=== PATIENT | female | born 1935 | race Caucasian/White ===

== ENCOUNTER → 2018-11-08 10:34 | Outpatient (CLI) | payer MEDICARE, OTHER, MEDICAID, SELFPAY ==
--- NOTE | 2018-11-08 | DI.RAD.S_ITS ---
PROCEDURE: XR CHEST 2V INDICATIONS: COUGH TECHNIQUE: 2 views of the chest were acquired. COMPARISON: [facility], CR, CHEST 1VW, 03/23/2014, 11:29. [facility], CR, CHEST 1 VIEW, 12/17/2011, 10:40. FINDINGS: Surgical changes and devices: Sternotomy wires and cardiac valvular prosthesis as before. Lungs and pleura: No acute consolidation. Scattered subsegmental atelectasis and/or scarring. Increased diffuse hazy groundglass and ill-defined opacities in addition to suspected Perez B-lines projecting in the right lung base, in keeping with pulmonary edema. Possible trace bilateral effusions. No pneumothorax. Mediastinum: Mediastinal contours are normal. Heart size is enlarged as before. Bones and chest wall: No suspicious bony abnormalities. Soft tissues appear unremarkable. IMPRESSION: Findings suggest pulmonary edema. Please correlate clinically. If there is persistent clinical diagnostic uncertainty, continued surveillance with short interval chest radiographs after treatment is recommended. Cardiomegaly. Possible trace bilateral pleural effusions Dictated by: Eyal Gabriel M.D. on 11/08/2018 at 12:03 Approved by: Eyal Gabriel M.D. on 11/08/2018 at 12:06
== END ==
PROVIDERS: PCP Physician Assistant; Visit Provider Student in an Organized Health Care Education/Training Program
DX: R05 Cough (principal); I51.7 Cardiomegaly
CPT/HCPCS: 71046

== ENCOUNTER 2018-12-15 21:06 | Inpatient (IN) | payer MEDICARE, OTHER, MEDICAID, SELFPAY ==
[2018-12-15] VITALS (11 sets, daily range): BP systolic 84–109; BP diastolic 47–82; PULSE 28–146; RESP 10–32; TEMP 32–36; O2SAT 93–100
--- NOTE | 2018-12-15 21:10 | DI.RAD.S_ITS ---
PROCEDURE: XR CHEST 1V INDICATIONS: shortmess of breath TECHNIQUE: One view of the chest was acquired. COMPARISON: [facility], CR, XR CHEST 2V, 11/08/2018, 10:45. FINDINGS: Surgical changes and devices: Remote valve are interstitial pulmonary edema. No focal pulmonary infiltrate. replacement Lungs and pleura: Lungs are clear. No pleural effusions or pneumothorax. Mediastinum: Cardiomegaly is stable. Bones and chest wall: No suspicious bony lesions. Overlying soft tissues appear unremarkable. IMPRESSION: Congestive heart failure. Dictated by: Scott Ruano M.D. on 12/15/2018 at 21:18 Approved by: Scott Ruano M.D. on 12/15/2018 at 21:19
[2018-12-15] MEDS: NITROGLYCERIN 0.4 MG SL TAB SL (21:18)
[2018-12-15] MEDS: FUROSEMIDE 100 MG/10 ML VIAL 60 MG IV (21:19)
--- NOTE | 2018-12-15 21:30 | ED.SOB ---
HPI - SOB/Dyspnea General Chief Complaint: Shortness of Breath/Dyspnea Stated Complaint: SOB Time Seen by Provider: 12/15/18 21:09 Source: patient and EMS Limitations: no limitations History of Present Illness Patient is an 83-year-old female with history of atrial fibrillation and congestive heart failure presenting with sudden onset shortness of breath. She said she was fine yesterday and this morning and suddenly this evening she felt like she could not breathe. She is in obvious respiratory distress she adamantly refuses intubation but is agreeable to BiPAP. She understands what that is. Denies any fever. She has no chest pains she just feels like she cannot breathe. Patient has a history of CVA with left-sided hemiparesis gets around by wheelchair MD Complaint: shortness of breath Onset (ago): hour(s) Known history of: congestive heart failure Related Data Home Medications Medication Instructions Recorded Confirmed CA PANTOTHENATE/FOLIC ACID/VIT 1 tab PO QDAY #0 12/17/11 (MULTIVITAMIN) Calcium Carbonate/Vitamin D 1 cap PO Q DAY #0 12/17/11 (#CALCIUM) Coenzyme Q10 (#COQ(10)10) 10 mg PO BID #0 12/17/11 FLAXSEED (FLAXSEED MEAL) 1 pow NA QDAY #0 12/17/11 Fish Oil (#FISH OIL) 1 iu PO BID #0 12/17/11 MAGNESIUM (#ELITE MAGNESIUM) 1 tab PO Q DAY #0 12/17/11 [DRIBOSE] 3 cap TID #0 12/17/11 amlodipine [Norvasc] 2.5 mg PO QDAY #0 12/17/11 aspirin 81 mg PO QDAY #0 12/17/11 hydrochlorothiazide 12.5 mg PO QDAY #0 12/17/11 metoprolol tartrate 100 mg PO BID #0 12/17/11 thyroid (pork) [[place] Thyroid] 30 mg PO QDAY #0 12/17/11 furosemide 20 mg PO DAILY 12/15/18 12/15/18 gabapentin 600 mg PO BEDTIME 12/15/18 12/15/18 hydralazine 25 mg PO TID 12/15/18 12/15/18 levothyroxine 100 mcg PO DAILY 12/15/18 12/15/18 losartan 100 mg PO DAILY 12/15/18 12/15/18 pravastatin 40 mg PO DAILY 12/15/18 12/15/18 tamsulosin 0.4 mg PO DAILY 12/15/18 12/15/18 Allergies Allergy/AdvReac Type Severity Reaction Status Date / Time No Known Drug Allergies Allergy Verified 12/15/18 21:31 Review of Systems Review of Systems ROS Unobtainable: All systems reviewed & are unremarkable except as noted in HPI and below Constitutional Denies frequent falls ENT Ears, Nose, Mouth, and Throat: Denies dizziness Cardiovascular Reports irregular heart rhythm and Reports dyspnea Respiratory Reports as per HPI and Reports dyspnea Gastrointestinal Gastrointestinal: Denies abdominal pain, Denies change in bowel habits, Denies diarrhea, Denies nausea and Denies vomiting Musculoskeletal Denies numbness Integumentary/Breasts Denies pruritus, Denies erythema, Denies rash and Denies wounds Neurologic Denies behavioral changes, Denies confusion, Denies dizziness, Denies frequent falls and Denies numbness Psychiatric Denies behavioral changes and Denies confusion [facility] Medical History Atrial fibrillation (Acute) CHF (congestive heart failure) (Acute) CVA (cerebral vascular accident) (Acute) Hyperlipidemia (Acute) Hypertension (Acute) Hypothyroid (Acute) Exam Initial Vital Signs Initial Vital Signs: Vital Signs Temperature 96.8 F L 12/15/18 21:11 Pulse Rate 146 H 12/15/18 21:11 Respiratory Rate 32 H 12/15/18 21:11 Gen.: Alert elderly female HEENT: Head is atraumatic, EOMI Neck: Soft full range of motion Lungs: Acute respiratory distress speaks in 1-2 word sentences audible wheezing Cardiac: Tachycardic regular no murmur Abdomen: Soft nontender, no guarding no rebound Extremities: +1 pitting edema peripheral pulses intact though difficult due to Raynaud Neurologic: Alert oriented times 3, left-sided weakness old from previous stroke Course Orders Ordered: ED Orders 12/15/18 21:10 Consult to Respiratory Therapy Evaluate & Treat XR chest 1V Stat Blood Culture Stat Lactate (Lactic Acid) Stat EKG-12 Lead Stat 12/15/18 21:15 B Type Natriuretic Peptide Stat Complete Blood Count AUTO DIFF Stat Comprehensive Metabolic Panel Stat Magnesium Stat Partial Thromboplastin Time Stat Procalcitonin Stat Prothrombin Time INR Stat Troponin & CK Cardiac Panel Stat 12/15/18 21:54 Urinalysis and Microscopic Stat 12/15/18 22:17 Arterial Blood Gas Routine 12/15/18 22:32 CT angio chest PE protocol Stat Discontinued Medications Digoxin (Lanoxin) 250 mcg IV NOW ONE Stop: 12/15/18 22:47 Last Admin: 12/15/18 23:25 Dose: 250 mcg Diltiazem HCl (Cardizem) 10 mg IV NOW ONE Stop: 12/15/18 22:44 Last Admin: 12/15/18 22:57 Dose: Not Given Furosemide (Lasix) 60 mg IV NOW ONE Stop: 12/15/18 21:11 Last Admin: 12/15/18 21:19 Dose: 60 mg Lorazepam (Ativan) 0.5 mg IV NOW ONE Stop: 12/15/18 22:32 Last Admin: 12/15/18 22:36 Dose: 0.5 mg Metoprolol Tartrate (Lopressor) 5 mg IV NOW ONE Stop: 12/15/18 21:34 Last Admin: 12/15/18 21:45 Dose: 5 mg Metoprolol Tartrate (Lopressor) 2.5 mg IV NOW ONE Stop: 12/15/18 22:28 Last Admin: 12/15/18 22:29 Dose: 2.5 mg Metoprolol Tartrate (Lopressor) 2.5 mg IV NOW ONE Stop: 12/15/18 22:32 Last Admin: 12/15/18 22:57 Dose: Not Given Nitroglycerin (Nitrostat) 0.4 mg SL NOW ONE Stop: 12/15/18 21:11 Last Admin: 12/15/18 21:18 Dose: 0.4 mg Vital Signs - 8 hr 12/15/18 21:11 12/15/18 21:59 12/15/18 22:30 Temperature 96.8 F L Pulse Rate 146 H 145 H 144 H Respiratory Rate 32 H 27 H 26 H Blood Pressure 106/75 Blood Pressure [Left Arm] 108/80 109/78 Pulse Oximetry 97 97 12/15/18 22:55 12/15/18 23:25 12/15/18 23:46 Temperature Pulse Rate 144 H 140 H 139 H Respiratory Rate 13 14 Blood Pressure 92/69 Blood Pressure [Left Arm] 90/64 102/82 Pulse Oximetry 98 93 MDM - SOB/Dyspnea Lab Data Attestation: I reviewed the patient's lab results. Result diagrams: 12/15/18 21:15 12/15/18 21:15 Lab Results 12/15/18 12/15/18 12/15/18 Range/Units 21:15 21:15 21:15 WBC 7.4 (4.5-11.0) X10^3/uL RBC 3.51 L (4.0-5.2) X10^6/uL Hgb 12.4 (12.0-16.0) g/dL Hct 38.2 (36-46) % MCV 108.9 H (80-100) fL MCH 35.2 H (26-34) PG MCHC 32.4 (30-36) % RDW 14.8 (11.6-14.8) % Plt Count 235 (150-400) X10^3/uL Neut % (Auto) 62.5 (50-75) % Lymph % (Auto) 29.0 (25-40) % [facility] % (Auto) 5.2 (3-14) % Eos % (Auto) 3.1 (2-4) % Baso % (Auto) 0.2 (0-2) % Neut # (Auto) 4700 (8527-6733) /uL Lymph # (Auto) 2200 (8854-3658) /uL [facility] # (Auto) 400 (0-900) /uL Eos # (Auto) 200 (0-450) /uL Baso # (Auto) 0 (0-100) /uL Plt Morphology Comment . RBC Morphology Normal morphology PT 11.1 (10.1-12.7) SECONDS INR 1.0 (0.9-1.3) APTT 25 L (26.4-36.2) SECONDS ABG pH (7.35-7.45) ABG pCO2 (35-45) mmHg ABG pO2 (80-100) mmHg ABG HCO3 (22-26) mmol/L ABG Total CO2 (21-31) mmol/L ABG O2 Saturation (95-100) % ABG Base Excess (-2-2) mmol/L FiO2 Sodium 139 (137-145) mmol/L Potassium 4.6 (3.4-5.1) mmol/L Chloride 101 (98-107) mmol/L Carbon Dioxide 25 (22-32) mmol/L BUN 20 H (7-17) mg/dL Creatinine 0.90 (0.52-1.04) mg/dL Estimated GFR 59.9 L (>60) mL/min BUN/Creatinine Ratio 22.2 H (6-22) Glucose 142 H (80-110) mg/dL Calcium 9.5 (8.4-10.2) mg/dL Magnesium 2.2 (1.6-2.3) mg/dL Total Bilirubin 1.6 H (0.2-1.3) mg/dL AST 40 H (14-36) IU/L ALT 30 (9-52) IU/L Alkaline Phosphatase 46 (38-126) U/L Total Creatine Kinase 49 (30-135) U/L CK-MB (CK-2) TNP CK-MB (CK-2) Rel Index TNP Troponin I < 0.012 (0.01-0.034) ng/mL B-Natriuretic Peptide 357 H (<100) Total Protein 7.6 (6.3-8.2) g/dL Albumin 4.6 (3.5-5.0) g/dL Globulin 3.0 (1.7-4.1) g/dL Albumin/Globulin Ratio 1.5 (1.0-2.8) Procalcitonin (<0.5) ng/mL Urine Color Urine Appearance Urine pH (4.5-8.0) Ur Specific [place] (1.000-1.035) Urine Protein (Negative) Urine Glucose (UA) (Negative) g/dL Urine Ketones (NEGATIVE) Urine Occult Blood (Negative) Urine Nitrate (Negative) Urine Bilirubin (NEGATIVE) Urine Urobilinogen (0.2) E.U./dL Ur Leukocyte Esterase (NEGATIVE) Urine RBC (0-5/HPF) Urine WBC (0-5/HPF) Urine Bacteria (None) Ur Culture Indicated? Micro UA Comment 12/15/18 12/15/18 12/15/18 Range/Units 21:15 21:54 22:17 WBC (4.5-11.0) X10^3/uL RBC (4.0-5.2) X10^6/uL Hgb (12.0-16.0) g/dL Hct (36-46) % MCV (80-100) fL MCH (26-34) PG MCHC (30-36) % RDW (11.6-14.8) % Plt Count (150-400) X10^3/uL Neut % (Auto) (50-75) % Lymph % (Auto) (25-40) % [facility] % (Auto) (3-14) % Eos % (Auto) (2-4) % Baso % (Auto) (0-2) % Neut # (Auto) (2861-9312) /uL Lymph # (Auto) (7113-4302) /uL [facility] # (Auto) (0-900) /uL Eos # (Auto) (0-450) /uL Baso # (Auto) (0-100) /uL Plt Morphology Comment RBC Morphology PT (10.1-12.7) SECONDS INR (0.9-1.3) APTT (26.4-36.2) SECONDS ABG pH 7.41 (7.35-7.45) ABG pCO2 36.3 (35-45) mmHg ABG pO2 135 H (80-100) mmHg ABG HCO3 23 (22-26) mmol/L ABG Total CO2 24 (21-31) mmol/L ABG O2 Saturation 99 (95-100) % ABG Base Excess -2.0 (-2-2) mmol/L FiO2 40 Sodium (137-145) mmol/L Potassium (3.4-5.1) mmol/L Chloride (98-107) mmol/L Carbon Dioxide (22-32) mmol/L BUN (7-17) mg/dL Creatinine (0.52-1.04) mg/dL Estimated GFR (>60) mL/min BUN/Creatinine Ratio (6-22) Glucose (80-110) mg/dL Calcium (8.4-10.2) mg/dL Magnesium (1.6-2.3) mg/dL Total Bilirubin (0.2-1.3) mg/dL AST (14-36) IU/L ALT (9-52) IU/L Alkaline Phosphatase (38-126) U/L Total Creatine Kinase (30-135) U/L CK-MB (CK-2) CK-MB (CK-2) Rel Index Troponin I (0.01-0.034) ng/mL B-Natriuretic Peptide (<100) Total Protein (6.3-8.2) g/dL Albumin (3.5-5.0) g/dL Globulin (1.7-4.1) g/dL Albumin/Globulin Ratio (1.0-2.8) Procalcitonin < 0.05 (<0.5) ng/mL Urine Color Yellow Urine Appearance Clear Urine pH 6.5 (4.5-8.0) Ur Specific [place] 1.010 (1.000-1.035) Urine Protein Negative (Negative) Urine Glucose (UA) Negative (Negative) g/dL Urine Ketones Negative (NEGATIVE) Urine Occult Blood Negative (Negative) Urine Nitrate Negative (Negative) Urine Bilirubin Negative (NEGATIVE) Urine Urobilinogen 0.2 (0.2) E.U./dL Ur Leukocyte Esterase Negative (NEGATIVE) Urine RBC None seen (0-5/HPF) Urine WBC None seen (0-5/HPF) Urine Bacteria None seen (None) Ur Culture Indicated? Cult not indicated Micro UA Comment Microscopic normal Imaging Data Chest x-ray: Radiologist's impression: PROCEDURE: XR CHEST 1V INDICATIONS: shortmess of breath TECHNIQUE: One view of the chest was acquired. COMPARISON: [facility], , XR CHEST 2V, 11/08/2018, 10:45. FINDINGS: Surgical changes and devices: Remote valve are interstitial pulmonary edema. No focal pulmonary infiltrate. replacement Lungs and pleura: Lungs are clear. No pleural effusions or pneumothorax. Mediastinum: Cardiomegaly is stable. Bones and chest wall: No suspicious bony lesions. Overlying soft tissues appear unremarkable. IMPRESSION: Congestive heart failure. Dictated by: Scott Ruano M.D. on 12/15/[address] scan - chest: Radiologist's impression: oreman report: No evidence for pulmonary embolus. Probable acute pulmonary edema with bilateral pleural effusions. 1.8 cm medial right middle lobe nodule question mass or pericardial node. Short-term follow-up chest CT or PET imaging may be necessary ECG Data Attestation: I personally reviewed and interpreted this ECG as follows: Prior ECG tracings: available for review Interpretation: Wide complex irregular left bundle-branch block rate 150. MDM Narrative Medical decision making narrative: The patient was immediately given sublingual nitroglycerin and 60 mg of Lasix. She was placed on BiPAP. She did not want to be intubated. She is tolerating BiPAP even talking through BiPAP to her friends and to us. Heart rate remains elevated at 150 she is on metoprolol for atrial fibrillation. Due to likely acute congestive heart failure will not give her Cardizem. Tried 5 mg of IV Lopressor. Initially brought her heart rate down to the 120s where it clearly look like atrial fibrillation, irregular. However her pressure did decrease in her heart rate quickly began rising again. She was given a 2nd dose of 2.5 mg Lopressor which did not change her heart rate much and continue to decrease her blood pressure. Patient is not a candidate for cardioversion she has already had a CVA she is not on anticoagulation. Decision to give digoxin she is given 250mcg, heart rate decreased to 139 blood pressure actually rising. She urinated 900 mL ABG actually looks okay, O2 was decreased from 40% to 35% Decision for CT to rule out PE. I have spoken to the son multiple times [id number] . At this time he states patient would like CPR but she does not want intubation. Pritesh hospitalist, accepts. patient will be going to ICU Critical Care Time Critical Care Time: Yes Total Critical Care Time: 60 Attestation: The high probability of a clinically significant, sudden or life threatening deterioration of the [cardiovascular] system(s) required my full and direct attention, intervention and personal management. The aggregate critical care time was 60 minutes. This time is in addition to time spent performing reported procedures but includes the following: [x] Data Review and interpretation [x] Patient assessment and monitoring of vital signs [x] Documentation [x] Medication orders and management
--- NOTE | 2018-12-15 21:30 | PC.NURSE ---
Pt refuses further lab draw or IV placement despite discussion, MD Ortiz notified
[2018-12-15 21:31] LABS: Basophils Absolute Auto 0 /uL (0-100); Basophils Percent Auto 0.2 % (0-2); Eosinophils Absolute Auto 200 /uL (0-450); Eosinophils Percent Auto 3.1 % (2-4); Hematocrit 38.2 % (36-46); Hemoglobin 12.4 g/dL (12.0-16.0); Lymphocytes Absolute Auto 2200 /uL (1100-4500); Mean Corpuscular HGB Conc 32.4 % (30-36); Mean Corpuscular Hemoglobin 35.2 PG (26-34); Mean Corpuscular Volume 108.9 fL (80-100); Monocytes Absolute Auto 400 /uL (0-900); Monocytes Percent Auto 5.2 % (3-14); Neutrophils Absolute Auto 4700 /uL (1500-7000); Neutrophils Percent Auto 62.5 % (50-75); Platelet Count 235 X10^3/uL (150-400); Red Blood Cell Count 3.51 X10^6/uL (4.0-5.2); Red Cell Distribution Width 14.8 % (11.6-14.8); White Blood Cell Count 7.4 X10^3/uL (4.5-11.0)
[2018-12-15 21:32] LABS: Prothrombin Time 11.1 SECONDS (10.1-12.7)
[2018-12-15 21:34] LABS: Add Manual Diff / Slide Review SLIDE REVIEW
[2018-12-15 21:35] LABS: PTT Partial Thromboplastin Tim 25 SECONDS (26.4-36.2)
[2018-12-15 21:37] LABS: Alanine Aminotransferase 30 IU/L (9-52); Albumin 4.6 g/dL (3.5-5.0); Albumin Globulin Ratio 1.5 (1.0-2.8); Alkaline Phosphatase 46 U/L (38-126); Aspartate Aminotransferase 40 IU/L (14-36); BUN Creatinine Ratio 22.2 (6-22); Bilirubin Total 1.6 mg/dL (0.2-1.3); Blood Urea Nitrogen 20 mg/dL (7-17); Calcium 9.5 mg/dL (8.4-10.2); Carbon Dioxide 25 mmol/L (22-32); Chloride 101 mmol/L (98-107); Creatine Kinase 49 U/L (30-135); Estimated Glomerular Filt Rate 59.9 mL/min (>60); Glucose 142 mg/dL (80-110); Magnesium 2.2 mg/dL (1.6-2.3); Potassium 4.6 mmol/L (3.4-5.1); Sodium 139 mmol/L (137-145); Total Protein 7.6 g/dL (6.3-8.2)
[2018-12-15 21:39] LABS: HEMOLYSIS 56 (0-50)
[2018-12-15] MEDS: METOPROLOL TARTRATE 5 MG/5 ML INJ IV (21:45)
[2018-12-15 21:49] LABS: Troponin I < 0.012 ng/mL (0.01-0.034)
[2018-12-15 21:52] LABS: Procalcitonin < 0.05 ng/mL (<0.5)
--- NOTE | 2018-12-15 21:54 | ED_ITS ---
HPI - SOB/Dyspnea General Chief Complaint: Shortness of Breath/Dyspnea Stated Complaint: SOB Time Seen by Provider: 12/15/18 21:09 Source: patient and EMS Limitations: no limitations History of Present Illness Patient is an 83-year-old female with history of atrial fibrillation and congestive heart failure presenting with sudden onset shortness of breath. She said she was fine yesterday and this morning and suddenly this evening she felt like she could not breathe. She is in obvious respiratory distress she adamantly refuses intubation but is agreeable to BiPAP. She understands what that is. Denies any fever. She has no chest pains she just feels like she cannot breathe. Patient has a history of CVA with left-sided hemiparesis gets around by jhon air KWAN Complaint: shortness of breath Onset (ago): hour(s) Known history of: congestive heart failure Related Data Home Medications Medication Instructions Recorded Confirmed CA PANTOTHENATE/FOLIC ACID/VIT 1 tab PO QDAY #0 12/17/11 (MULTIVITAMIN) Calcium Carbonate/Vitamin D 1 cap PO Q DAY #0 12/17/11 (#CALCIUM) Coenzyme Q10 (#COQ(1010) 10 mg PO BID #0 12/17/11 FLAXSEED (FLAXSEED MEAL) 1 pow NA QDAY #0 12/17/11 Fish Oil (#FISH OIL) 1 iu PO BID #0 12/17/11 MAGNESIUM (#ELITE MAGNESIUM) 1 tab PO Q DAY #0 12/17/11 [DRIBOSE] 3 cap TID #0 12/17/11 amlodipine [Norvasc] 2.5 mg PO QDAY #0 12/17/11 aspirin 81 mg PO QDAY #0 12/17/11 hydrochlorothiazide 12.5 mg PO QDAY #0 12/17/11 metoprolol tartrate 100 mg PO BID #0 12/17/11 thyroid (pork) [[place] Thyroid] 30 mg PO QDAY #0 12/17/11 furosemide 20 mg PO DAILY 12/15/18 12/15/18 gabapentin 600 mg PO BEDTIME 12/15/18 12/15/18 hydralazine 25 mg PO TID 12/15/18 12/15/18 levothyroxine 100 mcg PO DAILY 12/15/18 12/15/18 losartan 100 mg PO DAILY 12/15/18 12/15/18 pravastatin 40 mg PO DAILY 12/15/18 12/15/18 tamsulosin 0.4 mg PO DAILY 12/15/18 12/15/18 Allergies Allergy/AdvReac Type Severity Reaction Status Date / Time No Known Drug Allergies Allergy Verified 12/15/18 21:31 Review of Systems Review of Systems ROS Unobtainable: All systems reviewed & are unremarkable except as noted in HPI and below Constitutional Denies frequent falls ENT Ears, Nose, Mouth, and Throat: Denies dizziness Cardiovascular Reports irregular heart rhythm and Reports dyspnea Respiratory Reports as per HPI and Reports dyspnea Gastrointestinal Gastrointestinal: Denies abdominal pain, Denies change in bowel habits, Denies diarrhea, Denies nausea and Denies vomiting Musculoskeletal Denies numbness Integumentary/Breasts Denies pruritus, Denies erythema, Denies rash and Denies wounds Neurologic Denies behavioral changes, Denies confusion, Denies dizziness, Denies frequent falls and Denies numbness Psychiatric Denies behavioral changes and Denies confusion [facility] Medical History Atrial fibrillation (Acute) CHF (congestive heart failure) (Acute) CVA (cerebral vascular accident) (Acute) Hyperlipidemia (Acute) Hypertension (Acute) Hypothyroid (Acute) Exam Initial Vital Signs Initial Vital Signs: Vital Signs Temperature 96.8 F L 12/15/18 21:11 Pulse Rate 146 H 12/15/18 21:11 Respiratory Rate 32 H 12/15/18 21:11 Gen.: Alert elderly female HEENT: Head is atraumatic, EOMI Neck: Soft full range of motion Lungs: Acute respiratory distress speaks in 1-2 word sentences audible wheezing Cardiac: Tachycardic regular no murmur Abdomen: Soft nontender, no guarding no rebound Extremities: +1 pitting edema peripheral pulses intact though difficult due to Raynaud Neurologic: Alert oriented times 3, left-sided weakness old from previous stroke Course Orders Ordered: ED Orders 12/15/18 21:10 Consult to Respiratory Therapy Evaluate & Treat XR chest 1V Stat Blood Culture Stat Lactate (Lactic Acid) Stat EKG-12 Lead Stat 12/15/18 21:15 B Type Natriuretic Peptide Stat Complete Blood Count AUTO DIFF Stat Comprehensive Metabolic Panel Stat Magnesium Stat Partial Thromboplastin Time Stat Procalcitonin Stat Prothrombin Time INR Stat Troponin & CK Cardiac Panel Stat 12/15/18 21:54 Urinalysis and Microscopic Stat 12/15/18 22:17 Arterial Blood Gas Routine 12/15/18 22:32 CT angio chest PE protocol Stat Discontinued Medications Digoxin (Lanoxin) 250 mcg IV NOW ONE Stop: 12/15/18 22:47 Last Admin: 12/15/18 23:25 Dose: 250 mcg Diltiazem HCl (Cardizem) 10 mg IV NOW ONE Stop: 12/15/18 22:44 Last Admin: 12/15/18 22:57 Dose: Not Given Furosemide (Lasix) 60 mg IV NOW ONE Stop: 12/15/18 21:11 Last Admin: 12/15/18 21:19 Dose: 60 mg Lorazepam (Ativan) 0.5 mg IV NOW ONE Stop: 12/15/18 22:32 Last Admin: 12/15/18 22:36 Dose: 0.5 mg Metoprolol Tartrate (Lopressor) 5 mg IV NOW ONE Stop: 12/15/18 21:34 Last Admin: 12/15/18 21:45 Dose: 5 mg Metoprolol Tartrate (Lopressor) 2.5 mg IV NOW ONE Stop: 12/15/18 22:28 Last Admin: 12/15/18 22:29 Dose: 2.5 mg Metoprolol Tartrate (Lopressor) 2.5 mg IV NOW ONE Stop: 12/15/18 22:32 Last Admin: 12/15/18 22:57 Dose: Not Given Nitroglycerin (Nitrostat) 0.4 mg SL NOW ONE Stop: 12/15/18 21:11 Last Admin: 12/15/18 21:18 Dose: 0.4 mg Vital Signs - 8 hr 12/15/18 21:11 12/15/18 21:59 12/15/18 22:30 Temperature 96.8 F L Pulse Rate 146 H 145 H 144 H Respiratory Rate 32 H 27 H 26 H Blood Pressure 106/75 Blood Pressure [Left Arm] 108/80 109/78 Pulse Oximetry 97 97 12/15/18 22:55 12/15/18 23:25 12/15/18 23:46 Temperature Pulse Rate 144 H 140 H 139 H Respiratory Rate 13 14 Blood Pressure 92/69 Blood Pressure [Left Arm] 90/64 102/82 Pulse Oximetry 98 93 MDM - SOB/Dyspnea Lab Data Attestation: I reviewed the patient's lab results. Result diagrams: 12/15/18 21:15 12/15/18 21:15 Lab Results 12/15/18 12/15/18 12/15/18 Range/Units 21:15 21:15 21:15 WBC 7.4 (4.5-11.0) X10^3/uL RBC 3.51 L (4.0-5.2) X10^6/uL Hgb 12.4 (12.0-16.0) g/dL Hct 38.2 (36-46) % MCV 108.9 H (80-100) fL MCH 35.2 H (26-34) PG MCHC 32.4 (30-36) % RDW 14.8 (11.6-14.8) % Plt Count 235 (150-400) X10^3/uL Neut % (Auto) 62.5 (50-75) % Lymph % (Auto) 29.0 (25-40) % [place] % (Auto) 5.2 (3-14) % Eos % (Auto) 3.1 (2-4) % Baso % (Auto) 0.2 (0-2) % Neut # (Auto) 4700 (3799-9551) /uL Lymph # (Auto) 2200 (7431-9367) /uL [place] # (Auto) 400 (0-900) /uL Eos # (Auto) 200 (0-450) /uL Baso # (Auto) 0 (0-100) /uL Plt Morphology Comment . RBC Morphology Normal morphology PT 11.1 (10.1-12.7) SECONDS INR 1.0 (0.9-1.3) APTT 25 L (26.4-36.2) SECONDS ABG pH (7.35-7.45) ABG pCO2 (35-45) mmHg ABG pO2 (80-100) mmHg ABG HCO3 (22-26) mmol/L ABG Total CO2 (21-31) mmol/L ABG O2 Saturation (95-100) % ABG Base Excess (-2-2) mmol/L FiO2 Sodium 139 (137-145) mmol/L Potassium 4.6 (3.4-5.1) mmol/L Chloride 101 (98-107) mmol/L Carbon Dioxide 25 (22-32) mmol/L BUN 20 H (7-17) mg/dL Creatinine 0.90 (0.52-1.04) mg/dL Estimated GFR 59.9 L (>60) mL/min BUN/Creatinine Ratio 22.2 H (6-22) Glucose 142 H (80-110) mg/dL Calcium 9.5 (8.4-10.2) mg/dL Magnesium 2.2 (1.6-2.3) mg/dL Total Bilirubin 1.6 H (0.2-1.3) mg/dL AST 40 H (14-36) IU/L ALT 30 (9-52) IU/L Alkaline Phosphatase 46 (38-126) U/L Total Creatine Kinase 49 (30-135) U/L CK-MB (CK-2) TNP CK-MB (CK-2) Rel Index TNP Troponin I < 0.012 (0.01-0.034) ng/mL B-Natriuretic Peptide 357 H (<100) Total Protein 7.6 (6.3-8.2) g/dL Albumin 4.6 (3.5-5.0) g/dL Globulin 3.0 (1.7-4.1) g/dL Albumin/Globulin Ratio 1.5 (1.0-2.8) Procalcitonin (<0.5) ng/mL Urine Color Urine Appearance Urine pH (4.5-8.0) Ur Specific [place] (1.000-1.035) Urine Protein (Negative) Urine Glucose (UA) (Negative) g/dL Urine Ketones (NEGATIVE) Urine Occult Blood (Negative) Urine Nitrate (Negative) Urine Bilirubin (NEGATIVE) Urine Urobilinogen (0.2) E.U./dL Ur Leukocyte Esterase (NEGATIVE) Urine RBC (0-5/HPF) Urine WBC (0-5/HPF) Urine Bacteria (None) Ur Culture Indicated? Micro UA Comment 12/15/18 12/15/18 12/15/18 Range/Units 21:15 21:54 22:17 WBC (4.5-11.0) X10^3/uL RBC (4.0-5.2) X10^6/uL Hgb (12.0-16.0) g/dL Hct (36-46) % MCV (80-100) fL MCH (26-34) PG MCHC (30-36) % RDW (11.6-14.8) % Plt Count (150-400) X10^3/uL Neut % (Auto) (50-75) % Lymph % (Auto) (25-40) % [place] % (Auto) (3-14) % Eos % (Auto) (2-4) % Baso % (Auto) (0-2) % Neut # (Auto) (9665-4711) /uL Lymph # (Auto) (9834-5292) /uL [place] # (Auto) (0-900) /uL Eos # (Auto) (0-450) /uL Baso # (Auto) (0-100) /uL Plt Morphology Comment RBC Morphology PT (10.1-12.7) SECONDS INR (0.9-1.3) APTT (26.4-36.2) SECONDS ABG pH 7.41 (7.35-7.45) ABG pCO2 36.3 (35-45) mmHg ABG pO2 135 H (80-100) mmHg ABG HCO3 23 (22-26) mmol/L ABG Total CO2 24 (21-31) mmol/L ABG O2 Saturation 99 (95-100) % ABG Base Excess -2.0 (-2-2) mmol/L FiO2 40 Sodium (137-145) mmol/L Potassium (3.4-5.1) mmol/L Chloride (98-107) mmol/L Carbon Dioxide (22-32) mmol/L BUN (7-17) mg/dL Creatinine (0.52-1.04) mg/dL Estimated GFR (>60) mL/min BUN/Creatinine Ratio (6-22) Glucose (80-110) mg/dL Calcium (8.4-10.2) mg/dL Magnesium (1.6-2.3) mg/dL Total Bilirubin (0.2-1.3) mg/dL AST (14-36) IU/L ALT (9-52) IU/L Alkaline Phosphatase (38-126) U/L Total Creatine Kinase (30-135) U/L CK-MB (CK-2) CK-MB (CK-2) Rel Index Troponin I (0.01-0.034) ng/mL B-Natriuretic Peptide (<100) Total Protein (6.3-8.2) g/dL Albumin (3.5-5.0) g/dL Globulin (1.7-4.1) g/dL Albumin/Globulin Ratio (1.0-2.8) Procalcitonin < 0.05 (<0.5) ng/mL Urine Color Yellow Urine Appearance Clear Urine pH 6.5 (4.5-8.0) Ur Specific [place] 1.010 (1.000-1.035) Urine Protein Negative (Negative) Urine Glucose (UA) Negative (Negative) g/dL Urine Ketones Negative (NEGATIVE) Urine Occult Blood Negative (Negative) Urine Nitrate Negative (Negative) Urine Bilirubin Negative (NEGATIVE) Urine Urobilinogen 0.2 (0.2) E.U./dL Ur Leukocyte Esterase Negative (NEGATIVE) Urine RBC None seen (0-5/HPF) Urine WBC None seen (0-5/HPF) Urine Bacteria None seen (None) Ur Culture Indicated? Cult not indicated Micro UA Comment Microscopic normal Imaging Data Chest x-ray: Radiologist's impression: PROCEDURE: XR CHEST 1V INDICATIONS: shortmess of breath TECHNIQUE: One view of the chest was acquired. COMPARISON: [facility], , XR CHEST 2V, 11/08/2018, 10:45. FINDINGS: Surgical changes and devices: Remote valve are interstitial pulmonary edema. No focal pulmonary infiltrate. replacement Lungs and pleura: Lungs are clear. No pleural effusions or pneumothorax. Mediastinum: Cardiomegaly is stable. Bones and chest wall: No suspicious bony lesions. Overlying soft tissues appear unremarkable. IMPRESSION: Congestive heart failure. Dictated by: Scott Ruano M.D. on 12/15/[address] scan - chest: Radiologist's impression: information support project manager report: No evidence for pulmonary embolus. Probable acute pulmonary edema with bilateral pleural effusions. 1.8 cm medial right middle lobe nodule question mass or pericardial node. Short-term follow-up chest CT or PET imaging may be necessary ECG Data Attestation: I personally reviewed and interpreted this ECG as follows: Prior ECG tracings: available for review Interpretation: Wide complex irregular left bundle-branch block rate 150. MDM Narrative Medical decision making narrative: The patient was immediately given sublingual nitroglycerin and 60 mg of Lasix. She was placed on BiPAP. She did not want to be intubated. She is tolerating BiPAP even talking through BiPAP to her friends and to us. Heart rate remains elevated at 150 she is on metoprolol for atrial fibrillation. Due to likely acute congestive heart failure will not give her Cardizem. Tried 5 mg of IV Lopressor. Initially brought her heart rate down to the 120s where it clearly look like atrial fibrillation, irregular. However her pressure did decrease in her heart rate quickly began rising again. She was given a 2nd dose of 2.5 mg Lopressor which did not change her heart rate much and continue to decrease her blood pressure. Patient is not a candidate for cardioversion she has already had a CVA she is not on anticoagulation. Decision to give digoxin she is given 250mcg, heart rate decreased to 139 blood pressure actually rising. She urinated 900 mL ABG actually looks okay, O2 was decreased from 40% to 35% Decision for CT to rule out PE. I have spoken to the son multiple times Davon-0 . At this time he states patient would like CPR but she does not want intubation. Pritesh hospitalist, accepts. patient will be going to ICU Critical Care Time Critical Care Time: Yes Total Critical Care Time: 60 Attestation: The high probability of a clinically significant, sudden or life threatening deterioration of the [cardiovascular] system(s) required my full and direct attention, intervention and personal management. The aggregate critical care time was 60 minutes. This time is in addition to time spent performing reported procedures but includes the following: [x] Data Review and interpretation [x] Patient assessment and monitoring of vital signs [x] Documentation [x] Medication orders and management
[2018-12-15 22:01] LABS: B Type Natriuretic Peptide 357 (<100)
[2018-12-15 22:08] LABS: RBC Morphology Normal Morphology
[2018-12-15] MEDS: METOPROLOL TARTRATE 5 MG/5 ML INJ 2.5 MG IV (22:29)
[2018-12-15 22:31] LABS: Bacteria Urine None Seen; RBC Urine None Seen (0-5/HPF); WBC Urine None Seen (0-5/HPF)
[2018-12-15 22:32] LABS: Appearance Urine UA CLEAR; Bilirubin Urine UA NEGATIVE (NEGATIVE); Color Urine UA YELLOW; Glucose Urine UA NEGATIVE (Negative); Ketones Urine UA NEGATIVE (NEGATIVE); Leukocyte Esterase Urine UA NEGATIVE (NEGATIVE); Nitrite Urine UA NEGATIVE (Negative); Occult Blood Urine UA NEGATIVE (Negative); Protein Urine UA NEGATIVE (Negative); Urobilinogen Urine UA 0.2 E.U./dL (0.2); pH Urine UA 6.5 (4.5-8.0)
--- NOTE | 2018-12-15 22:32 | DI.CT.S_ITS ---
PROCEDURE: CT ANGIO CHEST PE PROTOCOL INDICATIONS: hypoxia TECHNIQUE: After the administration of intravenous contrast, 2 mm thick sections acquired from the pulmonary apices to the posterior costophrenic angles. 3-dimensional maximum intensity projection (MIP) coronal and sagittal reformats were then acquired through the thorax. For radiation dose reduction, the following was used: automated exposure control, adjustment of mA and/or kV according to patient size. COMPARISON: None. FINDINGS: Image quality: Excellent. Pulmonary arteries: Pulmonary arteries are normal in size, and demonstrate no intraluminal filling defects to suggest central pulmonary embolism. Lungs and pleura: Small bilateral pleural fluid collections noted. Patchy, diffuse, ground glass opacities with perihilar predominance noted concerning for CHF. There is a 2 cm in maximum diameter nodule in the medial and inferior aspect of the right upper lobe No pneumothorax. Central and peripheral airways are patent. Mediastinum: Heart size is enlarged without pericardial effusion. No mediastinal or hilar adenopathy. The ascending thoracic aorta measures 4.5 x 4.8 cm. Mitral annulus and aortic valvular calcifications noted. Esophagus is normal in caliber, without hiatal hernia. Bones and chest wall: No suspicious bony lesions. Ribs and thoracic spine appear intact throughout. No axillary or supraclavicular adenopathy. Abdomen: Partially visualized, 3.6 cm in diameter hypoattenuating lesion noted in the liver. Visualized upper abdominal solid organs appear normal in the early arterial phase of enhancement. IMPRESSION: 1. No pulmonary embolus. 2. Probable pulmonary edema with small bilateral pleural fluid collections possibly related to CHF. 3. Cardiomegaly. 4. Atherosclerosis including the coronary vasculature. 5. 4.5 x 4.8 cm ascending thoracic aortic aneurysm. 6. 2.0 cm right upper lobe mass concerning for neoplastic process. Recommend PET CT scan for further evaluation. Dictated by: Lexy Gonzalez MD, PhD on 12/16/2018 at 8:03 Approved by: Lexy Gonzalez MD, PhD on 12/16/2018 at 8:09
[2018-12-15 22:36] LABS: Fractionated Inspired Oxygen 40; HCO3 ABG 23 mmol/L (22-26); Oxygen Saturation ABG 99 % (95-100); PCO2 ABG 36.3 mmHg (35-45); PO2 ABG 135 mmHg (80-100); TCO2 ABG 24 mmol/L (21-31); pH ABG 7.41 (7.35-7.45)
[2018-12-15] MEDS: LORazepam 2 MG/ML SYRINGE 0.5 MG IV (22:36)
[2018-12-15 22:39] LABS: Culture Indicated Urine Cult Not Indicated; Urine Comments Microscopic Normal
[2018-12-15] MEDS: DIGOXIN 500 MCG/2 ML AMPUL 250 MCG IV (23:25)
[2018-12-16] VITALS (25 sets, daily range): BP systolic 79–144; BP diastolic 50–87; PULSE 78–148; RESP 10–20; TEMP 32–36.3; O2SAT 94–100; BMI 27.6
--- NOTE | 2018-12-16 02:22 | P.HP_ITS ---
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 The patient states that earlier today she was feeling fine with no complaints of pain or problems and was participating in an online web in our respond to questions. The patient states he developed an acute shortness of breath without chest pain or pressure, diaphoresis or nausea. She felt no palpitations and has had a history of atrial fibrillation in the past. At the time of onset the patient reports she took an extra tablet of 20 mg Lasix. She reports no recent cold or flu symptoms and has had no fevers or chills, headaches or dizziness, nasal congestion or sore throat. She reports no abdominal pain constipation or diarrhea and has no urinary symptoms. She uses a wheelchair for mobilization and is unable to walk without assistance due to her residual left hemiparesis. Upon arrival in the ER at 2110 the patient was afebrile temperature 96.8? tachycardic with heart rate of 146, blood pressure 108/80 and respiratory rate of 32 the patient was immediately placed on oxygen and given nitroglycerin and Lasix. According to the ER report the patient was initially in atrial fibrillation with left bundle branch block. The patient had diuresis of 1 L but remained tachycardic. She received Lopressor 2.5 mg x2 and 5 mg x1 with a transient decrease in heart rate to 120s but also significant decrease in her blood pressure. Her heart rate stabilized at 139 beats per minute. She then re ceived digoxin 250 mcg with no appreciable change in heart rate. Patient's CBC reveals a normal white count of 7.4 with hemoglobin of 12.4 and hematocrit 38.2 and platelets 235. She her electrolytes are within normal limits she has a BUN of 20 and creatinine 0.9 from with an EGFR of 59.9 and a blood sugar of 142. Her magnesium was 2.2 and BMP was 357 and troponin was negative at less than 0.012 as was procalcitonin at less than 0.05. Her urinalysis is unremarkable. Her ABG reveals a pH of 7.41, pCO2 of 36.3, PO2 135 and a bicarb of 23 on 40% FiO2. The patient was requesting medication to help her sleep and was given Ativan in the ER. Patient History Medical History Raynauds disease (Acute) Atrial fibrillation (Acute) CHF (congestive heart failure) (Acute) CVA (cerebral vascular accident) (Acute) Hyperlipidemia (Acute) Hypertension (Acute) Hypothyroid (Acute) Surgical History History of aortic valve replacement (Acute) Social History household members: none Smoking Status: Former smoker Family & Social History Safety & Behavioral: Feels Safe in Current Yes Environment Been Physically Hurt or No Threatened By a Person Comment: The patient lives in a single family home by herself with caregivers who comes in the mornings. Smoking: Alcohol: Substance use: Advanced directive: The patient wishes to be a LIMITED CODE with DO NOT INTUBATE. she designates her son Davon (phone number [phone]) to be her surrogate decision maker. Meds Home Medications Medication Instructions Recorded Confirmed Type CA PANTOTHENATE/FOLIC ACID/VIT 1 tab PO QDAY #0 12/17/11 History (MULTIVITAMIN) Calcium Carbonate/Vitamin D 1 cap PO Q DAY #0 12/17/11 History (#CALCIUM) Coenzyme Q10 (#COQ(10)10) 10 mg PO BID #0 12/17/11 History FLAXSEED (FLAXSEED MEAL) 1 pow NA QDAY #0 12/17/11 History Fish Oil (#FISH OIL) 1 iu PO BID #0 12/17/11 History MAGNESIUM (#ELITE MAGNESIUM) 1 tab PO Q DAY #0 12/17/11 History [DRIBOSE] 3 cap TID #0 12/17/11 History amlodipine [Norvasc] 2.5 mg PO QDAY #0 12/17/11 History aspirin 81 mg PO QDAY #0 12/17/11 History hydrochlorothiazide 12.5 mg PO QDAY #0 12/17/11 History metoprolol tartrate 100 mg PO BID #0 12/17/11 History thyroid (pork) [[place] Thyroid] 30 mg PO QDAY #0 12/17/11 History furosemide 20 mg PO DAILY 12/15/18 12/15/18 History gabapentin 600 mg PO BEDTIME 12/15/18 12/15/18 History hydralazine 25 mg PO TID 12/15/18 12/15/18 History levothyroxine 100 mcg PO DAILY 12/15/18 12/15/18 History losartan 100 mg PO DAILY 12/15/18 12/15/18 History pravastatin 40 mg PO DAILY 12/15/18 12/15/18 History tamsulosin 0.4 mg PO DAILY 12/15/18 12/15/18 History Allergies Allergy/AdvReac Type Severity Reaction Status Date / Time No Known Drug Allergies Allergy Verified 12/15/18 21:31 Review of Systems Review of Systems All systems reviewed & are unremarkable except as noted in HPI and below Exam Vital Signs (past 8 hours): - 12/15/18 21:11 12/15/18 21:59 12/15/18 22:30 Temperature 96.8 F L Pulse Rate 146 H 145 H 145 H Respiratory Rate 32 H 27 H 26 H Blood Pressure 106/75 Blood Pressure [Left Arm] 108/80 106/75 Pulse Oximetry 97 97 12/15/18 22:45 12/15/18 22:55 12/15/18 23:00 Temperature Pulse Rate 144 H 144 H 144 H Respiratory Rate 13 Blood Pressure Blood Pressure [Left Arm] 87/47 L 90/64 84/63 L Pulse Oximetry 96 98 94 12/15/18 23:15 12/15/18 23:25 12/15/18 23:45 Temperature Pulse Rate 140 H 140 H 139 H Respiratory Rate Blood Pressure 92/69 Blood Pressure [Left Arm] 91/61 Pulse Oximetry 97 98 12/15/18 23:46 12/16/18 00:04 12/16/18 00:15 Temperature Pulse Rate 139 H 139 H 139 H Respiratory Rate 14 18 Blood Pressure Blood Pressure [Left Arm] 102/82 88/63 L 115/87 Pulse Oximetry 93 100 97 12/16/18 00:17 12/16/18 00:44 12/16/18 00:46 Temperature Pulse Rate 139 H 139 H Respiratory Rate 12 Blood Pressure 88/63 L Blood Pressure [Left Arm] 96/79 79/62 L Pulse Oximetry 98 100 12/16/18 01:00 12/16/18 01:15 12/16/18 01:30 Temperature Pulse Rate 139 H 139 H 140 H Respiratory Rate Blood Pressure Blood Pressure [Left Arm] 113/85 96/79 113/86 Pulse Oximetry 97 100 99 12/16/18 01:57 Temperature 97.1 F L Pulse Rate 140 H Respiratory Rate 19 Blood Pressure 122/82 Blood Pressure [Left Arm] Pulse Oximetry 99 Fraction of Inspired Oxygen 30 Oxygen Delivery Method BiPAP Oxygen Flow Rate 2 Narrative Exam Narrative: GENERAL APPEARANCE: well developed, well nourished, drowsy with BiPAP in place HEAD: Left facial droop, no scalp lesions. EYES: pupils equal, round, reactive to light and accommodation, sclera non- icteric, extraocular movement intact without nystagmus. EARS: normal external structures, no ear pain NOSE: sinuses non tender to percussion, no rhinorrhea ORAL CAVITY: Exam limited by presence of BiPAP mask, dry and pink oral mucous membranes THROAT: Not visualized NECK/THYROID: neck supple, no jugular venous distention, no carotid bruit, no thyromegaly, trachea midline. LYMPH NODES: no cervical or supraclavicular lymphadenopathy. SKIN: warm and dry, no suspicious lesions, no rashes, good turgor. HEART: regular rate and rhythm, S1-S2 without murmur, no rubs or gallops, brisk capillary refill, no edema LUNGS: Bibasilar crackles without coarseness or wheezing CHEST: Well-healed median sternotomy surgical scar, symmetrical movement, with good tidal volume on BiPAP ABDOMEN: Soft, no distention, no epigastric or abdominal tenderness on palpation, no guarding or peritoneal signs, no organomegaly, no flank or suprapubic tenderness BACK: Normal curvature, nontender to palpation EXTREMITIES: Right arm strength is 5/5, right leg strength is 4/5, left arm and leg are immobile and somewhat stiff to range of motion NEUROLOGIC: GCS 14 responsive to verbal stimulus to AAO to person and place (sedated on lorazepam), no ptosis, EOMs intact, left facial droop, dysarthria, sensory exam intact to light touch, hearing grossly normal to speech. PSYCH: Drowsy, cognitive function intact, good eye contact, stable mood with congruent affect Objective Labs Result Diagrams: 12/15/18 21:15 12/15/18 21:15 Labs: Laboratory Results - last 24 hr 12/15/18 12/15/18 12/15/18 21:15 21:15 21:15 WBC 7.4 RBC 3.51 L Hgb 12.4 Hct 38.2 MCV 108.9 H MCH 35.2 H MCHC 32.4 RDW 14.8 Plt Count 235 Neut % (Auto) 62.5 Lymph % (Auto) 29.0 [place] % (Auto) 5.2 Eos % (Auto) 3.1 Baso % (Auto) 0.2 Neut # (Auto) 4700 Lymph # (Auto) 2200 [place] # (Auto) 400 Eos # (Auto) 200 Baso # (Auto) 0 Plt Morphology Comment . RBC Morphology Normal morphology PT 11.1 INR 1.0 APTT 25 L ABG pH ABG pCO2 ABG pO2 ABG HCO3 ABG Total CO2 ABG O2 Saturation ABG Base Excess FiO2 Sodium 139 Potassium 4.6 Chloride 101 Carbon Dioxide 25 BUN 20 H Creatinine 0.90 Estimated GFR 59.9 L BUN/Creatinine Ratio 22.2 H Glucose 142 H Calcium 9.5 Magnesium 2.2 Total Bilirubin 1.6 H AST 40 H ALT 30 Alkaline Phosphatase 46 Total Creatine Kinase 49 CK-MB (CK-2) TNP CK-MB (CK-2) Rel Index TNP Troponin I < 0.012 B-Natriuretic Peptide 357 H Total Protein 7.6 Albumin 4.6 Globulin 3.0 Albumin/Globulin Ratio 1.5 Procalcitonin Urine Color Urine Appearance Urine pH Ur Specific [place] Urine Protein Urine Glucose (UA) Urine Ketones Urine Occult Blood Urine Nitrate Urine Bilirubin Urine Urobilinogen Ur Leukocyte Esterase Urine RBC Urine WBC Urine Bacteria Ur Culture Indicated? Micro UA Comment 12/15/18 12/15/18 12/15/18 21:15 21:54 22:17 WBC RBC Hgb Hct MCV MCH MCHC RDW Plt Count Neut % (Auto) Lymph % (Auto) [place] % (Auto) Eos % (Auto) Baso % (Auto) Neut # (Auto) Lymph # (Auto) [place] # (Auto) Eos # (Auto) Baso # (Auto) Plt Morphology Comment RBC Morphology PT INR APTT ABG pH 7.41 ABG pCO2 36.3 ABG pO2 135 H ABG HCO3 23 ABG Total CO2 24 ABG O2 Saturation 99 ABG Base Excess -2.0 FiO2 40 Sodium Potassium Chloride Carbon Dioxide BUN Creatinine Estimated GFR BUN/Creatinine Ratio Glucose Calcium Magnesium Total Bilirubin AST ALT Alkaline Phosphatase Total Creatine Kinase CK-MB (CK-2) CK-MB (CK-2) Rel Index Troponin I B-Natriuretic Peptide Total Protein Albumin Globulin Albumin/Globulin Ratio Procalcitonin < 0.05 Urine Color Yellow Urine Appearance Clear Urine pH 6.5 Ur Specific [place] 1.010 Urine Protein Negative Urine Glucose (UA) Negative Urine Ketones Negative Urine Occult Blood Negative Urine Nitrate Negative Urine Bilirubin Negative Urine Urobilinogen 0.2 Ur Leukocyte Esterase Negative Urine RBC None seen Urine WBC None seen Urine Bacteria None seen Ur Culture Indicated? Cult not indicated Micro UA Comment Microscopic normal Assessment & Plan Assessment & Plan narrative: Nicole Whiting is admitted to the hospital for exacerbation of CHF and supraventricular tachycardia unresponsive to medication therapy. 1. Congestive heart failure, present on admission, acute on chronic -patient with history of congestive heart failure on Lasix 20 mg daily. Patient reports taking an extra Lasix at onset of difficulty breathing. -breath sounds with bibasilar crackles and diminished bases, no cough. -chest x-ray taken in the ER demonstrates pulmonary edema, CTA obtained with no evidence for pulmonary embolus and identifies pulmonary edema with bilateral pleural effusions. -patient received nitroglycerin and Lasix in the ER and placed on BiPAP. Pat ient diuresed well. -on evaluation in the ER BiPAP was removed and patient placed on nasal cannula 4 L minute continued to drop into the 80s and reinstituted BiPAP therapy. 2. Supraventricular tachycardia, present on admission, acute -patient states she takes Lopressor 100 mg twice daily. She has had no chest pain and denies palpitations she has had no nausea or diaphoresis. -patient presented with heart rate in the 150s noted to be a wide beat tachycardia with left bundle branch block with a marked left axis. -patient received multiple doses of Lopressor in the emergency department. Per ER physician report the heart rate did slow with emerging atrial fibrillation and stabilized at 139 beats per minute. -the patient dropped her pressure with Lopressor so received 250 mcg of digitalis in the ER with no change in heart rate. -will obtain a repeat 12 lead EKG at slow rate, patient may be having atrial flutter 2:1 conduction, will attempt Valsalva and consider adenosine, may consider esmolol. -initial troponin is negative will track troponin 3. Hypertension, chronic -patient routinely taking losartan, hydralazine and metoprolol -following Lopressor in the ER blood pressure went down to 79/62 and is now 113/85. -blood pressure has been low with antiarrhythmic therapy in the ER, will hold losartan and hydralazine. Will evaluate response inability to continue metoprolol. 4. Right middle lobe lung nodule -finding of a 1.8 cm medial right middle lobe lung lesion, described by alhaji mortoniolograine as possible mass versus pericardial node. 5. Hypothyroidism, chronic -will continue patient's levothyroxine 100 mcg daily 6. History CVA with left hemiparesis, chronic -patient with CVA in 2013 with dense residual left hemiparesis. She is nonambulatory and uses a wheelchair for mobility. -she lives at home with caregiver assistance. -will have PT and OT evaluate and treat. The patient is admitted to the intensive care unit related to severity symptoms ventilatory recent support and need for close monitoring and frequent interventions. The patient is admitted as an inpatient with expected length of stay greater than 2 midnights. Critical care time: 60 minutes for initial evaluation, follow-up re-evaluation, diagnostic and therapeutic interventions. Scores GCS Deridder coma scale eye opening: Spontaneous Caio coma scale verbal response: Orientated Caio coma scale motor response: Obey commands Caio coma scale total score: 15
[2018-12-16 02:31] LABS: Lactate (Lactic Acid) 0.9 mmol/L (0.7-2.1)
[2018-12-16 02:43] LABS: Troponin I 0.014 ng/mL (0.01-0.034)
[2018-12-16 02:53] LABS: BUN Creatinine Ratio 21.1 (6-22); Blood Urea Nitrogen 19 mg/dL (7-17); Carbon Dioxide 26 mmol/L (22-32); Chloride 101 mmol/L (98-107); Estimated Glomerular Filt Rate 59.9 mL/min (>60); Glucose 113 mg/dL (80-110); HEMOLYSIS < 15 (0-50); Sodium 137 mmol/L (137-145)
[2018-12-16 02:54] LABS: Cholesterol 113 mg/dL (140-199); HDL Cholesterol 47 mg/dL (40-60); LDL Cholesterol Calculated 57 mg/dL (<100); Triglycerides 43 mg/dL (35-150)
[2018-12-16 03:07] LABS: TSH w/ Reflex to FT4 4.26 uIU/mL (0.47-4.68)
[2018-12-16] MEDS: ENOXAPARIN 80 MG/0.8 ML SYRINGE 70 MG SUBCUT ×2 (05:18→20:15)
--- NOTE | 2018-12-16 05:46 | PC.ADMIT ---
Addendum entered by Deneen Lyon R.N. 12/16/18 05:55: After labs drawn, EKG done, and assessment complete, patient was able to got to sleep, HR decreased to 100, A-flutter, 2:1 conduction on rhythm strip. Lovenox SQ started as ordered, patient remains on 2L NC without any respiratory distressed. Original Note: [address] Admission Note: The patient,Jacquelyn Whiting,83 y/o, was given written information regarding hospital policies, unit procedures and contact persons. Patient's smoking status: Former smoker. Vital Signs - 8 hr 12/15/18 21:59 12/15/18 22:30 12/15/18 22:45 Temperature Pulse Rate 145 H 145 H 144 H Respiratory Rate 27 H 26 H Blood Pressure 106/75 Blood Pressure [Left Arm] 108/80 106/75 87/47 L Pulse Oximetry 97 97 96 12/15/18 22:55 12/15/18 23:00 12/15/18 23:15 Temperature Pulse Rate 144 H 144 H 140 H Respiratory Rate 13 Blood Pressure Blood Pressure [Left Arm] 90/64 84/63 L 91/61 Pulse Oximetry 98 94 97 12/15/18 23:25 12/15/18 23:45 12/15/18 23:46 Temperature Pulse Rate 140 H 139 H 139 H Respiratory Rate 14 Blood Pressure 92/69 Blood Pressure [Left Arm] 102/82 Pulse Oximetry 98 93 12/16/18 00:04 12/16/18 00:15 12/16/18 00:17 Temperature Pulse Rate 139 H 139 H 139 H Respiratory Rate 18 12 Blood Pressure Blood Pressure [Left Arm] 88/63 L 115/87 96/79 Pulse Oximetry 100 97 98 12/16/18 00:44 12/16/18 00:46 12/16/18 01:00 Temperature Pulse Rate 139 H 139 H Respiratory Rate Blood Pressure 88/63 L Blood Pressure [Left Arm] 79/62 L 113/85 Pulse Oximetry 100 97 12/16/18 01:15 12/16/18 01:20 12/16/18 01:30 Temperature Pulse Rate 139 H 140 H Respiratory Rate 18 Blood Pressure Blood Pressure [Left Arm] 96/79 113/86 Pulse Oximetry 100 98 99 12/16/18 01:57 12/16/18 02:49 12/16/18 03:18 Temperature 97.1 F L Pulse Rate 140 H 142 H Respiratory Rate 19 15 20 Blood Pressure 122/82 110/81 Blood Pressure [Left Arm] Pulse Oximetry 99 100 98 12/16/18 03:42 12/16/18 04:16 12/16/18 05:09 Temperature Pulse Rate 103 H 102 H 93 H Respiratory Rate 13 13 12 Blood Pressure 119/78 99/50 L 106/62 Blood Pressure [Left Arm] Pulse Oximetry Patient alert and oriented x4 when admitted to ICU, Lt side hemiparesis r/t CVA in 2012, she is able to answer questions and participate in care. HR tachy up to 140, SVT vs A-flutter RVR, will obtain another EKG per order. She denies chest pain, pressure, or palpitations. Also denies dyspnea and states her breathing is much better on 2L NC, SpO2 >94% normotensive, afebrile. Bottles of medication will be sent to pharmacy, has purse with money pouch and checkbook that will be sent to hospital lock-up.
[2018-12-16] MEDS: FUROSEMIDE 20 MG TABLET PO (08:56)
[2018-12-16] MEDS: PRAVASTATIN 20 MG TABLET 40 MG PO (08:56)
[2018-12-16] MEDS: LEVOTHYROXINE 100 MCG TABLET PO (08:56)
[2018-12-16] MEDS: SODIUM CHLORIDE 0.9% FLUSH 10 ML IV ×2 (08:57→20:17)
--- NOTE | 2018-12-16 09:05 | PC.NURSE ---
Addendum entered by Victoria Joseph R.N. 12/16/18 11:45: Murray removed as ordered. Original Note: Pt alert, oriented, denies chest pain, reports her breathing is better, but not back to baseline. LS clear but diminshed, sats on RA 98%. Pt up with physical therapy to BS, HR up to 140's with transfer. Pt had bowel movement and then assisted back to bed, HR back to 110 at rest.
--- NOTE | 2018-12-16 09:08 | CM.DANOTE ---
Addendum entered by Alexandra Lo R.N. 12/16/18 10:32: Met with patient in room, pleasant. Confirmed that she has a caregiver that comes in. She stated that she does fine when caregiver goes home. Mentioned hospital stay, and possible jail. Patient not sure that she will need this, but let her know that this rn field case manager would continue to offer her resources. Confirmed with her that her son will be here today. Original Note: DCP: Case received, EMR reviewed and met with patient. Information regarding patient obtained by [id number], [place]. DCP template completed with information currently available. Patient came to hospital via ambulance secondary to shortness of breath. Patient has history of a-fib, CHF as well. Patient also has history of CVA, with left hemiparesis. She is a full code, but does not want to be intubated. She is down in the ICU secondary to her being on BIPAP. Caregiver was in patient's room assisting with her, so was unable to meet with patient. Called son, Davon, who is patient's POA. He lives near [facility]. Was able to speak to his , [place], for her son is on his way here. Patient lives alone in [facility], and has approximately 6 hours of caregiver in the home daily. Confirmed that she does get [employer] caregiver, and her main caregiver is [place]. She is mostly in a wheel-chair bound. [id number] stated that patient can do pivot transfers to the bathroom. P: DCP to follow closely as plan unfolds. Will meet up with sonDavon, when he arrives, and discuss plan. Patient may need jail before discharge, and may also need to increase caregiving hours. Will consult with respiratory therapy as well. Alexandra Lo RN/Iv Technician
--- NOTE | 2018-12-16 11:47 | PC.NURSE ---
Addendum entered by Victoria Joseph R.N. 12/16/18 11:56: Pt up to chair with one assist and fww, HR stayed in the 90s with transfer, no c/o pain. Original Note: Echo cancelled per Dr Wilkinson, patient had one three months age, report given to Dr Wilkinson.
--- NOTE | 2018-12-16 12:00 | PT.IIE ---
Surgical History (Last Reviewed 12/16/18 @ 02:39 by RUBY Lora) History of aortic valve replacement (Acute) Medical History (Last Updated 12/16/18 @ 02:38 by RUBY Lora) Raynauds disease (Acute) Atrial fibrillation (Acute) CHF (congestive heart failure) (Acute) CVA (cerebral vascular accident) (Acute) Hyperlipidemia (Acute) Hypertension (Acute) Hypothyroid (Acute) Physical Therapy Inpatient Evaluation/Re-Eval M1 PT/OT-IP Prior Functional Status Start: 12/16/18 15:17 Freq: NEEDED Status: Active Protocol: Document 12/16/18 09:00 BS (Rec: 12/16/18 15:43 BS [email or web address]) Medical Review Prior Functional Status Medical History Reviewed Yes Communication Pt able to let all needs known via verbal communication. Mobility and Gait Mod I with use of manual w/c for mobility in the home and power w/c for comunity mobility. Pt reports that she does ambulate for exercise in her home with R SBQC, gait belt, and assistance of concrete stone finisher in the mornings. Pt reports she is independent with all transfers and w/c management. Activities of Daily Living and IADL's Independent Prior Functional Level (Other details) Pt lives at home with concrete stone finisher assistance to help with morning routine. Social History Household Members none Living Arrangements House Additional Social History Comment Lives alone with concrete stone finisher assistance. M2 PT-IP Current Condition Start: 12/16/18 15:17 Freq: NEEDED Status: Active Protocol: Document 12/16/18 09:00 BS (Rec: 12/16/18 15:43 BS [email or web address]) Physical Therapy Current Condition Current Condition Evaluation Date 12/16/18 Treatment Diagnosis Dyspnea, decreased activity tolerance Onset Date 12/15/18 Weight Bearing Status Weight Bearing Status Full Weight Bearing M3 PT-IP Subjective Start: 12/16/18 15:17 Freq: NEEDED Status: Active Protocol: Document 12/16/18 09:00 BS (Rec: 12/16/18 15:43 BS [email or web address]) Subjective Physical Therapy Visit Type Type Initial Evaluation Visit Start Time 08:25 Visit Stop Time 09:00 Total Visit Minutes 35 Number of ROLLS MILL OPERATOR Visits 0 Therapy Pain Assessment Pain When Pain Assessed During Mobility Pain Present Pain Present Denied Pain M4 PT-IP Mobility and Gait Start: 12/16/18 15:17 Freq: NEEDED Status: Active Protocol: Document 12/16/18 09:00 BS (Rec: 12/16/18 15:43 BS [email or web address]) PT-Bed Mobility Assessment Rolling Type of Rolling Roll to Left Level of Assist Contact Guard Assistance Supine to Sit Supine to Sit Contact Guard Assistance Sit to Supine Sit to Supine Contact Guard Assistance PT-Transfer Assessment Sit to and From Stand Sit to and from Stand Contact Guard Assistance Equipment Transfer Assistive Device Gait Belt Transfers Transfer Destination Bed Transfer Technique Stand Pivot Transfer Ability Level of Assist Contact Guard Assistance Minimal Assistance Comments Mobility Comments Pt performed squat pivot transfer from sitting EOB to manual w/c on right side with CGA for safety. Pt unable to use LUE to manually assist with transfer but does use it for some balance. Pt performed sit<->stand from manual w/c with Min A for steadying, she ambulated x5' to bedside commode with CGA, R SBQC, and unequal WB with most of weight on RLE due to left hemiparesis. Gait Assessment Gait Gait Assistance Required: Contact Guard Assist Distance (Feet) 5 Assistive Devices Assistive Device Small Based Quad Cane Orthotic/Prosthetic Devices or Brace: No Gait Deviations General Gait Pattern Decreased Stride Length Decreased Feet Clearance Flexed Trunk Factors Limiting Gait Function Factors Limiting Gait Function Decreased Activity Tolerance Decreased Strength Limited Range of Motion Poor Balance Comments Gait Comments Pt ambulated x5' to bedside commode with use of R SBQC, gait belt, and CGA to Min A for steadying and safety. Pt unable to weightbear equally through LEs due to L hemiparesis. L ankle DF ROM also limited compared to R ankle which may impact her gait. Pt's HR did increase to 148bpm after standing for approximately 3 minutes. No SOB or chest pain, pt educated in diaphragmatic breathing. Pt was able to ambulate x5' with HR remaining below 148bpm . PT-Balance Assessment Sitting Balance and Reactions Static Sitting Balance Ability Good Dynamic Sitting Balance Ability Good Standing Balance and Reactions Static Standing Balance Ability Good Dynamic Standing Balance Ability Fair Device Used R SBQC M5 PT-IP Objective Assessments Start: 12/16/18 15:17 Freq: NEEDED Status: Active Protocol: Document 12/16/18 09:00 BS (Rec: 12/16/18 15:43 BS [email or web address]) Orientation Orientation/Cognition Level of Alertness Alert Safety Awareness Understands Safety Issues Comments Pt verbalized safety measures and break management during transfer from sitting EOB-> manual w/c. Gross Range of Motion Upper Extremity ROM Assessment Left Impaired Impairments L hemiparesis. Minimal anti- gravity movement of LUE. Lower Extremity ROM Assessment Within Functional Limits Strength Upper Extremity Strength Assessment Left Impaired Lower Extremity Strength Assessment Left Impaired Comments Strength Comments LUE more impaired than LLE. LLE MMT for knee ext, ankle DF , hip abd/add all 4+/5. RLE MMT all 4+/5. Muscle Tone Muscle Tone WNL Yes Comments Muscle Tone Comments Mod-severe hypotonia of LUE. LLE very mild hypotonia s/p CVA in 2013. M6 PT-IP Treatment Start: 12/16/18 15:17 Freq: NEEDED Status: Active Protocol: Document 12/16/18 09:00 BS (Rec: 12/16/18 15:43 BS [email or web address]) Physical Therapy Treatment Exercises Exercises Heel Slides Education Education Provided Safety Other Treatments Other Treatment Performed Education for diaphragmatic breathing with activity to decrease HR. M7 PT-IP Assessment and Plan Start: 12/16/18 15:17 Freq: NEEDED Status: Active Protocol: Document 12/16/18 09:00 BS (Rec: 12/16/18 15:43 BS [email or web address]) PT Summary Assessment and Plan Potential Rehabilitation Potential Good Status of Condition at Evaluation Evolving Summary Impairments Strength Balance Tone Bed Mobility Transfers Gait Activity Tolerance Assessment Summary Jacquelyn is a 83 year old female who admitted to ED 12/15/18 with complaints of SOB, no complaints of chest pain. 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 Pt currently demo's decreased activity tolerance and tachycardia with OOB activity. Pt reports that she has utilized a manual w/c for home mobility and power w/c in the community. She is able to ambulate for exercise in her home with use of R quad cane and assistance of caregiver in the mornings. Pt lives at home with caregiver support. She reports she was perviously independent with all transfers and w/c mobility. Pt benefits from skilled physical therapy intervention to address decreased activity tolerance and promote return to PLOF. Goals Bed Mobility Goal Independent Transfer Goal Independent Gait Goal Contact Guard Assistance Other Goals Baseline ambulation is household ambulation with CGA and use of gait belt and R SSBQC for exercise and weightbearing only. Pt uses manual and power w/c for most mobility. Goal: Independent manual w/c mobility, propulsion with RUE and bilateral LEs. Days to Meet Goals 5 Frequency of Treatment Frequency Of Treatment Twice a Day Treatment Plan Physical Therapy Treatment Plan Bed Mobility Training Transfer Training Gait Training Therapeutic Exercise Balance Retraining Post Op Education Discharge Planning Neuromuscular Re-ed Recommendations To Nursing Amount of Assist Needed 1 Person Assist Discharge Recommendations PT Discharge Recommendations Home with Assistance Other Discharge Recommendations Discharge recommendation home with her morning concrete stone finisher assistance pending stablization of vitals with activity. If pt continues to have tachycardia, she is not safe to return home alone and a SNF should be considered.
[2018-12-16 13:40] LABS: HEMOLYSIS 34 (0-50); Potassium 4.4 mmol/L (3.4-5.1)
--- NOTE | 2018-12-16 15:09 | CM.DPC ---
DCP Cont: Was able to speak to son, Davon. He stated, she already has been in [facility] since she had the recent CVA, and I don't think that they can do anything else for her. He stated, she's maxed out on her budget, and that's why she can get [facility] caregivers to come in. He stated, she should be capable at home with the hours that she gets, Ashely has been her caregiver for a while. P: DCP to continue to follow. Will continue to offer any resources that patient may need. At this time, the plan is for her to go home when she is stable. Alexandra Lo, JAIME/Banking Analyst
--- NOTE | 2018-12-16 15:23 | DIET.PN ---
PO fair per first meal - 75% taken. 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 Dx: CHF Diet: heart healthy, 2g sodium BMI: 28 Assessment: Agree w/diet order for Na+ restriction w/CHF. Breathing easier; PO fair. Intervention: monitor PO intake; assess need for diet ed
--- NOTE | 2018-12-16 16:19 | PT.IPTN ---
Physical Therapy Treatment Note M2 PT-IP Current Condition Start: 12/16/18 15:17 Freq: NEEDED Status: Active Protocol: Document 12/16/18 09:00 BS (Rec: 12/16/18 15:43 BS [email or web address]) Physical Therapy Current Condition Current Condition Evaluation Date 12/16/18 Treatment Diagnosis Dyspnea, decreased activity tolerance Onset Date 12/15/18 Weight Bearing Status Weight Bearing Status Full Weight Bearing M3 PT-IP Subjective Start: 12/16/18 15:17 Freq: NEEDED Status: Active Protocol: Document 12/16/18 15:47 LJ (Rec: 12/16/18 16:19 LJ [id number]) Subjective Physical Therapy Visit Type Type Treatment Note Visit Start Time 15:47 Visit Stop Time 16:10 Total Visit Minutes 23 Notes Pt in bed, vitals being taken by nursing. Physical Therapy Visit Comments Patient Comments Didn't get much sleep last night and wants to wait until dinner to get up to chair. Willing to do bed exercises. M4 PT-IP Mobility and Gait Start: 12/16/18 15:17 Freq: NEEDED Status: Active Protocol: Document 12/16/18 09:00 BS (Rec: 12/16/18 15:43 BS [email or web address]) PT-Bed Mobility Assessment Rolling Type of Rolling Roll to Left Level of Assist Contact Guard Assistance Supine to Sit Supine to Sit Contact Guard Assistance Sit to Supine Sit to Supine Contact Guard Assistance PT-Transfer Assessment Sit to and From Stand Sit to and from Stand Contact Guard Assistance Equipment Transfer Assistive Device Gait Belt Transfers Transfer Destination Bed Transfer Technique Stand Pivot Transfer Ability Level of Assist Contact Guard Assistance Minimal Assistance Comments Mobility Comments Pt performed squat pivot transfer from sitting EOB to manual w/c on right side with CGA for safety. Pt unable to use LUE to manually assist with transfer but does use it for some balance. Pt performed sit<->stand from manual w/c with Min A for steadying, she ambulated x5' to bedside commode with CGA, R SBQC, and unequal WB with most of weight on RLE due to left hemiparesis. Gait Assessment Gait Gait Assistance Required: Contact Guard Assist Distance (Feet) 5 Assistive Devices Assistive Device Small Based Quad Cane Orthotic/Prosthetic Devices or Brace: No Gait Deviations General Gait Pattern Decreased Stride Length Decreased Feet Clearance Flexed Trunk Factors Limiting Gait Function Factors Limiting Gait Function Decreased Activity Tolerance Decreased Strength Limited Range of Motion Poor Balance Comments Gait Comments Pt ambulated x5' to bedside commode with use of R SBQC, gait belt, and CGA to Min A for steadying and safety. Pt unable to weightbear equally through LEs due to L hemiparesis. L ankle DF ROM also limited compared to R ankle which may impact her gait. Pt's HR did increase to 148bpm after standing for approximately 3 minutes. No SOB or chest pain, pt educated in diaphragmatic breathing. Pt was able to ambulate x5' with HR remaining below 148bpm . PT-Balance Assessment Sitting Balance and Reactions Static Sitting Balance Ability Good Dynamic Sitting Balance Ability Good Standing Balance and Reactions Static Standing Balance Ability Good Dynamic Standing Balance Ability Fair Device Used R SBQC M5 PT-IP Objective Assessments Start: 12/16/18 15:17 Freq: NEEDED Status: Active Protocol: Document 12/16/18 09:00 BS (Rec: 12/16/18 15:43 BS [email or web address]) Orientation Orientation/Cognition Level of Alertness Alert Safety Awareness Understands Safety Issues Comments Pt verbalized safety measures and break management during transfer from sitting EOB-> manual w/c. Gross Range of Motion Upper Extremity ROM Assessment Left Impaired Impairments L hemiparesis. Minimal anti- gravity movement of LUE. Lower Extremity ROM Assessment Within Functional Limits Strength Upper Extremity Strength Assessment Left Impaired Lower Extremity Strength Assessment Left Impaired Comments Strength Comments LUE more impaired than LLE. LLE MMT for knee ext, ankle DF , hip abd/add all 4+/5. RLE MMT all 4+/5. Muscle Tone Muscle Tone WNL Yes Comments Muscle Tone Comments Mod-severe hypotonia of LUE. LLE very mild hypotonia s/p CVA in 2012. M6 PT-IP Treatment Start: 12/16/18 15:17 Freq: NEEDED Status: Active Protocol: Document 12/16/18 15:47 CRISTINA (Rec: 12/16/18 16:19 LJ [id number]) Physical Therapy Treatment Exercises Exercises Ankle Pumps Gluteal Sets Quad Sets Other Treatments Other Treatment Performed Pelvic tilts, abdominal crunches and oblique crunches with head of bed raised, M7 PT-IP Assessment and Plan Start: 12/16/18 15:17 Freq: NEEDED Status: Active Protocol: Document 12/16/18 15:47 CRISTINA (Rec: 12/16/18 16:19 LJ [id number]) PT Summary Assessment and Plan Potential Rehabilitation Potential Good Status of Condition at Evaluation Evolving Summary Assessment Summary Pt willing to do bed exercises but was focused on getting her medication at dinner time. Advised that the nurse will administer her medication and PT is not involved in distributing meds. Pt demonstrates understanding of exercises and was willing to perform them however did not do many reps, rather explained to this therapist what she did at home. Pt complained of being very cold. PT provided warm blankets and notified nursing of pts concern for medication and getting up in the chair for dinner. Goals Bed Mobility Goal Independent Transfer Goal Independent Gait Goal Contact Guard Assistance Other Goals Baseline ambulation is household ambulation with CGA and use of gait belt and R SSBQC for exercise and weightbearing only. Pt uses manual and power w/c for most mobility. Goal: Independent manual w/c mobility, propulsion with RUE and bilateral LEs. Days to Meet Goals 5 Frequency of Treatment Frequency Of Treatment Twice a Day Treatment Plan Physical Therapy Treatment Plan Bed Mobility Training Transfer Training Gait Training Therapeutic Exercise Balance Retraining Post Op Education Discharge Planning Neuromuscular Re-ed Recommendations To Nursing Amount of Assist Needed Standby Assistance 1 Person Assist Discharge Recommendations PT Discharge Recommendations Home with Assistance Other Discharge Recommendations Discharge recommendation home with her morning licensed mass real estate appraiser assistance pending stablization of vitals with activity. If pt continues to have tachycardia, she is not safe to return home alone and a SNF should be considered.
[2018-12-16] MEDS: DIGOXIN 0.125 MG TABLET PO (17:11)
[2018-12-16] MEDS: GABAPENTIN 600 MG TABLET PO (20:16)
[2018-12-16] MEDS: MELATONIN 3 MG TABLET 9 MG PO (20:16)
[2018-12-16] MEDS: NYSTATIN POWDER 30 GM 1 APPLIC TOP (20:16)
[2018-12-17] VITALS (9 sets, daily range): BP systolic 125–146; BP diastolic 70–91; PULSE 65–109; RESP 12–22; TEMP 36–37.5; O2SAT 93–97
[2018-12-17] MEDS: LEVOTHYROXINE 100 MCG TABLET PO (06:57)
--- NOTE | 2018-12-17 08:53 | P.CONONC_ITS ---
History of Present Illness - Data of Consult Consult date: 12/17/18 Primary Care Provider: Fátima White PA-C - Consult Narrative Narrative: Jacquelyn Whiting is a 83 year old female whom I was asked to see because of new finding of a pulmonary nodule. The patient reports that she developed acute onset of shortness of breath and feeling of a rapid heartbeat. She was brought to the emergency room and found to have rapid AFib as well as congestive heart failure. She has been treated with diuretics. Today she feels like her heart rate has slow down and her breathing has improved. She denies any pain in the chest. She has not had much cough. She has not noted any adenopathy. She denies any new aches or pains. No fevers chills or sweats. Her appetite has been stable as has her weight. She has not noted any adenopathy. She did have a CT pulmonary angiogram done that showed a 2 cm nodule in the right lung. The report says that there was no evidence of bony metastasis. She did have a pleural effusion and cardiomegaly. Her past medical history is notable for atrial fibrillation and a prior aortic valve replacement. She has had a CVA with residual left hemiparesis. She has had type hypertension and hyperlipidemia. She has a history of hypothyroidism. She has distant history of smoking but quit more than 30 years ago. 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 Her family history is negative for malignancy. CC: RUBY Lora Home Medications and Allergies Home Medications Medication Instructions Recorded Confirmed Type furosemide 20 mg PO DAILY 12/15/18 12/15/18 History gabapentin 600 mg PO BEDTIME 12/15/18 12/15/18 History hydralazine 25 mg PO TID 12/15/18 12/15/18 History losartan 100 mg PO BID 12/15/18 12/16/18 History pravastatin 40 mg PO DAILY 12/15/18 12/15/18 History tamsulosin 0.4 mg PO DAILY 12/15/18 12/15/18 History amiodarone 100 mg PO 3XW 12/16/18 12/16/18 History aspirin 325 mg PO DAILY 12/16/18 12/16/18 History cholecalciferol (vitamin D3) 2,000 unit PO DAILY 12/16/18 12/16/18 History [Vitamin D3] denosumab [Prolia] 60 mg SUBCUT [id number] 12/16/18 12/16/18 History levothyroxine 100 mcg PO DAILY 12/16/18 12/16/18 History metoprolol tartrate 12.5 mg PO BID 12/16/18 12/16/18 History multivitamin 1 tab PO DAILY 12/16/18 12/16/18 History mupirocin 1 applic TOPICAL TID 12/16/18 12/16/18 History tizanidine 2 mg PO BEDTIME PRN 12/16/18 12/16/18 History verapamil 40 mg PO DAILY PRN 12/16/18 12/16/18 History Allergies Allergy/AdvReac Type Severity Reaction Status Date / Time No Known Drug Allergies Allergy Verified 12/15/18 21:31 Medical History - Medical, Surgical, Family History Medical History: Medical History (Updated 12/17/18 @ 08:53 by Remy Bull MD) Raynauds disease Atrial fibrillation CHF (congestive heart failure) CVA (cerebral vascular accident) Hyperlipidemia Hypertension Hypothyroid Surgical History: Surgical History (Updated 12/16/18 @ 02:35 by RUBY Lora) History of aortic valve replacement - Social History Smoking Status: Former smoker Review of Systems Constitutional: normal activity level, no weight loss Cardiovascular: palpitations, dyspnea on exertion Respiratory: no cough, no hemoptysis Gastrointestinal: no change in appetite Musculoskeletal: no pain Exam Vital signs: Vital Signs Temp Pulse Resp BP Pulse Ox 12/17/18 07:35 96 12/17/18 07:00 98 F 85 14 146/85 H 96 12/17/18 04:30 96.8 F L 102 H 19 131/91 H 94 12/17/18 03:20 84 12 93 12/17/18 00:00 99.3 F 93 H 21 125/77 97 12/16/18 23:00 97 12/16/18 20:00 97.1 F L 92 H 18 144/81 H 12/16/18 17:11 86 116/77 12/16/18 16:30 95 12/16/18 15:52 97.0 F L 79 16 116/77 12/16/18 12:00 97.4 F L 78 17 116/79 94 Intake and Output 12/16/18 12/17/18 12/17/18 23:59 07:59 15:59 Intake Total 200 / 860 160 / 160 Output Total 350 / 400 50 / 400 Balance 200 / -2065 -350 / -240 110 / -240 Intake: Oral 200 / 860 160 / 160 Output: Urine 350 / 400 50 / 400 Other: Percent Meal Consumed 100% 75% Stool Size Moderate # Unmeasured Voids 1 Weight 67.5 kg Patient Weight 12/17/18 23:59 Weight 67.5 kg - Constitutional positive no acute distress, positive average body habitus - Routine HEENT Exam Head: Present: normocephalic, atraumatic Eye: Present: EOMI, PERRL. Absent: conjunctival icterus, scleral injection ENT: Present: mucous membranes moist, oropharynx clear - Routine Neck Exam Present: supple. Absent: lymphadenopathy, thyromegaly - Routine Respiratory Exam Present: Clear to auscultation bilaterally. Absent: rales, wheezes - Routine Cardiovascular Exam Present: irregular rhythm, irregularly irregular. Absent: murmur - Routine Abdominal Exam Present: soft, normoactive bowel sounds. Absent: tenderness, organomegaly, mass - Routine Extremities Exam Present: edema. Absent: cyanosis, clubbing Comments: She had trace bilateral lower extremity edema - Routine Skin Exam Present: intact. Absent: petechiae, rash - Routine Neurological Exam Present: alert, oriented X3 - Routine Psychiatric Exam Present: normal affect, normal thought process Results - Labs Laboratory Last Values WBC 7.4 X10^3/uL (4.5-11.0) 12/15/18 21:15 RBC 3.51 X10^6/uL (4.0-5.2) L 12/15/18 21:15 Hgb 12.4 g/dL (12.0-16.0) 12/15/18 21:15 Hct 38.2 % (36-46) 12/15/18 21:15 MCV 108.9 fL (80-100) H 12/15/18 21:15 MCH 35.2 PG (26-34) H 12/15/18 21:15 MCHC 32.4 % (30-36) 12/15/18 21:15 RDW 14.8 % (11.6-14.8) 12/15/18 21:15 Plt Count 235 X10^3/uL (150-400) 12/15/18 21:15 Neut % (Auto) 62.5 % (50-75) 12/15/18 21:15 Lymph % (Auto) 29.0 % (25-40) 12/15/18 21:15 [place] % (Auto) 5.2 % (3-14) 12/15/18 21:15 Eos % (Auto) 3.1 % (2-4) 12/15/18 21:15 Baso % (Auto) 0.2 % (0-2) 12/15/18 21:15 Neut # (Auto) 4700 /uL (5976-4710) 12/15/18 21:15 Lymph # (Auto) 2200 /uL (5829-4089) 12/15/18 21:15 [place] # (Auto) 400 /uL (0-900) 12/15/18 21:15 Eos # (Auto) 200 /uL (0-450) 12/15/18 21:15 Baso # (Auto) 0 /uL (0-100) 12/15/18 21:15 Plt Morphology Comment . 12/15/18 21:15 RBC Morphology Normal morphology 12/15/18 21:15 PT 11.1 SECONDS (10.1-12.7) 12/15/18 21:15 INR 1.0 (0.9-1.3) 12/15/18 21:15 APTT 25 SECONDS (26.4-36.2) L 12/15/18 21:15 ABG pH 7.41 (7.35-7.45) 12/15/18 22:17 ABG pCO2 36.3 mmHg (35-45) 12/15/18 22:17 ABG pO2 135 mmHg (80-100) H 12/15/18 22:17 ABG HCO3 23 mmol/L (22-26) 12/15/18 22:17 ABG Total CO2 24 mmol/L (21-31) 12/15/18 22:17 ABG O2 Saturation 99 % (95-100) 12/15/18 22:17 ABG Base Excess -2.0 mmol/L (-2-2) 12/15/18 22:17 FiO2 40 12/15/18 22:17 Sodium 137 mmol/L (137-145) 12/16/18 01:57 Potassium 4.4 mmol/L (3.4-5.1) 12/16/18 13:00 Chloride 101 mmol/L (98-107) 12/16/18 01:57 Carbon Dioxide 26 mmol/L (22-32) 12/16/18 01:57 BUN 19 mg/dL (7-17) H 12/16/18 01:57 Creatinine 0.90 mg/dL (0.52-1.04) 12/16/18 01:57 Estimated GFR 59.9 mL/min (>60) L 12/16/18 01:57 BUN/Creatinine Ratio 21.1 (6-22) 12/16/18 01:57 Glucose 113 mg/dL (80-110) H 12/16/18 01:57 Lactate 0.9 mmol/L (0.7-2.1) 12/16/18 02:04 Calcium 9.0 mg/dL (8.4-10.2) 12/16/18 01:57 Magnesium 2.2 mg/dL (1.6-2.3) 12/15/18 21:15 Total Bilirubin 1.6 mg/dL (0.2-1.3) H 12/15/18 21:15 AST 40 IU/L (14-36) H 12/15/18 21:15 ALT 30 IU/L (9-52) 12/15/18 21:15 Alkaline Phosphatase 46 U/L (38-126) 12/15/18 21:15 Total Creatine Kinase 49 U/L (30-135) 12/15/18 21:15 CK-MB (CK-2) TNP 12/15/18 21:15 CK-MB (CK-2) Rel Index TNP 12/15/18 21:15 Troponin I 0.014 ng/mL (0.01-0.034) 12/16/18 01:57 B-Natriuretic Peptide 357 (<100) H 12/15/18 21:15 Total Protein 7.6 g/dL (6.3-8.2) 12/15/18 21:15 Albumin 4.6 g/dL (3.5-5.0) 12/15/18 21:15 Globulin 3.0 g/dL (1.7-4.1) 12/15/18 21:15 Albumin/Globulin Ratio 1.5 (1.0-2.8) 12/15/18 21:15 Triglycerides 43 mg/dL (35-150) 12/16/18 01:57 Cholesterol 113 mg/dL (140-199) L 12/16/18 01:57 LDL Cholesterol, Calc 57 mg/dL (<100) 12/16/18 01:57 HDL Cholesterol 47 mg/dL (40-60) 12/16/18 01:57 Procalcitonin < 0.05 ng/mL (<0.5) 12/15/18 21:15 TSH 4.26 uIU/mL (0.47-4.68) 12/16/18 01:57 Urine Color Yellow 12/15/18 21:54 Urine Appearance Clear 12/15/18 21:54 Urine pH 6.5 (4.5-8.0) 12/15/18 21:54 Ur Specific [place] 1.010 (1.000-1.035) 12/15/18 21:54 Urine Protein Negative (Negative) 12/15/18 21:54 Urine Glucose (UA) Negative g/dL (Negative) 12/15/18 21:54 Urine Ketones Negative (NEGATIVE) 12/15/18 21:54 Urine Occult Blood Negative (Negative) 12/15/18 21:54 Urine Nitrate Negative (Negative) 12/15/18 21:54 Urine Bilirubin Negative (NEGATIVE) 12/15/18 21:54 Urine Urobilinogen 0.2 E.U./dL (0.2) 12/15/18 21:54 Ur Leukocyte Esterase Negative (NEGATIVE) 12/15/18 21:54 Urine RBC None seen (0-5/HPF) 12/15/18 21:54 Urine WBC None seen (0-5/HPF) 12/15/18 21:54 Urine Bacteria None seen (None) 12/15/18 21:54 Ur Culture Indicated? Cult not indicated 12/15/18 21:54 Micro UA Comment Microscopic normal 12/15/18 21:54 Nasal Screen MRSA (PCR) Negative for mrsa (Negative) 12/16/18 01:40 - Imaging CT scan - chest: image reviewed Assessment and Plan (1) Lung nodule Current visit: Yes Status: Acute A 83-year-old woman with atrial fibrillation, CHF and a history of a CVA. She has a new finding of a right-sided lung nodule. I did discuss this with Radiology. It is not an area that can be easily biopsied. Instead, we will plan on a PET-CT for further evaluation as an outpatient. If the lesion is metabolically active and there is no evidence of distant spread, a biopsy may need to be reconsidered. If the uptake is low, it could probably be followed expectantly. She should have a PET-CT as an outpatient after hospital discharge and then a follow-up with me to arrange for further steps if needed.
[2018-12-17] MEDS: AMIODARONE 200 MG TABLET PO (09:03)
[2018-12-17] MEDS: METOPROLOL ER 25 MG TABLET 12.5 MG PO (09:03)
[2018-12-17] MEDS: ENOXAPARIN 80 MG/0.8 ML SYRINGE 70 MG SUBCUT (09:04)
[2018-12-17] MEDS: PRAVASTATIN 20 MG TABLET 40 MG PO (09:04)
[2018-12-17] MEDS: SODIUM CHLORIDE 0.9% FLUSH 10 ML IV ×2 (09:04→19:56)
[2018-12-17] MEDS: FUROSEMIDE 40 MG/4 ML VIAL IV (09:06)
--- NOTE | 2018-12-17 10:16 | PC.NURSE ---
Pt alert, oriented, denies pain is short of breath with exertion. LS cta sats on RA96%. HR irregular and up in 120's with transfers. Dr Wilkinson aware, new orders received.
--- NOTE | 2018-12-17 11:05 | PT.IPTN ---
Current Diagnoses Hyperlipidemia, unspecified (12/16/18) Essential (primary) hypertension (12/16/18) Unspecified atrial fibrillation (12/16/18) Acute systolic (congestive) heart failure (12/16/18) Heart failure, unspecified (12/16/18) Acute respiratory failure with hypoxia (12/16/18) Solitary pulmonary nodule (12/16/18) Physical Therapy Treatment Note M2 PT-IP Current Condition Start: 12/16/18 15:17 Freq: NEEDED Status: Active Protocol: Document 12/16/18 09:00 BS (Rec: 12/16/18 15:43 BS [email or web address]) Physical Therapy Current Condition Current Condition Evaluation Date 12/16/18 Treatment Diagnosis Dyspnea, decreased activity tolerance Onset Date 12/15/18 Weight Bearing Status Weight Bearing Status Full Weight Bearing M3 PT-IP Subjective Start: 12/16/18 15:17 Freq: NEEDED Status: Active Protocol: Document 12/17/18 11:05 GGD (Rec: 12/17/18 12:28 GGD [id number]) Subjective Physical Therapy Visit Type Type Treatment Note Visit Start Time 10:50 Visit Stop Time 11:05 Total Visit Minutes 15 Physical Therapy Visit Comments Patient Comments Pt willing to work with therapy. M4 PT-IP Mobility and Gait Start: 12/16/18 15:17 Freq: NEEDED Status: Active Protocol: Document 12/17/18 11:05 GGD (Rec: 12/17/18 12:28 GGD [id number]) PT-Bed Mobility Assessment Sit to Supine Sit to Supine Contact Guard Assistance PT-Transfer Assessment Sit to and From Stand Sit to and from Stand Contact Guard Assistance Equipment Transfer Assistive Device Gait Belt Small Based Quad Cane Transfers Transfer Destination Bed Chair Transfer Technique Stand Pivot Transfer Ability Level of Assist Contact Guard Assistance Minimal Assistance Gait Assessment Gait Gait Assistance Required: Contact Guard Assist Distance (Feet) 30 Able to Maintain Weight Bearing Status Yes During Gait Assistive Devices Assistive Device Small Based Quad Cane Orthotic/Prosthetic Devices or Brace: No Gait Deviations General Gait Pattern Decreased Stride Length Decreased Feet Clearance Flexed Trunk Factors Limiting Gait Function Factors Limiting Gait Function Decreased Activity Tolerance Decreased Strength Limited Range of Motion Poor Balance Comments Gait Comments Pt ambulated 15 x 2 with seated rest break. HR 120-133 with activity. M5 PT-IP Objective Assessments Start: 12/16/18 15:17 Freq: NEEDED Status: Active Protocol: Document 12/16/18 09:00 BS (Rec: 12/16/18 15:43 BS [email or web address]) Orientation Orientation/Cognition Level of Alertness Alert Safety Awareness Understands Safety Issues Comments Pt verbalized safety measures and break management during transfer from sitting EOB-> manual w/c. Gross Range of Motion Upper Extremity ROM Assessment Left Impaired Impairments L hemiparesis. Minimal anti- gravity movement of LUE. Lower Extremity ROM Assessment Within Functional Limits Strength Upper Extremity Strength Assessment Left Impaired Lower Extremity Strength Assessment Left Impaired Comments Strength Comments LUE more impaired than LLE. LLE MMT for knee ext, ankle DF , hip abd/add all 4+/5. RLE MMT all 4+/5. Muscle Tone Muscle Tone WNL Yes Comments Muscle Tone Comments Mod-severe hypotonia of LUE. LLE very mild hypotonia s/p CVA in 2012. M6 PT-IP Treatment Start: 12/16/18 15:17 Freq: NEEDED Status: Active Protocol: Document 12/16/18 15:47 LJ (Rec: 12/16/18 16:19 LJ [id number]) Physical Therapy Treatment Exercises Exercises Ankle Pumps Gluteal Sets Quad Sets Other Treatments Other Treatment Performed Pelvic tilts, abdominal crunches and oblique crunches with head of bed raised, M7 PT-IP Assessment and Plan Start: 12/16/18 15:17 Freq: NEEDED Status: Active Protocol: Document 12/17/18 11:05 GGD (Rec: 12/17/18 12:28 GGD [id number]) PT Summary Assessment and Plan Summary Assessment Summary Pt improving with mobility. She had mild unsteadiness with gait and needed cues for keeping cane close. Frequency of Treatment Frequency Of Treatment Twice a Day Treatment Plan Physical Therapy Treatment Plan Bed Mobility Training Transfer Training Gait Training Therapeutic Exercise Balance Retraining Post Op Education Discharge Planning Neuromuscular Re-ed Other Recommendations and Next Treatment gait with chair follow behind Focus and shoes. Recommendations To Nursing Amount of Assist Needed Standby Assistance 1 Person Assist Discharge Recommendations PT Discharge Recommendations Home with Assistance
--- NOTE | 2018-12-17 11:44 | P.PN_ITS ---
Subjective Date Patient Seen: 12/17/18 Interval history: Patient is an 83-year-old female who was admitted to the [facility] yesterday for abrupt onset shortness of breath, rapid atrial fibrillation. She required respiratory support with BiPAP she was off the BiPAP by the time I saw her. Her O2 sats were very low 80% and was placed back on BiPAP. The patient has known congestive heart failure. A review from her echocardiogram done in August at [facility] indicates her LV systolic function is normal. She has no focal wall motion abnormalities. Her ejection fraction is estimated to be 60-65%. She has moderate concentric left ventricular hypertrophy. This there has been no change. Right ventricle is normal in size and function left atrium is severely dilated right atrium moderately dilated there is mild mitral regurgitation mild to moderate tricuspid regurgitation there is a bioprosthetic aortic valve with a probable normal prosthetic aortic valve function the ascending aorta is moderately enlarged. At that time she was in sinus bradycardia at 50-60 beats per minute. Patient also was discovered to have a pulmonary nodule and will have an outpatient evaluation with a PET scan. She was seen by Dr. Netta gregory who concurs with the plan. Exam Vital Signs (past 8 hours): - 12/17/18 04:30 12/17/18 07:00 12/17/18 07:35 Temperature 96.8 F L 98 F Pulse Rate 102 H 85 Respiratory Rate 19 14 Blood Pressure 131/91 H 146/85 H Pulse Oximetry 94 96 96 Fraction of Inspired Oxygen 30 Oxygen Delivery Method Room Air Oxygen Flow Rate 0 Narrative Exam Narrative: Elderly female short of breath and tachycardic at rest Lungs: Decreased breath sounds with occasional scattered crackles Cardiac exam: Tachycardic regular rate rhythm normal S1-S2 with a 2/6 systolic ejection murmur Abdomen: Soft nontender nondistended Extremities: No edema Objective Labs Result Diagrams: 12/15/18 21:15 12/16/18 13:00 Labs: Laboratory Results - last 24 hr 12/16/18 13:00 Potassium 4.4 Assessment & Plan (1) Congestive heart failure: Problem details: Patient presents with acute congestive heart failure with preserved ejection fraction. She has responded nicely to IV Lasix. Will continue her usual home dosing. This was present on admission. Qualifiers: Heart failure chronicity: acute Heart failure type: systolic Qualified Code(s): I50.21 - Acute systolic (congestive) heart failure Current visit: Yes Status: Acute (2) Respiratory failure: Problem details: The patient presented with acute respiratory failure, present on admission. Patient required BiPAP. After diuresis she was able to be weaned quite nicely. She is no longer requiring oxygen. Qualifiers: Chronicity: acute Respiratory failure complication: hypoxia Qualified Code(s): J96.01 - Acute respiratory failure with hypoxia Current visit: Yes Status: Acute (3) Atrial fibrillation with RVR: Problem details: Patient has atrial fibrillation with a rapid ventricular response rate, present on admission, she continues to have a rapid rate. Her medications are somewhat unclear. It appears that she has been on metoprolol but is not on amiodarone or there is some confusion regarding that. Will call the PCP office to determine what actual meds she is on. For now will continue her on the metoprolol and consider resuming amiodarone if in fact that is a true medication. Current visit: Yes Status: Acute (4) Lung nodule: Problem details: Lung nodule, present on admission, outpatient PET scan to be arranged Dr. wagner consulted Current visit: Yes Status: Acute (5) Hypertension: Problem details: Hypertension currently well controlled. Will continue her usual outpatient medication Current visit: Yes Status: Acute (6) Hyperlipidemia: Problem details: Hyperlipidemia, chronic will continue her statin Current visit: Yes Status: Acute Quality VTE Deep Vein Thrombosis/Pulmonary Embolism Present on Admission: No
[2018-12-17 12:00] LABS: BUN Creatinine Ratio 21.3 (6-22); Blood Urea Nitrogen 17 mg/dL (7-17); Calcium 9.6 mg/dL (8.4-10.2); Carbon Dioxide 29 mmol/L (22-32); Chloride 100 mmol/L (98-107); Estimated Glomerular Filt Rate > 60.0 mL/min (>60); Glucose 77 mg/dL (80-110); HEMOLYSIS 35 (0-50); Potassium 3.9 mmol/L (3.4-5.1); Sodium 139 mmol/L (137-145)
[2018-12-17 12:05] LABS: B Type Natriuretic Peptide 300 (<100)
--- NOTE | 2018-12-17 14:18 | PT.IPTN ---
Current Diagnoses Hyperlipidemia, unspecified (12/16/18) Essential (primary) hypertension (12/16/18) Unspecified atrial fibrillation (12/16/18) Acute systolic (congestive) heart failure (12/16/18) Heart failure, unspecified (12/16/18) Acute respiratory failure with hypoxia (12/16/18) Solitary pulmonary nodule (12/16/18) Physical Therapy Treatment Note M2 PT-IP Current Condition Start: 12/16/18 15:17 Freq: NEEDED Status: Active Protocol: Document 12/16/18 09:00 BS (Rec: 12/16/18 15:43 BS [email or web address]) Physical Therapy Current Condition Current Condition Evaluation Date 12/16/18 Treatment Diagnosis Dyspnea, decreased activity tolerance Onset Date 12/15/18 Weight Bearing Status Weight Bearing Status Full Weight Bearing M3 PT-IP Subjective Start: 12/16/18 15:17 Freq: NEEDED Status: Active Protocol: Document 12/17/18 14:10 SA (Rec: 12/17/18 14:18 SA [email or web address]) Subjective Physical Therapy Visit Type Type Treatment Note Visit Start Time 13:48 Visit Stop Time 14:08 Total Visit Minutes 20 Notes Pt in bed but agreeable to get OOB. Physical Therapy Visit Comments Patient Comments HR 90 BPM 02 Sats 95% Therapy Pain Assessment Pain When Pain Assessed During Mobility Pain Present Pain Present Denied Pain M4 PT-IP Mobility and Gait Start: 12/16/18 15:17 Freq: NEEDED Status: Active Protocol: Document 12/17/18 14:10 SA (Rec: 12/17/18 14:18 SA [email or web address]) PT-Bed Mobility Assessment Rolling Type of Rolling Roll to Right Level of Assist Standby Assistance Supine to Sit Supine to Sit Contact Guard Assistance Sit to Supine Sit to Supine Contact Guard Assistance Scooting Scooting to Edge of Bed Contact Guard Assistance Scooting Up and Down in Bed Moderate Assistance PT-Transfer Assessment Sit to and From Stand Sit to and from Stand Contact Guard Assistance Equipment Transfer Assistive Device Gait Belt Small Based Quad Cane Orthotic/Prosthetic Devices or Brace: No Transfers Transfer Destination Bed Transfer Technique Stand Pivot Transfer Ability Level of Assist Contact Guard Assistance Minimal Assistance Comments Mobility Comments Pt able to clear LEs over EOB with SUP<>SIT and CGA but needs helf scooting up in bed. CGA with stand pivot txs. Cues for LLE focus. Gait Assessment Gait Gait Assistance Required: Contact Guard Assist Distance (Feet) 35 Able to Maintain Weight Bearing Status Yes During Gait Assistive Devices Assistive Device Small Based Quad Cane Orthotic/Prosthetic Devices or Brace: No Gait Deviations General Gait Pattern Decreased Stride Length Decreased Feet Clearance Flexed Trunk Factors Limiting Gait Function Factors Limiting Gait Function Decreased Activity Tolerance Decreased Strength Limited Range of Motion Poor Balance Comments Gait Comments Max A to don supportive shoes, Gait training with CGA and SBQC to nurses counter and back, cues for increasing step length and safe use of quad cane. PT-Balance Assessment Standing Balance and Reactions Device Used R SBQC M5 PT-IP Objective Assessments Start: 12/16/18 15:17 Freq: NEEDED Status: Active Protocol: Document 12/16/18 09:00 BS (Rec: 12/16/18 15:43 BS [email or web address]) Orientation Orientation/Cognition Level of Alertness Alert Safety Awareness Understands Safety Issues Comments Pt verbalized safety measures and break management during transfer from sitting EOB-> manual w/c. Gross Range of Motion Upper Extremity ROM Assessment Left Impaired Impairments L hemiparesis. Minimal anti- gravity movement of LUE. Lower Extremity ROM Assessment Within Functional Limits Strength Upper Extremity Strength Assessment Left Impaired Lower Extremity Strength Assessment Left Impaired Comments Strength Comments LUE more impaired than LLE. LLE MMT for knee ext, ankle DF , hip abd/add all 4+/5. RLE MMT all 4+/5. Muscle Tone Muscle Tone WNL Yes Comments Muscle Tone Comments Mod-severe hypotonia of LUE. LLE very mild hypotonia s/p CVA in 2013. M6 PT-IP Treatment Start: 12/16/18 15:17 Freq: NEEDED Status: Active Protocol: Document 12/17/18 14:10 SA (Rec: 12/17/18 14:18 SA [email or web address]) Physical Therapy Treatment Exercises Exercises Ankle Pumps Gluteal Sets Quad Sets Education Education Provided Safety M7 PT-IP Assessment and Plan Start: 12/16/18 15:17 Freq: NEEDED Status: Active Protocol: Document 12/17/18 14:10 SA (Rec: 12/17/18 14:18 SA [email or web address]) PT Summary Assessment and Plan Potential Rehabilitation Potential Good Status of Condition at Evaluation Evolving Summary Assessment Summary Pt fatigued rapidly with gait, Vitals WNLs and cues for safe mobility. Frequency of Treatment Frequency Of Treatment Twice a Day Treatment Plan Physical Therapy Treatment Plan Bed Mobility Training Transfer Training Gait Training Therapeutic Exercise Balance Retraining Post Op Education Discharge Planning Neuromuscular Re-ed Other Recommendations and Next Treatment gait with chair follow behind Focus and shoes. Recommendations To Nursing Amount of Assist Needed 1 Person Assist Discharge Recommendations PT Discharge Recommendations Home with Assistance
[2018-12-17] MEDS: METOPROLOL IR 25 MG TABLET PO (17:37)
[2018-12-17] MEDS: NYSTATIN POWDER 30 GM 1 APPLIC TOP (19:53)
[2018-12-17] MEDS: MELATONIN 3 MG TABLET 9 MG PO (19:54)
[2018-12-17] MEDS: GABAPENTIN 600 MG TABLET PO (19:54)
[2018-12-17] MEDS: METOPROLOL ER 25 MG TABLET PO (19:55)
[2018-12-17] MEDS: APIXABAN 5 MG TABLET PO (19:55)
[2018-12-18] VITALS: BP 136/88; PULSE 77; RESP 24; TEMP 36.3; O2SAT 96; O2SAT 97
[2018-12-18] MEDS: ACETAMINOPHEN 325 MG TABLET 650 MG PO (05:01)
[2018-12-18] MEDS: LEVOTHYROXINE 100 MCG TABLET PO (05:02)
[2018-12-18 05:05] VITALS: BP 133/77; PULSE 79; RESP 16; TEMP 36; O2SAT 96
[2018-12-18] MEDS: SODIUM CHLORIDE 0.9% FLUSH 10 ML IV ×2 (05:08→08:42)
[2018-12-18 05:31] LABS: BUN Creatinine Ratio 26.3 (6-22); Blood Urea Nitrogen 21 mg/dL (7-17); Calcium 9.7 mg/dL (8.4-10.2); Carbon Dioxide 29 mmol/L (22-32); Chloride 102 mmol/L (98-107); Estimated Glomerular Filt Rate > 60.0 mL/min (>60); Glucose 83 mg/dL (80-110); HEMOLYSIS < 15 (0-50); Potassium 3.9 mmol/L (3.4-5.1); Sodium 139 mmol/L (137-145)
[2018-12-18 05:40] LABS: Basophils Absolute Auto 100 /uL (0-100); Basophils Percent Auto 2.9 % (0-2); Eosinophils Absolute Auto 200 /uL (0-450); Eosinophils Percent Auto 3.9 % (2-4); Hematocrit 32.5 % (36-46); Hemoglobin 10.9 g/dL (12.0-16.0); Lymphocytes Absolute Auto 1300 /uL (1100-4500); Lymphocytes Percent Auto 32.3 % (25-40); Mean Corpuscular HGB Conc 33.5 % (30-36); Mean Corpuscular Volume 107.6 fL (80-100); Monocytes Absolute Auto 400 /uL (0-900); Monocytes Percent Auto 11.1 % (3-14); Neutrophils Absolute Auto 1900 /uL (1500-7000); Neutrophils Percent Auto 49.8 % (50-75); Platelet Count 150 X10^3/uL (150-400); Red Blood Cell Count 3.02 X10^6/uL (4.0-5.2); Red Cell Distribution Width 14.6 % (11.6-14.8); White Blood Cell Count 3.9 X10^3/uL (4.5-11.0)
[2018-12-18 05:42] LABS: Add Manual Diff / Slide Review SLIDE REVIEW
[2018-12-18 05:55] LABS: Anisocytosis 1+
[2018-12-18 08:22] VITALS: BP 135/79; PULSE 78; RESP 17; TEMP 36.6; O2SAT 96
[2018-12-18] MEDS: APIXABAN 5 MG TABLET PO (08:32)
[2018-12-18 08:33] VITALS: BP 135/79; PULSE 83
[2018-12-18] MEDS: METOPROLOL ER 25 MG TABLET PO (08:33)
[2018-12-18] MEDS: FUROSEMIDE 40 MG/4 ML VIAL IV (08:42)
[2018-12-18 09:12] VITALS: O2SAT 97
--- NOTE | 2018-12-18 10:16 | P.DS_ITS ---
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 The patient states that earlier today she was feeling fine with no complaints of pain or problems and was participating in an online web in our respond to questions. The patient states he developed an acute shortness of breath without chest pain or pressure, diaphoresis or nausea. She felt no palpitations and has had a history of atrial fibrillation in the past. At the time of onset the patient reports she took an extra tablet of 20 mg Lasix. She reports no recent cold or flu symptoms and has had no fevers or chills, headaches or dizziness, nasal congestion or sore throat. She reports no abdominal pain constipation or diarrhea and has no uri nary symptoms. She uses a wheelchair for mobilization and is unable to walk without assistance due to her residual left hemiparesis. Upon arrival in the ER at 2110 the patient was afebrile temperature 96.8? tachycardic with heart rate of 146, blood pressure 108/80 and respiratory rate of 32 the patient was immediately placed on oxygen and given nitroglycerin and Lasix. According to the ER report the patient was initially in atrial fibrillation with left bundle branch block. The patient had diuresis of 1 L but remained tachycardic. She received Lopressor 2.5 mg x2 and 5 mg x1 with a transient decrease in heart rate to 120s but also significant decrease in her blood pressure. Her heart rate stabilized at 139 beats per minute. She then received digoxin 250 mcg with no appreciable change in heart rate. Patient's CBC reveals a normal white count of 7.4 with hemoglobin of 12.4 and hematocrit 38.2 and platelets 235. She her electrolytes are within normal limits she has a BUN of 20 and creatinine 0.9 from with an EGFR of 59.9 and a blood sugar of 142. Her magnesium was 2.2 and BMP was 357 and troponin was negative at less than 0.012 as was procalcitonin at less than 0.05. Her urinalysis is unremarkable. Her ABG reveals a pH of 7.41, pCO2 of 36.3, PO2 135 and a bicarb of 23 on 40% FiO2. The patient was requesting medication to help her sleep and was given Ativan in the ER. Discharge Providers Date of admission: 12/16/18 00:50 Discharge Date: 12/18/18 Primary care physician: Fátima White PA-C Consults: 12/15/18 21:10 Consult to Respiratory Therapy Evaluate & Treat Comment: Physician Instructions: Evaluate and treat 12/16/18 01:43 Consult to Dietitian, Adult Routine Comment: Reason For Exam: CHF exacerbation Consult to Discharge Planning Routine Comment: 12/16/18 01:44 Consult to Physical Therapy Evaluate & Treat Comment: S/P CVA with dense left michelle Physician Instructions: Evaluate and Treat Discharge provider: Noelle Wilkinson MD Summary Discharge Diagnosis: 1. Atrial fibrillation/atrial flutter with a rapid ventricular response rate, present on admission, improved 2. Acute hypoxic respiratory failure, present on admission 3. Acute decompensated congestive heart failure, with preserved systolic functi on present on admission , improved 4. Hypertension 5. Hyperlipidemia 6. Hypothyroid Hospital Course: Patient was admitted to the hospital for acute shortness of breath. She was found to have acute congestive heart failure with preserved ejection fraction. She received IV Lasix with excellent response. The patient developed AFib a flutter. Her rate was difficult to control. She was ultimately placed on metoprolol 25 b.i.d. with improved heart rate. She had an echocardiogram which revealed a preserved systolic function. The patient was pl aced on Xarelto for stroke prophylaxis. She is transitioning from Dr. be ayala to another PCP. She will be seeing from Cardiology as an outpatient as well. Patient has made significant improvement and feels comfortable and ready for discharge home. Status at Discharge Cognitive/behavioral status at discharge: oriented Functional status at discharge: independent ambulation Overall status at discharge: patient is back to baseline Time Spent with Patient Less than 30 minutes Exam Vital Signs (past 8 hours): - 12/18/18 05:05 12/18/18 08:22 12/18/18 08:33 Temperature 96.8 F L 98 F Pulse Rate 79 78 83 Respiratory Rate 16 17 Blood Pressure 133/77 135/79 135/79 Pulse Oximetry 96 96 12/18/18 09:12 Temperature Pulse Rate Respiratory Rate Blood Pressure Pulse Oximetry 97 Fraction of Inspired Oxygen 30 Oxygen Delivery Method Room Air Oxygen Flow Rate 0 Narrative Exam Narrative: Pleasant female in no obvious distress Lungs: Clear to auscultation Cardiac exam: Irregularly irregular normal S1-S2 with a 3/6 systolic ejection Abdomen: Soft nontender nondistended Extremities: No edema Objective Labs Result Diagrams: 12/18/18 04:47 12/18/18 04:47 Labs: Laboratory Results - last 24 hr 12/17/18 12/17/18 12/18/18 11:25 11:25 04:47 WBC RBC Hgb Hct MCV MCH MCHC RDW Plt Count Neut % (Auto) Lymph % (Auto) [place] % (Auto) Eos % (Auto) Baso % (Auto) Neut # (Auto) Lymph # (Auto) [place] # (Auto) Eos # (Auto) Baso # (Auto) Plt Morphology Comment RBC Morphology Anisocytosis Sodium 139 139 Potassium 3.9 3.9 Chloride 100 102 Carbon Dioxide 29 29 BUN 17 21 H Creatinine 0.80 0.80 Estimated GFR > 60.0 > 60.0 BUN/Creatinine Ratio 21.3 26.3 H Glucose 77 L 83 Calcium 9.6 9.7 B-Natriuretic Peptide 300 H 12/18/18 04:47 WBC 3.9 L RBC 3.02 L Hgb 10.9 L Hct 32.5 L MCV 107.6 H MCH 36.0 H MCHC 33.5 RDW 14.6 Plt Count 150 Neut % (Auto) 49.8 L Lymph % (Auto) 32.3 [place] % (Auto) 11.1 Eos % (Auto) 3.9 Baso % (Auto) 2.9 H Neut # (Auto) 1900 Lymph # (Auto) 1300 [place] # (Auto) 400 Eos # (Auto) 200 Baso # (Auto) 100 Plt Morphology Comment . RBC Morphology See below Anisocytosis 1+ H Sodium Potassium Chloride Carbon Dioxide BUN Creatinine Estimated GFR BUN/Creatinine Ratio Glucose Calcium B-Natriuretic Peptide Discharge Plan Discharge Plan Patient Disposition: Home Discharge comment: F/u with Dr. Mooney in one week Discharge Med Rec/Prescriptions Prescriptions: New nystatin [Nystop] 100,000 unit/gram Powder 1 applic topical BID PRN (Reason: Rash) 10 Days RF: 0 apixaban [Eliquis] 5 mg Tablet 5 mg PO BID 30 Days Qty: 60 RF: 0 metoprolol succinate 25 mg Tablet Extended Release 24 Hr 25 mg PO BID 30 Days Qty: 60 RF: 0 Continued pravastatin 40 mg Tablet 40 mg PO DAILY RF: 0 tamsulosin 0.4 mg Capsule 0.4 mg PO DAILY RF: 0 gabapentin 300 mg Capsule 600 mg PO BEDTIME RF: 0 furosemide 20 mg Tablet 20 mg PO DAILY RF: 0 losartan 100 mg Tablet 100 mg PO BID RF: 0 levothyroxine 100 mcg Tablet 100 mcg PO DAILY RF: 0 multivitamin Tablet 1 tab PO DAILY RF: 0 tizanidine 2 mg Tablet 2 mg PO BEDTIME PRN (Reason: Muscle Spasm) RF: 0 mupirocin 2 % Ointment 1 applic TOPICAL TID RF: 0 Prolia 60 mg/mL Syringe 60 mg subcut [id number] RF: 0 cholecalciferol (vitamin D3) [Vitamin D3] 2,000 unit Tablet 2,000 unit PO DAILY RF: 0 Discontinued hydralazine 25 mg Tablet 25 mg PO TID RF: 0 verapamil 40 mg Tablet 40 mg PO DAILY PRN (Reason: spike in blood pressure) RF: 0 aspirin 325 mg Tablet 325 mg PO DAILY RF: 0 metoprolol tartrate 25 mg Tablet 12.5 mg PO BID RF: 0 Follow up/Referrals: Fátima White PA-C [Primary Care Provider] - Provider Discharge Instructions Diet: Low-sodium and Low-cholesterol Activity: as tolerated Oxygen: Not indicated Discharge Data Primary Care Provider: Fátima White Attending Provider: Teddy Miles Admit Date/Time: 12/16/18 00:50 Quality VTE Deep Vein Thrombosis/Pulmonary Embolism Present on Admission: No
[2018-12-18] MEDS: PRAVASTATIN 20 MG TABLET 40 MG PO (10:20)
[2018-12-18 10:46] VITALS: BP 132/86; PULSE 67
--- NOTE | 2018-12-18 11:28 | PT.IPTN ---
Current Diagnoses Hyperlipidemia, unspecified (12/16/18) Essential (primary) hypertension (12/16/18) Unspecified atrial fibrillation (12/16/18) Acute systolic (congestive) heart failure (12/16/18) Heart failure, unspecified (12/16/18) Acute respiratory failure with hypoxia (12/16/18) Solitary pulmonary nodule (12/16/18) Physical Therapy Treatment Note M2 PT-IP Current Condition Start: 12/16/18 15:17 Freq: NEEDED Status: Active Protocol: Document 12/16/18 09:00 BS (Rec: 12/16/18 15:43 BS [id number]) Physical Therapy Current Condition Current Condition Evaluation Date 12/16/18 Treatment Diagnosis Dyspnea, decreased activity tolerance Onset Date 12/15/18 Weight Bearing Status Weight Bearing Status Full Weight Bearing M3 PT-IP Subjective Start: 12/16/18 15:17 Freq: NEEDED Status: Active Protocol: Document 12/18/18 11:23 SA (Rec: 12/18/18 11:28 SA [id number]) Subjective Physical Therapy Visit Type Type Treatment Note Visit Start Time 09:24 Visit Stop Time 09:44 Total Visit Minutes 20 Notes Pt up in chair, agreeable to PT. Physical Therapy Visit Comments Patient Comments Vitals WNLs Therapy Pain Assessment Pain When Pain Assessed During Mobility Pain Present Pain Present Denied Pain M4 PT-IP Mobility and Gait Start: 12/16/18 15:17 Freq: NEEDED Status: Active Protocol: Document 12/18/18 11:23 SA (Rec: 12/18/18 11:28 SA [id number]) PT-Transfer Assessment Sit to and From Stand Sit to and from Stand Contact Guard Assistance Equipment Transfer Assistive Device Gait Belt Small Based Quad Cane Orthotic/Prosthetic Devices or Brace: No Transfers Transfer Destination Chair Bedside Commode Transfer Technique Stand Pivot Transfer Ability Level of Assist Contact Guard Assistance Comments Mobility Comments CGA with txs to/from multiple surfaces with min cues. Pt uses quad cane correctly. Gait Assessment Gait Gait Assistance Required: Contact Guard Assist Distance (Feet) 45 Assistive Devices Assistive Device Gait Belt Small Based Quad Cane Orthotic/Prosthetic Devices or Brace: No Gait Deviations General Gait Pattern Decreased Stride Length Decreased Feet Clearance Flexed Trunk Factors Limiting Gait Function Factors Limiting Gait Function Decreased Activity Tolerance Decreased Strength Limited Range of Motion Poor Balance Comments Gait Comments WC follow with gait to shower room but pt did not need, CGA and cues for upright posture and pacing. No LOB noted. Stair Climbing Assessment Comments Stair Climbing Comments No stairs at home PT-Balance Assessment Standing Balance and Reactions Device Used R SBQC M5 PT-IP Objective Assessments Start: 12/16/18 15:17 Freq: NEEDED Status: Active Protocol: Document 12/16/18 09:00 BS (Rec: 12/16/18 15:43 BS [id number]) Orientation Orientation/Cognition Level of Alertness Alert Safety Awareness Understands Safety Issues Comments Pt verbalized safety measures and break management during transfer from sitting EOB-> manual w/c. Gross Range of Motion Upper Extremity ROM Assessment Left Impaired Impairments L hemiparesis. Minimal anti- gravity movement of LUE. Lower Extremity ROM Assessment Within Functional Limits Strength Upper Extremity Strength Assessment Left Impaired Lower Extremity Strength Assessment Left Impaired Comments Strength Comments LUE more impaired than LLE. LLE MMT for knee ext, ankle DF , hip abd/add all 4+/5. RLE MMT all 4+/5. Muscle Tone Muscle Tone WNL Yes Comments Muscle Tone Comments Mod-severe hypotonia of LUE. LLE very mild hypotonia s/p CVA in 2013. M6 PT-IP Treatment Start: 12/16/18 15:17 Freq: NEEDED Status: Active Protocol: Document 12/18/18 11:23 (Rec: 12/18/18 11:28 [id number]) Physical Therapy Treatment Exercises Exercises Ankle Pumps Gluteal Sets Quad Sets Education Education Provided Safety M7 PT-IP Assessment and Plan Start: 12/16/18 15:17 Freq: NEEDED Status: Active Protocol: Document 12/18/18 11:23 (Rec: 12/18/18 11:28 [id number]) PT Summary Assessment and Plan Potential Rehabilitation Potential Good Status of Condition at Evaluation Evolving Summary Assessment Summary Pt approaching baseline with mobility tasks, walked a distance today that is equal to her previous ambulation in home with caregiver. Frequency of Treatment Frequency Of Treatment Twice a Day Treatment Plan Physical Therapy Treatment Plan Bed Mobility Training Transfer Training Gait Training Therapeutic Exercise Balance Retraining Post Op Education Discharge Planning Neuromuscular Re-ed Recommendations To Nursing Amount of Assist Needed 1 Person Assist Discharge Recommendations PT Discharge Recommendations Home with Assistance
== END 2018-12-18 11:41 | disposition home or self-care (01) | DRG 291 ==
LOC: ED 12-16 00:15 → ICU 12-16 00:51
PROVIDERS: Internal Medicine; Admitting Provider Nurse Practitioner Adult Health; Emergency Provider Emergency Medicine; PCP Physician Assistant; Visit Provider Nurse Practitioner Adult Health
DX: I11.0 Hypertensive heart disease with heart failure (principal); J96.01 Acute respiratory failure with hypoxia; I69.354 Hemiplegia and hemiparesis following cerebral infarction affecting left non-dominant side; I47.1 Supraventricular tachycardia; I50.33 Acute on chronic diastolic (congestive) heart failure; I48.91 Unspecified atrial fibrillation; I44.7 Left bundle-branch block, unspecified; E03.9 Hypothyroidism, unspecified; E78.5 Hyperlipidemia, unspecified; R91.1 Solitary pulmonary nodule
CPT/HCPCS: 36415; 36591; 36600; 51701; 71045; 71275; 80048; 80053; 80061; 81001; 82550; 82805; 83605; 83735; 83880; 84132; 84145; 84443; 84484; 85025; 85610; 85730; 87040; 87797; 93005; 94660; 94760; 96374; 96375; 96376; 97110; 97116; 97530; 99203; 99213; 99232; 99285; J1160; J1650; J1940; J2060; Q9967

== ENCOUNTER → 2019-01-15 10:53 | Oncology outpatient (ONC) | payer MEDICARE, OTHER, MEDICAID, SELFPAY ==
[2018-12-16 00:46] VITALS: PULSE 139; RESP 13; O2SAT 100
[2018-12-16 02:21] VITALS: BMI 27.6
[2018-12-16 12:07] VITALS: PULSE 92
[2019-01-15 11:32] VITALS: BP 138/83; PULSE 89; RESP 18; TEMP 36.8; O2SAT 97
--- NOTE | 2019-01-15 11:51 | ONC.PN ---
PN -Subjective Interval history: Diagnosis: Pulmonary nodule Interval history: The patient is an 83-year-old woman who I saw initially in the hospital. She had presented with an episode of rapid AFib and heart failure. As part of her evaluation, she had a CT scan of the chest done. It showed a nodule in the medial right lung next to the heart that measured 2 cm in size and was suspicious for malignancy. Because of its location, it was not possible to obtain a biopsy and a PET-CT was recommended. Since the patient's hospital discharge, she has been feeling generally well. She still has some episodes of palpitations and shortness of breath but overall has been fairly stable. She does have an appointment pending with the traffic routing engineer and anticipates that she is going to need some monitoring. Her weight has been stable. She has not noticed any increasing edema. Appetite has been fair. She is not having any pain in the chest. She does have occasional cough has been nonproductive. She denies any other changes in her health. - Patient Self-Reported Symptoms SR respiratory issues: Shortness of breath, Difficulty breathing, Mucous SR Genitourinary issues: Frequent urination Home Medications and Allergies Home Medications Medication Instructions Recorded Confirmed Type furosemide 20 mg PO DAILY 12/15/18 01/15/19 History gabapentin 600 mg PO BEDTIME 12/15/18 01/15/19 History losartan 100 mg PO BID 12/15/18 01/15/19 History pravastatin 40 mg PO DAILY 12/15/18 01/15/19 History tamsulosin 0.4 mg PO DAILY 12/15/18 01/15/19 History Prolia 60 mg SUBCUT [id number] 12/16/18 01/15/19 History cholecalciferol (vitamin D3) 2,000 unit PO DAILY 12/16/18 01/15/19 History [Vitamin D3] levothyroxine 100 mcg PO DAILY 12/16/18 01/15/19 History multivitamin 1 tab PO DAILY 12/16/18 01/15/19 History mupirocin 1 applic TOPICAL TID 12/16/18 01/15/19 History tizanidine 2 mg PO BEDTIME PRN 12/16/18 01/15/19 History apixaban [Eliquis] 5 mg PO BID 30 Days #60 tab 12/18/18 Rx metoprolol succinate 37.5 mg PO DAILY 01/15/19 01/15/19 History Allergies Allergy/AdvReac Type Severity Reaction Status Date / Time No Known Drug Allergies Allergy Verified 12/15/18 21:31 Exam Vital signs: Vital Signs Temp Pulse Resp BP Pulse Ox 01/15/19 11:32 98.3 F 89 18 138/83 97 - Constitutional positive no acute distress, positive average body habitus Comments: She is in a wheelchair. - Routine HEENT Exam Head: Present: normocephalic, atraumatic Eye: Present: EOMI, PERRL. Absent: conjunctival icterus, scleral injection ENT: Present: mucous membranes moist, oropharynx clear - Routine Neck Exam Present: supple. Absent: lymphadenopathy, thyromegaly - Routine Respiratory Exam Present: Clear to auscultation bilaterally. Absent: rales, wheezes - Routine Cardiovascular Exam Present: RRR, S1, S2. Absent: murmur - Routine Abdominal Exam Present: soft, normoactive bowel sounds. Absent: tenderness, organomegaly, mass - Routine Extremities Exam Comments: She has 1+ lower extremity edema on the left. - Routine Skin Exam Present: intact. Absent: petechiae, rash - Routine Neurological Exam Present: alert, oriented X3 - Routine Psychiatric Exam Present: normal affect, normal thought process Results - Imaging Additional studies: Procedures Her PET-CT images reviewed. They showed a 2 cm nodule adjacent to the heart in the right lower lobe. There was no increase in metabolic activity. There is no evidence of other hypermetabolic lesions. Assessment and Plan (1) Lung nodule Problem details: Lung nodule, present on admission, outpatient PET scan to be arranged Dr. wagner consulted Current visit: No Status: Acute 83-year-old woman with a history of atrial fibrillation and heart failure as well as a prior CVA. She has a 2 cm nodule that is not PET avid and I think most likely benign. She will be due for a follow-up CT scan in about 3 months. She will return to clinic here at that time.
== END ==
LOC: ONC 10:57
DX: R91.1 Solitary pulmonary nodule (principal); I48.91 Unspecified atrial fibrillation; I50.9 Heart failure, unspecified; Z86.73 Personal history of transient ischemic attack (TIA), and cerebral infarction without residual deficits
CPT/HCPCS: 99214

== ENCOUNTER 2019-02-23 21:09 | Emergency (ER) | payer MEDICARE, OTHER, MEDICAID, SELFPAY ==
[2018-12-16 00:46] VITALS: PULSE 139; RESP 13; O2SAT 100
[2018-12-16 02:21] VITALS: BMI 27.6
[2018-12-16 12:07] VITALS: PULSE 92
--- NOTE | 2019-02-23 21:12 | DI.RAD.S_ITS ---
PROCEDURE: XR CHEST 1V INDICATIONS: SOB TECHNIQUE: One view of the chest was acquired. COMPARISON: [facility], CR, XR CHEST 1V, 12/15/2018, 21:05. [facility], CR, XR CHEST 2V, 11/08/2018, 10:45. [facility], CR, CHEST 1 VIEW, 12/17/2011, 10:40. FINDINGS: Surgical changes and devices: Midline sternotomy wires and external monitoring leads noted. There is a prosthetic cardiac valve. Lungs and pleura: There is prominence of the pulmonary vasculature. No pleural effusions or pneumothoraces identified. There are diffuse bilateral reticular pulmonary opacities. There are hazy opacities at the left lung base. Mediastinum: Mediastinal contours appear normal. There is unchanged enlargement of the cardiac silhouette compatible with cardiomegaly versus a pericardial effusion. Bones and chest wall: No suspicious bony lesions. Overlying soft tissues appear unremarkable. IMPRESSION: Findings suggestive of minimal pulmonary edema with left basilar atelectasis. Dictated by: Darren Ayala M.D. on 02/23/2019 at 22:28 Approved by: Darren Ayala M.D. on 02/23/2019 at 22:32
[2019-02-23 21:34] VITALS: BP 121/80; PULSE 99; RESP 18; TEMP 37.1; O2SAT 95; BMI 26.5
--- NOTE | 2019-02-23 21:53 | ED_ITS ---
HPI - General Adult General Chief complaint: Shortness of Breath/Dyspnea Stated complaint: SOB X2 Nights Time Seen by Provider: 02/23/19 21:11 Source: patient Mode of arrival: EMS Limitations: no limitations History of Present Illness HPI narrative: Patient is an 83-year-old female with a history of congestive heart failure and paroxysmal atrial fibrillation. She is currently on anticoagulation. She is brought in by EMS for initial concerns shortness of breath for the past several days. On further questioning the patient she stated that she is actually here in the emergency department because she has had pr oblems sleeping for the past 3 nights because she wakes up and has short of breath. She also states she feels like her heart has been beating fast. Initially she stated that she was only here to get some sleeping medication. She states that her shortness of breath does not seem to be getting worse it is just keeping her up at night. She denies any chest pain. Related Data Home Medications Medication Instructions Recorded Confirmed furosemide 20 mg PO DAILY 12/15/18 02/23/19 gabapentin 600 mg PO BEDTIME 12/15/18 01/15/19 losartan 100 mg PO BID 12/15/18 01/15/19 pravastatin 40 mg PO DAILY 12/15/18 01/15/19 tamsulosin 0.4 mg PO DAILY 12/15/18 01/15/19 Prolia 60 mg SUBCUT [id number] 12/16/18 01/15/19 cholecalciferol (vitamin D3) 2,000 unit PO DAILY 12/16/18 01/15/19 [Vitamin D3] levothyroxine 100 mcg PO DAILY 12/16/18 01/15/19 multivitamin 1 tab PO DAILY 12/16/18 01/15/19 mupirocin 1 applic TOPICAL TID 12/16/18 01/15/19 tizanidine 2 mg PO BEDTIME PRN 12/16/18 01/15/19 metoprolol succinate 25 mg PO DAILY 01/15/19 01/15/19 apixaban [Eliquis] 5 mg PO BID 02/23/19 02/23/19 aspirin PO DAILY 02/23/19 Previous Rx's Medication Instructions Recorded melatonin 1 mg PO BEDTIME PRN #14 tab 02/23/19 Allergies Allergy/AdvReac Type Severity Reaction Status Date / Time No Known Drug Allergies Allergy Verified 12/15/18 21:31 Review of Systems Constitutional Denies fever(s) and Denies headache(s) ENT Ears, Nose, Mouth, and Throat: Denies headache(s) Cardiovascular Denies chest pain, Reports rapid heart rate, Reports palpitations and Reports dyspnea Respiratory Denies cough and Reports dyspnea Gastrointestinal Gastrointestinal: Denies abdominal pain, Denies nausea and Denies vomiting Genitourinary Denies dysuria Integumentary/Breasts Denies rash Neurologic Denies behavioral changes and Denies headache(s) Psychiatric Denies behavioral changes Endocrine Reports palpitations Hematologic/Lymphatic Comments: On anticoagulation [facility] Medical History Atrial fibrillation (Acute) CHF (congestive heart failure) (Acute) CVA (cerebral vascular accident) (Acute) Hyperlipidemia (Acute) Hypertension (Acute) Hypothyroid (Acute) Raynauds disease (Acute) Surgical History History of aortic valve replacement (Acute) Social History household members: none Smoking Status: Former smoker Social History household members: none Smoking Status: Former smoker Exam Initial Vital Signs Initial Vital Signs: Vital Signs Temperature 98.8 F 02/23/19 21:34 Pulse Rate 99 H 02/23/19 21:34 Respiratory Rate 18 02/23/19 21:34 Blood Pressure 121/80 02/23/19 21:34 Pulse Oximetry 95 02/23/19 21:34 Const General: cooperative, well developed, well groomed and No acute distress Orientation: alert, awake and oriented x3 HENMT Head: normal to inspection and normocephalic Resp Effort & Inspection: normal respiratory effort, no cough and not labored Auscultation: clear to auscultation bilaterally Cardio Rate: regular rate Rhythm: abnormal rhythm irregularly irregular Pulses: radial pulses present GI Inspection: non-distended Palpation: soft Skin Lesions: no lesions Rashes: no rashes Neuro General: alert, awake and oriented x3 Extrem General: edema (2+ pitting edema bilateral lower extremity) Psych Appearance: grossly normal and well kempt Course Orders Ordered: ED Orders 02/23/19 21:12 XR chest 1V Stat 02/23/19 21:13 EKG-12 Lead Stat 02/23/19 22:13 B Type Natriuretic Peptide Stat Complete Blood Count AUTO DIFF Stat Comprehensive Metabolic Panel Stat Lipase Stat Partial Thromboplastin Time Stat Prothrombin Time INR Stat Troponin I Stat Vital Signs - 8 hr 02/23/19 21:34 02/23/19 22:30 02/23/19 22:59 Temperature 98.8 F 98.6 F Pulse Rate 99 H 97 H 111 H Respiratory Rate 18 16 20 Blood Pressure 121/80 Blood Pressure [Right Arm] 130/95 H 130/95 H Pulse Oximetry 95 98 96 02/23/19 23:40 Temperature Pulse Rate 101 H Respiratory Rate 20 Blood Pressure Blood Pressure [Right Arm] 140/96 H Pulse Oximetry 97 Medical Decision Making Lab Data Lab results reviewed: Yes I reviewed the patient's lab results. Result diagrams: 02/23/19 22:13 02/23/19 22:13 Lab Results 02/23/19 02/23/19 02/23/19 Range/Units 22:13 22:13 22:13 WBC 4.8 (4.5-11.0) X10^3/uL RBC 3.29 L (4.0-5.2) X10^6/uL Hgb 11.7 L (12.0-16.0) g/dL Hct 35.6 L (36-46) % MCV 108.2 H (80-100) fL MCH 35.7 H (26-34) PG MCHC 33.0 (30-36) % RDW 16.2 H (11.6-14.8) % Plt Count 132 L (150-400) X10^3/uL Neut % (Auto) 67.5 (50-75) % Lymph % (Auto) 22.4 L (25-40) % [place] % (Auto) 6.3 (3-14) % Eos % (Auto) 3.3 (2-4) % Baso % (Auto) 0.5 (0-2) % Neut # (Auto) 3200 (3187-5188) /uL Lymph # (Auto) 1100 (6000-7532) /uL [place] # (Auto) 300 (0-900) /uL Eos # (Auto) 200 (0-450) /uL Baso # (Auto) 0 (0-100) /uL Plt Morphology Comment . RBC Morphology See below Anisocytosis 1+ H PT 18.7 H (10.1-12.7) SECONDS INR 1.6 H (0.9-1.3) APTT 36 D (26.4-36.2) SECONDS Sodium 142 (137-145) mmol/L Potassium 4.0 (3.4-5.1) mmol/L Chloride 107 (98-107) mmol/L Carbon Dioxide 26 (22-32) mmol/L BUN 30 H (7-17) mg/dL Creatinine 1.00 (0.52-1.04) mg/dL Estimated GFR 53.1 L (>60) mL/min BUN/Creatinine Ratio 30.0 H (6-22) Glucose 101 (80-110) mg/dL Calcium 9.6 (8.4-10.2) mg/dL Total Bilirubin 2.0 H (0.2-1.3) mg/dL AST 31 (14-36) IU/L ALT 29 (9-52) IU/L Alkaline Phosphatase 52 (38-126) U/L Troponin I < 0.012 (0.01-0.034) ng/mL B-Natriuretic Peptide 789 H (<100) Total Protein 6.7 (6.3-8.2) g/dL Albumin 3.9 (3.5-5.0) g/dL Globulin 2.8 (1.7-4.1) g/dL Albumin/Globulin Ratio 1.4 (1.0-2.8) Lipase 71 (23-300) U/L Imaging Data Chest x-ray: Radiologist's impression: [address] [address] XRay Report Signed Patient: Jacquelyn Whiting BMR#: [id number] : 6Acct:[id number] Age/Sex: 83 / FDate of Service: 02/23/19 Loc: ED Accession Number: [id number] Procedure: XR chest 1V Ordering Provider: Emmanuel Chen D.O. PROCEDURE: XR CHEST 1V INDICATIONS: SOB TECHNIQUE: One view of the chest was acquired. COMPARISON: [facility], CR, XR CHEST 1V, 12/15/2018, 21:05. [facility], CR, XR CHEST 2V, 11/08/2018, 10:45. [facility], CR, CHEST 1 VIEW, 12/17/2011, 10:40. FINDINGS: Surgical changes and devices: Midline sternotomy wires and external monitoring leads noted. There is a prosthetic cardiac valve. Lungs and pleura: There is prominence of the pulmonary vasculature. No pleural effusions or pneumothoraces identified. There are diffuse bilateral reticular pulmonary opacities. There are hazy opacities at the left lung base. Mediastinum: Mediastinal contours appear normal. There is unchanged enlargement of the cardiac silhouette compatible with cardiomegaly versus a pericardial effusion. Bones and chest wall: No suspicious bony lesions. Overlying soft tissues appear unremarkable. IMPRESSION: Findings suggestive of minimal pulmonary edema with left basilar atelectasis. Dictated by: Darren Ayala M.D. on 02/23/2019 at 22:28 Approved by: Darren Ayala M.D. on 02/23/2019 at 22:32 ECG Data Attestation: I personally reviewed and interpreted this ECG as follows: Prior ECG tracings: not available for review Interpretation: Atrial fibrillation Ventricular rate of 95 Left axis deviation Left bundle-branch block MDM Narrative Medical decision making narrative: Patient is not hypoxic, not tachypneic. She is wheelchair bound given her history of CVA in her left-sided weakness. Chest x-ray does not show any effusion. Patient has been in and out of atrial fibrillation with the heart rates in the 90s however has increased into the 120s. She denies any chest pain. Her BNP is slightly more elevated this evening. Had a long discussion with the patient regarding her symptoms. Informed her that her sleeping issues are most likely because her heart failure is causing her to have problems laying flat. We did discuss options to include being admitted to the hospital for IV diuresis. She does have lower extremity swelling and her BNP is elevated. Patient stated that she did not want to be admitted to the hospital. She is currently taking 20 mg of Lasix every other day. This was just started last Sunday by her primary provider will have her increase her Lasix to daily. She denied an offer for IV Lasix this evening because she stated that she did not want to get up over night to go to the bathroom. We did discuss her sleeping. Will send her home with a prescription for melatonin. She states she received melatonin when she was last admitted to the hospital here and that seemed to work for her very well. She understands th at she will have to pick this medication up tomorrow and would not help her sleep this evening. Informed her that she needed contact her primary doctor tomorrow to discuss her change in medication. She is given return precautions. She expressed understanding and agreement with plan. Discharge Plan Departure Patient Disposition: Home Clinical Impression: CHF (congestive heart failure) Qualifiers: Heart failure type: unspecified Heart failure chronicity: unspecified Qualified Code(s): I50.9 - Heart failure, unspecified Atrial fibrillation Qualifiers: Atrial fibrillation type: unspecified Qualified Code(s): I48.91 - Unspecified atrial fibrillation Activity Restrictions/Additional Instructions: Starting tomorrow morning start taking your Lasix/furosemide 1 tablet every day. Your currently prescribed this medication 1 tablet every other day. Use the melatonin as needed for sleep. Remember this medication can make you drowsy. Tomorrow you need to contact your primary provider to discuss the changes that we made in your medications. Return to the emergency department for any new or worsening symptoms Prescriptions: New melatonin 1 mg tablet 1 mg PO BEDTIME PRN (Reason: sleep) Qty: 14 RF: 0 No Action pravastatin 40 mg Tablet 40 mg PO DAILY RF: 0 tamsulosin 0.4 mg Capsule 0.4 mg PO DAILY RF: 0 gabapentin 300 mg Capsule 600 mg PO BEDTIME RF: 0 furosemide 20 mg Tablet 20 mg PO DAILY RF: 0 losartan 100 mg Tablet 100 mg PO BID RF: 0 levothyroxine 100 mcg Tablet 100 mcg PO DAILY RF: 0 multivitamin Tablet 1 tab PO DAILY RF: 0 tizanidine 2 mg Tablet 2 mg PO BEDTIME PRN (Reason: Muscle Spasm) RF: 0 mupirocin 2 % Ointment 1 applic TOPICAL TID RF: 0 Prolia 60 mg/mL Syringe 60 mg subcut [id number] RF: 0 cholecalciferol (vitamin D3) [Vitamin D3] 2,000 unit Tablet 2,000 unit PO DAILY RF: 0 metoprolol succinate 25 mg tablet extended release 24 hr 25 mg PO DAILY RF: 0 aspirin 325 mg Tablet PO DAILY RF: 0 Eliquis 5 mg Tablet 5 mg PO BID RF: 0 Referrals: Remy Bull MD [Primary Care Provider] -
--- NOTE | 2019-02-23 22:16 | PC.NURSE ---
Buffered lidocaine used for IV start
[2019-02-23 22:24] LABS: Basophils Absolute Auto 0 /uL (0-100); Basophils Percent Auto 0.5 % (0-2); Eosinophils Absolute Auto 200 /uL (0-450); Eosinophils Percent Auto 3.3 % (2-4); Hematocrit 35.6 % (36-46); Hemoglobin 11.7 g/dL (12.0-16.0); Lymphocytes Absolute Auto 1100 /uL (1100-4500); Lymphocytes Percent Auto 22.4 % (25-40); Mean Corpuscular Hemoglobin 35.7 PG (26-34); Mean Corpuscular Volume 108.2 fL (80-100); Monocytes Absolute Auto 300 /uL (0-900); Monocytes Percent Auto 6.3 % (3-14); Neutrophils Absolute Auto 3200 /uL (1500-7000); Neutrophils Percent Auto 67.5 % (50-75); Platelet Count 132 X10^3/uL (150-400); Red Blood Cell Count 3.29 X10^6/uL (4.0-5.2); Red Cell Distribution Width 16.2 % (11.6-14.8); White Blood Cell Count 4.8 X10^3/uL (4.5-11.0)
[2019-02-23 22:26] LABS: Add Manual Diff / Slide Review SLIDE REVIEW; INR 1.6 (0.9-1.3); Prothrombin Time 18.7 SECONDS (10.1-12.7)
[2019-02-23 22:29] LABS: PTT Partial Thromboplastin Tim 36 SECONDS (26.4-36.2)
[2019-02-23 22:30] VITALS: BP 130/95; PULSE 97; RESP 16; O2SAT 98
[2019-02-23 22:30] LABS: Alanine Aminotransferase 29 IU/L (9-52); Albumin 3.9 g/dL (3.5-5.0); Albumin Globulin Ratio 1.4 (1.0-2.8); Alkaline Phosphatase 52 U/L (38-126); Aspartate Aminotransferase 31 IU/L (14-36); Blood Urea Nitrogen 30 mg/dL (7-17); Calcium 9.6 mg/dL (8.4-10.2); Carbon Dioxide 26 mmol/L (22-32); Chloride 107 mmol/L (98-107); Estimated Glomerular Filt Rate 53.1 mL/min (>60); Globulin 2.8 g/dL (1.7-4.1); Glucose 101 mg/dL (80-110); HEMOLYSIS < 15 (0-50); Lipase 71 U/L (23-300); Sodium 142 mmol/L (137-145); Total Protein 6.7 g/dL (6.3-8.2)
[2019-02-23 22:42] LABS: B Type Natriuretic Peptide 789 (<100); Troponin I < 0.012 ng/mL (0.01-0.034)
[2019-02-23 22:55] LABS: Anisocytosis 1+
[2019-02-23 22:59] VITALS: BP 130/95; PULSE 111; RESP 20; TEMP 37; O2SAT 96
--- NOTE | 2019-02-23 23:23 | PC.NURSE ---
report to JAIME Parker
[2019-02-23 23:40] VITALS: BP 140/96; PULSE 101; RESP 20; O2SAT 97
== END 2019-02-24 00:41 | disposition home or self-care (01) ==
PROVIDERS: Emergency Provider Emergency Medicine
DX: I50.9 Heart failure, unspecified (principal); I48.91 Unspecified atrial fibrillation; Z79.01 Long term (current) use of anticoagulants
CPT/HCPCS: 36591; 71045; 80053; 83690; 83880; 84484; 85025; 85610; 85730; 93005; 93041; 99283; 99285

== ENCOUNTER 2019-03-08 21:23 | Emergency (ER) | payer MEDICARE, OTHER, MEDICAID, SELFPAY ==
[2018-12-16 00:46] VITALS: PULSE 139; RESP 13; O2SAT 100
[2018-12-16 02:21] VITALS: BMI 27.6
[2018-12-16 12:07] VITALS: PULSE 92
[2019-03-08 21:25] VITALS: BP 121/82; PULSE 123; RESP 19; TEMP 36.6; O2SAT 100; BMI 26.5
--- NOTE | 2019-03-08 21:36 | ED.WEAKNESS ---
HPI - Weakness General Chief complaint: Weakness Stated complaint: Can't sleep for 3 days Time Seen by Provider: 03/08/19 21:36 Source: patient and EMS Limitations: no limitations History of Present Illness HPI Narrative: PATIENT IS 83-YEAR-OLD FEMALE WHO PRESENTS WITH history of atrial fibrillation and congestive heart failure presenting today with INSOMNIA. SHE SAYS SHE CAN'T SLEEP SHE HAS NOT BEEN ABLE TO SLEEP for last 3 nights she says that she takes about 30 minutes naps. She denies any orthopnea she can tell that she is in atrial fibrillation she actually has a zero patch on now. She says she has been taking melatonin to help her sleep she simply cannot sleep. She has no complaints otherwise. She denies any chest pain no shortness of breath no fevers no abdominal pain. She does have some edema in her legs but she says that that has been they are always and unchanged. Related Data Home Medications Medication Instructions Recorded Confirmed furosemide 20 mg PO DAILY 12/15/18 02/23/19 gabapentin 600 mg PO BEDTIME 12/15/18 01/15/19 losartan 100 mg PO BID 12/15/18 01/15/19 pravastatin 40 mg PO DAILY 12/15/18 01/15/19 tamsulosin 0.4 mg PO DAILY 12/15/18 01/15/19 Prolia 60 mg SUBCUT [id number] 12/16/18 01/15/19 cholecalciferol (vitamin D3) 2,000 unit PO DAILY 12/16/18 01/15/19 [Vitamin D3] levothyroxine 100 mcg PO DAILY 12/16/18 01/15/19 multivitamin 1 tab PO DAILY 12/16/18 01/15/19 mupirocin 1 applic TOPICAL TID 12/16/18 01/15/19 tizanidine 2 mg PO BEDTIME PRN 12/16/18 01/15/19 metoprolol succinate 25 mg PO DAILY 01/15/19 01/15/19 apixaban [Eliquis] 5 mg PO BID 02/23/19 02/23/19 aspirin PO DAILY 02/23/19 Previous Rx's Medication Instructions Recorded melatonin 1 mg PO BEDTIME PRN #14 tab 02/23/19 Allergies Allergy/AdvReac Type Severity Reaction Status Date / Time No Known Drug Allergies Allergy Verified 12/15/18 21:31 Review of Systems Review of Systems ROS Unobtainable: All systems reviewed & are unremarkable except as noted in HPI and below Constitutional Denies chills, Reports daytime sleepiness, Reports difficulty sleeping, Denies fever(s), Denies lethargy and Denies weakness Eyes Denies change in vision, Denies eye discharge, Denies irritation and Denies loss of vision ENT Ears, Nose, Mouth, and Throat: Denies change in voice, Denies neck pain and Denies sore throat Cardiovascular Denies chest pain, Denies irregular heart rhythm, Denies lightheadedness, Denies palpitations, Denies dyspnea, Denies dyspnea on exertion and Denies orthopnea Respiratory Denies cough, Denies dyspnea, Denies dyspnea on exertion and Denies wheezing Gastrointestinal Gastrointestinal: Denies abdominal pain, Denies change in bowel habits, Denies diarrhea, Denies nausea and Denies vomiting Musculoskeletal Denies neck pain Integumentary/Breasts Denies pruritus, Denies erythema, Denies rash and Denies wounds Neurologic Denies loss of vision and Denies weakness Endocrine Denies palpitations Allergic/Immunologic Denies wheezing [facility] Medical History Atrial fibrillation (Acute) CHF (congestive heart failure) (Acute) CVA (cerebral vascular accident) (Acute) Hyperlipidemia (Acute) Hypertension (Acute) Hypothyroid (Acute) Raynauds disease (Acute) Surgical History History of aortic valve replacement (Acute) Social History household members: none Smoking Status: Former smoker Social History household members: none Smoking Status: Former smoker Exam Initial Vital Signs Initial Vital Signs: Vital Signs Temperature 97.8 F 03/08/19 21:25 Pulse Rate 123 H 03/08/19 21:25 Respiratory Rate 03/08/19 21:25 Blood Pressure 121/82 03/08/19 21:25 Pulse Oximetry 100 03/08/19 21:25 GENERAL: Alert well-appearing elderly female no acute distress HEENT: Head atraumatic,EOMI, pupils reactive, face symmetric CARDIOVASCULAR: Irregularly irregular no murmur zero patch noted RESPIRATORY: Breath sounds equal bilaterally, no wheezes rales or rhonchi. ABDOMEN: Soft, nontender. Normoactive bowel sounds all 4 quadrants. No guarding or rebound. EXTREMITIES: Normal range of motion, no clubbing or edema. Neurovascularly intact NEUROLOGICAL: Alert and oriented x4.Normal gait and speech. Cranial nerves II through XII grossly intact. SKIN: Warm, dry, no laceration, no petechiae, no rashes or lesions. Course Orders Ordered: ED Orders 03/08/19 21:52 B Type Natriuretic Peptide Stat Complete Blood Count AUTO DIFF Stat Comprehensive Metabolic Panel Stat Magnesium Stat Partial Thromboplastin Time Stat Procalcitonin Stat Prothrombin Time INR Stat Troponin & CK Cardiac Panel Stat 03/08/19 22:28 XR chest 1V Stat Discontinued Medications Diphenhydramine HCl (Benadryl) 25 mg PO NOW ONE Stop: 03/08/19 23:35 Last Admin: 03/08/19 23:43 Dose: 25 mg Vital Signs - 8 hr 03/08/19 21:25 03/08/19 22:00 03/09/19 01:10 Temperature 97.8 F Pulse Rate 123 H 122 H 115 H Respiratory Rate 19 Blood Pressure 121/82 111/80 Blood Pressure [Right Arm] 117/97 H Pulse Oximetry 100 100 MDM - Weakness Lab Data Attestation: I reviewed the patient's lab results. Result diagrams: 03/08/19 21:52 03/08/19 21:52 Lab Results 03/08/19 03/08/19 03/08/19 Range/Units 21:52 21:52 21:52 WBC 4.8 (4.5-11.0) X10^3/uL RBC 3.34 L (4.0-5.2) X10^6/uL Hgb 11.8 L (12.0-16.0) g/dL Hct 36.4 (36-46) % MCV 108.8 H (80-100) fL MCH 35.3 H (26-34) PG MCHC 32.5 (30-36) % RDW 15.8 H (11.6-14.8) % Plt Count 160 (150-400) X10^3/uL Neut % (Auto) 63.8 (50-75) % Lymph % (Auto) 22.0 L (25-40) % [place] % (Auto) 6.9 (3-14) % Eos % (Auto) 3.6 (2-4) % Baso % (Auto) 3.7 H (0-2) % Neut # (Auto) 3100 (3988-0310) /uL Lymph # (Auto) 1100 (1288-4654) /uL [place] # (Auto) 300 (0-900) /uL Eos # (Auto) 200 (0-450) /uL Baso # (Auto) 200 H (0-100) /uL Plt Morphology Comment . RBC Morphology See below Anisocytosis 1+ H PT 16.8 H (10.1-12.7) SECONDS INR 1.5 H (0.9-1.3) APTT 36 (26.4-36.2) SECONDS Sodium 139 (137-145) mmol/L Potassium 4.6 (3.4-5.1) mmol/L Chloride 102 (98-107) mmol/L Carbon Dioxide 31 (22-32) mmol/L BUN 23 H (7-17) mg/dL Creatinine 1.00 (0.52-1.04) mg/dL Estimated GFR 53.1 L (>60) mL/min BUN/Creatinine Ratio 23.0 H (6-22) Glucose 108 (80-110) mg/dL Calcium 9.3 (8.4-10.2) mg/dL Magnesium 2.1 (1.6-2.3) mg/dL Total Bilirubin 1.6 H (0.2-1.3) mg/dL AST 29 (14-36) IU/L ALT 27 (9-52) IU/L Alkaline Phosphatase 54 (38-126) U/L Total Creatine Kinase 54 (30-135) U/L CK-MB (CK-2) TNP CK-MB (CK-2) Rel Index TNP Troponin I < 0.012 (0.01-0.034) ng/mL B-Natriuretic Peptide 673 H (<100) Total Protein 6.4 (6.3-8.2) g/dL Albumin 3.7 (3.5-5.0) g/dL Globulin 2.7 (1.7-4.1) g/dL Albumin/Globulin Ratio 1.4 (1.0-2.8) Procalcitonin (<0.5) ng/mL 03/08/19 Range/Units 21:52 WBC (4.5-11.0) X10^3/uL RBC (4.0-5.2) X10^6/uL Hgb (12.0-16.0) g/dL Hct (36-46) % MCV (80-100) fL MCH (26-34) PG MCHC (30-36) % RDW (11.6-14.8) % Plt Count (150-400) X10^3/uL Neut % (Auto) (50-75) % Lymph % (Auto) (25-40) % [place] % (Auto) (3-14) % Eos % (Auto) (2-4) % Baso % (Auto) (0-2) % Neut # (Auto) (2431-7471) /uL Lymph # (Auto) (2488-7014) /uL [place] # (Auto) (0-900) /uL Eos # (Auto) (0-450) /uL Baso # (Auto) (0-100) /uL Plt Morphology Comment RBC Morphology Anisocytosis PT (10.1-12.7) SECONDS INR (0.9-1.3) APTT (26.4-36.2) SECONDS Sodium (137-145) mmol/L Potassium (3.4-5.1) mmol/L Chloride (98-107) mmol/L Carbon Dioxide (22-32) mmol/L BUN (7-17) mg/dL Creatinine (0.52-1.04) mg/dL Estimated GFR (>60) mL/min BUN/Creatinine Ratio (6-22) Glucose (80-110) mg/dL Calcium (8.4-10.2) mg/dL Magnesium (1.6-2.3) mg/dL Total Bilirubin (0.2-1.3) mg/dL AST (14-36) IU/L ALT (9-52) IU/L Alkaline Phosphatase (38-126) U/L Total Creatine Kinase (30-135) U/L CK-MB (CK-2) CK-MB (CK-2) Rel Index Troponin I (0.01-0.034) ng/mL B-Natriuretic Peptide (<100) Total Protein (6.3-8.2) g/dL Albumin (3.5-5.0) g/dL Globulin (1.7-4.1) g/dL Albumin/Globulin Ratio (1.0-2.8) Procalcitonin 0.05 (<0.5) ng/mL Imaging Data Chest x-ray: Attestation: I personally reviewed and interpreted this imaging study as follows: My impression: No acute cardiopulmonary process stable from previous exam postsurgical changes noted ECG Data Attestation: I personally reviewed and interpreted this ECG as follows: Prior ECG tracings: available for review Interpretation: Fibrillation left bundle branch block noted similar to previous EKGs no ST changes MDM Narrative Medical decision making narrative: Patient really has no complaints except that she cannot sleep. He is given a dose of Benadryl here to help her sleep. [employer] today is slightly lower than it was previously she is not complaining of shortness of breath lungs sound clear no sign of acute CHF. His she is chronically in atrial fibrillation blood work is reassuring. At this time no other reason why she cannot sleep. She is apparently wheelchair bound after a stroke. Her wheelchair was left at her home. There is no on else to come and pick her up. She cannot go by cab because she does not have her wheelchair. She will need to go back by BLS. Discharge Plan Departure Patient Disposition: Home Clinical Impression: Acute insomnia Discharge Date/Time: 03/09/19 01:11 Interventions: ED Discharge Assessment Last Done: 03/09/19 01:10 Instructions: DI for Insomnia Activity Restrictions/Additional Instructions: *You have been diagnosed with insomnia *What to do: The need to talk with her PCP about her difficulty sleeping. At this time her blood work and x-ray look good. *Continue to take medications as directed Benadryl 25-50 mg at night to help with sleep OR Melatonin 5-10 mg at night to help with sleep *Follow up with your primary care provider in 2-3 days *Return to ER if you should have any new, worsening or concerning symptoms Prescriptions: No Action pravastatin 40 mg Tablet 40 mg PO DAILY RF: 0 tamsulosin 0.4 mg Capsule 0.4 mg PO DAILY RF: 0 gabapentin 300 mg Capsule 600 mg PO BEDTIME RF: 0 furosemide 20 mg Tablet 20 mg PO DAILY RF: 0 losartan 100 mg Tablet 100 mg PO BID RF: 0 levothyroxine 100 mcg Tablet 100 mcg PO DAILY RF: 0 multivitamin Tablet 1 tab PO DAILY RF: 0 tizanidine 2 mg Tablet 2 mg PO BEDTIME PRN (Reason: Muscle Spasm) RF: 0 mupirocin 2 % Ointment 1 applic TOPICAL TID RF: 0 Prolia 60 mg/mL Syringe 60 mg subcut [id number] RF: 0 cholecalciferol (vitamin D3) [Vitamin D3] 2,000 unit Tablet 2,000 unit PO DAILY RF: 0 metoprolol succinate 25 mg tablet extended release 24 hr 25 mg PO DAILY RF: 0 aspirin 325 mg Tablet PO DAILY RF: 0 Eliquis 5 mg Tablet 5 mg PO BID RF: 0 melatonin 1 mg tablet 1 mg PO BEDTIME PRN (Reason: sleep) Qty: 14 RF: 0 Referrals: Remy Bull MD [Primary Care Provider] -
--- NOTE | 2019-03-08 21:50 | ED_ITS ---
HPI - Weakness General Chief complaint: Weakness Stated complaint: Can't sleep for 3 days Time Seen by Provider: 03/08/19 21:36 Source: patient and EMS Limitations: no limitations History of Present Illness HPI Narrative: PATIENT IS 83-YEAR-OLD FEMALE WHO PRESENTS WITH history of atrial fibrillation and congestive heart failure presenting today with INSOMNIA. SHE SAYS SHE CAN'T SLEEP SHE HAS NOT BEEN ABLE TO SLEEP for last 3 nights she says that she takes about 30 minutes naps. She denies any orthopnea she can tell that she is in atrial fibrillation she actually has a zero patch on now. She says she has been taking melatonin to help her sleep she simply cannot sleep. She has no complaints otherwise. She denies any chest pain no shortness of breath no fevers no abdominal pain. She does have some edema in her legs but she says that that has been they are always and unchanged. Related Data Home Medications Medication Instructions Recorded Confirmed furosemide 20 mg PO DAILY 12/15/18 02/23/19 gabapentin 600 mg PO BEDTIME 12/15/18 01/15/19 losartan 100 mg PO BID 12/15/18 01/15/19 pravastatin 40 mg PO DAILY 12/15/18 01/15/19 tamsulosin 0.4 mg PO DAILY 12/15/18 01/15/19 Prolia 60 mg SUBCUT [id number] 12/16/18 01/15/19 cholecalciferol (vitamin D3) 2,000 unit PO DAILY 12/16/18 01/15/19 [Vitamin D3] levothyroxine 100 mcg PO DAILY 12/16/18 01/15/19 multivitamin 1 tab PO DAILY 12/16/18 01/15/19 mupirocin 1 applic TOPICAL TID 12/16/18 01/15/19 tizanidine 2 mg PO BEDTIME PRN 12/16/18 01/15/19 metoprolol succinate 25 mg PO DAILY 01/15/19 01/15/19 apixaban [Eliquis] 5 mg PO BID 02/23/19 02/23/19 aspirin PO DAILY 02/23/19 Previous Rx's Medication Instructions Recorded melatonin 1 mg PO BEDTIME PRN #14 tab 02/23/19 Allergies Allergy/AdvReac Type Severity Reaction Status Date / Time No Known Drug Allergies Allergy Verified 12/15/18 21:31 Review of Systems Review of Systems ROS Unobtainable: All systems reviewed & are unremarkable except as noted in HPI and below Constitutional Denies chills, Reports daytime sleepiness, Reports difficulty sleeping, Denies fever(s), Denies lethargy and Denies weakness Eyes Denies change in vision, Denies eye discharge, Denies irritation and Denies loss of vision ENT Ears, Nose, Mouth, and Throat: Denies change in voice, Denies neck pain and Denies sore throat Cardiovascular Denies chest pain, Denies irregular heart rhythm, Denies lightheadedness, Denies palpitations, Denies dyspnea, Denies dyspnea on exertion and Denies orthopnea Respiratory Denies cough, Denies dyspnea, Denies dyspnea on exertion and Denies wheezing Gastrointestinal Gastrointestinal: Denies abdominal pain, Denies change in bowel habits, Denies diarrhea, Denies nausea and Denies vomiting Musculoskeletal Denies neck pain Integumentary/Breasts Denies pruritus, Denies erythema, Denies rash and Denies wounds Neurologic Denies loss of vision and Denies weakness Endocrine Denies palpitations Allergic/Immunologic Denies wheezing [facility] Medical History Atrial fibrillation (Acute) CHF (congestive heart failure) (Acute) CVA (cerebral vascular accident) (Acute) Hyperlipidemia (Acute) Hypertension (Acute) Hypothyroid (Acute) Raynauds disease (Acute) Surgical History History of aortic valve replacement (Acute) Social History household members: none Smoking Status: Former smoker Social History household members: none Smoking Status: Former smoker Exam Initial Vital Signs Initial Vital Signs: Vital Signs Temperature 97.8 F 03/08/19 21:25 Pulse Rate 123 H 03/08/19 21:25 Respiratory Rate 03/08/19 21:25 Blood Pressure 121/82 03/08/19 21:25 Pulse Oximetry 100 03/08/19 21:25 GENERAL: Alert well-appearing elderly female no acute distress HEENT: Head atraumatic,EOMI, pupils reactive, face symmetric CARDIOVASCULAR: Irregularly irregular no murmur zero patch noted RESPIRATORY: Breath sounds equal bilaterally, no wheezes rales or rhonchi. ABDOMEN: Soft, nontender. Normoactive bowel sounds all 4 quadrants. No guarding or rebound. EXTREMITIES: Normal range of motion, no clubbing or edema. Neurovascularly intact NEUROLOGICAL: Alert and oriented x4.Normal gait and speech. Cranial nerves II through XII grossly intact. SKIN: Warm, dry, no laceration, no petechiae, no rashes or lesions. Course Orders Ordered: ED Orders 03/08/19 21:52 B Type Natriuretic Peptide Stat Complete Blood Count AUTO DIFF Stat Comprehensive Metabolic Panel Stat Magnesium Stat Partial Thromboplastin Time Stat Procalcitonin Stat Prothrombin Time INR Stat Troponin & CK Cardiac Panel Stat 03/08/19 22:28 XR chest 1V Stat Discontinued Medications Diphenhydramine HCl (Benadryl) 25 mg PO NOW ONE Stop: 03/08/19 23:35 Last Admin: 03/08/19 23:43 Dose: 25 mg Vital Signs - 8 hr 03/08/19 21:25 03/08/19 22:00 03/09/19 01:10 Temperature 97.8 F Pulse Rate 123 H 122 H 115 H Respiratory Rate 19 Blood Pressure 121/82 111/80 Blood Pressure [Right Arm] 117/97 H Pulse Oximetry 100 100 MDM - Weakness Lab Data Attestation: I reviewed the patient's lab results. Result diagrams: 03/08/19 21:52 03/08/19 21:52 Lab Results 03/08/19 03/08/19 03/08/19 Range/Units 21:52 21:52 21:52 WBC 4.8 (4.5-11.0) X10^3/uL RBC 3.34 L (4.0-5.2) X10^6/uL Hgb 11.8 L (12.0-16.0) g/dL Hct 36.4 (36-46) % MCV 108.8 H (80-100) fL MCH 35.3 H (26-34) PG MCHC 32.5 (30-36) % RDW 15.8 H (11.6-14.8) % Plt Count 160 (150-400) X10^3/uL Neut % (Auto) 63.8 (50-75) % Lymph % (Auto) 22.0 L (25-40) % [place] % (Auto) 6.9 (3-14) % Eos % (Auto) 3.6 (2-4) % Baso % (Auto) 3.7 H (0-2) % Neut # (Auto) 3100 (7845-5208) /uL Lymph # (Auto) 1100 (9505-0074) /uL [place] # (Auto) 300 (0-900) /uL Eos # (Auto) 200 (0-450) /uL Baso # (Auto) 200 H (0-100) /uL Plt Morphology Comment . RBC Morphology See below Anisocytosis 1+ H PT 16.8 H (10.1-12.7) SECONDS INR 1.5 H (0.9-1.3) APTT 36 (26.4-36.2) SECONDS Sodium 139 (137-145) mmol/L Potassium 4.6 (3.4-5.1) mmol/L Chloride 102 (98-107) mmol/L Carbon Dioxide 31 (22-32) mmol/L BUN 23 H (7-17) mg/dL Creatinine 1.00 (0.52-1.04) mg/dL Estimated GFR 53.1 L (>60) mL/min BUN/Creatinine Ratio 23.0 H (6-22) Glucose 108 (80-110) mg/dL Calcium 9.3 (8.4-10.2) mg/dL Magnesium 2.1 (1.6-2.3) mg/dL Total Bilirubin 1.6 H (0.2-1.3) mg/dL AST 29 (14-36) IU/L ALT 27 (9-52) IU/L Alkaline Phosphatase 54 (38-126) U/L Total Creatine Kinase 54 (30-135) U/L CK-MB (CK-2) TNP CK-MB (CK-2) Rel Index TNP Troponin I < 0.012 (0.01-0.034) ng/mL B-Natriuretic Peptide 673 H (<100) Total Protein 6.4 (6.3-8.2) g/dL Albumin 3.7 (3.5-5.0) g/dL Globulin 2.7 (1.7-4.1) g/dL Albumin/Globulin Ratio 1.4 (1.0-2.8) Procalcitonin (<0.5) ng/mL 03/08/19 Range/Units 21:52 WBC (4.5-11.0) X10^3/uL RBC (4.0-5.2) X10^6/uL Hgb (12.0-16.0) g/dL Hct (36-46) % MCV (80-100) fL MCH (26-34) PG MCHC (30-36) % RDW (11.6-14.8) % Plt Count (150-400) X10^3/uL Neut % (Auto) (50-75) % Lymph % (Auto) (25-40) % [place] % (Auto) (3-14) % Eos % (Auto) (2-4) % Baso % (Auto) (0-2) % Neut # (Auto) (6428-5041) /uL Lymph # (Auto) (4356-7361) /uL [place] # (Auto) (0-900) /uL Eos # (Auto) (0-450) /uL Baso # (Auto) (0-100) /uL Plt Morphology Comment RBC Morphology Anisocytosis PT (10.1-12.7) SECONDS INR (0.9-1.3) APTT (26.4-36.2) SECONDS Sodium (137-145) mmol/L Potassium (3.4-5.1) mmol/L Chloride (98-107) mmol/L Carbon Dioxide (22-32) mmol/L BUN (7-17) mg/dL Creatinine (0.52-1.04) mg/dL Estimated GFR (>60) mL/min BUN/Creatinine Ratio (6-22) Glucose (80-110) mg/dL Calcium (8.4-10.2) mg/dL Magnesium (1.6-2.3) mg/dL Total Bilirubin (0.2-1.3) mg/dL AST (14-36) IU/L ALT (9-52) IU/L Alkaline Phosphatase (38-126) U/L Total Creatine Kinase (30-135) U/L CK-MB (CK-2) CK-MB (CK-2) Rel Index Troponin I (0.01-0.034) ng/mL B-Natriuretic Peptide (<100) Total Protein (6.3-8.2) g/dL Albumin (3.5-5.0) g/dL Globulin (1.7-4.1) g/dL Albumin/Globulin Ratio (1.0-2.8) Procalcitonin 0.05 (<0.5) ng/mL Imaging Data Chest x-ray: Attestation: I personally reviewed and interpreted this imaging study as follows: My impression: No acute cardiopulmonary process stable from previous exam postsurgical changes noted ECG Data Attestation: I personally reviewed and interpreted this ECG as follows: Prior ECG tracings: available for review Interpretation: Fibrillation left bundle branch block noted similar to previous EKGs no ST changes MDM Narrative Medical decision making narrative: Patient really has no complaints except that she cannot sleep. He is given a dose of Benadryl here to help her sleep. Be [employer] today is slightly lower than it was previously she is not complaining of shortness of breath lungs sound clear no sign of acute CHF. His she is chronically in atrial fibrillation blood work is reassuring. At this time no other reason why she cannot sleep. She is apparently wheelchair bound after a stroke. Her wheelchair was left at her home. There is no on else to come and pick her up. She cannot go by cab because she does not have her wheelchair. She will need to go back by BLS. Discharge Plan Departure Patient Disposition: Home Clinical Impression: Acute insomnia Discharge Date/Time: 03/09/19 01:11 Interventions: ED Discharge Assessment Last Done: 03/09/19 01:10 Instructions: DI for Insomnia Activity Restrictions/Additional Instructions: *You have been diagnosed with insomnia *What to do: The need to talk with her PCP about her difficulty sleeping. At this time her blood work and x-ray look good. *Continue to take medications as directed Benadryl 25-50 mg at night to help with sleep OR Melatonin 5-10 mg at night to help with sleep *Follow up with your primary care provider in 2-3 days *Return to ER if you should have any new, worsening or concerning symptoms Prescriptions: No Action pravastatin 40 mg Tablet 40 mg PO DAILY RF: 0 tamsulosin 0.4 mg Capsule 0.4 mg PO DAILY RF: 0 gabapentin 300 mg Capsule 600 mg PO BEDTIME RF: 0 furosemide 20 mg Tablet 20 mg PO DAILY RF: 0 losartan 100 mg Tablet 100 mg PO BID RF: 0 levothyroxine 100 mcg Tablet 100 mcg PO DAILY RF: 0 multivitamin Tablet 1 tab PO DAILY RF: 0 tizanidine 2 mg Tablet 2 mg PO BEDTIME PRN (Reason: Muscle Spasm) RF: 0 mupirocin 2 % Ointment 1 applic TOPICAL TID RF: 0 Prolia 60 mg/mL Syringe 60 mg subcut [id number] RF: 0 cholecalciferol (vitamin D3) [Vitamin D3] 2,000 unit Tablet 2,000 unit PO DAILY RF: 0 metoprolol succinate 25 mg tablet extended release 24 hr 25 mg PO DAILY RF: 0 aspirin 325 mg Tablet PO DAILY RF: 0 Eliquis 5 mg Tablet 5 mg PO BID RF: 0 melatonin 1 mg tablet 1 mg PO BEDTIME PRN (Reason: sleep) Qty: 14 RF: 0 Referrals: Remy Bull MD [Primary Care Provider] -
[2019-03-08 22:00] VITALS: BP 117/97; PULSE 122; O2SAT 100
[2019-03-08 22:09] LABS: Basophils Absolute Auto 200 /uL (0-100); Basophils Percent Auto 3.7 % (0-2); Eosinophils Absolute Auto 200 /uL (0-450); Eosinophils Percent Auto 3.6 % (2-4); Hematocrit 36.4 % (36-46); Hemoglobin 11.8 g/dL (12.0-16.0); Lymphocytes Absolute Auto 1100 /uL (1100-4500); Mean Corpuscular HGB Conc 32.5 % (30-36); Mean Corpuscular Hemoglobin 35.3 PG (26-34); Mean Corpuscular Volume 108.8 fL (80-100); Monocytes Absolute Auto 300 /uL (0-900); Monocytes Percent Auto 6.9 % (3-14); Neutrophils Absolute Auto 3100 /uL (1500-7000); Neutrophils Percent Auto 63.8 % (50-75); Platelet Count 160 X10^3/uL (150-400); Red Blood Cell Count 3.34 X10^6/uL (4.0-5.2); Red Cell Distribution Width 15.8 % (11.6-14.8); White Blood Cell Count 4.8 X10^3/uL (4.5-11.0)
[2019-03-08 22:11] LABS: INR 1.5 (0.9-1.3); Prothrombin Time 16.8 SECONDS (10.1-12.7)
[2019-03-08 22:12] LABS: Add Manual Diff / Slide Review SLIDE REVIEW
[2019-03-08 22:14] LABS: PTT Partial Thromboplastin Tim 36 SECONDS (26.4-36.2)
[2019-03-08 22:15] LABS: Alanine Aminotransferase 27 IU/L (9-52); Albumin 3.7 g/dL (3.5-5.0); Albumin Globulin Ratio 1.4 (1.0-2.8); Alkaline Phosphatase 54 U/L (38-126); Aspartate Aminotransferase 29 IU/L (14-36); Bilirubin Total 1.6 mg/dL (0.2-1.3); Blood Urea Nitrogen 23 mg/dL (7-17); Calcium 9.3 mg/dL (8.4-10.2); Carbon Dioxide 31 mmol/L (22-32); Chloride 102 mmol/L (98-107); Creatine Kinase 54 U/L (30-135); Estimated Glomerular Filt Rate 53.1 mL/min (>60); Globulin 2.7 g/dL (1.7-4.1); Glucose 108 mg/dL (80-110); HEMOLYSIS < 15 (0-50); Magnesium 2.1 mg/dL (1.6-2.3); Potassium 4.6 mmol/L (3.4-5.1); Sodium 139 mmol/L (137-145); Total Protein 6.4 g/dL (6.3-8.2)
[2019-03-08 22:23] LABS: Anisocytosis 1+
[2019-03-08 22:26] LABS: B Type Natriuretic Peptide 673 (<100)
[2019-03-08 22:27] LABS: Troponin I < 0.012 ng/mL (0.01-0.034)
--- NOTE | 2019-03-08 22:28 | DI.RAD.S_ITS ---
PROCEDURE: XR CHEST 1V INDICATIONS: short of breath TECHNIQUE: One view of the chest was acquired. COMPARISON: [facility], CR, XR CHEST 1V, 12/15/2018, 21:05. [facility], CR, XR CHEST 2V, 11/08/2018, 10:45. [facility], CT, CT ANGIO CHEST PE PROTOCOL, 12/15/2018, 22:52. [facility], CR, XR CHEST 1V, 02/23/2019, 21:46. FINDINGS: Surgical changes and devices: Sternotomy wires and a valve replacement can be seen. Lungs and pleura: Lungs are clear. No pleural effusions or pneumothorax. Mediastinum: The cardiac contours are within normal limits. The aorta demonstrates calcification and tortuosity. Bones and chest wall: No suspicious bony lesions. Age-appropriate bony degenerative changes are seen. Overlying soft tissues appear unremarkable. IMPRESSION: No acute abnormality is seen. Postoperative and degenerative changes are seen. Note: No significant discrepancy from the preliminary report. Dictated by: Bentley Gamboa M.D. on 03/09/2019 at 7:47 Approved by: Bentley Gamboa M.D. on 03/09/2019 at 7:49
[2019-03-08 22:30] LABS: Procalcitonin 0.05 ng/mL (<0.5)
[2019-03-08] MEDS: diphenhydrAMINE 25 MG TABLET PO (23:43)
[2019-03-09 01:10] VITALS: BP 111/80; PULSE 115
== END 2019-03-09 01:11 | disposition home or self-care (01) ==
PROVIDERS: Emergency Provider Emergency Medicine
DX: G47.00 Insomnia, unspecified (principal); I48.91 Unspecified atrial fibrillation; I50.9 Heart failure, unspecified
CPT/HCPCS: 36415; 71045; 80053; 82550; 83735; 83880; 84145; 84484; 85025; 85610; 85730; 93005; 99282; 99285

== ENCOUNTER 2019-03-15 13:19 | Inpatient (IN) | payer MEDICARE, OTHER, MEDICAID, SELFPAY ==
[2018-12-16 00:46] VITALS: PULSE 139; RESP 13; O2SAT 100
[2018-12-16 02:21] VITALS: BMI 27.6
[2018-12-16 12:07] VITALS: PULSE 92
[2019-03-15] VITALS (12 sets, daily range): BP systolic 110–135; BP diastolic 61–87; PULSE 62–123; RESP 12–28; TEMP 36.2–36.6; O2SAT 91–98
--- NOTE | 2019-03-15 13:26 | DI.RAD.S_ITS ---
PROCEDURE: XR CHEST 1V INDICATIONS: shortness of breath h/o chf. TECHNIQUE: One view of the chest was acquired. COMPARISON: [facility], CR, XR CHEST 1V, 03/08/2019, 22:33. FINDINGS: Patient is somewhat rotated. Surgical changes and devices: Patient is status post median sternotomy. Lungs and pleura: Lungs are clear. No pleural effusions or pneumothorax. Mediastinum: Mediastinal contours appear normal. Heart size is normal. Bones and chest wall: No suspicious bony lesions. Overlying soft tissues appear unremarkable. IMPRESSION: No acute cardiopulmonary findings. Dictated by: Hanna Zaragoza M.D. on 03/15/2019 at 13:33 Approved by: Hanna Zaragoza M.D. on 03/15/2019 at 13:34
[2019-03-15] MEDS: ALBUTEROL 2.5 MG/3 ML NEB (ADULT) INH (13:28)
--- NOTE | 2019-03-15 13:28 | ED.SOB ---
HPI - SOB/Dyspnea General Chief Complaint: Shortness of Breath/Dyspnea Stated Complaint: SOB Time Seen by Provider: 03/15/19 13:23 Source: patient and EMS Mode of arrival: EMS Limitations: no limitations History of Present Illness This is a 83-year-old female comes to the emergency department with complaint of shortness of breath. Patient states that she has been having trouble sleeping. She states she can't sleep because she can't breathe. She states she has felt that hurts been in AFib. She states she is in AFib frequently. She states she has had increasing shortness of breath, increasing orthopnea, and worse with exertion. She does not typically walk but when she does exert herself she notes that she has a more difficult time breathing. She is denying any chest pain or pressure. She states her lower extremities are significantly more swollen. 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 She is not sure if it is her aortic valve. She does take Eliquis daily and states she has been taking it. She states they recently increased her metoprolol. She also takes Lasix, losartan, levothyroxine and pravastatin. Patient denies any other surgeries. Denies any allergies to medications. No tobacco, alcohol or illicit. Related Data Home Medications Medication Instructions Recorded Confirmed furosemide 40 mg PO DAILY 12/15/18 03/15/19 gabapentin 600 mg PO BEDTIME 12/15/18 03/15/19 losartan 100 mg PO BID 12/15/18 03/15/19 pravastatin 40 mg PO DAILY 12/15/18 03/15/19 tamsulosin 0.4 mg PO DAILY 12/15/18 03/15/19 Prolia 60 mg SUBCUT [id number] 12/16/18 03/15/19 levothyroxine 100 mcg PO DAILY 12/16/18 03/15/19 multivitamin 1 tab PO DAILY 12/16/18 03/15/19 tizanidine 2 mg PO BEDTIME PRN 12/16/18 03/15/19 metoprolol succinate 50 mg PO DAILY 01/15/19 03/15/19 apixaban [Eliquis] 5 mg PO BID 02/23/19 03/15/19 Allergies Allergy/AdvReac Type Severity Reaction Status Date / Time No Known Drug Allergies Allergy Verified 03/15/19 13:25 Review of Systems Review of Systems ROS Unobtainable: All systems reviewed & are unremarkable except as noted in HPI and below Constitutional Denies chills, Denies fever(s), Denies lethargy and Denies weakness Cardiovascular Denies chest pain, Denies diaphoresis, Denies syncope, Reports irregular heart rhythm, Reports leg edema (bilateral lower extremities.), Denies lightheadedness, Denies radiating jaw, neck or arm pain, Denies palpitations, Reports dyspnea, Reports dyspnea on exertion and Reports orthopnea Respiratory Denies change in phlegm color, Denies chest congestion, Denies cough, Reports dyspnea, Reports dyspnea on exertion and Reports wheezing Gastrointestinal Gastrointestinal: Denies abdominal pain, Denies change in bowel habits, Denies diarrhea, Denies nausea and Denies vomiting Integumentary/Breasts Denies erythema and Denies rash Neurologic Denies syncope and Denies weakness Endocrine Denies palpitations Allergic/Immunologic Reports wheezing [facility] Medical History (Updated 03/15/19 @ 18:53 by Geovanna Vegas DO) Cardiomyopathy (Acute) Hemiparesis 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 Social History (Updated 03/15/19 @ 13:46 by Ida Lambert DO) household members: none Smoking Status: Former smoker alcohol intake: never substance use type: does not use Social History (Updated 03/15/19 @ 13:46 by Ida Lambert DO) household members: none Smoking Status: Former smoker alcohol intake: never substance use type: does not use Exam Narrative Exam Narrative: GEN: well nourished, well appearing elderly female, alert and oriented x 3, patient appears to be in mild distress. HEENT: Atraumatic, pupils are equal round reactive to light, extraocular movements are intact, nares are clear. Throat is clear without any exudates, erythema, tonsillar enlargement or uvular deviation HEART: Regular rate and rhythm without murmur, clicks, rubs. LUNGS:Lungs clear to auscultation, no wheezes, rales, crackles, chest moves symmetrically ABD:bowel sounds normal, soft, non-tender, no guarding, rebound, rigidity, no masses noted, no hepatosplenomegaly :No CVA tenderness. MSCL: Non-tender, no muscle atrophy, muscles strength 5/5 upper and lower extremities, full range of motion, normal gait NEURO:CN 2-12 intact, sensation normal. Initial Vital Signs Initial Vital Signs: Vital Signs Temperature 97.2 F L 03/15/19 13:19 Pulse Rate 119 H 03/15/19 13:19 Respiratory Rate 28 H 03/15/19 13:19 Blood Pressure 117/75 03/15/19 13:19 Pulse Oximetry 91 03/15/19 13:19 Course Orders Ordered: ED Orders 03/15/19 13:26 XR chest 1V Stat EKG-12 Lead Stat RT Consult Eval and Treat Now 03/15/19 14:02 B Type Natriuretic Peptide Stat Complete Blood Count AUTO DIFF Stat Comprehensive Metabolic Panel Stat Lactate (Lactic Acid) Stat Magnesium Stat Prothrombin Time INR Stat Thyroid Stimulating Hormone Stat Troponin & CK Cardiac Panel Stat 03/15/19 16:11 Consult to Occupational Therapy Evaluate & Treat Consult to Physical Therapy Evaluate & Treat Consult to Molded [employer] Spot Picker Routine 03/15/19 18:13 EC echo limited Urgent 03/15/19 18:17 Consult to Respiratory Therapy Evaluate & Treat Acetaminophen (Tylenol) 650 mg PO Q6HR PRN PRN Reason: As Needed for Fever/Mild Pain Al Hydrox/Mg Hydrox/Simethicone (Maalox Plus) 30 ml PO Q6HR PRN PRN Reason: Dyspepsia Apixaban (Eliquis) 5 mg PO BID PRISCILA Bisacodyl (Dulcolax) 10 mg SD DAILY PRN PRN Reason: Constipation Calcium Carbonate (Tums) 1,000 mg PO Q4HR PRN PRN Reason: Dyspepsia Diphenhydramine HCl (Benadryl) 12.5 mg PO BEDTIME PRN PRN Reason: Insomnia Furosemide (Lasix) 40 mg IV DAILY PRISCILA Gabapentin (Neurontin) 600 mg PO BEDTIME PRISCILA Levothyroxine Sodium (Synthroid) 100 mcg PO QACBREAK PRISCILA Losartan Potassium (Cozaar) 100 mg PO BID [facility] Magnesium Hydroxide (Milk Of Magnesia) 30 ml PO DAILY PRN PRN Reason: Constipation Metoprolol Succinate (Toprol Xl) 50 mg PO DAILY [facility] Metoprolol Tartrate (Lopressor) 5 mg IV Q6H PRN PRN Reason: SEE INSTRUCTIONS Ondansetron HCl (Zofran) 4 mg IV Q8HR PRN PRN Reason: Nausea And Vomiting Pravastatin Sodium (Pravachol) 40 mg PO DAILY [facility] Sennosides (Senna) 17.2 mg PO BEDTIME PRN PRN Reason: Constipation Tamsulosin HCl (Flomax) 0.4 mg PO DAILY [facility] Tizanidine HCl (Zanaflex) 2 mg PO BEDTIME PRN PRN Reason: Muscle Spasm Discontinued Medications Albuterol (Ventolin) 2.5 mg INH NOW ONE Stop: 03/15/19 13:27 Last Admin: 03/15/19 13:28 Dose: 2.5 mg Diltiazem HCl (Cardizem) 10 mg IV NOW ONE Stop: 03/15/19 14:32 Last Admin: 03/15/19 14:38 Dose: 10 mg Furosemide (Lasix) 60 mg IV NOW ONE Stop: 03/15/19 14:32 Last Admin: 03/15/19 14:42 Dose: 60 mg Metoprolol Succinate (Toprol Xl) 50 mg PO NOW ONE Stop: 03/15/19 15:38 Last Admin: 03/15/19 16:18 Dose: 50 mg Vital Signs - 8 hr 03/15/19 13:19 03/15/19 13:41 03/15/19 14:12 Temperature 97.2 F L Pulse Rate 119 H 111 H 121 H Respiratory Rate 28 H 22 Blood Pressure 117/75 Blood Pressure [Left Arm] 110/74 Pulse Oximetry 91 98 03/15/19 14:38 03/15/19 15:00 03/15/19 15:44 Temperature Pulse Rate 111 H 84 92 H Respiratory Rate 18 12 Blood Pressure 127/84 Blood Pressure [Left Arm] 112/74 Pulse Oximetry 98 03/15/19 16:00 03/15/19 16:18 03/15/19 16:53 Temperature Pulse Rate 92 H 96 H 110 H Respiratory Rate 18 Blood Pressure 131/83 134/87 Blood Pressure [Left Arm] 117/82 Pulse Oximetry 03/15/19 17:05 Temperature 97.9 F Pulse Rate 123 H Respiratory Rate 16 Blood Pressure 135/84 Blood Pressure [Left Arm] Pulse Oximetry MDM - SOB/Dyspnea Lab Data Attestation: I reviewed the patient's lab results. Result diagrams: 03/15/19 14:02 03/15/19 14:02 Lab Results 03/15/19 03/15/19 03/15/19 Range/Units 14:02 14:02 14:02 WBC 5.5 (4.5-11.0) X10^3/uL RBC 3.26 L (4.0-5.2) X10^6/uL Hgb 11.7 L (12.0-16.0) g/dL Hct 35.9 L (36-46) % MCV 110.1 H (80-100) fL MCH 36.0 H (26-34) PG MCHC 32.6 (30-36) % RDW 16.5 H (11.6-14.8) % Plt Count 160 (150-400) X10^3/uL Neut % (Auto) 69.3 (50-75) % Lymph % (Auto) 18.3 L (25-40) % [place] % (Auto) 7.9 (3-14) % Eos % (Auto) 3.4 (2-4) % Baso % (Auto) 1.1 (0-2) % Neut # (Auto) 6900 (0278-1894) /uL Lymph # (Auto) 1800 (3179-9991) /uL [place] # (Auto) 790 (0-900) /uL Eos # (Auto) 340 (0-450) /uL Baso # (Auto) 110 H (0-100) /uL RBC Morphology Not Reportable Poikilocytosis 1+ H Anisocytosis 1+ H Macrocytosis 2+ H PT 19.9 H (10.1-12.7) SECONDS INR 1.7 H (0.9-1.3) Sodium 136 L (137-145) mmol/L Potassium 4.3 (3.4-5.1) mmol/L Chloride 102 (98-107) mmol/L Carbon Dioxide 25 (22-32) mmol/L BUN 22 H (7-17) mg/dL Creatinine 0.90 (0.52-1.04) mg/dL Estimated GFR 59.9 L (>60) mL/min BUN/Creatinine Ratio 24.4 H (6-22) Glucose 84 (80-110) mg/dL Lactate (0.7-2.1) mmol/L Calcium 9.2 (8.4-10.2) mg/dL Magnesium (1.6-2.3) mg/dL Total Bilirubin 2.4 H (0.2-1.3) mg/dL AST 36 (14-36) IU/L ALT 27 (9-52) IU/L Alkaline Phosphatase 53 (38-126) U/L Total Creatine Kinase 71 (30-135) U/L CK-MB (CK-2) TNP CK-MB (CK-2) Rel Index TNP Troponin I < 0.012 (0.01-0.034) ng/mL B-Natriuretic Peptide 532 H (<100) Total Protein 6.3 (6.3-8.2) g/dL Albumin 3.7 (3.5-5.0) g/dL Globulin 2.6 (1.7-4.1) g/dL Albumin/Globulin Ratio 1.4 (1.0-2.8) TSH (0.47-4.68) uIU/mL 03/15/19 03/15/19 03/15/19 Range/Units 14:02 14:02 14:02 WBC (4.5-11.0) X10^3/uL RBC (4.0-5.2) X10^6/uL Hgb (12.0-16.0) g/dL Hct (36-46) % MCV (80-100) fL MCH (26-34) PG MCHC (30-36) % RDW (11.6-14.8) % Plt Count (150-400) X10^3/uL Neut % (Auto) (50-75) % Lymph % (Auto) (25-40) % Highland % (Auto) (3-14) % Eos % (Auto) (2-4) % Baso % (Auto) (0-2) % Neut # (Auto) (4724-4904) /uL Lymph # (Auto) (5370-2302) /uL [place]land # (Auto) (0-900) /uL Eos # (Auto) (0-450) /uL Baso # (Auto) (0-100) /uL RBC Morphology Poikilocytosis Anisocytosis Macrocytosis PT (10.1-12.7) SECONDS INR (0.9-1.3) Sodium (137-145) mmol/L Potassium (3.4-5.1) mmol/L Chloride (98-107) mmol/L Carbon Dioxide (22-32) mmol/L BUN (7-17) mg/dL Creatinine (0.52-1.04) mg/dL Estimated GFR (>60) mL/min BUN/Creatinine Ratio (6-22) Glucose (80-110) mg/dL Lactate 1.5 (0.7-2.1) mmol/L Calcium (8.4-10.2) mg/dL Magnesium 2.2 (1.6-2.3) mg/dL Total Bilirubin (0.2-1.3) mg/dL AST (14-36) IU/L ALT (9-52) IU/L Alkaline Phosphatase (38-126) U/L Total Creatine Kinase (30-135) U/L CK-MB (CK-2) CK-MB (CK-2) Rel Index Troponin I (0.01-0.034) ng/mL B-Natriuretic Peptide (<100) Total Protein (6.3-8.2) g/dL Albumin (3.5-5.0) g/dL Globulin (1.7-4.1) g/dL Albumin/Globulin Ratio (1.0-2.8) TSH 12.00 H (0.47-4.68) uIU/mL Imaging Data Chest x-ray: Radiologist's impression: [address] [address] XRay Report Signed Patient: Jacquelyn Whiting BMR#: [id number] : 6Acct:[id number] Age/Sex: 83 / FDate of Service: 03/15/19 Loc: ED Accession Number: [id number] Procedure: XR chest 1V Ordering Provider: Ida Lambert D.O. PROCEDURE: XR CHEST 1V INDICATIONS: shortness of breath h/o chf. TECHNIQUE: One view of the chest was acquired. [facility] 22[facility]. FINDINGS: Patient is somewhat rotated. Surgical changes and devices: Patient is status post median sternotomy. Lungs and pleura: Lungs are clear. No pleural effusions or pneumothorax. Mediastinum: Mediastinal contours appear normal. Heart size is normal. Bones and chest wall: No suspicious bony lesions. Overlying soft tissues appear unremarkable. IMPRESSION: No acute cardiopulmonary findings. Dictated by: Hanna Zaragoza M.D. on 03/15/2019 at 13:33 Approved by: Hanna Zaragoza M.D. on 03/15/2019 at 13:34 ECG Data Attestation: I personally reviewed and interpreted this ECG as follows: Interpretation: AFib with rapid ventricular response, rate of 110 QRS 146 QTC 443. Patient has left bundle branch block. Patient has prior EKG from 03/09/2019 which appears similar except for 5 6 which appears a little depressed when I look at prior EKGs from this ST segments appear similar to the ones. MDM Narrative Medical decision making narrative: Patient comes in with AFib with RVR. Her heart rate improved into the 90s 80 range with tendon Cardizem and she was given her regular metoprolol dose early. The patient's troponin is negative, BNP is elevated, she is quite swollen in her lower extremities. She is nonambulatory but can treat self transfer. Was given some Lasix to help diurese but I feel she would benefit from the hospital. I spoke with Dr. Vegas who accepts. Discharge Plan Departure Patient Disposition: Admitted as Observation Clinical Impression: Atrial fibrillation with RVR, Congestive heart failure (CHF) Discharge Date/Time: 03/15/19 17:08 Interventions: ED Discharge Assessment Last Done: 03/15/19 16:46 Admit Date/Time: 03/15/19 16:18 Admit Provider: Geovanna Vegas
[2019-03-15 14:20] LABS: INR 1.7 (0.9-1.3); Prothrombin Time 19.9 SECONDS (10.1-12.7)
[2019-03-15 14:23] LABS: Lactate (Lactic Acid) 1.5 mmol/L (0.7-2.1)
[2019-03-15 14:24] LABS: Alanine Aminotransferase 27 IU/L (9-52); Albumin 3.7 g/dL (3.5-5.0); Albumin Globulin Ratio 1.4 (1.0-2.8); Alkaline Phosphatase 53 U/L (38-126); Aspartate Aminotransferase 36 IU/L (14-36); BUN Creatinine Ratio 24.4 (6-22); Bilirubin Total 2.4 mg/dL (0.2-1.3); Blood Urea Nitrogen 22 mg/dL (7-17); Calcium 9.2 mg/dL (8.4-10.2); Carbon Dioxide 25 mmol/L (22-32); Chloride 102 mmol/L (98-107); Creatine Kinase 71 U/L (30-135); Estimated Glomerular Filt Rate 59.9 mL/min (>60); Globulin 2.6 g/dL (1.7-4.1); Glucose 84 mg/dL (80-110); HEMOLYSIS 41 (0-50); Potassium 4.3 mmol/L (3.4-5.1); Sodium 136 mmol/L (137-145); Total Protein 6.3 g/dL (6.3-8.2)
[2019-03-15 14:26] LABS: Hematocrit 35.9 % (36-46); Hemoglobin 11.7 g/dL (12.0-16.0); Mean Corpuscular Volume 110.1 fL (80-100); Red Blood Cell Count 3.26 X10^6/uL (4.0-5.2); White Blood Cell Count 5.5 X10^3/uL (4.5-11.0)
[2019-03-15 14:27] LABS: Add Manual Diff / Slide Review NO; Basophils Percent Auto 1.1 % (0-2); Eosinophils Percent Auto 3.4 % (2-4); Lymphocytes Percent Auto 18.3 % (25-40); Mean Corpuscular HGB Conc 32.6 % (30-36); Monocytes Percent Auto 7.9 % (3-14); Neutrophils Percent Auto 69.3 % (50-75); Platelet Count 160 X10^3/uL (150-400); Red Cell Distribution Width 16.5 % (11.6-14.8)
[2019-03-15 14:32] LABS: Basophils Absolute Auto 110 /uL (0-100); Eosinophils Absolute Auto 340 /uL (0-450); Lymphocytes Absolute Auto 1800 /uL (1100-4500); Monocytes Absolute Auto 790 /uL (0-900); Neutrophils Absolute Auto 6900 /uL (1500-7000)
[2019-03-15 14:35] LABS: Troponin I < 0.012 ng/mL (0.01-0.034)
[2019-03-15] MEDS: dilTIAZem 5 MG/ML SDV 10 MG IV (14:38)
[2019-03-15 14:40] LABS: B Type Natriuretic Peptide 532 (<100)
[2019-03-15] MEDS: FUROSEMIDE 100 MG/10 ML VIAL 60 MG IV (14:42)
[2019-03-15 15:17] LABS: Poikilocytosis 1+
[2019-03-15 15:18] LABS: Anisocytosis 1+; Macrocytosis 2+
[2019-03-15] MEDS: METOPROLOL ER 50 MG TABLET PO (16:18)
[2019-03-15 16:39] LABS: Magnesium 2.2 mg/dL (1.6-2.3)
--- NOTE | 2019-03-15 18:13 | DI.ECHO.S_ITS ---
[facility]---------+ [facility] +---------+ : : [address] [place] : : : : [id number] : : : : Phone: [phone]+ Echocardiogram Report + + :Name: СВЕТЛАНА ELENA Study Date: 03/16/2019 Height: 62 in : :[facility] Weight: 164 lb : : Gender: Female BSA: 1.8 m2 : :: 1935 Age: 83 yrs BP: 125/81 mmHg: :Reason For Study: SOB : :Ordering Physician: Brenton : :Hospitalist Performed By: Ave Godinez : :Referring: UDAY VALENCIA : + + Interpretation Summary A two-dimensional transthoracic echocardiogram with color flow and Doppler was performed in limited views only. The patient was in atrial fibrillation with rapid ventricular response during the exam with a heart rate exceeding 100 bpm. The patient had a bundle branch block rhythm during the exam. The left ventricle is normal in size. The ejection fraction is estimated to be 20-25%. Left ventricular function has significantly worsened compared to the previous exam. Except basal posterolateral and the basal anterolateral segments, rest of the LV segments are severely hypokinetic to akinetic. Wall motions abonormalities are new. There is septal wall dyskinesis. Right ventricular systolic function is mild to moderately reduced. Right ventricular systolic function has decreased since previous exam. There is a bioprosthetic aortic valve. The prosthetic aortic valve is not well visualized. There is moderate mitral regurgitation. Compared to the prior echo study, there has been an increase in the severity of mitral regurgitation. There is moderate to severe tricuspid regurgitation. Compared to the prior echo exam, there has been an increase in TR severity. The right ventricular systolic pressure is estimated to be at least 46 mmHg based on an estimated right atrial pressure of 15 mm Hg. Compared to the prior echo exam, there has been an increase in the severity of pulmonary hypertension. Procedure: A two-dimensional transthoracic echocardiogram with color flow and Doppler was performed in limited views only. The study quality was technically adequate. Comparison is made with the echocardiogram of 09/06/18. The patient was in atrial fibrillation with rapid ventricular response during the exam with a heart rate exceeding 100 bpm. The patient had a bundle branch block rhythm during the exam. Left Ventricle: The left ventricle is normal in size. There is normal left ventricular wall thickness. The ejection fraction is estimated to be 20-25%. Left ventricular function has significantly worsened compared to the previous exam. Except basal posterolateral and the basal anterolateral segments, rest of the LV segments are severely hypokinetic to akinetic. Wall motions abonormalities are new. There is septal wall dyskinesis. Cannot assess diastolic function in a fib patient. Right Ventricle: The right ventricle is grossly normal size. Right ventricular systolic function is mild to moderately reduced. Right ventricular systolic function has decreased since previous exam. Atria: The left atrium is severely dilated. The left atrium has remained unchanged in size since the prior echo exam. The right atrium is severely dilated. Mitral Valve: The mitral valve leaflets appear mildly thickened, but open well. There is moderate mitral annular calcification. There is moderate mitral regurgitation. Compared to the prior echo study, there has been an increase in the severity of mitral regurgitation. Aortic Valve: There is a bioprosthetic aortic valve. The prosthetic aortic valve is not well visualized. Tricuspid Valve: The tricuspid valve is normal. There is moderate to severe tricuspid regurgitation. The right ventricular systolic pressure is estimated to be at least 46 mmHg based on an estimated right atrial pressure of 15 mm Hg. Compared to the prior echo exam, there has been an increase in TR severity. Compared to the prior echo exam, there has been an increase in the severity of pulmonary hypertension. Great Vessels: The IVC is dilated (diameter is greater than 2.1 cm) and it collapses less than 50% with a sniff. This suggests a high right atrial pressure of 15 mm Hg. Pericardium/ Pleura There is no pericardial effusion. There is no pleural effusion. MMode/2D Measurements & Calculations LVIDd: 4.7 cm IVC diam: 2.6 cm LVIDs: 3.7 cm FS: 21.2 % IVSd: 1.1 cm LVPWd: 0.99 cm LV morris. diameter/BSA (cm/m^2): 2.7 LV sys. diameter/BSA (cm/m^2): 2.1 Doppler Measurements & Calculations TR max anurag: 279.9 cm/sec TR max P.3 mmHg Reading Physician:KIAN
--- NOTE | 2019-03-15 18:19 | P.HP_ITS ---
History of Present Illness Date Patient Seen: 03/15/19 Chief complaint: SOB Narrative: Jacquelyn Whiting is an 83-year-old female with a past medical history significant for cardiomyopathy, diastolic congestive heart failure stage II, hypertension, hyperlipidemia, aortic valve replacement, previous CVA with left upper extremity hemiparesis and left lower extremity weakness who presented to the ED due to progressive worsening shortness of breath. The patient reports she has not been able to sleep due to inability to breath. She does not have orthopnea usually at her baseline. She also reports paroxysmal nocturnal dyspnea and increased lower extremity swelling. She reports her legs are ?tree trunks? and per the ED provider who knows the patient well reports her legs are not usually this edematous. She has conversational dyspnea present on exam. She also endorses weakness and was unable to do perform her exercise regimen i.e. walking with her affiliate manager. She typically wears bilateral compression stockings but has been unable to get them on for a couple days. Per historical weights, she has gained approximately 13 kg but this is based on bed weight scale and likely very inaccurate. She does not weigh herself daily. She is at home and predominantly bed-bound in hospital bed due to previous CVA with left upper extremity hemiparesis and left lower extremity weakness. She has an at home caregiver that comes into her home in the morning for several hours. She reports she does not need more help and she is able to transfer herself, perform her normal ADLs, and feed her cat. She also notes loose stool for the last 1 week. She has no other complaints and denies headache, vision changes, lightheadedness or dizziness, sore throat, cough, chest pain, abdominal pain, nausea, vomiting, fever, chills, dysuria, or constipation. She was admitted for further management of diastolic CHF with IV diuresis. PCP is Dr. Matilde Lin and her occupational therapy professor is Dr. Pastor Neil. Patient History Medical History Cardiomyopathy (Acute) Hemiparesis 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 Social History (Updated 03/15/19 @ 13:46 by Ida Lambert DO) household members: none Smoking Status: Former smoker alcohol intake: never substance use type: does not use Family & Social History Family History (Updated 03/15/19 @ 22:18 by Geovanna Vegas DO) Father Heart attack Skin cancer Cardiovascular disease Mother Congestive heart failure Cardiovascular disease Brother No problems noted. Brother No problems noted. Social History: household members none Safety & Behavioral: Feels Safe in Current Yes Environment Been Physically Hurt or No Threatened By a Person Suicidal Ideation Description None Suicide Plan Description No Plan Tobacco & Substance use: Tobacco type cigarettes Smoking Status Former smoker, 1.5 PPD x 15 years alcohol intake never alcohol intake frequency a few times a month Substance Use Type does not use The patient is x2. She lives at home alone with caregivers who come into the home for several hours in the morning. She is able to perform transfers independently and perform ADLs at baseline. 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 She has 2 sons and 1 daughter who are all healthy. Meds Home Medications Medication Instructions Recorded Confirmed Type furosemide 40 mg PO DAILY 12/15/18 03/15/19 History gabapentin 600 mg PO BEDTIME 12/15/18 03/15/19 History losartan 100 mg PO BID 12/15/18 03/15/19 History pravastatin 40 mg PO DAILY 12/15/18 03/15/19 History tamsulosin 0.4 mg PO DAILY 12/15/18 03/15/19 History Prolia 60 mg SUBCUT O2ORRMES 12/16/18 03/15/19 History levothyroxine 100 mcg PO DAILY 12/16/18 03/15/19 History multivitamin 1 tab PO DAILY 12/16/18 03/15/19 History tizanidine 2 mg PO BEDTIME PRN 12/16/18 03/15/19 History metoprolol succinate 50 mg PO DAILY 01/15/19 03/15/19 History apixaban [Eliquis] 5 mg PO BID 06/30/19 07/20/19 History Allergies Allergy/AdvReac Type Severity Reaction Status Date / Time No Known Drug Allergies Allergy Verified 03/15/19 13:25 Review of Systems Review of Systems A 10 system comprehensive review of systems was conducted with the patient and found to be negative except as above in the History of Present Illness. Exam Vital Signs (past 8 hours): - 03/15/19 13:19 03/15/19 13:41 03/15/19 14:12 Temperature 97.2 F L Pulse Rate 119 H 111 H 121 H Respiratory Rate 28 H 22 Blood Pressure 117/75 Blood Pressure [Left Arm] 110/74 Pulse Oximetry 91 98 03/15/19 14:38 03/15/19 15:00 03/15/19 15:44 Temperature Pulse Rate 111 H 84 92 H Respiratory Rate 18 12 Blood Pressure 127/84 Blood Pressure [Left Arm] 112/74 Pulse Oximetry 98 03/15/19 16:00 03/15/19 16:18 03/15/19 16:53 Temperature Pulse Rate 92 H 96 H 110 H Respiratory Rate 18 Blood Pressure 131/83 134/87 Blood Pressure [Left Arm] 117/82 Pulse Oximetry 03/15/19 17:05 Temperature 97.9 F Pulse Rate 123 H Respiratory Rate 16 Blood Pressure 135/84 Blood Pressure [Left Arm] Pulse Oximetry Oxygen Delivery Method Room Air Narrative Exam Narrative: General: Elderly female lying in bed and in no acute distress, well-developed, well-nourished, appropriately interactive HEENT: Normocephalic, atraumatic. External ears without defect. Pupils equal, round, and reactive to light and accommodation. Anicteric sclerae, moist conjunctivae, and no lid lag. Oropharynx free of erythema and cobble stoning with moist mucosa. Neck: Supple with full range of motion. Mild jugular venous distension. No lymphadenopathy or thyromegaly. Cardiovascular: Irregularly irregular without murmurs, rubs, or gallops appreciated. Pulmonary: Diminished throughout but clear to auscultation bilaterally with scattered bibasilar crackles. No wheezes, or rhonchi. Mild use of accessory muscles with conversational dyspnea present. Abdomen: Soft, bowel sounds present, nontender, nondistended. No hepatosplenomegaly or masses appreciated. Extremities: No clubbing or cyanosis. Moderate bilateral lower extremity pitting edema with dependent edema to hips bilaterally. Skin: Normal temperature, turgor, and texture; no rash, ulcers, or subcutaneous nodules appreciated. Neurological: Cranial nerves grossly intact. Left-sided hemiparesis with contracture of left upper extremity. Mild subtle left sided slurred speech and facial droop. Psychiatric: Normal mood and affect. Alert and oriented to person, place, and time. Mild cognitive impairment with short-term memory recall deficit. Objective Labs Result Diagrams: 03/15/19 14:02 03/16/19 05:09 Labs: Laboratory Results - last 24 hr 03/15/19 03/15/19 03/15/19 14:02 14:02 14:02 WBC 5.5 RBC 3.26 L Hgb 11.7 L Hct 35.9 L MCV 110.1 H MCH 36.0 H MCHC 32.6 RDW 16.5 H Plt Count 160 Neut % (Auto) 69.3 Lymph % (Auto) 18.3 L [place] % (Auto) 7.9 Eos % (Auto) 3.4 Baso % (Auto) 1.1 Neut # (Auto) 6900 Lymph # (Auto) 1800 [place] # (Auto) 790 Eos # (Auto) 340 Baso # (Auto) 110 H RBC Morphology Not Reportable Poikilocytosis 1+ H Anisocytosis 1+ H Macrocytosis 2+ H PT 19.9 H INR 1.7 H Sodium 136 L Potassium 4.3 Chloride 102 Carbon Dioxide 25 BUN 22 H Creatinine 0.90 Estimated GFR 59.9 L BUN/Creatinine Ratio 24.4 H Glucose 84 Lactate Calcium 9.2 Magnesium Total Bilirubin 2.4 H AST 36 ALT 27 Alkaline Phosphatase 53 Total Creatine Kinase 71 CK-MB (CK-2) TNP CK-MB (CK-2) Rel Index TNP Troponin I < 0.012 B-Natriuretic Peptide 532 H Total Protein 6.3 Albumin 3.7 Globulin 2.6 Albumin/Globulin Ratio 1.4 TSH 03/15/19 03/15/19 03/15/19 14:02 14:02 14:02 WBC RBC Hgb Hct MCV MCH MCHC RDW Plt Count Neut % (Auto) Lymph % (Auto) [place] % (Auto) Eos % (Auto) Baso % (Auto) Neut # (Auto) Lymph # (Auto) [place] # (Auto) Eos # (Auto) Baso # (Auto) RBC Morphology Poikilocytosis Anisocytosis Macrocytosis PT INR Sodium Potassium Chloride Carbon Dioxide BUN Creatinine Estimated GFR BUN/Creatinine Ratio Glucose Lactate 1.5 Calcium Magnesium 2.2 Total Bilirubin AST ALT Alkaline Phosphatase Total Creatine Kinase CK-MB (CK-2) CK-MB (CK-2) Rel Index Troponin I B-Natriuretic Peptide Total Protein Albumin Globulin Albumin/Globulin Ratio TSH 12.00 H Assessment & Plan Assessment & Plan narrative: Jacquelyn Whiting is an 83-year-old female with a past medical history significant for cardiomyopathy, diastolic congestive heart failure stage II, hypertension, hyperlipidemia, aortic valve replacement, previous CVA with left upper extremity hemiparesis and left lower extremity weakness who presented to the ED due to progressive worsening shortness of breath, orthopnea, PND, weakness and lower extremity edema. 1. Acute diastolic CHF exacerbation, present on admission. Active. -Patient presented with progressive worsening shortness of breath, orthopnea, PND, weakness and lower extremity edema (to knees bilaterally and dependent edema to hips bilatrally). -Chest x-ray did not demonstrate any acute cardiopulmonary process. -Ordered limited echocardiogram, pending. Previous echocardiogram demonstrated preserved ejection fraction 60-65% with stage II diastolic CHF. -BNP 537. -Continue to monitor daily weights and strict I&O. Did not place Murray catheter as do not want to limit patient's mobility as this is already restricted zurita bstantially. -Received furosemide 60 mg IV Lasix in ED. Continue furosemide 40 mg IV daily and will titrate up as needed. Replete electrolytes as needed. 2. Atrial fibrillation with mild RVR, present on admission. Active. -Patient presented in atrial fibrillation with mild RVR and HR 110-120's. -Received Diltiazem 10 mg IV x 1 and home dose of metoprolol succinate 50 mg in ED with control of rate. Ordered metoprolol 5 mg IV every 6 hours as needed for heart rate > 120 sustained for 15 minutes and SBP>100. -Continue Eliquis 5 twice daily. -Replete electrolytes as needed. Goal K+ > 4.0 and Mg+ > 2.0. 3. History of CVA with left-sided hemiparesis and generalized weakness due to deconditioning, chronic, present on admission. Active. -Ordered PT and OT evaluation and treatment, pending. 4. Hyperbilirubinemia and elevated INR, unclear acuity, present on admission. Active. -Patient presented with isolated elevated bilirubin without LFT elevation and elevated INR with unclear etiology. Bilirubin may possibly represent [place] disease vs. biliary stasis of acute illness vs. liver disease. INR elevation possibly due to mild vitamin K deficiency vs. liver disease. -No signs or symptoms of infection. No overt signs of bleeding. -Total bilirubin 2.4. INR 1.7. Continue to monitor bilirubin and INR closely. 5. Macroctic anemia, likely of chronic disease and possibly B12 deficiency, present on admission. -Initial hemoglobin 11.7 with MCV 110. Patient has been anemic since at least 12/13. -Ordered B12 and folate level, pending. 6. 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 Stable. -Do not believe RUL mass is related to shortness of breath. -Recent CTA chest 12/15/18 demonstrated 2.0 cm right upper lobe mass concerning for neoplastic process. -PET scan on 01/08/19 demonstrated borderline uptake within the right middle lobe nodule. Recommended serial follow-up chest CT examinations are recommended to exclude indolent malignancy, beginning in 3 months. -Patient is followed by Dr. Del Angel of pulmonology and Dr. Bull of oncology at [facility]. 7. Hypertension, chronic, present on admission. Stable. -Continue losartan 100 mg twice daily and metoprolol succinate 50 mg daily. Continue diuresis as above. 8. Hyperlipidemia, chronic, present on admission. Stable. -Continue pravastatin 40 mg daily. 9. COPD without acute exacerbation, chronic, present on admission. Stable. -Patient reports she recently saw a medical accounts receivable specialist at [facility], Dr. Del Angel, who placed her on Advair and other inhalers that are unknown. Requested updated medication list. -Consulted RT for evaluation and treatment for nebs. May use supplemental oxygen as needed to keep oxygen saturation at 88-92%. 10. History of aortic valve replacement, present on admission. Stable. -Continue Eliquis 5 mg twice daily. Code status: Limited code- NO CPR OR INTUBATION DVT prophylaxis: Zahraquis Patient is admitted under inpatient status with expected length of stay greater than 2 midnights due to severity of presenting symptoms, risk of adverse event, and complexity of treatment plan. Quality VTE Deep Vein Thrombosis/Pulmonary Embolism Present on Admission: No
[2019-03-15] MEDS: APIXABAN 5 MG TABLET PO (21:06)
[2019-03-15] MEDS: LOSARTAN 50 MG TABLET 100 MG PO (21:07)
[2019-03-15] MEDS: GABAPENTIN 300 MG CAPSULE 600 MG PO (21:07)
[2019-03-15] MEDS: BACLOFEN 10 MG TABLET PO (23:21)
[2019-03-15] MEDS: LORazepam 0.5 MG TABLET PO (23:24)
[2019-03-15] MEDS: ACETAMINOPHEN 325 MG TABLET 650 MG PO (23:26)
[2019-03-16] VITALS (14 sets, daily range): BP systolic 120–140; BP diastolic 77–93; PULSE 94–134; RESP 18–118; TEMP 35.7–36.8; O2SAT 95–100
[2019-03-16 05:47] LABS: Alanine Aminotransferase 27 IU/L (9-52); Albumin 3.4 g/dL (3.5-5.0); Albumin Globulin Ratio 1.3 (1.0-2.8); Alkaline Phosphatase 59 U/L (38-126); Aspartate Aminotransferase 41 IU/L (14-36); BUN Creatinine Ratio 20.9 (6-22); Bilirubin Total 2.1 mg/dL (0.2-1.3); Blood Urea Nitrogen 23 mg/dL (7-17); Calcium 9.1 mg/dL (8.4-10.2); Carbon Dioxide 28 mmol/L (22-32); Chloride 102 mmol/L (98-107); Estimated Glomerular Filt Rate 47.6 mL/min (>60); Globulin 2.7 g/dL (1.7-4.1); Glucose 85 mg/dL (80-110); HEMOLYSIS 19 (0-50); Potassium 3.8 mmol/L (3.4-5.1); Sodium 138 mmol/L (137-145); Total Protein 6.1 g/dL (6.3-8.2)
[2019-03-16 05:56] LABS: Free T4, Direct Thyroxine 0.96 ng/dL (0.78-2.19)
[2019-03-16 07:12] LABS: Folate > 20.0 ng/mL (2.76-20.0); Vitamin B12 697 pg/mL (239-931)
[2019-03-16 07:45] LABS: Basophils Absolute Auto 0 /uL (0-100); Basophils Percent Auto 0.4 % (0-2); Eosinophils Absolute Auto 300 /uL (0-450); Eosinophils Percent Auto 5.7 % (2-4); Hematocrit 36.1 % (36-46); Hemoglobin 11.7 g/dL (12.0-16.0); Lymphocytes Absolute Auto 1000 /uL (1100-4500); Lymphocytes Percent Auto 21.2 % (25-40); Mean Corpuscular HGB Conc 32.5 % (30-36); Mean Corpuscular Hemoglobin 35.7 PG (26-34); Mean Corpuscular Volume 109.7 fL (80-100); Monocytes Absolute Auto 500 /uL (0-900); Monocytes Percent Auto 9.3 % (3-14); Neutrophils Absolute Auto 3100 /uL (1500-7000); Neutrophils Percent Auto 63.4 % (50-75); Platelet Count 135 X10^3/uL (150-400); Red Blood Cell Count 3.29 X10^6/uL (4.0-5.2); Red Cell Distribution Width 16.3 % (11.6-14.8); White Blood Cell Count 4.9 X10^3/uL (4.5-11.0)
[2019-03-16 08:20] LABS: Add Manual Diff / Slide Review SLIDE REVIEW
[2019-03-16 08:21] LABS: Anisocytosis 1+; Macrocytosis 2+
[2019-03-16 08:22] LABS: Ovalocytes 1+
[2019-03-16] MEDS: FLUTICASONE/SALMETEROL 100/50 60 PUFF DISKUS INH ×2 (08:54→21:06)
--- NOTE | 2019-03-16 08:56 | CM.DANOTE ---
Addendum entered by Alexandra Lo R.N. 03/16/19 09:56: Discussed patient during team rounds, Dr. Mcginnis involved. Concerns about patient's care at home, and how she cares for herself after her caregiver leaves. Patient is reluctant to go home. Have not had any hygiene issues reported at this time. This case management assistant attempted to call [facility], but not opened today. Was going to attempt to find out who patient's ALEX case management assistant is. Attempted to reach son, Davon. Left a message on his cell phone to call this case management assistant back. Did not leave detailed message. At this time, had Dr. Vegas sign a face to face. Will include HELP DESK REP in home as well. Will consult with social work here in hospital if needed. Addendum entered by Alexandra Lo R.N. 03/16/19 09:06: Patient does have P.T and O.T. orders, will consult with team on their assessment. Original Note: DCP: Case received, EMR reviewed and met with patient. Introduced self and role. Was able to meet with patient in her room to obtain baseline health information and living situation. DCP assessment was completed with information currently available. Patient is an 83 year old female who admitted yesterday afternoon to the care of the hospitalist team. PCP: Dr. Matilde Lin, at [facility]. Payer: Medicare/[facility]. Patient came to the hospital via ambulance secondary to shortness of breath and fluid retention. Patient holds diagnosis of CHF. She has history of cardiomyopathy, as well as a CVA which caused left sided hemiparesis.She also wears compression stockings for her lower extremity edema. Met with patient in her room. She was sitting up in her chair, alert and oriented. Stated, when can I go home, when is the doctor coming in. Let her know that the doctor would be seeing her today, unsure of time. Confirmed with patient that she does live alone. She has a caregiver named Ashely, who comes in from about 8:00 in the morning to noon, on a daily basis. Patient stated that caregiver shops for her, helps with her showers and meals, and takes her to [employer], for she does not drive. Asked patient how she gets around at home, since she does have left sided weakness, and stated that she mostly uses chairs, other than her walker. Confirmed that she does have a son named Davon, who resides in [facility], and she mentioned that he is her POA. Confirmed with patient that she also has a primary MD, Dr. Lin out of [facility]. P: DCP to continue to follow closely. Will be available for any resources that patient may need. Will discuss at team rounds, and note if P.T. may also need to be involved as well. Alexandra Lo RN/Turn Down Worker
[2019-03-16] MEDS: PRAVASTATIN 20 MG TABLET 40 MG PO (09:18)
[2019-03-16] MEDS: APIXABAN 5 MG TABLET PO ×2 (09:18→20:57)
[2019-03-16] MEDS: LOSARTAN 50 MG TABLET 100 MG PO ×2 (09:18→20:58)
[2019-03-16] MEDS: LEVOTHYROXINE 100 MCG TABLET PO (09:18)
[2019-03-16] MEDS: SODIUM CHLORIDE 0.9% FLUSH 10 ML IV ×2 (09:19→20:59)
[2019-03-16] MEDS: METOPROLOL ER 25 MG TABLET 50 MG PO (09:19)
[2019-03-16] MEDS: FUROSEMIDE 40 MG/4 ML VIAL IV (09:20)
--- NOTE | 2019-03-16 10:11 | CM.DPC ---
Addendum entered by Alexandra Lo R.N. 03/16/19 14:30: Spoke to Dr. Vegas, hospitalist, who confirmed that patient is not going home today. At this point, patient is a two person assist between nursing and caregivers assisting to rest room. Is unclear how she has been able to help herself when caregiver is not available. Discussed skilled option with hospitalist as well, but unsure if patient would consent to go. This case coordinator left another message with son, Davon. Will have care management attempt to reach ALEX case coordinator tomorrow, Catalina Whiting, at [facility]. Will need to continue to reach out to son. penitentiary may be an option if she would consent to go, if she is here for three midnights. [facility] has referral as well. Dr. Vegas is also concerned about her compliance with her medications, since her INR was over 2, and she is on Eliquis. Addendum entered by Alexandra Lo R.N. 03/16/19 13:10: Dr. Vegas unsure if patient will be discharged today. Went ahead and called Barbie at [facility], and gave information to her that patient could potentially be discharged today. Do not yet have discharge summary yet for this reason, but let her know that this case coordinator would fax over history and physical, ER notes, latest DCP note, orders, and face to face. Barbie stated, would be about 48 hours. Faxed all information over to [facility], pending DC summary. Original Note: DCP Cont: Spoke to nurse, Catarina. Stated that she had spoken to her caregiver, Ashely. Ashely has given her phone number which is: [phone]. This case coordinator went ahead and called her. She stated that she comes in the morning about 8:00am. She fixes her breakfast and lunch, and preps her dinner to enable patient to heat in microwave. She stated that patient has a wheel chair which she uses, and propels herself into the bathroom. Stated that she has bars in the bathroom, and is able to toilet herself and do her own hygiene. Ashely had no concerns about her being alone for the rest of the day, and denied that she has not had any falls. She was inquiring if patient would be going home today, and let her know it was uncertain at this time. Found out from Ashely that patient's ALEX case coordinator is Catalina Whiting. P: DCP to continue to follow closely, and utilize home health as an option. Alexandra Lo RN/Switch Coupler
--- NOTE | 2019-03-16 10:48 | PT.IPTN ---
Current Diagnoses Acute on chronic diastolic (congestive) heart failure (03/15/19) Physical Therapy Treatment Note M3 PT-IP Subjective Start: 03/16/19 10:47 Freq: NEEDED Status: Active Protocol: Document 03/16/19 10:47 IJS (Rec: 03/16/19 10:48 IJS [id number]) Subjective Physical Therapy Visit Type Notes Patient declined to get up with therapy, had been up with nursing already today. Patient requesting to go home today. Will check in a.m. if still here.
--- NOTE | 2019-03-16 14:26 | PM.PN.1 ---
Subjective Date Patient Seen: 03/16/19 Interval history: Jacquelyn Whiting is an 83-year-old female with a past medical history significant for cardiomyopathy, diastolic congestive heart failure stage II, hypertension, hyperlipidemia, aortic valve replacement, previous CVA with left upper extremity hemiparesis and left lower extremity weakness who presented to the ED due to progressive worsening shortness of breath, orthopnea, PND, weakness and lower extremity edema. The patient is resting in bed comfortably. She reports she has been urinating excessively. Nursing reports difficulty with several transfers requiring 2 person assist back and forth to bedside commode. She continues to be short of breath but reports this has improved mildly. She denies headache, chest pain, abdominal pain, nausea, vomiting, fever, chills, dysuria, diarrhea or constipation. She also endorses rectal pain and has not had a bowel movement since admission. She is voiding without difficulty. She is up with 2 person assistance for transfers. Exam Vital Signs (past 8 hours): - 03/16/19 07:00 03/16/19 08:54 03/16/19 09:46 Temperature 96.3 F L Pulse Rate 131 H 131 H Respiratory Rate 118 H 18 Blood Pressure 138/88 Pulse Oximetry 100 03/16/19 11:00 Temperature 96.5 F L Pulse Rate 133 H Respiratory Rate 18 Blood Pressure 125/81 Pulse Oximetry 100 Oxygen Delivery Method Room Air Oxygen Flow Rate 0 Narrative Exam Narrative: General: Elderly female lying in bed and in no acute distress, well-developed, well-nourished, appropriately interactive HEENT: Normocephalic, atraumatic. External ears without defect. Pupils equal, round, and reactive to light and accommodation. Anicteric sclerae, moist conjunctivae, and no lid lag. Oropharynx free of erythema and cobble stoning with moist mucosa. Neck: Supple with full range of motion. Mild jugular venous distension. No lymphadenopathy or thyromegaly. Cardiovascular: Irregularly irregular without murmurs, rubs, or gallops appreciated. Pulmonary: Diminished throughout but clear to auscultation bilaterally with scattered bibasilar crackles. No wheezes, or rhonchi. Mild use of accessory muscles with conversational dyspnea present. Abdomen: Soft, bowel sounds present, nontender, nondistended. No hepatosplenomegaly or masses appreciated. Extremities: No clubbing or cyanosis. Moderate bilateral lower extremity pitting edema with dependent edema to hips bilaterally. Skin: Normal temperature, turgor, and texture; no rash, ulcers, or subcutaneous nodules appreciated. Neurological: Cranial nerves grossly intact. Left-sided hemiparesis with contracture of left upper extremity. Mild subtle left sided slurred speech and facial droop. Psychiatric: Normal mood and affect. Alert and oriented to person, place, and time. Mild cognitive impairment with short-term memory recall deficit. Objective Labs Result Diagrams: 03/16/19 07:25 03/16/19 18:59 Labs: Laboratory Results - last 24 hr 03/15/19 03/15/19 03/15/19 14:02 14:02 14:02 WBC 5.5 RBC 3.26 L Hgb 11.7 L Hct 35.9 L MCV 110.1 H MCH 36.0 H MCHC 32.6 RDW 16.5 H Plt Count 160 Neut % (Auto) 69.3 Lymph % (Auto) 18.3 L Jerome % (Auto) 7.9 Eos % (Auto) 3.4 Baso % (Auto) 1.1 Neut # (Auto) 6900 Lymph # (Auto) 1800 Jerome # (Auto) 790 Eos # (Auto) 340 Baso # (Auto) 110 H Plt Morphology Comment RBC Morphology Not Reportable Poikilocytosis 1+ H Anisocytosis 1+ H Macrocytosis 2+ H Ovalocytes Sodium 136 L Potassium 4.3 Chloride 102 Carbon Dioxide 25 BUN 22 H Creatinine 0.90 Estimated GFR 59.9 L BUN/Creatinine Ratio 24.4 H Glucose 84 Lactate 1.5 Calcium 9.2 Magnesium Total Bilirubin 2.4 H AST 36 ALT 27 Alkaline Phosphatase 53 Total Creatine Kinase 71 CK-MB (CK-2) TNP CK-MB (CK-2) Rel Index TNP Troponin I < 0.012 B-Natriuretic Peptide 532 H Total Protein 6.3 Albumin 3.7 Globulin 2.6 Albumin/Globulin Ratio 1.4 Vitamin B12 Folate TSH Free T4 03/15/19 03/15/19 03/16/19 14:02 14:02 05:09 WBC RBC Hgb Hct MCV MCH MCHC RDW Plt Count Neut % (Auto) Lymph % (Auto) Jerome % (Auto) Eos % (Auto) Baso % (Auto) Neut # (Auto) Lymph # (Auto) Jerome # (Auto) Eos # (Auto) Baso # (Auto) Plt Morphology Comment RBC Morphology Poikilocytosis Anisocytosis Macrocytosis Ovalocytes Sodium 138 Potassium 3.8 Chloride 102 Carbon Dioxide 28 BUN 23 H Creatinine 1.10 H Estimated GFR 47.6 L BUN/Creatinine Ratio 20.9 Glucose 85 Lactate Calcium 9.1 Magnesium 2.2 2.0 Total Bilirubin 2.1 H AST 41 H ALT 27 Alkaline Phosphatase 59 Total Creatine Kinase CK-MB (CK-2) CK-MB (CK-2) Rel Index Troponin I B-Natriuretic Peptide Total Protein 6.1 L Albumin 3.4 L Globulin 2.7 Albumin/Globulin Ratio 1.3 Vitamin B12 Folate TSH 12.00 H Free T4 03/16/19 03/16/19 03/16/19 05:09 05:09 07:25 WBC 4.9 RBC 3.29 L Hgb 11.7 L Hct 36.1 MCV 109.7 H MCH 35.7 H MCHC 32.5 RDW 16.3 H Plt Count 135 L Neut % (Auto) 63.4 Lymph % (Auto) 21.2 L Jerome % (Auto) 9.3 Eos % (Auto) 5.7 H Baso % (Auto) 0.4 Neut # (Auto) 3100 Lymph # (Auto) 1000 L Jerome # (Auto) 500 Eos # (Auto) 300 Baso # (Auto) 0 Plt Morphology Comment RBC Morphology See below Poikilocytosis Anisocytosis 1+ H Macrocytosis 2+ H Ovalocytes 1+ H Sodium Potassium Chloride Carbon Dioxide BUN Creatinine Estimated GFR BUN/Creatinine Ratio Glucose Lactate Calcium Magnesium Total Bilirubin AST ALT Alkaline Phosphatase Total Creatine Kinase CK-MB (CK-2) CK-MB (CK-2) Rel Index Troponin I B-Natriuretic Peptide Total Protein Albumin Globulin Albumin/Globulin Ratio Vitamin B12 697 Folate > 20.0 H TSH Free T4 0.96 Assessment & Plan Assessment & Plan narrative: Jacquelyn Whiting is an 83-year-old female with a past medical history significant for cardiomyopathy, diastolic congestive heart failure stage II, hypertension, hyperlipidemia, aortic valve replacement, previous CVA with left upper extremity hemiparesis and left lower extremity weakness who presented to the ED due to progressive worsening shortness of breath, orthopnea, PND, weakness and lower extremity edema. 1. Acute combined systolic and diastolic CHF exacerbation, newly diagnosed and likely tachyarrhythmia induced, present on admission. Active. -Patient presented with progressive worsening shortness of breath, orthopnea, PND, weakness and lower extremity edema (to knees bilaterally and dependent edema to hips bilatrally). -Patient has long-standing history of atrial fibrillation and likely poorly controlled rate as her rhythm is very irregular and labile. -BNP 537. -Chest x-ray did not demonstrate any acute cardiopulmonary process. -Previous echocardiogram demonstrated preserved ejection fraction 60-65% with stage II diastolic CHF. -Ordered limited echocardiogram which demonstrated The left ventricle is normal in size. The ejection fraction is estimated to be 20-25%. Left ventricular function has significantly worsened compared to the previous exam. Except basal posterolateral and the basal anterolateral segments, rest of the LV segments are severely hypokinetic to akinetic. Wall motions abonormalities are new. There is septal wall dyskinesis. Right ventricular systolic function is mild to moderately reduced. Right ventricular systolic function has decreased since previous exam. There is a bioprosthetic aortic valve. The prosthetic aortic valve is not well visualized. There is moderate mitral regurgitation. Compared to the prior echo study, there has been an increase in the severity of mitral regurgitation. There is moderate to severe tricuspid regurgitation. Compared to the prior echo exam, there has been an increase in TR severity. The right ventricular systolic pressure is estimated to be at least 46 mmHg based on an estimated right atrial pressure of 15 mm Hg. Compared to the prior echo exam, there has been an increase in the severity of pulmonary hypertension. -Continue to monitor daily weights and strict I&O. Placed on 1.5 L fluid restriction. Did not place Murray catheter as do not want to limit patient's mobility as this is already restricted substantially. -Received furosemide 60 mg IV Lasix in ED. Continue furosemide 40 mg IV daily and titrate as needed. Patient with significant UOP -2600 cc (previously -850 cc prior to second lasix dose). Continue to monitor kidney function closely and replete electrolytes as needed. 2. Atrial fibrillation with mild RVR, present on admission. Active. -Patient presented in atrial fibrillation with mild RVR and HR 110-120's. -Received Diltiazem 10 mg IV x 1 and home dose of metoprolol succinate 50 mg in ED with control of rate. -Discussed case with on-call automation manager Dr. Meléndez, who recommended digoxin loading with 250 mcg IV every 6 hours x4 doses. Then start maintenance dose of digoxin 125 mcg PO thereafter and check a digoxin level in 5 days. Also recommend increase metoprolol succinate from 50 mg daily to 75 mg twice daily. Ordered metoprolol 5 mg IV every 6 hours as needed for heart rate > 110 sustained for 10 minutes and SBP>100. If beta-leona has been maxed out or blood pressure cannot tolerate higher doses consider starting amiodarone gtt monitoring closely for digoxin toxicity. -Continue Eliquis 5 twice daily. -Patient has evidence of subclinical hypothyroidism increased levothyroxine dose as below. -Replete electrolytes as needed. Goal K+ > 4.0 and Mg+ > 2.0. 3. History of CVA with left-sided hemiparesis and generalized weakness due to deconditioning, chronic, present on admission. Active. -Continue PT and OT evaluation and treatment. 4. Hyperbilirubinemia and elevated INR, unclear acuity, present on admission. Active. -Patient presented with isolated elevated bilirubin without LFT elevation and elevated INR with unclear etiology. Bilirubin may possibly represent Galena disease vs. biliary stasis of acute illness vs. liver disease. INR elevation possibly due to mild vitamin K deficiency vs. liver disease. -No signs or symptoms of infection. No overt signs of bleeding. -Total bilirubin 2.4. INR 1.7. Bilirubin trending down. Continue to monitor bilirubin and INR closely. -If bilirubin continues to remain elevated will consider fractionated bilirubin with indirect and direct total. 5. Macroctic anemia, likely of chronic disease and possibly B12 deficiency, present on admission. -Initial hemoglobin 11.7 with MCV 110. Patient has been anemic since at least 12/13. -Ordered B12 normal at 697 and folate level elevated at >20.0. 6. Right upper lobe lung nodule, possibly field service representative of indolent carcinoma, present on admission. Stable. -Do not believe RUL mass is related to shortness of breath. -Recent CTA chest 12/15/18 demonstrated 2.0 cm right upper lobe mass concerning for neoplastic process. -PET scan on 01/08/19 demonstrated borderline uptake within the right middle lobe nodule. Recommended serial follow-up chest CT examinations are recommended to exclude indolent malignancy, beginning in 3 months. -Patient is followed by Dr. Del Angel of pulmonology and Dr. Bull of oncology at [facility]. 7. Hypothyroidism, chronic, present on admission. Active. -TSH high at 12.00 and free T4 borderline low normal at 0.96 (normal 0.78-2.19) indicative of subclinical hypothyroidsim and will treat due to atrial fibrillation with RVR as above. -Continue levothyroxine increased from 100 mcg to 112 mcg daily. 8. Hypertension, chronic, present on admission. Stable. -Continue losartan 100 mg twice daily and metoprolol succinate 50 mg daily. Continue diuresis as above. 9. Hyperlipidemia, chronic, present on admission. Stable. -Continue pravastatin 40 mg daily. 10. COPD without acute exacerbation, chronic, present on admission. Stable. -Patient reports she recently saw a nutritionalist at [facility], Dr. Del Angel, who placed her on Advair and other inhalers that are unknown. Requested updated medication list. -Consulted RT for evaluation and treatment for nebs. May use supplemental oxygen as needed to keep oxygen saturation at 88-92%. 11. History of aortic valve replacement, present on admission. Stable. -Continue Eliquis 5 mg twice daily. Disposition: Patient likely to discharge home with caregivers months she has been adequately diuresed. Quality VTE Deep Vein Thrombosis/Pulmonary Embolism Present on Admission: No
[2019-03-16] MEDS: METOPROLOL ER 50 MG TABLET PO (15:34)
[2019-03-16] MEDS: BISACODYL 10 MG SUPP PR (16:14)
[2019-03-16] MEDS: DIGOXIN 500 MCG/2 ML AMPUL 250 MCG IV (19:14)
[2019-03-16 19:24] LABS: Blood Urea Nitrogen 26 mg/dL (7-17); Calcium 9.5 mg/dL (8.4-10.2); Carbon Dioxide 28 mmol/L (22-32); Chloride 102 mmol/L (98-107); Estimated Glomerular Filt Rate 53.1 mL/min (>60); Glucose 110 mg/dL (80-110); HEMOLYSIS < 15 (0-50); Magnesium 1.9 mg/dL (1.6-2.3); Potassium 3.9 mmol/L (3.4-5.1); Sodium 139 mmol/L (137-145)
[2019-03-16] MEDS: METOPROLOL ER 25 MG TABLET 75 MG PO (20:58)
[2019-03-16] MEDS: GABAPENTIN 300 MG CAPSULE 600 MG PO (20:58)
[2019-03-16] MEDS: LORazepam 0.5 MG TABLET PO (21:05)
[2019-03-17] VITALS (16 sets, daily range): BP systolic 124–149; BP diastolic 72–100; PULSE 61–108; RESP 16–20; TEMP 36.5–36.7; O2SAT 94–99
[2019-03-17] MEDS: SODIUM CHLORIDE 0.9% FLUSH 10 ML IV ×4 (00:36→20:26)
[2019-03-17] MEDS: DIGOXIN 500 MCG/2 ML AMPUL 250 MCG IV ×3 (00:38→12:29)
--- NOTE | 2019-03-17 01:02 | PC.NURSE ---
Addendum entered by Isabela Benites R.N. 03/17/19 06:39: Voiding 50-100cc each time gotten up for total of 325cc UOP. 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 Last telemetry reading was afib CVR w/BBB and rate of 90. Current HR in 80's. RUBY Miles, updated on patient condition. Original Note: Patient is alert and oriented. Breath sounds CTA but has audible intermittent expiratory wheeze. Does get SOB with exertion but denies SOB at rest; RA sat is 94%. HR irregular and tachy in low 100's; 0000 telemetry reading was SR w/BBB; being Dig loaded for rate control. Denies nausea. BT present but reports she had suppository yesterday with only jodee returned. Denies dysuria, urgency or incontinence but has been voiding frequently. Requires assist of 2 to transfer to BSC. Patient seems very anxious and questions everything staff do and likes to have things done in specific way. Left UE has no movement related to hx CVA and has hand/wrist contracture. Does have movement in left LE but states she is weak in that leg. Is able to turn self to left side and back onto back. Denies pain. Declines use of SCD's despite information on DVT prevention so reminded to ankle wave when awake. 3+ edema bilateral LE to mid thigh. Left anterior LE is lightly erythemic but denies pain, itching or burning. Fall risk score is high and bed alarm is activated. Is currently on fluid restriction (bishnu has the noc shift 100cc + 600cc from evening shift).
[2019-03-17 05:55] LABS: INR 1.5 (0.9-1.3); Prothrombin Time 16.9 SECONDS (10.1-12.7)
[2019-03-17 05:59] LABS: Add Manual Diff / Slide Review SLIDE REVIEW; Basophils Absolute Auto 100 /uL (0-100); Basophils Percent Auto 1.9 % (0-2); Eosinophils Absolute Auto 300 /uL (0-450); Eosinophils Percent Auto 5.4 % (2-4); Hematocrit 33.5 % (36-46); Hemoglobin 11.2 g/dL (12.0-16.0); Lymphocytes Absolute Auto 1200 /uL (1100-4500); Lymphocytes Percent Auto 22.3 % (25-40); Mean Corpuscular HGB Conc 33.3 % (30-36); Mean Corpuscular Hemoglobin 35.9 PG (26-34); Mean Corpuscular Volume 107.9 fL (80-100); Monocytes Absolute Auto 500 /uL (0-900); Monocytes Percent Auto 10.6 % (3-14); Neutrophils Absolute Auto 3100 /uL (1500-7000); Neutrophils Percent Auto 59.8 % (50-75); Platelet Count 144 X10^3/uL (150-400); Red Blood Cell Count 3.11 X10^6/uL (4.0-5.2); Red Cell Distribution Width 15.8 % (11.6-14.8); White Blood Cell Count 5.2 X10^3/uL (4.5-11.0)
[2019-03-17 06:00] LABS: Alanine Aminotransferase 26 IU/L (9-52); Albumin 3.1 g/dL (3.5-5.0); Albumin Globulin Ratio 1.3 (1.0-2.8); Alkaline Phosphatase 55 U/L (38-126); Aspartate Aminotransferase 27 IU/L (14-36); Bilirubin Total 1.8 mg/dL (0.2-1.3); Blood Urea Nitrogen 24 mg/dL (7-17); Calcium 9.1 mg/dL (8.4-10.2); Carbon Dioxide 27 mmol/L (22-32); Chloride 103 mmol/L (98-107); Estimated Glomerular Filt Rate 53.1 mL/min (>60); Globulin 2.4 g/dL (1.7-4.1); Glucose 88 mg/dL (80-110); HEMOLYSIS < 15 (0-50); Magnesium 1.8 mg/dL (1.6-2.3); Potassium 3.7 mmol/L (3.4-5.1); Sodium 137 mmol/L (137-145); Total Protein 5.5 g/dL (6.3-8.2)
[2019-03-17 07:38] LABS: Anisocytosis 1+; Macrocytosis 2+
[2019-03-17] MEDS: LOSARTAN 50 MG TABLET 100 MG PO ×2 (08:18→20:24)
[2019-03-17] MEDS: APIXABAN 5 MG TABLET PO ×2 (08:18→20:24)
[2019-03-17] MEDS: METOPROLOL ER 25 MG TABLET 75 MG PO ×2 (08:18→20:26)
[2019-03-17] MEDS: PRAVASTATIN 20 MG TABLET 40 MG PO (08:19)
[2019-03-17] MEDS: LEVOTHYROXINE 112 MCG TABLET PO (08:22)
[2019-03-17] MEDS: FLUTICASONE/SALMETEROL 100/50 60 PUFF DISKUS INH ×2 (08:33→20:05)
--- NOTE | 2019-03-17 09:05 | PT.IIE ---
Current Diagnoses Acute on chronic diastolic (congestive) heart failure (03/15/19) Surgical History (Last Reviewed 03/15/19 @ 22:17 by Geovanna Vegas DO) History of aortic valve replacement (Acute) Medical History (Last Reviewed 03/15/19 @ 22:17 by Geovanna Vegas DO) Cardiomyopathy (Acute) Hemiparesis affecting left side as late effect of stroke (Acute) Atrial fibrillation (Acute) CHF (congestive heart failure) (Acute) CVA (cerebral vascular accident) (Acute) Hyperlipidemia (Acute) Hypertension (Acute) Hypothyroid (Acute) Raynauds disease (Acute) Physical Therapy Inpatient Evaluation/Re-Eval M1 PT/OT-IP Prior Functional Status Start: 03/16/19 10:47 Freq: NEEDED Status: Active Protocol: Document 03/17/19 09:05 RS (Rec: 03/17/19 10:11 RS [id number]) Medical Review Prior Functional Status Medical History Reviewed No Diet/Fluid Consistency Regular Communication no known deficits Mobility and Gait mod ind bed<>wc<>BSC transfers , has CGA for transfers to shower, self-propels in MWC inside home and PWC outside home Activities of Daily Living and IADL's has caregiver for ~4 hrs daily to help with cooking, meal prep, complicated dressing, occasional transportation, cleaning and litterbox Prior Functional Level (Other details) doesn't drive, also takes the bus in PWC Social History Household Members none Living Arrangements House Number of Floors (Floors) Two Floors Number of Stairs To Enter/Railing? level entry, pt stays on main floor Home Environment Walk in Shower Home Equipment Manual Wheelchair Power Wheelchair/Scooter Bedside Commode Shower Seat with Backrest Hand Held Shower Hospital Bed Grab Bars Near Toilet Grab Bars In Shower Employment Status Retired M2 PT-IP Current Condition Start: 03/16/19 10:47 Freq: NEEDED Status: Active Protocol: Document 03/17/19 09:05 RS (Rec: 03/17/19 10:11 RS [id number]) Physical Therapy Current Condition Current Condition Evaluation Date 03/17/19 Treatment Diagnosis deconditioning, hx of CVA w/ L hemiplegia Onset Date 03/15/19 M3 PT-IP Subjective Start: 03/16/19 10:47 Freq: NEEDED Status: Active Protocol: Document 03/17/19 09:05 RS (Rec: 03/17/19 10:11 RS [id number]) Subjective Physical Therapy Visit Type Type Initial Evaluation Visit Start Time 08:30 Visit Stop Time 09:05 Total Visit Minutes 35 Physical Therapy Visit Comments Patient Comments Pt feels like she's slightly weaker than normal but almost back to normal Patient Goals really wants to go home Therapy Pain Assessment Pain When Pain Assessed At Rest Pain Present Pain Present Denied Pain M4 PT-IP Mobility and Gait Start: 03/16/19 10:47 Freq: NEEDED Status: Active Protocol: Document 03/17/19 09:05 RS (Rec: 03/17/19 10:11 RS [id number]) PT-Bed Mobility Assessment Supine to Sit Supine to Sit Independent Head of Bed Elevated Bedrails Sit to Supine Sit to Supine Independent Head of Bed Elevated Bedrails Scooting Scooting to Edge of Bed Independent PT-Transfer Assessment Sit to and From Stand Sit to and from Stand Independent Transfers Transfer Destination Bed Chair Wheelchair Transfer Technique Stand Step Pivot Transfer Ability Level of Assist Independent Comments Mobility Comments Pt able to transfer without physical assist to the R, uses armrest of chair/wc to stand up and then as RUE support during the step pivot transfer . When getting back to bed pt just braces RUE on the bed mattress. No LOB, seems like a very practiced maneuver. Gait Assessment Comments Gait Comments pt is non-ambulatory Stair Climbing Assessment Comments Stair Climbing Comments not necessary to assess PT-Balance Assessment Sitting Balance and Reactions Static Sitting Balance Ability Normal Dynamic Sitting Balance Ability Good Standing Balance and Reactions Static Standing Balance Ability Fair Dynamic Standing Balance Ability Fair Device Used armrest M5 PT-IP Objective Assessments Start: 03/16/19 10:47 Freq: NEEDED Status: Active Protocol: Document 03/17/19 09:05 RS (Rec: 03/17/19 10:11 RS [id number]) Orientation Orientation/Cognition Level of Alertness Alert Orientation Name Age Birthday Month Date Year Day of Week Place Situation Language Function Ability No Deficits Noted Safety Awareness Understands Safety Issues Memory Description No Deficits Noted Gross Range of Motion Lower Extremity ROM Assessment Within Functional Limits Strength Comments Strength Comments LLE impaired d/t previous stroke but near baseline BLE M6 PT-IP Treatment Start: 03/16/19 10:47 Freq: NEEDED Status: Active Protocol: Document 03/17/19 09:05 RS (Rec: 03/17/19 10:11 RS [id number]) Physical Therapy Treatment Exercises Exercises Ankle Pumps Education Education Provided Safety M7 PT-IP Assessment and Plan Start: 03/16/19 10:47 Freq: NEEDED Status: Active Protocol: Document 03/17/19 09:05 RS (Rec: 03/17/19 10:11 RS [id number]) PT Summary Assessment and Plan Potential Rehabilitation Potential Good Status of Condition at Evaluation Evolving Summary Impairments Strength Progress Towards Goals Safe For Discharge Assessment Summary Pt presents with chronic L hemiplegia from previous stroke and signs of gross deconditioning that is exacerbated by increase in BLE swelling. However, pt is still able to perform transfers at a mod ind level ( bed<>BSC<>MWC). Pt has slightly less activity tolerance than at baseline but is safe to return home and continue with previous level of caregiver assist once medically ready. Original recommendation had been for patient to participate in HHPT /OT, however, due to new news of significant decline in cardiac function, pt has now elected to participate in home hospice. Pt has no other acute PT goals/needs, therefore, acute PT will sign off. Frequency of Treatment Frequency Of Treatment Discharge Recommendations To Nursing Amount of Assist Needed Standby Assistance Discharge Recommendations PT Discharge Recommendations Home with Assistance
--- NOTE | 2019-03-17 09:09 | CM.DPC ---
Addendum entered by Coby Dodge LPN 03/18/19 10:18: [facility] Vera did arrive yesterday as planned and went over info visit information with pt and Ashely. She then updated Dr. Vegas on pt's decision not to sign consents as she was not yet ready to commit to the full program. She wished to receive therapy at home and also to come to hospital if her symtoms warranted this. Addendum entered by Coby Dodge LPN 03/17/19 11:12: Pt is updated re time of visit. She says her caregiver Ashely is coming about 1200 to see her and wants Dr. Vegas to update Ashely/RN Susan is update and agrees to follow up with Dr. Vegas re this. PT/OT have now signed off this case as the only caregiving training needed was the compression socks and this not considered as needed at this time. OT Soledad says that in all other ways the pt is doing fine for the home setting with care as already in place. Addendum entered by Coby Dodge LPN 03/17/19 10:38: Met with pt in followup to Dr. Vegas's request. Pt is very agreeable to the hospice consideration. She does want her son involved and also has a daughter and another son, all of whom are supportive she says. She wishes her caregiver Ashely to also be updated. She also wants her PCP: Dr. Matilde Lin/[facility] [place] involved in all of this. Checked in with Dr. Vegas now and updated her re above. She wishes the Hospice visit to be [facility] regardless of who can be here. She has not yet had a chance to call the son.. Am waiting for [facility] to call back with info visit time. Layne/LUANW did review the referral and is checking with PM re her schedule. [facility] info visit is now set up for 1330 today with Елена. Have left a message for Davon/JERE son on [phone]. Will let pt know now. Addendum entered by Coby Dodge LPN 03/17/19 10:07: Case discussed in Rounds with Dr. Vegas. She stated that she had talked with pt this morning and told her she had severe CHF with recommendation of palliative management. Dr. Vegas stated the pt agreed that a hospice referral is indicated and she wishes that to be done immediately. She says she is going to call POA son to update him. Initial referral info is now faxed by [facility] to [facility] and will call now to follow up on this referral. At this point, after discussion, Dr. Vegas seems to agree that pt will still go home with [facility] as per initial plan if [facility] cannot be put in place immediately. Will need to discuss this further with pt and her son as seems likely son will need to be a part of the [facility] info visit as all of this is obviously rather sudden. Addendum entered by Coby Dodge LPN 03/17/19 10:05: Received a call from [facility] office: a progress note from Dr. Vegas for 03/16 is needed to coincide with the F/F signed by Dr. Vegas on 03/16. Requested this be faxed to office: [phone]/done. Original Note: DCP: continued: case received, EMR reviewed (including pt's prior stay here in November 2018). Spoke with PT and OT, both of whom worked with pt this morning and then went to room to see pt. Pt was in conversation with Dr. Vegas. Plan to check in again with pt after Team Rounds. OT and PT report that pt did well in her sessions today. They are recommending home setting with [facility]. See that Senait Morris did initial referral yesterday to [facility] and orders and Face/Face were completed. PT would like to do some caregiver training with [facility] prior to the d/c. Is unclear if this is set up yet. P: will be following. Will fax clinical to [facility] as appropriate.
--- NOTE | 2019-03-17 10:42 | OT.IP.EVAL ---
Current Diagnoses Acute on chronic diastolic (congestive) heart failure (03/15/19) Past Medical History (Last Reviewed 03/15/19 @ 22:17 by Geovanna Vegas DO) Cardiomyopathy (Acute) Hemiparesis affecting left side as late effect of stroke (Acute) Atrial fibrillation (Acute) CHF (congestive heart failure) (Acute) CVA (cerebral vascular accident) (Acute) Hyperlipidemia (Acute) Hypertension (Acute) Hypothyroid (Acute) Raynauds disease (Acute) Surgical History (Last Reviewed 03/15/19 @ 22:17 by Geovanna Vegas DO) History of aortic valve replacement (Acute) Occupational Therapy Inpatient Evaluation/Re-Eval M1 PT/OT-IP Prior Functional Status Start: 03/17/19 10:20 Freq: NEEDED Status: Active Protocol: Document 03/17/19 08:30 [facility] (Rec: 03/17/19 10:42 [facility] [id number]) Medical Review Prior Functional Status Medical History Reviewed No Diet/Fluid Consistency Regular Communication no known deficits Mobility and Gait mod ind bed<>wc<>BSC transfers , has CGA for transfers to shower, self-propels in MWC inside home and PWC outside home Activities of Daily Living and IADL's has caregiver for ~4 hrs daily to help with cooking, meal prep, complicated dressing, occasional transportation, cleaning and litterbox Prior Functional Level (Other details) doesn't drive, also takes the bus in [place] Social History Household Members none Living Arrangements House Number of Floors (Floors) Two Floors Number of Stairs To Enter/Railing? level entry, pt stays on main floor Home Environment Walk in Shower Home Equipment Manual Wheelchair Power Wheelchair/Scooter Bedside Commode Shower Seat with Backrest Hand Held Shower Hospital Bed Grab Bars Near Toilet Grab Bars In Shower Employment Status Retired M2 OT-IP Current Condition Start: 03/17/19 10:20 Freq: Status: Active Protocol: Document 03/17/19 08:30 [facility] (Rec: 03/17/19 10:42 [facility] [id number]) Occupational Therapy Current Condition Current Condition Evaluation Date 03/17/19 Treatment Diagnosis Severe CHF Diagnosis Onset Date 03/14/19 Weight Bearing Status Weight Bearing Status Weight Bear as Tolerated M3 OT- IP Subjective and Pain Start: 03/17/19 10:20 Freq: Status: Active Protocol: Document 03/17/19 08:30 [facility] (Rec: 03/17/19 10:42 [facility] [id number]) OT- Subjective Occupational Therapy Visit Type Type Initial Evaluation Visit Start Time 08:30 Visit Stop Time 09:00 Occupational Therapy Visit Comments Patient Comments Pt agreeable to get up for OT/ PT for eval. OT Pain Assessment Pain When Pain Assessed At Rest Pain Present Pain Present Denied Pain M4 OT- IP ADL's Start: 03/17/19 10:20 Freq: Status: Active Protocol: Document 03/17/19 08:30 [facility] (Rec: 03/17/19 10:42 [facility] [id number]) OT ADL-Dressing General Eval Lower Body Dressing Ability Maximum Assistance Comments OT Dressing Comments Pt not able to get shoes on as hospital bed too high and not able to reach the floor, per pt able to reach the floor at home and has vecro slip on shoes. OT ADL-Toileting Comments OT Toileting Comments Pt uses BSC at home. OT ADL-Bathing Comments OT Bathing Comments Pt has assist from caregiver to shower and use of shower chair with back for walk in shower. M5 OT- IP IADL's Start: 03/17/19 10:20 Freq: Status: Active Protocol: Document 03/17/19 08:30 [facility] (Rec: 03/17/19 10:42 [facility] [id number]) OT-Instrumental Activities of Daily Living Home Safety Awareness Awareness of Need for Assistance at Home Good Awareness Home Safety Comments Caregiver assist with bills, shopping, cooking, and showers and at times completeness for dressing. M6 OT- IP Functional Cognition Start: 03/17/19 10:20 Freq: Status: Active Protocol: Document 03/17/19 08:30 [facility] (Rec: 03/17/19 10:42 [facility] [id number]) Cognitive Factors Limiting Selfcare Function Cognitive Ability Level of Alertness Alert Patient Orientation Name Age Birthday Month Date Year Day of Week Place Situation Attention Span Ability Capable of Focused Attention Capable of Sustained Attention Memory Description Short Term Impaired Problem Solving Ability Needs Assist to Identify Solutions Cognitive Comments Cognitive Assessment Comments Pt needing increased time to recall set-up of wc, BSC, and how she transfer at home. Pt able to follow one step commands. OT- Vision and Hearing OT- Hearing Assessment OT- Hearing Assessment WFL OT- Vision Assessment Visual Acuity Glasses All The Time M7 OT- IP Mobility and Balance Start: 03/17/19 10:20 Freq: Status: Active Protocol: Document 03/17/19 08:30 [facility] (Rec: 03/17/19 10:42 [facility] [id number]) OT- Bed Mobility Assessment Rolling Level of Assistance Standby Assistance Supine to Sit Supine to Sit Assist Standby Assistance Sit to Supine Sit to Supine Assist Standby Assistance OT-Transfer Assessment Sit to and From Stand Sit to and from Stand Standby Assistance 1 Person Assistance Transfers Transfer Ability Standby Assistance 1 Person Assistance Technique Transfer Destination Chair Transfer Technique Stand Step Pivot Devices Transfer Assistive Devices Gait Belt Comments Mobility Comments Pt states just transfers only at this time at home to either BSC, manual WC or electric wc . OT- Balance Assessment Sitting Balance and Reactions Static Sitting Balance Ability Normal Dynamic Sitting Balance Ability Fair Standing Balance and Reactions Static Standing Balance Ability Fair M8 OT- IP Objective Assessments Start: 03/17/19 10:20 Freq: Status: Active Protocol: Document 03/17/19 08:30 [facility] (Rec: 03/17/19 10:42 [facility] [id number]) OT Gross Range of Motion Upper Extremity Range of Motion Assessment Left Impaired OT Strength Upper Extremity Strength Assessment Left Impaired OT-Muscle Tone Assessment Muscle Tone WNL Yes Comments Muscle Tone Comments Increased tone in LUE due to history of CVA and contractures, pt tends to be internally rotated with wrist and fingers flexed. Pt has decreased awareness for LUE placement as well. M9 OT- IP Assessment and Plan Start: 03/17/19 10:20 Freq: Status: Active Protocol: Document 03/17/19 08:30 [facility] (Rec: 03/17/19 10:42 [facility] [id number]) OT Summary Assessment and Plan Potential Rehabilitation Potential Fair Analytic Complexity at Evaluation Low Summary OT Impairments Strength Balance Tone Functional Cognition Functional Mobility Dressing Toileting Bathing Toilet Transfers Shower Transfers Progress Towards Goals Slow Progress due to Medical Issues Assessment Summary Pt low complexity and main barrier is decreased activity tolerance and may need more assist for completeness with ADL's. Pt per physician has severe CHF with recommendations of palliative management. Therefore discharge pt for OT services and recommended home health. Treatment Plan OT Treatment Plan Discharge Planning Discharge Recommendations OT Discharge Recommendations Home Health
--- NOTE | 2019-03-17 10:46 | PC.NURSE ---
Day shift: Pt up OOB to BSC with this typewriter ribbon winder and MONITORING ENGINEER. Pt does move well (pivot and some steps) with 2 ppl assist and gait belt despite the LLE deficit. Pt voided approx 75ML of concentrated urine. Pt back in bed at this time. Call light in reach. Bed alarm is on.
--- NOTE | 2019-03-17 11:30 | PM.PN.1 ---
Subjective Date Patient Seen: 03/17/19 Interval history: Jacquelyn Whiting is an 83-year-old female with a past medical history significant for cardiomyopathy, diastolic congestive heart failure stage II, hypertension, hyperlipidemia, aortic valve replacement, previous CVA with left upper extremity hemiparesis and left lower extremity weakness who presented to the ED due to progressive worsening shortness of breath, orthopnea, PND, weakness and lower extremity edema. Interval history: Overnight telemetry demonstrated atrial fibrillation with HR average 80-90's with runs up to 140's and went in and out of sinus rhythm. The patient is resting in bedside chair comfortably. The patient telemetry demonstrates atrial fibrillation with heart rate average in the 60's today. She is doing better today in regard to her mobility and is able to transfer on her own with standby assist. PT/OT has recommended home health. She continues to be short of breath especially with activity but it is improving with diuresis. Her lower extremity edema has also improved. She is net -2.2 L. She denies headache, chest pain, abdominal pain, nausea, vomiting, fever, chills, dysuria, diarrhea or constipation. She is voiding and eliminating without difficulty. She is up with stand by assistance for transfers. Continue PT/OT. Discuss echocardiogram findings with her hoist worker Dr. Neil who agrees with digoxin loading then maintenance dose and increase of metoprolol succinate from 100 mg daily to 75 mg twice daily. He also recommends a palliative care/hospice consultation. Discussed the patient's echocardiogram findings in detail and her hoist worker's recommendation for hospice. A hospice informational visit has been arranged and the patient reports she is open to and would like to be on hospice for symptom management and improvement in quality of life as she has used this service for her late and was pleased with the outcome. Exam Vital Signs (past 8 hours): - 03/17/19 05:16 03/17/19 07:30 03/17/19 08:02 Temperature 97.7 F 97.7 F Pulse Rate 88 61 Respiratory Rate 19 16 Blood Pressure 149/87 H 147/79 H Pulse Oximetry 98 95 95 03/17/19 08:36 03/17/19 09:57 Temperature Pulse Rate 71 89 Respiratory Rate Blood Pressure 142/92 H Pulse Oximetry 97 Oxygen Delivery Method Room Air Oxygen Flow Rate 0 Narrative Exam Narrative: General: Elderly female lying in bed and in no acute distress, well-developed, well-nourished, appropriately interactive. HEENT: Normocephalic, atraumatic. External ears without defect. Pupils equal, round, and reactive to light and accommodation. Anicteric sclerae, moist conjunctivae, and no lid lag. Neck: Supple with full range of motion. Jugular venous distension resolved. No lymphadenopathy or thyromegaly. Cardiovascular: Irregularly irregular normal rate without murmurs, rubs, or gallops appreciated. Pulmonary: Diminished throughout but clear to auscultation bilaterally with scattered bibasilar crackles. No wheezes, or rhonchi. Very little use of accessory muscles and conversational dyspnea present. Abdomen: Soft, bowel sounds present, nontender, nondistended. No hepatosplenomegaly or masses appreciated. Extremities: No clubbing or cyanosis. Mild to moderate bilateral lower extremity pitting edema with dependent edema to mid thighs bilaterally and overall improving. Skin: Normal temperature, turgor, and texture; no rash, ulcers, or subcutaneous nodules appreciated. Neurological: Cranial nerves grossly intact. Left-sided hemiparesis with contracture of left upper extremity. Mild subtle left sided slurred speech and facial droop. Psychiatric: Normal mood and affect. Alert and oriented to person, place, and time. Mild cognitive impairment with short-term memory recall deficit. Objective Labs Result Diagrams: 03/17/19 05:35 03/17/19 05:35 Labs: Laboratory Results - last 24 hr 03/16/19 03/17/19 03/17/19 18:59 05:35 05:35 WBC 5.2 RBC 3.11 L Hgb 11.2 L Hct 33.5 L MCV 107.9 H MCH 35.9 H MCHC 33.3 RDW 15.8 H Plt Count 144 L Neut % (Auto) 59.8 Lymph % (Auto) 22.3 L [place] % (Auto) 10.6 Eos % (Auto) 5.4 H Baso % (Auto) 1.9 Neut # (Auto) 3100 Lymph # (Auto) 1200 [place] # (Auto) 500 Eos # (Auto) 300 Baso # (Auto) 100 Plt Morphology Comment RBC Morphology See below Anisocytosis 1+ H Macrocytosis 2+ H PT 16.9 H INR 1.5 H Sodium 139 Potassium 3.9 Chloride 102 Carbon Dioxide 28 BUN 26 H Creatinine 1.00 Estimated GFR 53.1 L BUN/Creatinine Ratio 26.0 H Glucose 110 Calcium 9.5 Magnesium 1.9 Total Bilirubin AST ALT Alkaline Phosphatase Total Protein Albumin Globulin Albumin/Globulin Ratio 03/17/19 05:35 WBC RBC Hgb Hct MCV MCH MCHC RDW Plt Count Neut % (Auto) Lymph % (Auto) [place] % (Auto) Eos % (Auto) Baso % (Auto) Neut # (Auto) Lymph # (Auto) [place] # (Auto) Eos # (Auto) Baso # (Auto) Plt Morphology Comment RBC Morphology Anisocytosis Macrocytosis PT INR Sodium 137 Potassium 3.7 Chloride 103 Carbon Dioxide 27 BUN 24 H Creatinine 1.00 Estimated GFR 53.1 L BUN/Creatinine Ratio 24.0 H Glucose 88 Calcium 9.1 Magnesium 1.8 Total Bilirubin 1.8 H AST 27 ALT 26 Alkaline Phosphatase 55 Total Protein 5.5 L Albumin 3.1 L Globulin 2.4 Albumin/Globulin Ratio 1.3 Assessment & Plan Assessment & Plan narrative: Jacquelyn Whiting is an 83-year-old female with a past medical history significant for cardiomyopathy, diastolic congestive heart failure stage II, hypertension, hyperlipidemia, aortic valve replacement, previous CVA with left upper extremity hemiparesis and left lower extremity weakness who presented to the ED due to progressive worsening shortness of breath, orthopnea, PND, weakness and lower extremity edema. 1. Acute combined systolic and diastolic CHF exacerbation, newly diagnosed and likely tachyarrhythmia induced, present on admission. Active. -Patient presented with progressive worsening shortness of breath, orthopnea, PND, weakness and lower extremity edema (to knees bilaterally and dependent edema to hips bilatrally). -Patient has long-standing history of atrial fibrillation and likely poorly controlled rate as her rhythm is very irregular and labile. -BNP 537. -Chest x-ray did not demonstrate any acute cardiopulmonary process. -Previous echocardiogram demonstrated preserved ejection fraction 60-65% with stage II diastolic CHF. -Ordered limited echocardiogram which demonstrated The left ventricle is normal in size. The ejection fraction is estimated to be 20-25%. Left ventricular function has significantly worsened compared to the previous exam. Except basal posterolateral and the basal anterolateral segments, rest of the LV segments are severely hypokinetic to akinetic. Wall motions abonormalities are new. There is septal wall dyskinesis. Right ventricular systolic function is mild to moderately reduced. Right ventricular systolic function has decreased since previous exam. There is a bioprosthetic aortic valve. The prosthetic aortic valve is not well visualized. There is moderate mitral regurgitation. Compared to the prior echo study, there has been an increase in the severity of mitral regurgitation. There is moderate to severe tricuspid regurgitation. Compared to the prior echo exam, there has been an increase in TR severity. The right ventricular systolic pressure is estimated to be at least 46 mmHg based on an estimated right atrial pressure of 15 mm Hg. Compared to the prior echo exam, there has been an increase in the severity of pulmonary hypertension. -Continue to monitor daily weights and strict I&O. Placed on 1.5 L fluid restriction. Did not place Murray catheter as do not want to limit patient's mobility as this is already restricted substantially. -Received furosemide 60 mg IV Lasix in ED. Continue furosemide 40 mg IV daily and switched to oral furosemide 60 mg today and will titrate accordingly. Patient net -2.2L. Continue to monitor kidney function closely and replete electrolytes as needed. 2. Atrial fibrillation with mild RVR, present on admission. Active. -Patient presented in atrial fibrillation with mild RVR and HR 110-120's. -Received Diltiazem 10 mg IV x 1 and home dose of metoprolol succinate 50 mg in ED with control of rate. -Discussed case with on-call hoist worker Dr. Meléndez, who recommended digoxin loading with 250 mcg IV every 6 hours x4 doses. Then start maintenance dose of digoxin 125 mcg PO thereafter and check a digoxin level in 5 days. Also recommend increase metoprolol succinate from 50 mg daily to 75 mg twice daily. Ordered metoprolol 5 mg IV every 6 hours as needed for heart rate > 110 sustained for 10 minutes and SBP>100. If beta-leona has been maxed out or blood pressure cannot tolerate higher doses consider starting amiodarone gtt monitoring closely for digoxin toxicity. -Continue Eliquis 5 twice daily. If INR continues to be significantly elevated due to congestive hepatopathy and despite diuresis may consider stopping Eliquis as patient is high risk of bleeding. -Patient has evidence of subclinical hypothyroidism increased levothyroxine dose as below. -Replete electrolytes as needed. Goal K+ > 4.0 and Mg+ > 2.0. 3. History of CVA with left-sided hemiparesis and generalized weakness due to deconditioning, chronic, present on admission. Active. -Continue PT and OT evaluation and treatment. 4. Hyperbilirubinemia and elevated INR likely customer account representative of congestive hepatopathy, present on admission. Improving. -Patient presented with isolated elevated bilirubin without LFT elevation and elevated INR. Likely customer account representative of congestive hepatopathy with now new profound reduction in systolic function. -No signs or symptoms of infection. No overt signs of bleeding. -Total bilirubin 2.4. INR 1.7. Bilirubin and INR trending down likely due to diuresis. Continue to monitor bilirubin and INR closely. -If INR continues to be significantly elevated despite diuresis may consider stopping Eliquis as patient is high risk of bleeding. 5. Macroctic anemia, likely of chronic disease, present on admission. Stable -Initial hemoglobin 11.7 with MCV 110. Patient has been anemic since at least 12/13. -Ordered B12 normal at 697 and folate level elevated at >20.0. -Hemoglobin hematocrit stable. No overt signs of bleeding. Continue to monitor CBC periodically 6. 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 Stable. -Do not believe RUL mass is related to shortness of breath. -Recent CTA chest 12/15/18 demonstrated 2.0 cm right upper lobe mass concerning for neoplastic process. -PET scan on 01/08/19 demonstrated borderline uptake within the right middle lobe nodule. Recommended serial follow-up chest CT examinations are recommended to exclude indolent malignancy, beginning in 3 months. -Patient is followed by Dr. Del Angel of pulmonology and Dr. Bull of oncology at [facility]. -Contacted her oncologist, Dr. Bull, and informed him of her significant reduction and systolic function. He is happy to continue to follow and monitor her right upper lobe mass unless or until she goes onto hospice. 7. Hypothyroidism, chronic, present on admission. Active. -TSH high at 12.00 and free T4 borderline low normal at 0.96 (normal 0.78-2.19) indicative of subclinical hypothyroidsim and will treat due to atrial fibrillation with RVR as above. -Continue levothyroxine increased from 100 mcg to 112 mcg daily. 8. Hypertension, chronic, present on admission. Stable. -Continue losartan 100 mg twice daily and increased metoprolol succinate 75 mg twice daily. Continue diuresis as above. 9. Hyperlipidemia, chronic, present on admission. Stable. -Continue pravastatin 40 mg daily. 10. COPD without acute exacerbation, chronic, present on admission. Stable. -Patient reports she recently saw a steel die press set up operator at [facility], Dr. Del Angel, who placed her on Advair and other inhalers that are unknown. Requested updated medication list. -Consulted RT for evaluation and treatment for nebs. May use supplemental oxygen as needed to keep oxygen saturation at 88-92%. 11. History of aortic valve replacement, present on admission. Stable. -Continue Eliquis 5 mg twice daily. -If INR continues to be significantly elevated due to congestive hepatopathy and despite diuresis may consider stopping Eliquis as patient is high risk of bleeding. Disposition: Patient likely to discharge home with caregivers possibly tomorrow if she is adequately diuresed and heart rate well controlled. Quality VTE Deep Vein Thrombosis/Pulmonary Embolism Present on Admission: No
--- NOTE | 2019-03-17 11:34 | P.PN_ITS ---
Subjective Date Patient Seen: 03/17/19 Interval history: Jacquelyn Whiting is an 83-year-old female with a past medical history significant for cardiomyopathy, diastolic congestive heart failure stage II, hypertension, hyperlipidemia, aortic valve replacement, previous CVA with left upper extremity hemiparesis and left lower extremity weakness who presented to the ED due to progressive worsening shortness of breath, orthopnea, PND, weakness and lower extremity edema. Interval history: Overnight telemetry demonstrated atrial fibrillation with HR average 80-90's with runs up to 140's and went in and out of sinus rhythm. The patient is resting in bedside chair comfortably. The patient telemetry demonstrates atrial fibrillation with heart rate average in the 60's today. She is doing better today in regard to her mobility and is able to transfer on her own with standby assist. PT/OT has recommended home health. She continues to be short of breath especially with activity but it is improving with diuresis. Her lower extremity edema has also improved. She is net -2.2 L. She denies headache, chest pain, abdominal pain, nausea, vomiting, fever, chills, dysuria, diarrhea or constipation. She is voiding and eliminating without difficulty. She is up with stand by assistance for transfers. Continue PT/OT. Discuss echocardiogram findings with her push connector assembler Dr. Neil who agrees with digoxin loading then maintenance dose and increase of metoprolol succinate from 100 mg daily to 75 mg twice daily. He also recommends a palliative care/hospice consultation. Discussed the patient's echocardiogram findings in detail and her push connector assembler's recommendation for hospice. A hospice informational visit has been arranged and the patient reports she is open to and would like to be on hospice for symptom management and improvement in quality of life as she has used this service for her late and was pleased with the outcome. Exam Vital Signs (past 8 hours): - 03/17/19 05:16 03/17/19 07:30 03/17/19 08:02 Temperature 97.7 F 97.7 F Pulse Rate 88 61 Respiratory Rate 19 16 Blood Pressure 149/87 H 147/79 H Pulse Oximetry 98 95 95 03/17/19 08:36 03/17/19 09:57 Temperature Pulse Rate 71 89 Respiratory Rate Blood Pressure 142/92 H Pulse Oximetry 97 Oxygen Delivery Method Room Air Oxygen Flow Rate 0 Narrative Exam Narrative: General: Elderly female lying in bed and in no acute distress, well-developed, well-nourished, appropriately interactive. HEENT: Normocephalic, atraumatic. External ears without defect. Pupils equal, round, and reactive to light and accommodation. Anicteric sclerae, moist conjunctivae, and no lid lag. Neck: Supple with full range of motion. Jugular venous distension resolved. No lymphadenopathy or thyromegaly. Cardiovascular: Irregularly irregular normal rate without murmurs, rubs, or gallops appreciated. Pulmonary: Diminished throughout but clear to auscultation bilaterally with scattered bibasilar crackles. No wheezes, or rhonchi. Very little use of accessory muscles and conversational dyspnea present. Abdomen: Soft, bowel sounds present, nontender, nondistended. No hepatosplenomegaly or masses appreciated. Extremities: No clubbing or cyanosis. Mild to moderate bilateral lower extremity pitting edema with dependent edema to mid thighs bilaterally and overall improving. Skin: Normal temperature, turgor, and texture; no rash, ulcers, or subcutaneous nodules appreciated. Neurological: Cranial nerves grossly intact. Left-sided hemiparesis with contracture of left upper extremity. Mild subtle left sided slurred speech and facial droop. Psychiatric: Normal mood and affect. Alert and oriented to person, place, and time. Mild cognitive impairment with short-term memory recall deficit. Objective Labs Result Diagrams: 03/17/19 05:35 03/17/19 05:35 Labs: Laboratory Results - last 24 hr 03/16/19 03/17/19 03/17/19 18:59 05:35 05:35 WBC 5.2 RBC 3.11 L Hgb 11.2 L Hct 33.5 L MCV 107.9 H MCH 35.9 H MCHC 33.3 RDW 15.8 H Plt Count 144 L Neut % (Auto) 59.8 Lymph % (Auto) 22.3 L [place] % (Auto) 10.6 Eos % (Auto) 5.4 H Baso % (Auto) 1.9 Neut # (Auto) 3100 Lymph # (Auto) 1200 [place] # (Auto) 500 Eos # (Auto) 300 Baso # (Auto) 100 Plt Morphology Comment RBC Morphology See below Anisocytosis 1+ H Macrocytosis 2+ H PT 16.9 H INR 1.5 H Sodium 139 Potassium 3.9 Chloride 102 Carbon Dioxide 28 BUN 26 H Creatinine 1.00 Estimated GFR 53.1 L BUN/Creatinine Ratio 26.0 H Glucose 110 Calcium 9.5 Magnesium 1.9 Total Bilirubin AST ALT Alkaline Phosphatase Total Protein Albumin Globulin Albumin/Globulin Ratio 03/17/19 05:35 WBC RBC Hgb Hct MCV MCH MCHC RDW Plt Count Neut % (Auto) Lymph % (Auto) [place] % (Auto) Eos % (Auto) Baso % (Auto) Neut # (Auto) Lymph # (Auto) [place] # (Auto) Eos # (Auto) Baso # (Auto) Plt Morphology Comment RBC Morphology Anisocytosis Macrocytosis PT INR Sodium 137 Potassium 3.7 Chloride 103 Carbon Dioxide 27 BUN 24 H Creatinine 1.00 Estimated GFR 53.1 L BUN/Creatinine Ratio 24.0 H Glucose 88 Calcium 9.1 Magnesium 1.8 Total Bilirubin 1.8 H AST 27 ALT 26 Alkaline Phosphatase 55 Total Protein 5.5 L Albumin 3.1 L Globulin 2.4 Albumin/Globulin Ratio 1.3 Assessment & Plan Assessment & Plan narrative: Jacquelyn Whiting is an 83-year-old female with a past medical history significant for cardiomyopathy, diastolic congestive heart failure stage II, hypertension, hyperlipidemia, aortic valve replacement, previous CVA with left upper extremity hemiparesis and left lower extremity weakness who presented to the ED due to progressive worsening shortness of breath, orthopnea, PND, weakness and lower extremity edema. 1. Acute combined systolic and diastolic CHF exacerbation, newly diagnosed and likely tachyarrhythmia induced, present on admission. Active. -Patient presented with progressive worsening shortness of breath, orthopnea, PND, weakness and lower extremity edema (to knees bilaterally and dependent edema to hips bilatrally). -Patient has long-standing history of atrial fibrillation and likely poorly controlled rate as her rhythm is very irregular and labile. -BNP 537. -Chest x-ray did not demonstrate any acute cardiopulmonary process. -Previous echocardiogram demonstrated preserved ejection fraction 60-65% with stage II diastolic CHF. -Ordered limited echocardiogram which demonstrated The left ventricle is normal in size. The ejection fraction is estimated to be 20-25%. Left ventricular function has significantly worsened compared to the previous exam. Except basal posterolateral and the basal anterolateral segments, rest of the LV segments are severely hypokinetic to akinetic. Wall motions abonormalities are new. There is septal wall dyskinesis. Right ventricular systolic function is mild to moderately reduced. Right ventricular systolic function has decreased since previous exam. There is a bioprosthetic aortic valve. The prosthetic aortic valve is not well visualized. There is moderate mitral regurgitation. Compared to the prior echo study, there has been an increase in the severity of mitral regurgitation. There is moderate to severe tricuspid regurgitation. Compared to the prior echo exam, there has been an increase in TR severity. The right ventricular systolic pressure is estimated to be at least 46 mmHg based on an estimated right atrial pressure of 15 mm Hg. Compared to the prior echo exam, there has been an increase in the severity of pulmonary hypertension. -Continue to monitor daily weights and strict I&O. Placed on 1.5 L fluid restriction. Did not place Murray catheter as do not want to limit patient's mobility as this is already restricted substantially. -Received furosemide 60 mg IV Lasix in ED. Continue furosemide 40 mg IV daily and switched to oral furosemide 60 mg today and will titrate accordingly. Patient net -2.2L. Continue to monitor kidney function closely and replete electrolytes as needed. 2. Atrial fibrillation with mild RVR, present on admission. Active. -Patient presented in atrial fibrillation with mild RVR and HR 110-120's. -Received Diltiazem 10 mg IV x 1 and home dose of metoprolol succinate 50 mg in ED with control of rate. -Discussed case with on-call push connector assembler Dr. Meléndez, who recommended digoxin loading with 250 mcg IV every 6 hours x4 doses. Then start maintenance dose of digoxin 125 mcg PO thereafter and check a digoxin level in 5 days. Also recommend increase metoprolol succinate from 50 mg daily to 75 mg twice daily. Ordered metoprolol 5 mg IV every 6 hours as needed for heart rate > 110 sustained for 10 minutes and SBP>100. If beta-leona has been maxed out or blood pressure cannot tolerate higher doses consider starting amiodarone gtt monitoring closely for digoxin toxicity. -Continue Eliquis 5 twice daily. If INR continues to be significantly elevated due to congestive hepatopathy and despite diuresis may consider stopping Eliquis as patient is high risk of bleeding. -Patient has evidence of subclinical hypothyroidism increased levothyroxine dose as below. -Replete electrolytes as needed. Goal K+ > 4.0 and Mg+ > 2.0. 3. History of CVA with left-sided hemiparesis and generalized weakness due to deconditioning, chronic, present on admission. Active. -Continue PT and OT evaluation and treatment. 4. Hyperbilirubinemia and elevated INR likely personal financial representative of congestive hepatopathy, present on admission. Improving. -Patient presented with isolated elevated bilirubin without LFT elevation and elevated INR. Likely personal financial representative of congestive hepatopathy with now new profound reduction in systolic function. -No signs or symptoms of infection. No overt signs of bleeding. -Total bilirubin 2.4. INR 1.7. Bilirubin and INR trending down likely due to diuresis. Continue to monitor bilirubin and INR closely. -If INR continues to be significantly elevated despite diuresis may consider stopping Eliquis as patient is high risk of bleeding. 5. Macroctic anemia, likely of chronic disease, present on admission. Stable -Initial hemoglobin 11.7 with MCV 110. Patient has been anemic since at least 12/13. -Ordered B12 normal at 697 and folate level elevated at >20.0. -Hemoglobin hematocrit stable. No overt signs of bleeding. Continue to monitor CBC periodically 6. 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 Stable. -Do not believe RUL mass is related to shortness of breath. -Recent CTA chest 12/15/18 demonstrated 2.0 cm right upper lobe mass concerning for neoplastic process. -PET scan on 01/08/19 demonstrated borderline uptake within the right middle lobe nodule. Recommended serial follow-up chest CT examinations are recommended to exclude indolent malignancy, beginning in 3 months. -Patient is followed by Dr. Del Angel of pulmonology and Dr. Bull of oncology at [facility]. -Contacted her oncologist, Dr. Bull, and informed him of her significant reduction and systolic function. He is happy to continue to follow and monitor her right upper lobe mass unless or until she goes onto hospice. 7. Hypothyroidism, chronic, present on admission. Active. -TSH high at 12.00 and free T4 borderline low normal at 0.96 (normal 0.78-2.19) indicative of subclinical hypothyroidsim and will treat due to atrial fibrill ation with RVR as above. -Continue levothyroxine increased from 100 mcg to 112 mcg daily. 8. Hypertension, chronic, present on admission. Stable. -Continue losartan 100 mg twice daily and increased metoprolol succinate 75 mg twice daily. Continue diuresis as above. 9. Hyperlipidemia, chronic, present on admission. Stable. -Continue pravastatin 40 mg daily. 10. COPD without acute exacerbation, chronic, present on admission. Stable. -Patient reports she recently saw a chemistry specialist at [facility], Dr. Del Angel, who placed her on Advair and other inhalers that are unknown. Requested updated medi cation list. -Consulted RT for evaluation and treatment for nebs. May use supplemental oxygen as needed to keep oxygen saturation at 88-92%. 11. History of aortic valve replacement, present on admission. Stable. -Continue Eliquis 5 mg twice daily. -If INR continues to be significantly elevated due to congestive hepatopathy and despite diuresis may consider stopping Eliquis as patient is high risk of bleeding. Disposition: Patient likely to discharge home with caregivers possibly tomorrow if she is adequately diuresed and heart rate well controlled. Quality VTE Deep Vein Thrombosis/Pulmonary Embolism Present on Admission: No
[2019-03-17] MEDS: DOCUSATE 100 MG CAPSULE PO (12:26)
[2019-03-17] MEDS: FUROSEMIDE 20 MG TABLET 60 MG PO (12:38)
--- NOTE | 2019-03-17 12:56 | PC.NURSE ---
Day shift: Gave Pt oral Colace per OCT. Pt refused Milk Of Mag and SUP per rectum at this time.
[2019-03-17] MEDS: DIGOXIN 0.125 MG TABLET PO (16:31)
[2019-03-17] MEDS: NYSTATIN POWDER 15GM 1 APPLIC TOP (17:19)
[2019-03-17] MEDS: LORazepam 0.5 MG TABLET PO (20:23)
[2019-03-17] MEDS: GABAPENTIN 600 MG TABLET PO (20:24)
[2019-03-17] MEDS: POTASSIUM CHLORIDE 40 MEQ in SODIUM CHLORIDE 0.9% 500 ML 130 ML IV (21:00)
[2019-03-17] MEDS: POTASSIUM CHLORIDE 20 MEQ/15 ML UDC 40 MEQ PO (22:12)
--- NOTE | 2019-03-17 22:15 | PC.NURSE ---
Pt had greater difficulty to stand and pivot to BSC on evening shift. This may be due to tiredness as from 1600 to 2200 pt was toileted or changed 16 times. She was incontinent, with urgency, possibly due to the diuretic given on day shift. She was a 2 man hands on with gait belt, LLE not useful. Had K+ rider in 520 mL NS changed to po due to toileting issue and fluid restriction. Both of patient's IVs infiltrated this shift. She is A and O x 4, but forgetful. Slightly hypertensive, afebrile. Expiratory wheezing LLL. SR with BBB on telemetry and irregular - irregular.
[2019-03-18] MEDS: MAGNESIUM OXIDE 400 MG TABLET PO (00:16)
--- NOTE | 2019-03-18 00:26 | PC.NURSE ---
Shift note: Received pt from evening shift. Evening shift had attempted to regain IV access with 4 attempts between 2 nurses. This RN attempted an IV start but was unsuccessful and pt refused any further attempts. RUBY Miles notified that pt will not have IV access and he changed IV Magnesium to PO. Pt requires 2 person assist to stand and pivot to bedside commode, left leg cannot bear much weight and left arm is unusable. Pt experiences shortness of breath on exertion and expiratory wheezing after transfers from bed to commode and back. Pt is a high fall risk, bed alarm is active with call light in reach.
[2019-03-18 01:22] VITALS: O2SAT 98
[2019-03-18 03:44] VITALS: BP 139/72; PULSE 51; RESP 18; TEMP 37.2; O2SAT 98
[2019-03-18 05:53] LABS: INR 1.4 (0.9-1.3); Prothrombin Time 16.4 SECONDS (10.1-12.7)
[2019-03-18 05:56] LABS: Alanine Aminotransferase 27 IU/L (9-52); Albumin 3.1 g/dL (3.5-5.0); Albumin Globulin Ratio 1.2 (1.0-2.8); Alkaline Phosphatase 52 U/L (38-126); Aspartate Aminotransferase 26 IU/L (14-36); Bilirubin Total 2.3 mg/dL (0.2-1.3); Blood Urea Nitrogen 20 mg/dL (7-17); Calcium 8.9 mg/dL (8.4-10.2); Carbon Dioxide 30 mmol/L (22-32); Chloride 101 mmol/L (98-107); Estimated Glomerular Filt Rate > 60.0 mL/min (>60); Globulin 2.6 g/dL (1.7-4.1); Glucose 90 mg/dL (80-110); HEMOLYSIS < 15 (0-50); Potassium 3.8 mmol/L (3.4-5.1); Sodium 137 mmol/L (137-145); Total Protein 5.7 g/dL (6.3-8.2)
[2019-03-18 06:05] LABS: Magnesium 1.8 mg/dL (1.6-2.3)
[2019-03-18 06:38] LABS: Basophils Absolute Auto 100 /uL (0-100); Basophils Percent Auto 2.5 % (0-2); Eosinophils Absolute Auto 300 /uL (0-450); Eosinophils Percent Auto 6.1 % (2-4); Hematocrit 34.6 % (36-46); Hemoglobin 11.3 g/dL (12.0-16.0); Lymphocytes Absolute Auto 900 /uL (1100-4500); Lymphocytes Percent Auto 18.4 % (25-40); Mean Corpuscular HGB Conc 32.6 % (30-36); Mean Corpuscular Hemoglobin 34.9 PG (26-34); Mean Corpuscular Volume 107.1 fL (80-100); Monocytes Absolute Auto 500 /uL (0-900); Monocytes Percent Auto 9.8 % (3-14); Neutrophils Absolute Auto 3300 /uL (1500-7000); Neutrophils Percent Auto 63.2 % (50-75); Platelet Count 139 X10^3/uL (150-400); Red Blood Cell Count 3.23 X10^6/uL (4.0-5.2); Red Cell Distribution Width 15.4 % (11.6-14.8); White Blood Cell Count 5.2 X10^3/uL (4.5-11.0)
[2019-03-18 06:44] LABS: Add Manual Diff / Slide Review SLIDE REVIEW
[2019-03-18 07:13] LABS: Macrocytosis 2+
[2019-03-18 07:40] VITALS: BP 141/81; PULSE 64; RESP 12; TEMP 36.3; O2SAT 98
--- NOTE | 2019-03-18 08:07 | P.DS_ITS ---
History of Present Illness Chief complaint: SOB Narrative: Written by myself Dr. Vegas: Jacquelyn Whiting is an 83-year-old female with a past medical history significant for cardiomyopathy, diastolic congestive heart failure stage II, hypertension, hyperlipidemia, aortic valve replacement, previous CVA with left upper extremity hemiparesis and left lower extremity weakness who presented to the ED due to progressive worsening shortness of breath. The patient reports she has not been able to sleep due to inability to breath. She does not have orthopnea usually at her baseline. She also reports paroxysmal nocturnal dyspnea and increased lower extremity swelling. She reports her legs are ?tree trunks? and per the ED provider who knows the patient well reports her legs are not usually this edematous. She has conversational dyspnea present on exam. She also endorses weakness and was unable to do perform her exercise regimen i.e. 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 She typically wears bilateral compression stockings but has been unable to get them on for a couple days. Per historical weights, she has gained approximately 13 kg but this is based on bed weight scale and likely very inaccurate. She does not weigh herself daily. She is at home and predominantly bed-bound in hospital bed due to previous CVA with left upper extremity hemiparesis and left lower extremity weakness. She has an at home caregiver that comes into her home in the morning for several hours. She reports she does not need more help and she is able to transfer herself, perform her normal ADLs, and feed her cat. She also notes loose stool for the last 1 week. She has no other complaints and denies headache, vision changes, lightheadedness or dizziness, sore throat, cough, chest pain, abdominal pain, nausea, vomiting, fever, chills, dysuria, or constipation. She was admitted for further management of diastolic CHF with IV diuresis. PCP is Dr. Matilde Lin and her floor tiling professional is Dr. Pastor Pacheco. Discharge Providers Date of admission: 03/15/19 16:18 Discharge Date: 03/18/19 Primary care physician: Remy Bull MD Consults: 03/15/19 16:11 Consult to Occupational Therapy Evaluate & Treat Comment: Physician Instructions: Evaluate and treat Consult to Physical Therapy Evaluate & Treat Comment: Physician Instructions: Evaluate and Treat Consult to Photoengraving Apprentice Routine Comment: Patient lives at home and needs more assitance 07/20/19 18:17 Consult to Respiratory Therapy Evaluate & Treat Comment: greg correia Physician Instructions: Evaluate and treat 03/16/19 12:58 Consult to Home Health Routine Comment: Reason For Exam: Nursing, P.T, O.T, 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 Acute exacerbation resolved. 2. Atrial fibrillation with mild RVR, present on admission. Mild RVR resolved. 3. History of CVA with left-sided hemiparesis and generalized weakness due to deconditioning, chronic, present on admission. Stable. 4. Hyperbilirubinemia and elevated INR, likely due to congestive hepatopathy, present on admission. Improved slightly and stable. 5. Macrocytic anemia, likely of chronic disease, present on admission. Stable. 6. 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 Stable. 7. Hypothyroidism, chronic, present on admission. Stable. 8. Hypertension, chronic, present on admission. Stable. 9. Hyperlipidemia, chronic, present on admission. Stable. 10. COPD without acute exacerbation, chronic, present on admission. Stable. 11. History of aortic valve replacement, present on admission. Stable. Hospital Course: Jacquelyn Whiting is an 83-year-old female with a past medical history significant for cardiomyopathy, diastolic congestive heart failure stage II, hypertension, hyperlipidemia, aortic valve replacement, previous CVA with left upper extremity hemiparesis and left lower extremity weakness who presented to the ED due to progressive worsening shortness of breath, orthopnea, PND, weakness and lower extremity edema. 1. 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 Acute exacerbation resolved. -Patient presented with progressive worsening shortness of breath, orthopnea, PND, weakness and lower extremity edema (to knees bilaterally and dependent edema to hips bilatrally). -Patient has long-standing history of atrial fibrillation and likely poorly controlled rate as her rhythm is very irregular and labile. -BNP 537. -Chest x-ray did not demonstrate any acute cardiopulmonary process. -Previous echocardiogram demonstrated preserved ejection fraction 60-65% with stage II diastolic CHF. -Ordered limited echocardiogram which demonstrated The left ventricle is normal in size. The ejection fraction is estimated to be 20-25%. Left ventricular function has significantly worsened compared to the previous exam. Except basal posterolateral and the basal anterolateral segments, rest of the LV segments are severely hypokinetic to akinetic. Wall motions abonormalities are new. There is septal wall dyskinesis. Right ventricular systolic function is mild to moderately reduced. Right ventricular systolic function has decreased since previous exam. There is a bioprosthetic aortic valve. The prosthetic aortic valve is not well visualized. There is moderate mitral regurgitation. Compared to the prior echo study, there has been an increase in the severity of mitral regurgitation. There is moderate to severe tricuspid regurgitation. Compared to the prior echo exam, there has been an increase in TR severity. The right ventricular systolic pressure is estimated to be at least 46 mmHg based on an estimated right atrial pressure of 15 mm Hg. Compared to the prior echo exam, there has been an increase in the severity of pulmonary hypertension. -Continued to monitor kidney function closely and replete electrolytes as needed. -Continue to monitor daily weights and strict I&O. Applied compression stockings as tolerated. Placed on 1.5 L fluid restriction. Did not place Murray catheter as do not want to limit patient's mobility as this is already restricted substantially. -Received furosemide 60 mg IV Lasix in ED. Continued to diurese with furosemide initially 40 mg IV x1 then furosemide 60 mg PO x1 which patient was very responsive too. Net -5-6L. Discharged on furosemide 20 mg every other day as very responsive and frequent urination hinders quality of life to some extent. -Discussed significant decline in overall cardiac function with her floor tiling professional Dr. Pacheco who agreed with current management including diuresis, rate control with increased dose of metoprolol succinate 75 mg twice daily, and digoxin loading with maintenance dose and check digoxin level in several days. He recommended patient should strongly consider hospice. 2. Atrial fibrillation with mild RVR, present on admission. Mild RVR resolved. -Patient presented in atrial fibrillation with mild RVR and HR 110-120's. -Received Diltiazem 10 mg IV x 1 and home dose of metoprolol succinate 50 mg in ED with control of rate. -Discussed case with on-call floor tiling professional, Dr. Meléndez, who recommended digoxin loading with 250 mcg IV every 6 hours x4 doses which was performed. Then started maintenance dose of digoxin 125 mcg PO, thereafter, and check a digoxin level in 5 days from loading dose. Also recommend increase metoprolol succinate from 50 mg daily to 75 mg twice daily. Ordered metoprolol 5 mg IV every 6 hours as needed for heart rate > 110 sustained for 10 minutes and SBP>100. -Continued Eliquis 5 twice daily. INR elevated likely due to congestive hepatopathy. Recommended discussion with PCP regarding continuing Eliquis as patient is high risk of bleeding but also high risk of stroke. -Patient has evidence of subclinical hypothyroidism increased levothyroxine dose as below. -Repleted electrolytes as needed. Goal K+ > 4.0 and Mg+ > 2.0. Discharged on low-dose potassium chloride 10 mEq daily and magnesium chloride 71.5 mg daily. Ordered BMP and magnesium level in 2 days with digoxin level for PCP to follow. -Recommended repeat echocardiogram in 1 month now that rate has been controlled substantially better. If at that time systolic function is stable continue outpatient management and if systolic function declining highly recommended hospice. 3. History of CVA with left-sided hemiparesis and generalized weakness due to deconditioning, chronic, present on admission. Stable. -Continued PT and OT evaluation and treatment. Discharged with home health PT/OT/nursing/TEXTILE SCIENCE TECHNICIAN. 4. Hyperbilirubinemia and elevated INR, likely due to congestive hepatopathy, present on admission. Improved slightly and stable. -Patient presented with isolated elevated bilirubin without LFT elevation and elevated INR. Likely major account representative of congestive hepatopathy with now new profound reduction in systolic function versus underlying liver disease. -No signs or symptoms of infection. No overt signs of bleeding. -Total bilirubin 2.4. INR 1.7. Bilirubin and INR trending down likely due to diuresis. Continued to monitor bilirubin and INR closely. -If INR continues to be significantly elevated despite diuresis may consider stopping Eliquis as patient is high risk of bleeding. 5. Macrocytic anemia, likely of chronic disease, present on admission. Stable. -Initial hemoglobin 11.7 with MCV 110. Patient has been anemic since at least 12/13. -Ordered B12 normal at 697 and folate level elevated at >20.0. -Hemoglobin hematocrit stable. No overt signs of bleeding. Continue to monitor CBC periodically 6. 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 Stable. -Do not believe RUL mass is related to acute shortness of breath but likely some related chronic dyspnea. -Recent CTA chest 12/15/18 demonstrated 2.0 cm right upper lobe mass concerning for neoplastic process. -PET scan on 01/08/19 demonstrated borderline uptake within the right middle lobe nodule. Recommended serial follow-up chest CT examinations are recommended to exclude indolent malignancy, beginning in 3 months. -Patient is followed by Dr. Del Angel of pulmonology and Dr. Bull of oncology at [facility]. -Contacted her oncologist, Dr. Bull, and informed him of her significant reduction in cardiac systolic function. He is happy to continue to follow and monitor her right upper lobe mass unless or until she goes onto hospice. 7. Hypothyroidism, chronic, present on admission. Stable. -TSH high at 12.00 and free T4 borderline low normal at 0.96 (normal 0.78-2.19) indicative of subclinical hypothyroidsim and will treat due to atrial fibrillation with RVR as above. -Continued levothyroxine increased from 100 mcg to 112 mcg daily. 8. Hypertension, chronic, present on admission. Stable. -Continued losartan 100 mg twice daily and increased metoprolol succinate 75 mg twice daily. Continued to diuresis as above. 9. Hyperlipidemia, chronic, present on admission. Stable. -Continued pravastatin 40 mg daily. 10. COPD without acute exacerbation, chronic, present on admission. Stable. -Patient reports she recently saw a automobile carpets molder at [facility], Dr. Del Angel, who placed her on Advair and other inhalers that are unknown. Requested updated medication list. -Consulted RT for evaluation and treatment with nebs. Ordered supplemental oxygen as needed to keep oxygen saturation at 88-92% but not required. 11. History of aortic valve replacement, present on admission. Stable. -Continued Eliquis 5 mg twice daily. -If INR continues to be significantly elevated due to congestive hepatopathy and despite diuresis may consider stopping Eliquis as patient is high risk of bleedi ng. Status at Discharge Functional status at discharge: bed bound Overall status at discharge: patient is back to baseline Exam Vital Signs (past 8 hours): - 03/18/19 01:22 03/18/19 03:44 03/18/19 07:40 Temperature 98.9 F 97.4 F L Pulse Rate 51 L 64 Respiratory Rate 18 12 Blood Pressure 139/72 141/81 H Pulse Oximetry 98 98 98 Oxygen Delivery Method Room Air Oxygen Flow Rate 0 Narrative Exam Narrative: General: Elderly female lying in bed and in no acute distress, well-developed, well-nourished, appropriately interactive. HEENT: Normocephalic, atraumatic. External ears without defect. Pupils equal, round, and reactive to light. Anicteric sclerae, moist conjunctivae, and no lid lag. Neck: Supple with full range of motion.No jugular venous distension. No lymphadenopathy or thyromegaly. Cardiovascular: Irregularly irregular normal rate without murmurs, rubs, or gallops appreciated. Pulmonary: Diminished throughout but clear to auscultation bilaterally and occasional bibasilar fine crackle. No wheezes or rhonchi. Mild use of accessory muscles with conversational dyspnea present. Abdomen: Soft, bowel sounds present, nontender, nondistended. No hepatosplenomegaly or masses appreciated. Extremities: No clubbing or cyanosis. Mild to moderate bilateral lower extremity pitting edema to pretibial area markedly improved with dependent edema to knees bilaterally (previously to hips). Skin: Normal temperature, turgor, and texture; no rash, ulcers, or subcutaneous nodules appreciated. Neurological: Cranial nerves grossly intact. Left-sided hemiparesis with contracture of left upper extremity. Mild subtle left sided slurred speech and facial droop. Psychiatric: Normal mood and affect. Alert and oriented to person, place, and time. Mild cognitive impairment with short-term memory recall deficit. Objective Labs Result Diagrams: 03/18/19 05:25 03/18/19 05:25 Labs: Laboratory Results - last 24 hr 03/17/19 03/17/19 03/18/19 05:35 05:37 05:25 WBC 5.2 RBC 3.23 L Hgb 11.3 L Hct 34.6 L MCV 107.1 H MCH 34.9 H MCHC 32.6 RDW 15.4 H Plt Count 139 L Neut % (Auto) 63.2 Lymph % (Auto) 18.4 L [place] % (Auto) 9.8 Eos % (Auto) 6.1 H Baso % (Auto) 2.5 H Neut # (Auto) 3300 Lymph # (Auto) 900 L [place] # (Auto) 500 Eos # (Auto) 300 Baso # (Auto) 100 Plt Morphology Comment RBC Morphology See below Macrocytosis 2+ H PT INR Sodium Potassium Chloride Carbon Dioxide BUN Creatinine Estimated GFR BUN/Creatinine Ratio Glucose Calcium Magnesium Total Bilirubin Conjugated Bilirubin 0.0 AST ALT Alkaline Phosphatase Total Protein Albumin Globulin Albumin/Globulin Ratio Total Bile Acids Cancelled 03/18/19 03/18/19 03/18/19 05:25 05:25 05:25 WBC RBC Hgb Hct MCV MCH MCHC RDW Plt Count Neut % (Auto) Lymph % (Auto) [place] % (Auto) Eos % (Auto) Baso % (Auto) Neut # (Auto) Lymph # (Auto) [place] # (Auto) Eos # (Auto) Baso # (Auto) Plt Morphology Comment RBC Morphology Macrocytosis PT 16.4 H INR 1.4 H Sodium 137 Potassium 3.8 Chloride 101 Carbon Dioxide 30 BUN 20 H Creatinine 0.80 Estimated GFR > 60.0 BUN/Creatinine Ratio 25.0 H Glucose 90 Calcium 8.9 Magnesium 1.8 Total Bilirubin 2.3 H Conjugated Bilirubin AST 26 ALT 27 Alkaline Phosphatase 52 Total Protein 5.7 L Albumin 3.1 L Globulin 2.6 Albumin/Globulin Ratio 1.2 Total Bile Acids Discharge Plan Discharge Plan Patient Disposition: Home Health Service Transfer to: [facility] Discharge comment: You are being discharged home with [facility] for PT/OT/Nursing/TEXTILE SCIENCE 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 Please have your caregiver or nursing with [facility] weigh you daily and if your weight increases 2-3 lbs call your PCP or cardiologists office for further guidance with Lasix adjustment. Please follow-up with your [facility] physician, Dr. Lin, at your scheduled appointment on 03/20 at 10:40 a.m. regarding your hospitalization, blood work, electrolytes and diuretic management. Please have your blood work performed at the lab prior to your appointment. Please follow-up with your floor tiling professional Dr. Pacheco or his PA as soon as available. Discharge Med Rec/Prescriptions Prescriptions: New bisacodyl 10 mg Suppository 10 mg MA DAILY PRN (Reason: Constipation) Qty: 10 RF: 0 digoxin 125 mcg Tablet 0.125 mg PO DAILY@1700 Qty: 30 RF: 0 polyethylene glycol 3350 17 gram Powder In Packet 17 gm PO DAILY Qty: 1 RF: 0 sennosides [senna] 8.6 mg Tablet 17.2 mg PO BEDTIME PRN (Reason: Constipation) Qty: 30 RF: 0 Slow-Mag 71.5 mg tablet,delayed release (DR/EC) 71.5 mg PO DAILY Qty: 30 RF: 0 potassium chloride 10 mEq capsule, extended release 10 meq PO DAILY Qty: 30 RF: 0 docusate sodium [DOK] 100 mg Capsule 100 mg PO DAILY Qty: 30 RF: 0 Continued pravastatin 40 mg Tablet 40 mg PO DAILY RF: 0 tamsulosin 0.4 mg Capsule 0.4 mg PO DAILY RF: 0 gabapentin 300 mg Capsule 600 mg PO BEDTIME RF: 0 losartan 100 mg Tablet 100 mg PO BID RF: 0 levothyroxine 100 mcg Tablet 100 mcg PO DAILY RF: 0 multivitamin Tablet 1 tab PO DAILY RF: 0 tizanidine 2 mg Tablet 2 mg PO BEDTIME PRN (Reason: Muscle Spasm) RF: 0 Prolia 60 mg/mL Syringe 60 mg subcut [id number] RF: 0 Eliquis 5 mg Tablet 5 mg PO BID RF: 0 Changed furosemide 20 mg Tablet 20 mg PO Q OTHER DAY Qty: 30 RF: 0 metoprolol succinate 25 mg tablet extended release 24 hr 75 mg PO BID Qty: 180 RF: 0 Other Ambulatory Orders: Basic Metabolic Panel (Routine) Timeframe: 3 Days Location: Laboratory Ordered By: Geovanna Vegas Digoxin (Routine) Timeframe: 3 Days Location: Laboratory Ordered By: Geovanna Vegas Magnesium (Routine) Timeframe: 3 Days Location: Laboratory Ordered By: Geovanna Vegas Follow up/Referrals: Jaida Pacheco MD [Physician] - 04/04/19 12:45 pm (appt:04/04 @ 12:45 check in for appointment with dr pacheco [phone] @ [facility]) Matilde Lin MD [Non-Staff] - 03/20/19 10:40 am (appt:03/20 you will need to check at 10:40 for 11:[address] bucio at [facility]) Provider Discharge Instructions Diet: Low-fat, Low-sodium and Low-cholesterol Diet comment: Low sodium up to 2 g a day and fluid restriction 1500 mL or 1.5 L Activity: Activity as tolerated with caregiver and PT/OT. Visit Report/Discharge Packet Instructions: DI for Heart Failure, DI for Atrial Fibrillation, Fluid Restricted Diet, Low-Sodium Diet, Digoxin, Advanced Heart Failure Discharge Data Primary Care Provider: Remy Bull Attending Provider: Geovanna Vegas Admit Date/Time: 03/15/19 16:18 Discharges patient from system. Discharge Date/Time: 03/18/19 14:42 Quality VTE Deep Vein Thrombosis/Pulmonary Embolism Present on Admission: No
[2019-03-18 08:20] VITALS: O2SAT 98
[2019-03-18 08:27] VITALS: PULSE 66
[2019-03-18] MEDS: METOPROLOL ER 25 MG TABLET 75 MG PO (08:29)
[2019-03-18] MEDS: LOSARTAN 50 MG TABLET 100 MG PO (08:29)
[2019-03-18] MEDS: POLYETHYLENE GLYCOL 3350 17 GM POWD.PACK PO (08:30)
[2019-03-18] MEDS: PRAVASTATIN 20 MG TABLET 40 MG PO (08:30)
[2019-03-18] MEDS: FLUTICASONE/SALMETEROL 100/50 60 PUFF DISKUS INH (08:40)
[2019-03-18 08:45] VITALS: PULSE 70; RESP 20; O2SAT 99
--- NOTE | 2019-03-18 09:40 | PC.NURSE ---
Addendum entered by Catarina Canales R.N. 03/18/19 14:42: (Late entry) Informed patient that Imelda ARGUELLES should be establishing with her tomorrow. Addendum entered by Catarina Canales R.N. 03/18/19 14:35: Discharge: Reviewed d/c instructions and med list thoroughly with patient and caregiver. Spent time going over the color-coded guidelines for CHF and emphasized the importance of weighing herself every day to monitor for weight gain. She said that weighing herself is difficult because she is basically wheelchair-bound. This customs entry writer suggested that perhaps home health has a solution, or can help her get a scale that would work for her. Reviewed follow up appts (PCP and Cardiology). Given lab draw orders and confirmed with [facility] that they can draw the labs at her 03/20 f/u appt. Provided and reviewed education info on CHF, A-fib, Digoxin, low fat/low sodium diet. Encouraged patient and caregiver to read over everything again once at home since there is so much information to digest. They verbalized understanding and stated no further questions. All personal belongings sent with patient at d/c (purse and contents, cellphone, insulation cupola charger, clothing, etc.). Wheeled out to private vehicle by this customs entry writer. Addendum entered by Catarina Canales R.N. 03/18/19 12:30: Plan is to d/c home today and her ride should be here approx 1330. Patient prefers to wait and go over instructions when caregiver is here. HELIOTHERAPIST assisting to get dressed at this time. Original Note: Shift summary: Awake and alert, oriented X3. Up to chair for breakfast per patient request. 2-person assist stand-pivot. Denies shortness of breath, and did not seem to get wheezy with exertion like she did when this customs entry writer was her nurse the day before yesterday. Lungs CTA, dim bases. HR irregular, tele monitoring ongoing with HR noted in the 60's. Has 2+ pitting edema to BLE's, but reports her legs are looking so much better. Held PO dose of Lasix this morning per discussion with Dr Vegas. Patient able to make needs known and calls appropriately. Light in reach, chair alarm on.
--- NOTE | 2019-03-18 13:27 | CM.DANOTE ---
Addendum entered by Coby Dodge LPN 03/21/19 15:18: Received a vm from Davon today stating that he and his had never heard from Dr. Vegas and wondered about getting an update from her. Called back and spoke with his Lacey as he was out. Did go over Dr. Vegas's d/c summary and recommended that Davon speak with [facility] so as to obtain the information form his mother's admission. Contact number provided. Lacey said they were confused on the reasons for Hospice recommendation and that the [place] system was different and they hoped to understand the process in [facility]. Gave her [facility] contact info and encouraged them to call. Pt also was to have had her PCP appt yesterday and recommended that they also follow up with pt's PCP. They have been in touch with Imelda ARGUELLES. Lacey notes that pt remains quite opposed to idea of hospice care at this time. Original Note: DCP: have continued to work on safe and appropriate d/c plan today with pt and Dr. Vegas. Received a call this morning about 0830 from pt's POA son Davon Thompson. He clarifies that the number listed on the face sheet as his cell is actually the home phone. Went over the d/c plan which at this point is now confirmed by Dr. Vegas as home with [facility] and further consideration of Hospice when pt has a change to discuss same with her family. Met also with pt who confirms above and requests a be placed to Ashely to let her know when d/c time expected. His cell: [phone] and his 's Lacey's phone: [phone]. Dr. Vegas stated she would call the son today to go over pt's medical status and plans. Spoke also with [facility] Dina/gave updated info re the d/c plan for today and provided her with the updated contact numbers for family. Imelda ARGUELLES was notified of the d/c today, Sherice confirms they will see pt tomorrow in her home. She also is given the updated family numbers and the HH team will coordinate any needed transition to [facility] care if/when pt and her family are ready to make that transition. Needed clinical updates and orders were faxed. Dr. Vegas has set up an appt for pt with her PCP in a couple of days. Caregiver Ashely was notified of time of d/c. She will be here to take pt home as well as listening to the d/c instructions that JAIME Elmore will go over with pt. Approx 2 hours spend throughout day in assisting with an appropriate d/c plan.
== END 2019-03-18 14:42 | disposition home health service (06) | DRG 308 ==
LOC: ED 16:04 → AC 03-16 08:23
PROVIDERS: Admitting Provider Internal Medicine; Emergency Provider Emergency Medicine; Visit Provider Internal Medicine
DX: I48.91 Unspecified atrial fibrillation (principal); I50.43 Acute on chronic combined systolic (congestive) and diastolic (congestive) heart failure; I69.354 Hemiplegia and hemiparesis following cerebral infarction affecting left non-dominant side; J44.9 Chronic obstructive pulmonary disease, unspecified; I11.0 Hypertensive heart disease with heart failure; E80.6 Other disorders of bilirubin metabolism; E78.5 Hyperlipidemia, unspecified; E03.9 Hypothyroidism, unspecified; Z87.891 Personal history of nicotine dependence; Z95.2 Presence of prosthetic heart valve; Z79.01 Long term (current) use of anticoagulants
CPT/HCPCS: 36415; 36591; 71045; 80048; 80053; 82248; 82550; 82607; 82746; 83605; 83735; 83880; 84439; 84443; 84484; 85025; 85610; 93005; 93307; 94640; 94760; 96374; 96375; 97162; 97165; 97530; 99285; J1160; J1940; J3480; J7613

== ENCOUNTER 2019-03-30 21:27 | Emergency (ER) | payer MEDICARE, OTHER, MEDICAID, SELFPAY ==
[2018-12-16 00:46] VITALS: PULSE 139; RESP 13; O2SAT 100
[2018-12-16 12:07] VITALS: PULSE 92
--- NOTE | 2019-03-30 21:30 | DI.RAD.S_ITS ---
PROCEDURE: XR CHEST 1V INDICATIONS: SOB, hx CHF TECHNIQUE: One view of the chest was acquired. COMPARISON: [facility], CR, XR CHEST 1V, 03/15/2019, 14:08. [facility], CR, XR CHEST 1V, 03/08/2019, 22:33. FINDINGS: Surgical changes and devices: Sternotomy wires, presumed to prior CABG. Lungs and pleura: Lungs are mildly abnormal with a mild chronic interstitial prominence but no definite acute CHF. No pleural effusions or pneumothorax. Mediastinum: Mediastinal contours appear normal. Heart size is mildly enlarged, just above the upper limits of normal as has been previously the case. Bones and chest wall: No suspicious bony lesions. Overlying soft tissues appear unremarkable. IMPRESSION: Mild chronic CHF pattern, with chronic interstitial prominence and chronic cardiomegaly but without definite acute CHF exacerbation superimposed. Sternotomy wires, presumed prior CABG. No pleural effusions found. No pneumonia seen. Dictated by: Jd Tipton M.D. on 03/30/2019 at 22:31 Approved by: Jd Tipton M.D. on 03/30/2019 at 22:32
[2019-03-30 21:33] VITALS: BP 139/71; PULSE 70; RESP 24; TEMP 37.1; O2SAT 96; BMI 27.1
[2019-03-30 21:37] LABS: Add Manual Diff / Slide Review NO; Basophils Absolute Auto 100 /uL (0-100); Basophils Percent Auto 1.8 % (0-2); Eosinophils Absolute Auto 200 /uL (0-450); Eosinophils Percent Auto 4.6 % (2-4); Hematocrit 36.1 % (36-46); Hemoglobin 11.9 g/dL (12.0-16.0); Lymphocytes Absolute Auto 1100 /uL (1100-4500); Lymphocytes Percent Auto 22.4 % (25-40); Mean Corpuscular Hemoglobin 35.7 PG (26-34); Mean Corpuscular Volume 108.1 fL (80-100); Monocytes Absolute Auto 400 /uL (0-900); Monocytes Percent Auto 8.3 % (3-14); Neutrophils Absolute Auto 3200 /uL (1500-7000); Neutrophils Percent Auto 62.9 % (50-75); Platelet Count 140 X10^3/uL (150-400); Red Blood Cell Count 3.34 X10^6/uL (4.0-5.2); Red Cell Distribution Width 16.3 % (11.6-14.8); White Blood Cell Count 5.1 X10^3/uL (4.5-11.0)
[2019-03-30 21:46] LABS: BUN Creatinine Ratio 27.1 (6-22); Blood Urea Nitrogen 19 mg/dL (7-17); Calcium 9.6 mg/dL (8.4-10.2); Carbon Dioxide 28 mmol/L (22-32); Chloride 101 mmol/L (98-107); Creatine Kinase 42 U/L (30-135); Estimated Glomerular Filt Rate > 60.0 mL/min (>60); Glucose 99 mg/dL (80-110); HEMOLYSIS 23 (0-50); Magnesium 1.8 mg/dL (1.6-2.3); Sodium 138 mmol/L (137-145)
[2019-03-30 21:50] LABS: B Type Natriuretic Peptide 1210 (<100)
[2019-03-30 21:58] LABS: Troponin I < 0.012 ng/mL (0.01-0.034)
[2019-03-30 22:00] VITALS: BP 147/73; PULSE 59; RESP 17; O2SAT 95
[2019-03-30 22:02] LABS: Procalcitonin < 0.05 ng/mL (<0.5)
[2019-03-30 22:15] LABS: Lactate (Lactic Acid) 0.7 mmol/L (0.7-2.1)
[2019-03-30 22:30] VITALS: BP 129/78; PULSE 63; RESP 17; O2SAT 96
--- NOTE | 2019-03-30 22:35 | ED.SOB ---
HPI - SOB/Dyspnea General Chief Complaint: Shortness of Breath/Dyspnea Stated Complaint: Shortness of Breath Time Seen by Provider: 03/30/19 21:27 Source: patient and EMS Mode of arrival: EMS History of Present Illness 83-year-old female nonsmoker with history of CHF and prior stroke presents by EMS with a chief complaint of gradual increase in shortness of breath over the course of the past day or 2. Any exertion makes her more short of breath and she finds herself more short of breath lying flat. She has got swelling in both legs with states that is pretty much stable. She takes Lasix daily and states that she has missed no doses. She denies any change in her diet. She has had no chest pain nor fever or chills. She has had no cough. She denies any significant weight gain. MD Complaint: shortness of breath Onset (ago): hour(s) Severity: mild Consistency/Duration: constant Relieving factors: rest and upright position Exacerbating factors: lying flat and exertion Known history of: congestive heart failure Associated symptoms: denies other symptoms Treatment prior to arrival: oxygen Related Data Home Medications Medication Instructions Recorded Confirmed gabapentin 600 mg PO BEDTIME 12/15/18 03/15/19 losartan 100 mg PO BID 12/15/18 03/15/19 pravastatin 40 mg PO DAILY 12/15/18 03/15/19 tamsulosin 0.4 mg PO DAILY 12/15/18 03/15/19 Prolia 60 mg SUBCUT [id number] 12/16/18 03/15/19 multivitamin 1 tab PO DAILY 12/16/18 03/15/19 tizanidine 2 mg PO BEDTIME PRN 12/16/18 03/15/19 Eliquis 5 mg PO BID 02/23/19 03/15/19 Previous Rx's Medication Instructions Recorded bisacodyl 10 mg AR DAILY PRN #10 ea 03/18/19 digoxin 0.125 mg PO DAILY@1700 #30 tab 03/18/19 docusate sodium [DOK] 100 mg PO DAILY #30 cap 03/18/19 furosemide 20 mg PO Q OTHER DAY #30 tab 03/18/19 magnesium chloride [Slow-Mag] 71.5 mg PO DAILY #30 tab 03/18/19 metoprolol succinate 75 mg PO BID #180 tab 03/18/19 polyethylene glycol 3350 17 gm PO DAILY #1 pkg 03/18/19 potassium chloride 10 meq PO DAILY #30 cap 03/18/19 sennosides [senna] 17.2 mg PO BEDTIME PRN #30 tab 03/18/19 levothyroxine 112 mcg PO DAILY #30 tab 03/20/19 Allergies Allergy/AdvReac Type Severity Reaction Status Date / Time No Known Drug Allergies Allergy Verified 03/30/19 21:33 Review of Systems Constitutional Denies chills, Denies fever(s), Denies lethargy and Denies weakness Eyes Denies change in vision, Denies eye discharge, Denies irritation and Denies loss of vision ENT Ears, Nose, Mouth, and Throat: Denies change in voice, Denies neck pain and Denies sore throat Cardiovascular Denies chest pain, Denies irregular heart rhythm, Denies lightheadedness, Denies palpitations, Reports dyspnea, Reports dyspnea on exertion and Denies orthopnea Respiratory Denies cough, Reports dyspnea, Reports dyspnea on exertion and Denies wheezing Gastrointestinal Gastrointestinal: Denies abdominal pain, Denies change in bowel habits, Denies diarrhea, Denies nausea and Denies vomiting Genitourinary Denies hematuria, Denies flank pain, Denies urinary incontinence and Denies urinary urgency Musculoskeletal Denies neck pain Integumentary/Breasts Denies pruritus, Denies erythema, Denies rash and Denies wounds Neurologic Denies confusion, Denies loss of vision and Denies weakness Psychiatric Denies anxiety, Denies confusion, Denies depression, Denies homicidal ideation and Denies suicidal ideation Endocrine Denies palpitations Hematologic/Lymphatic Denies easy bruising Allergic/Immunologic Denies wheezing [facility] Medical History Atrial fibrillation (Acute) CHF (congestive heart failure) (Acute) CVA (cerebral vascular accident) (Acute) Cardiomyopathy (Acute) Hemiparesis affecting left side as late effect of stroke (Acute) Hyperlipidemia (Acute) Hypertension (Acute) Hypothyroid (Acute) Raynauds disease (Acute) Surgical History History of aortic valve replacement (Acute) Family History (Updated 03/15/19 @ 22:18 by Geovanna Vegas DO) Father Heart attack Skin cancer Cardiovascular disease Mother Congestive heart failure Cardiovascular disease Brother No problems noted. Brother No problems noted. Social History (Updated 03/15/19 @ 13:46 by Ida Lambert DO) household members: none Smoking Status: Former smoker alcohol intake: never substance use type: does not use Family History Father Heart attack Skin cancer Cardiovascular disease Mother Congestive heart failure Cardiovascular disease Brother No problems noted. Brother No problems noted. Social History household members: none Smoking Status: Former smoker alcohol intake: never substance use type: does not use Exam Narrative Exam Narrative: GENERAL: 83-year-old female appears stated age, in no obvious or significant distress HEAD: Atraumatic. Normocephalic. No temporal or scalp tenderness. EYES: Pupils equal round and reactive. Extraocular motions intact. No scleral icterus. No injection or drainage. ENT: Nose without bleeding, purulent drainage or septal hematoma. Throat without erythema, tonsillar hypertrophy or exudate. Uvula midline. Airway patent. NECK: Trachea midline. No JVD or lymphadenopathy. Supple, nontender, no meningeal signs. CARDIOVASCULAR: Regular rate and rhythm without murmurs, gallops, or rubs. RESPIRATORY: Faint crackles in bilateral bases, no wheezes or rhonchi GASTROINTESTINAL: Abdomen soft, non-tender, nondistended. No hepato-splenomegaly, or palpable masses. No guarding. EXTREMITIES: Poor muscle tone left side extremities from prior stroke. 2+ pitting edema in bilateral lower extremities. BACK: Nontender without deformity or crepitance. No flank tenderness. NEURO: AOx3. SKIN: No rash or erythema. Initial Vital Signs Initial Vital Signs: Vital Signs Temperature 98.7 F 03/30/19 21:33 Pulse Rate 70 03/30/19 21:33 Respiratory Rate 24 03/30/19 21:33 Blood Pressure 139/71 03/30/19 21:33 Pulse Oximetry 96 03/30/19 21:33 Course Orders Ordered: ED Orders 03/30/19 21:12 B Type Natriuretic Peptide Stat Basic Metabolic Panel Stat Complete Blood Count AUTO DIFF Stat Magnesium Stat Procalcitonin Stat Troponin & CK Cardiac Panel Stat 03/30/19 21:29 Consult to Respiratory Therapy Evaluate & Treat EKG-12 Lead Stat 03/30/19 21:30 XR chest 1V Stat 03/30/19 21:50 Lactate (Lactic Acid) Stat 03/30/19 22:00 Blood Culture Stat Discontinued Medications Furosemide (Lasix) 20 mg IV NOW ONE Stop: 03/30/19 22:48 Last Admin: 03/30/19 23:02 Dose: Not Given Reevaluation(s) Reevaluation #1: Lasix 20 mg IV ordered but patient very strongly refuses. She states that she understands she is in a mild exacerbation of heart failure but refuses to take the Lasix as that will make her urinate even more than normal and drastically affects her life. She states that her difficulty with breathing is not significant enough to be worth the extra hassle of Lasix. She understands the risks and benefits of making this decision Vital Signs - 8 hr 03/30/19 21:33 03/30/19 22:00 03/30/19 22:30 Temperature 98.7 F Pulse Rate 70 59 L 63 Respiratory Rate 24 17 17 Blood Pressure 139/71 Blood Pressure [Right Arm] 147/73 H 129/78 Pulse Oximetry 96 95 96 03/30/19 23:00 Temperature Pulse Rate 56 L Respiratory Rate 17 Blood Pressure Blood Pressure [Right Arm] 151/69 H Pulse Oximetry 96 MDM - SOB/Dyspnea Lab Data Result diagrams: 03/30/19 21:12 03/30/19 21:12 Lab Results 03/30/19 03/30/19 03/30/19 Range/Units 21:12 21:12 21:12 WBC 5.1 (4.5-11.0) X10^3/uL RBC 3.34 L (4.0-5.2) X10^6/uL Hgb 11.9 L (12.0-16.0) g/dL Hct 36.1 (36-46) % MCV 108.1 H (80-100) fL MCH 35.7 H (26-34) PG MCHC 33.0 (30-36) % RDW 16.3 H (11.6-14.8) % Plt Count 140 L (150-400) X10^3/uL Neut % (Auto) 62.9 (50-75) % Lymph % (Auto) 22.4 L (25-40) % [place] % (Auto) 8.3 (3-14) % Eos % (Auto) 4.6 H (2-4) % Baso % (Auto) 1.8 (0-2) % Neut # (Auto) 3200 (0747-3705) /uL Lymph # (Auto) 1100 (4741-9102) /uL [place] # (Auto) 400 (0-900) /uL Eos # (Auto) 200 (0-450) /uL Baso # (Auto) 100 (0-100) /uL Sodium 138 (137-145) mmol/L Potassium 4.0 (3.4-5.1) mmol/L Chloride 101 (98-107) mmol/L Carbon Dioxide 28 (22-32) mmol/L BUN 19 H (7-17) mg/dL Creatinine 0.70 (0.52-1.04) mg/dL Estimated GFR > 60.0 (>60) mL/min BUN/Creatinine Ratio 27.1 H (6-22) Glucose 99 (80-110) mg/dL Lactate (0.7-2.1) mmol/L Calcium 9.6 (8.4-10.2) mg/dL Magnesium 1.8 (1.6-2.3) mg/dL Total Creatine Kinase 42 (30-135) U/L CK-MB (CK-2) TNP CK-MB (CK-2) Rel Index TNP Troponin I < 0.012 (0.01-0.034) ng/mL B-Natriuretic Peptide 1210 H (<100) Procalcitonin < 0.05 (<0.5) ng/mL 03/30/19 Range/Units 21:50 WBC (4.5-11.0) X10^3/uL RBC (4.0-5.2) X10^6/uL Hgb (12.0-16.0) g/dL Hct (36-46) % MCV (80-100) fL MCH (26-34) PG MCHC (30-36) % RDW (11.6-14.8) % Plt Count (150-400) X10^3/uL Neut % (Auto) (50-75) % Lymph % (Auto) (25-40) % [place] % (Auto) (3-14) % Eos % (Auto) (2-4) % Baso % (Auto) (0-2) % Neut # (Auto) (7882-1557) /uL Lymph # (Auto) (4698-3291) /uL [place] # (Auto) (0-900) /uL Eos # (Auto) (0-450) /uL Baso # (Auto) (0-100) /uL Sodium (137-145) mmol/L Potassium (3.4-5.1) mmol/L Chloride (98-107) mmol/L Carbon Dioxide (22-32) mmol/L BUN (7-17) mg/dL Creatinine (0.52-1.04) mg/dL Estimated GFR (>60) mL/min BUN/Creatinine Ratio (6-22) Glucose (80-110) mg/dL Lactate 0.7 (0.7-2.1) mmol/L Calcium (8.4-10.2) mg/dL Magnesium (1.6-2.3) mg/dL Total Creatine Kinase (30-135) U/L CK-MB (CK-2) CK-MB (CK-2) Rel Index Troponin I (0.01-0.034) ng/mL B-Natriuretic Peptide (<100) Procalcitonin (<0.5) ng/mL Discharge Plan Departure Patient Disposition: Home Clinical Impression: CHF (congestive heart failure) Qualifiers: Heart failure type: unspecified Heart failure chronicity: unspecified Qualified Code(s): I50.9 - Heart failure, unspecified Discharge Date/Time: 03/31/19 00:06 Interventions: ED Discharge Assessment Last Done: 03/30/19 23:40 Instructions: DI for Heart Failure Activity Restrictions/Additional Instructions: *You have been diagnosed with [mild acute congestive heart failure] *What to do: *Take medications as directed: As we discussed in the emergency department my recommendation would be to receive a small dose of Lasix through the IV and increase your dose at home for the next few days. I understand that he would prefer not to do this until speaking with your doctor tomorrow. *Follow up with your primary care provider tomorrow as planned *Return to ER if you should have any new, worsening or concerning symptoms, such as [worsening shortness of breath, fatigue, chest pain, dizziness, weakness, lightheadedness or other bothersome symptoms] Prescriptions: No Action pravastatin 40 mg Tablet 40 mg PO DAILY RF: 0 tamsulosin 0.4 mg Capsule 0.4 mg PO DAILY RF: 0 gabapentin 300 mg Capsule 600 mg PO BEDTIME RF: 0 losartan 100 mg Tablet 100 mg PO BID RF: 0 multivitamin Tablet 1 tab PO DAILY RF: 0 tizanidine 2 mg Tablet 2 mg PO BEDTIME PRN (Reason: Muscle Spasm) RF: 0 Prolia 60 mg/mL Syringe 60 mg subcut [id number] RF: 0 Eliquis 5 mg Tablet 5 mg PO BID RF: 0 bisacodyl 10 mg Suppository 10 mg AR DAILY PRN (Reason: Constipation) Qty: 10 RF: 0 digoxin 125 mcg Tablet 0.125 mg PO DAILY@1700 Qty: 30 RF: 0 polyethylene glycol 3350 17 gram Powder In Packet 17 gm PO DAILY Qty: 1 RF: 0 sennosides [senna] 8.6 mg Tablet 17.2 mg PO BEDTIME PRN (Reason: Constipation) Qty: 30 RF: 0 Slow-Mag 71.5 mg tablet,delayed release (DR/EC) 71.5 mg PO DAILY Qty: 30 RF: 0 potassium chloride 10 mEq capsule, extended release 10 meq PO DAILY Qty: 30 RF: 0 docusate sodium [DOK] 100 mg Capsule 100 mg PO DAILY Qty: 30 RF: 0 furosemide 20 mg Tablet 20 mg PO Q OTHER DAY Qty: 30 RF: 0 metoprolol succinate 25 mg tablet extended release 24 hr 75 mg PO BID Qty: 180 RF: 0 levothyroxine 100 mcg Tablet 112 mcg PO DAILY Qty: 30 RF: 0 Referrals: Matilde Lin MD [Primary Care Provider] -
[2019-03-30 23:00] VITALS: BP 151/69; PULSE 56; RESP 17; O2SAT 96
--- NOTE | 2019-03-30 23:39 | ED_ITS ---
HPI - SOB/Dyspnea General Chief Complaint: Shortness of Breath/Dyspnea Stated Complaint: Shortness of Breath Time Seen by Provider: 03/30/19 21:27 Source: patient and EMS Mode of arrival: EMS History of Present Illness 83-year-old female nonsmoker with history of CHF and prior stroke presents by EMS with a chief complaint of gradual increase in shortness of breath over the course of the past day or 2. Any exertion makes her more short of breath and she finds herself more short of breath lying flat. She has got swelling in both legs with states that is pretty much stable. She takes Lasix daily and states that she has missed no doses. She denies any change in her diet. She has had no chest pain nor fever or chills. She has had no cough. She denies any significant weight gain. MD Complaint: shortness of breath Onset (ago): hour(s) Severity: mild Consistency/Duration: constant Relieving factors: rest and upright position Exacerbating factors: lying flat and exertion Known history of: congestive heart failure Associated symptoms: denies other symptoms Treatment prior to arrival: oxygen Related Data Home Medications Medication Instructions Recorded Confirmed gabapentin 600 mg PO BEDTIME 12/15/18 03/15/19 losartan 100 mg PO BID 12/15/18 03/15/19 pravastatin 40 mg PO DAILY 12/15/18 03/15/19 tamsulosin 0.4 mg PO DAILY 12/15/18 03/15/19 Prolia 60 mg SUBCUT [id number] 12/16/18 03/15/19 multivitamin 1 tab PO DAILY 12/16/18 03/15/19 tizanidine 2 mg PO BEDTIME PRN 12/16/18 03/15/19 Eliquis 5 mg PO BID 02/23/19 03/15/19 Previous Rx's Medication Instructions Recorded bisacodyl 10 mg MS DAILY PRN #10 ea 03/18/19 digoxin 0.125 mg PO DAILY@1700 #30 tab 03/18/19 docusate sodium [DOK] 100 mg PO DAILY #30 cap 03/18/19 furosemide 20 mg PO Q OTHER DAY #30 tab 03/18/19 magnesium chloride [Slow-Mag] 71.5 mg PO DAILY #30 tab 03/18/19 metoprolol succinate 75 mg PO BID #180 tab 03/18/19 polyethylene glycol 3350 17 gm PO DAILY #1 pkg 03/18/19 potassium chloride 10 meq PO DAILY #30 cap 03/18/19 sennosides [senna] 17.2 mg PO BEDTIME PRN #30 tab 03/18/19 levothyroxine 112 mcg PO DAILY #30 tab 03/20/19 Allergies Allergy/AdvReac Type Severity Reaction Status Date / Time No Known Drug Allergies Allergy Verified 03/30/19 21:33 Review of Systems Constitutional Denies chills, Denies fever(s), Denies lethargy and Denies weakness Eyes Denies change in vision, Denies eye discharge, Denies irritation and Denies loss of vision ENT Ears, Nose, Mouth, and Throat: Denies change in voice, Denies neck pain and Denies sore throat Cardiovascular Denies chest pain, Denies irregular heart rhythm, Denies lightheadedness, Denies palpitations, Reports dyspnea, Reports dyspnea on exertion and Denies orthopnea Respiratory Denies cough, Reports dyspnea, Reports dyspnea on exertion and Denies wheezing Gastrointestinal Gastrointestinal: Denies abdominal pain, Denies change in bowel habits, Denies diarrhea, Denies nausea and Denies vomiting Genitourinary Denies hematuria, Denies flank pain, Denies urinary incontinence and Denies urinary urgency Musculoskeletal Denies neck pain Integumentary/Breasts Denies pruritus, Denies erythema, Denies rash and Denies wounds Neurologic Denies confusion, Denies loss of vision and Denies weakness Psychiatric Denies anxiety, Denies confusion, Denies depression, Denies homicidal ideation and Denies suicidal ideation Endocrine Denies palpitations Hematologic/Lymphatic Denies easy bruising Allergic/Immunologic Denies wheezing PENDING SALE TO [facility] Medical History Atrial fibrillation (Acute) CHF (congestive heart failure) (Acute) CVA (cerebral vascular accident) (Acute) Cardiomyopathy (Acute) Hemiparesis affecting left side as late effect of stroke (Acute) Hyperlipidemia (Acute) Hypertension (Acute) Hypothyroid (Acute) Raynauds disease (Acute) Surgical History History of aortic valve replacement (Acute) Family History (Updated 03/15/19 @ 22:18 by Geovanna Vegas DO) Father Heart attack Skin cancer Cardiovascular disease Mother Congestive heart failure Cardiovascular disease Brother No problems noted. Brother No problems noted. Social History (Updated 03/15/19 @ 13:46 by Ida Lambert DO) household members: none Smoking Status: Former smoker alcohol intake: never substance use type: does not use Family History Father Heart attack Skin cancer Cardiovascular disease Mother Congestive heart failure Cardiovascular disease Brother No problems noted. Brother No problems noted. Social History household members: none Smoking Status: Former smoker alcohol intake: never substance use type: does not use Exam Narrative Exam Narrative: GENERAL: 83-year-old female appears stated age, in no obvious or significant distress HEAD: Atraumatic. Normocephalic. No temporal or scalp tenderness. EYES: Pupils equal round and reactive. Extraocular motions intact. No scleral icterus. No injection or drainage. ENT: Nose without bleeding, purulent drainage or septal hematoma. Throat without erythema, tonsillar hypertrophy or exudate. Uvula midline. Airway patent. NECK: Trachea midline. No JVD or lymphadenopathy. Supple, nontender, no meningeal signs. CARDIOVASCULAR: Regular rate and rhythm without murmurs, gallops, or rubs. RESPIRATORY: Faint crackles in bilateral bases, no wheezes or rhonchi GASTROINTESTINAL: Abdomen soft, non-tender, nondistended. No hepato- splenomegaly, or palpable masses. No guarding. EXTREMITIES: Poor muscle tone left side extremities from prior stroke. 2+ pitting edema in bilateral lower extremities. BACK: Nontender without deformity or crepitance. No flank tenderness. NEURO: AOx3. SKIN: No rash or erythema. Initial Vital Signs Initial Vital Signs: Vital Signs Temperature 98.7 F 03/30/19 21:33 Pulse Rate 70 03/30/19 21:33 Respiratory Rate 24 03/30/19 21:33 Blood Pressure 139/71 03/30/19 21:33 Pulse Oximetry 96 03/30/19 21:33 Course Orders Ordered: ED Orders 03/30/19 21:12 B Type Natriuretic Peptide Stat Basic Metabolic Panel Stat Complete Blood Count AUTO DIFF Stat Magnesium Stat Procalcitonin Stat Troponin & CK Cardiac Panel Stat 03/30/19 21:29 Consult to Respiratory Therapy Evaluate & Treat EKG-12 Lead Stat 03/30/19 21:30 XR chest 1V Stat 03/30/19 21:50 Lactate (Lactic Acid) Stat 03/30/19 22:00 Blood Culture Stat Discontinued Medications Furosemide (Lasix) 20 mg IV NOW ONE Stop: 03/30/19 22:48 Last Admin: 03/30/19 23:02 Dose: Not Given Reevaluation(s) Reevaluation #1: Lasix 20 mg IV ordered but patient very strongly refuses. She states that she understands she is in a mild exacerbation of heart failure but refuses to take the Lasix as that will make her urinate even more than normal and drastically affects her life. She states that her difficulty with breathing is not significant enough to be worth the extra hassle of Lasix. She understands the risks and benefits of making this decision Vital Signs - 8 hr 03/30/19 21:33 03/30/19 22:00 03/30/19 22:30 Temperature 98.7 F Pulse Rate 70 59 L 63 Respiratory Rate 24 17 17 Blood Pressure 139/71 Blood Pressure [Right Arm] 147/73 H 129/78 Pulse Oximetry 96 95 96 03/30/19 23:00 Temperature Pulse Rate 56 L Respiratory Rate 17 Blood Pressure Blood Pressure [Right Arm] 151/69 H Pulse Oximetry 96 MDM - SOB/Dyspnea Lab Data Result diagrams: 03/30/19 21:12 03/30/19 21:12 Lab Results 03/30/19 03/30/19 03/30/19 Range/Units 21:12 21:12 21:12 WBC 5.1 (4.5-11.0) X10^3/uL RBC 3.34 L (4.0-5.2) X10^6/uL Hgb 11.9 L (12.0-16.0) g/dL Hct 36.1 (36-46) % MCV 108.1 H (80-100) fL MCH 35.7 H (26-34) PG MCHC 33.0 (30-36) % RDW 16.3 H (11.6-14.8) % Plt Count 140 L (150-400) X10^3/uL Neut % (Auto) 62.9 (50-75) % Lymph % (Auto) 22.4 L (25-40) % [place] % (Auto) 8.3 (3-14) % Eos % (Auto) 4.6 H (2-4) % Baso % (Auto) 1.8 (0-2) % Neut # (Auto) 3200 (4042-2695) /uL Lymph # (Auto) 1100 (1394-7961) /uL [place] # (Auto) 400 (0-900) /uL Eos # (Auto) 200 (0-450) /uL Baso # (Auto) 100 (0-100) /uL Sodium 138 (137-145) mmol/L Potassium 4.0 (3.4-5.1) mmol/L Chloride 101 (98-107) mmol/L Carbon Dioxide 28 (22-32) mmol/L BUN 19 H (7-17) mg/dL Creatinine 0.70 (0.52-1.04) mg/dL Estimated GFR > 60.0 (>60) mL/min BUN/Creatinine Ratio 27.1 H (6-22) Glucose 99 (80-110) mg/dL Lactate (0.7-2.1) mmol/L Calcium 9.6 (8.4-10.2) mg/dL Magnesium 1.8 (1.6-2.3) mg/dL Total Creatine Kinase 42 (30-135) U/L CK-MB (CK-2) TNP CK-MB (CK-2) Rel Index TNP Troponin I < 0.012 (0.01-0.034) ng/mL B-Natriuretic Peptide 1210 H (<100) Procalcitonin < 0.05 (<0.5) ng/mL 03/30/19 Range/Units 21:50 WBC (4.5-11.0) X10^3/uL RBC (4.0-5.2) X10^6/uL Hgb (12.0-16.0) g/dL Hct (36-46) % MCV (80-100) fL MCH (26-34) PG MCHC (30-36) % RDW (11.6-14.8) % Plt Count (150-400) X10^3/uL Neut % (Auto) (50-75) % Lymph % (Auto) (25-40) % [place] % (Auto) (3-14) % Eos % (Auto) (2-4) % Baso % (Auto) (0-2) % Neut # (Auto) (1811-2698) /uL Lymph # (Auto) (4242-1954) /uL [place] # (Auto) (0-900) /uL Eos # (Auto) (0-450) /uL Baso # (Auto) (0-100) /uL Sodium (137-145) mmol/L Potassium (3.4-5.1) mmol/L Chloride (98-107) mmol/L Carbon Dioxide (22-32) mmol/L BUN (7-17) mg/dL Creatinine (0.52-1.04) mg/dL Estimated GFR (>60) mL/min BUN/Creatinine Ratio (6-22) Glucose (80-110) mg/dL Lactate 0.7 (0.7-2.1) mmol/L Calcium (8.4-10.2) mg/dL Magnesium (1.6-2.3) mg/dL Total Creatine Kinase (30-135) U/L CK-MB (CK-2) CK-MB (CK-2) Rel Index Troponin I (0.01-0.034) ng/mL B-Natriuretic Peptide (<100) Procalcitonin (<0.5) ng/mL Discharge Plan Departure Patient Disposition: Home Clinical Impression: CHF (congestive heart failure) Qualifiers: Heart failure type: unspecified Heart failure chronicity: unspecified Qualified Code(s): I50.9 - Heart failure, unspecified Discharge Date/Time: 03/31/19 00:06 Interventions: ED Discharge Assessment Last Done: 03/30/19 23:40 Instructions: DI for Heart Failure Activity Restrictions/Additional Instructions: *You have been diagnosed with [mild acute congestive heart failure] *What to do: *Take medications as directed: As we discussed in the emergency department my recommendation would be to receive a small dose of Lasix through the IV and increase your dose at home for the next few days. I understand that he would prefer not to do this until speaking with your doctor tomorrow. *Follow up with your primary care provider tomorrow as planned *Return to ER if you should have any new, worsening or concerning symptoms, such as [worsening shortness of breath, fatigue, chest pain, dizziness, weakness, lightheadedness or other bothersome symptoms] Prescriptions: No Action pravastatin 40 mg Tablet 40 mg PO DAILY RF: 0 tamsulosin 0.4 mg Capsule 0.4 mg PO DAILY RF: 0 gabapentin 300 mg Capsule 600 mg PO BEDTIME RF: 0 losartan 100 mg Tablet 100 mg PO BID RF: 0 multivitamin Tablet 1 tab PO DAILY RF: 0 tizanidine 2 mg Tablet 2 mg PO BEDTIME PRN (Reason: Muscle Spasm) RF: 0 Prolia 60 mg/mL Syringe 60 mg subcut [id number] RF: 0 Eliquis 5 mg Tablet 5 mg PO BID RF: 0 bisacodyl 10 mg Suppository 10 mg MS DAILY PRN (Reason: Constipation) Qty: 10 RF: 0 digoxin 125 mcg Tablet 0.125 mg PO DAILY@1700 Qty: 30 RF: 0 polyethylene glycol 3350 17 gram Powder In Packet 17 gm PO DAILY Qty: 1 RF: 0 sennosides [senna] 8.6 mg Tablet 17.2 mg PO BEDTIME PRN (Reason: Constipation) Qty: 30 RF: 0 Slow-Mag 71.5 mg tablet,delayed release (DR/EC) 71.5 mg PO DAILY Qty: 30 RF: 0 potassium chloride 10 mEq capsule, extended release 10 meq PO DAILY Qty: 30 RF: 0 docusate sodium [DOK] 100 mg Capsule 100 mg PO DAILY Qty: 30 RF: 0 furosemide 20 mg Tablet 20 mg PO Q OTHER DAY Qty: 30 RF: 0 metoprolol succinate 25 mg tablet extended release 24 hr 75 mg PO BID Qty: 180 RF: 0 levothyroxine 100 mcg Tablet 112 mcg PO DAILY Qty: 30 RF: 0 Referrals: Matilde Lin MD [Primary Care Provider] -
--- NOTE | 2019-03-30 23:49 | PC.NURSE ---
Pt was a 2 person assist to commode.
== END 2019-03-31 00:06 | disposition home or self-care (01) ==
PROVIDERS: Emergency Provider Emergency Medicine; PCP Internal Medicine
DX: I50.9 Heart failure, unspecified (principal)
CPT/HCPCS: 36415; 36591; 71045; 80048; 82550; 83605; 83735; 83880; 84145; 84484; 85025; 87040; 93005; 93010; 99283; 99285; J1940

== ENCOUNTER → 2019-04-05 09:56 | Outpatient (CLI) | payer MEDICARE, OTHER, MEDICAID, SELFPAY ==
[2018-12-16 00:46] VITALS: PULSE 139; RESP 13; O2SAT 100
[2018-12-16 12:07] VITALS: PULSE 92
[2019-04-05 11:54] LABS: BUN Creatinine Ratio 26.3 (6-22); Blood Urea Nitrogen 21 mg/dL (7-17); Calcium 10.1 mg/dL (8.4-10.2); Carbon Dioxide 31 mmol/L (22-32); Chloride 98 mmol/L (98-107); Digoxin 0.8 ng/mL (0.8-2.0); Estimated Glomerular Filt Rate > 60.0 mL/min (>60); Glucose 90 mg/dL (80-110); HEMOLYSIS < 15 (0-50); Magnesium 2.2 mg/dL (1.6-2.3); Potassium 3.9 mmol/L (3.4-5.1); Sodium 136 mmol/L (137-145)
[2019-04-05 11:57] LABS: Add Manual Diff / Slide Review NO; Basophils Absolute Auto 200 /uL (0-100); Basophils Percent Auto 3.1 % (0-2); Eosinophils Absolute Auto 300 /uL (0-450); Eosinophils Percent Auto 6.3 % (2-4); Hematocrit 39.3 % (36-46); Hemoglobin 13.1 g/dL (12.0-16.0); Lymphocytes Absolute Auto 1100 /uL (1100-4500); Lymphocytes Percent Auto 21.5 % (25-40); Mean Corpuscular HGB Conc 33.4 % (30-36); Mean Corpuscular Hemoglobin 35.7 PG (26-34); Mean Corpuscular Volume 106.9 fL (80-100); Monocytes Absolute Auto 500 /uL (0-900); Monocytes Percent Auto 9.8 % (3-14); Neutrophils Absolute Auto 3000 /uL (1500-7000); Neutrophils Percent Auto 59.3 % (50-75); Platelet Count 210 X10^3/uL (150-400); Red Blood Cell Count 3.67 X10^6/uL (4.0-5.2); Red Cell Distribution Width 16.9 % (11.6-14.8)
== END ==
PROVIDERS: Internal Medicine; Family Provider Internal Medicine Cardiovascular Disease; PCP Internal Medicine; Visit Provider Internal Medicine
DX: E03.9 Hypothyroidism, unspecified (principal); I48.1 Persistent atrial fibrillation; I50.22 Chronic systolic (congestive) heart failure; R35.8 Other polyuria; I50.9 Heart failure, unspecified; Z51.81 Encounter for therapeutic drug level monitoring
CPT/HCPCS: 36415; 80048; 80162; 83735; 84443; 85025

== ENCOUNTER 2020-03-12 15:39 | Emergency (ER) | payer OTHER, MEDICAID, SELFPAY ==
[2018-12-16 00:46] VITALS: PULSE 139; RESP 13; O2SAT 100
[2018-12-16 12:07] VITALS: PULSE 92
[2020-03-12] VITALS (10 sets, daily range): BP systolic 111–125; BP diastolic 82–90; PULSE 82–119; RESP 18–32; TEMP 37.2; O2SAT 82–98; BMI 27.4
--- NOTE | 2020-03-12 16:06 | DI.RAD.S_ITS ---
PROCEDURE: XR CHEST 1V INDICATIONS: shortness of breath TECHNIQUE: One view of the chest was acquired. COMPARISON: [facility], CR, XR CHEST 1V, 03/30/2019, 22:04. FINDINGS: Surgical changes and devices: Median sternotomy wires and aortic valve prosthesis are stable. Lungs and pleura: Cephalization of the pulmonary vasculature and interstitial prominence paddle CHF. Increased opacification noted in the medial aspect of the right lung base which could represent atelectasis or pneumonia. Trace right-sided pleural fluid collection. No pneumothorax. Mediastinum: Mediastinal contours appear normal. Heart is enlarged Bones and chest wall: No suspicious bony lesions. Overlying soft tissues appear unremarkable. IMPRESSION: 1. Cardiomegaly with cephalization of pulmonary vasculature and interstitial prominence concerning for CHF. 2. Focal opacity in the right lung base compatible with atelectasis versus pneumonia. 3. Trace right-sided pleural fluid collection. Dictated by: Lexy Gonzalez MD, PhD on 03/12/2020 at 16:36 Approved by: Lexy Gonzalez MD, PhD on 03/12/2020 at 16:38
--- NOTE | 2020-03-12 16:16 | ED.SOB ---
HPI - SOB/Dyspnea General Chief Complaint: Shortness of Breath/Dyspnea Stated Complaint: Acute on chronic SOB Time Seen by Provider: 03/12/20 15:50 Source: EMS Mode of arrival: EMS Limitations: no limitations History of Present Illness HPI Narrative: Patient is a 84-year-old female with history of COPD and CHF presenting with increasing shortness of breath. She has noticed ongoing for the last 1 month especially when she gets up to the commode however it is worse today. She seems to be speaking without any difficulty at this time. She was previously taking Lasix although she states she is no longer on it due to blood pressure reasons, previous notes indicate that she did not like Lasix because the decreased quality of life. She denies any chest pain although she does have a history of atrial fibrillation. She denies any fever or cough. MD Complaint: shortness of breath Related Data Home Medications Medication Instructions Recorded Confirmed gabapentin 600 mg PO BEDTIME 12/15/18 03/15/19 losartan 100 mg PO BID 12/15/18 03/15/19 pravastatin 40 mg PO DAILY 12/15/18 03/15/19 tamsulosin 0.4 mg PO DAILY 12/15/18 03/15/19 Prolia 60 mg SUBCUT [id number] 12/16/18 03/15/19 multivitamin 1 tab PO DAILY 12/16/18 03/15/19 tizanidine 2 mg PO BEDTIME PRN 12/16/18 03/15/19 Eliquis 5 mg PO BID 02/23/19 03/15/19 Previous Rx's Medication Instructions Recorded bisacodyl 10 mg OR DAILY PRN #10 ea 03/18/19 digoxin 0.125 mg PO DAILY@1700 #30 tab 03/18/19 docusate sodium [DOK] 100 mg PO DAILY #30 cap 03/18/19 furosemide 20 mg PO Q OTHER DAY #30 tab 03/18/19 magnesium chloride [Slow-Mag] 71.5 mg PO DAILY #30 tab 03/18/19 metoprolol succinate 75 mg PO BID #180 tab 03/18/19 polyethylene glycol 3350 17 gm PO DAILY #1 pkg 03/18/19 potassium chloride 10 meq PO DAILY #30 cap 03/18/19 sennosides [senna] 17.2 mg PO BEDTIME PRN #30 tab 07/23/19 levothyroxine 112 mcg PO DAILY #30 tab 03/20/19 furosemide [Lasix] 20 mg PO QAM #3 tab 03/12/20 Allergies Allergy/AdvReac Type Severity Reaction Status Date / Time No Known Drug Allergies Allergy Verified 03/30/19 21:33 Review of Systems Review of Systems ROS Unobtainable: All systems reviewed & are unremarkable except as noted in HPI and below ENT Ears, Nose, Mouth, and Throat: Denies vertigo and Denies dizziness Cardiovascular Cardiovascular: Denies chest pain and Denies lightheadedness Respiratory Respiratory: Reports as per HPI Gastrointestinal Gastrointestinal: Denies abdominal pain, Denies change in bowel habits, Denies diarrhea, Denies nausea and Denies vomiting Musculoskeletal Musculoskeletal: Denies back pain and Denies joint swelling Integumentary/Breasts Skin/Breast: Denies pruritus, Denies erythema, Denies rash and Denies wounds Neurologic Neurologic: Denies confusion, Denies vertigo and Denies dizziness Psychiatric Psychiatric: Denies confusion Patient History Medical History Atrial fibrillation (Acute) Cardiomyopathy (Acute) CHF (congestive heart failure) (Acute) CVA (cerebral vascular accident) (Acute) Hemiparesis affecting left side as late effect of stroke (Acute) Hyperlipidemia (Acute) Hypertension (Acute) Hypothyroid (Acute) Raynauds disease (Acute) Surgical History History of aortic valve replacement (Acute) Family History Father Heart attack Skin cancer Cardiovascular disease Mother Congestive heart failure Cardiovascular disease Brother No problems noted. Brother No problems noted. Social History household members: none Smoking Status: Former smoker alcohol intake: never substance use type: does not use Smoking Status: Former smoker alcohol intake frequency: a few times a month Substance Use Type: does not use Exam Initial Vital Signs Initial Vital Signs: Vital Signs Temperature 98.9 F 03/12/20 15:43 Pulse Rate 82 03/12/20 15:43 Respiratory Rate 18 03/12/20 15:43 Blood Pressure 125/87 03/12/20 15:43 Pulse Oximetry 94 03/12/20 15:43 GENERAL: Alert well-appearing female and in no acute distress. HEENT: Head atraumatic,EOMI, pupils reactive, face symmetric, moist mucous membranes CARDIOVASCULAR: Regular rate and rhythm without murmurs, rubs or gallops. RESPIRATORY: Breath sounds equal bilaterally, no wheezes rales or rhonchi. Speaks in full sentences with minimal conversational dyspnea ABDOMEN: Soft, nontender. Normoactive bowel sounds all 4 quadrants. No guarding or rebound. EXTREMITIES: Normal range of motion, no clubbing. Left leg lower extremity edema she says is always swollen due to her stroke. Neurovascularly intact NEUROLOGICAL: Alert and oriented x4.Normal gait and speech. SKIN: Warm, dry, no laceration, no petechiae, no rashes or lesions. Course Orders Ordered: Discontinued Medications Furosemide (Lasix) 40 mg IV NOW ONE Stop: 03/12/20 17:26 Last Admin: 03/12/20 17:55 Dose: Not Given Documented by: MISAEL Furosemide (Lasix) 20 mg IV NOW ONE Stop: 03/12/20 17:38 Last Admin: 03/12/20 17:55 Dose: 20 mg Documented by: MISAEL Metoprolol Tartrate (Lopressor) 2.5 mg IV NOW ONE Stop: 03/12/20 17:38 Last Admin: 03/12/20 17:54 Dose: 2.5 mg Documented by: MISAEL Vital Signs Vital signs: Vital Signs - 8 hr 03/12/20 15:43 03/12/20 17:19 Temperature 98.9 F Pulse Rate 82 117 H Respiratory Rate 18 22 Blood Pressure 125/87 111/82 Pulse Oximetry 94 96 MDM - SOB/Dyspnea Lab Data Attestation: I reviewed the patient's lab results. Result diagrams: 03/12/20 16:39 03/12/20 16:39 Labs: Lab Results 03/12/20 03/12/20 03/12/20 Range/Units 16:39 16:39 16:39 WBC 5.0 (4.5-11.0) X10^3/uL RBC 2.99 L (4.0-5.2) X10^6/uL Hgb 11.3 L (12.0-16.0) g/dL Hct 33.7 L (36-46) % MCV 112.8 H (80-100) fL MCH 37.7 H (26-34) PG MCHC 33.4 (30-36) % RDW 14.3 (11.6-14.8) % Plt Count 110 L (150-400) X10^3/uL Neut % (Auto) 68.8 (50-75) % Lymph % (Auto) 20.7 L (25-40) % [place] % (Auto) 7.0 (3-14) % Eos % (Auto) 2.2 (2-4) % Baso % (Auto) 1.3 (0-2) % Neut # (Auto) 3400 (1709-9753) /uL Lymph # (Auto) 1000 L (3835-6589) /uL [place] # (Auto) 400 (0-900) /uL Eos # (Auto) 100 (0-450) /uL Baso # (Auto) 100 (0-100) /uL RBC Morphology Not Reportable Macrocytosis 4+ H Sodium 136 L (137-145) mmol/L Potassium 5.5 H (3.4-5.1) mmol/L Chloride 103 (98-107) mmol/L Carbon Dioxide 26 (22-32) mmol/L BUN 32 H (7-17) mg/dL Creatinine 1.31 H (0.52-1.04) mg/dL Estimated GFR 38.8 L (>60) mL/min BUN/Creatinine Ratio 24.4 H (6-22) Glucose 95 (80-110) mg/dL Calcium 9.4 (8.4-10.2) mg/dL Magnesium 2.7 H (1.6-2.3) mg/dL Total Bilirubin 1.6 H (0.2-1.3) mg/dL AST 42 H (14-36) IU/L ALT 28 (<35) IU/L Alkaline Phosphatase 75 (38-126) U/L Total Creatine Kinase 56 (30-135) U/L CK-MB (CK-2) TNP CK-MB (CK-2) Rel Index TNP Troponin I < 0.012 (0.01-0.034) ng/mL NT-Pro-B Natriuret Pep 4400 H (<450) pg/mL Total Protein 6.9 (6.3-8.2) g/dL Albumin 4.2 (3.5-5.0) g/dL Globulin 2.7 (1.7-4.1) g/dL Albumin/Globulin Ratio 1.6 (1.0-2.8) Imaging Data Chest x-ray: Radiologist's Impression: PROCEDURE: XR CHEST 1V INDICATIONS: shortness of breath TECHNIQUE: One view of the chest was acquired. COMPARISON: [facility], , XR CHEST 1V, 03/30/2019, 22:04. FINDINGS: Surgical changes and devices: Median sternotomy wires and aortic valve prosthesis are stable. Lungs and pleura: Cephalization of the pulmonary vasculature and interstitial prominence paddle CHF. Increased opacification noted in the medial aspect of the right lung base which could represent atelectasis or pneumonia. Trace right-sided pleural fluid collection. No pneumothorax. Mediastinum: Mediastinal contours appear normal. Heart is enlarged Bones and chest wall: No suspicious bony lesions. Overlying soft tissues appear unremarkable. IMPRESSION: 1. Cardiomegaly with cephalization of pulmonary vasculature and interstitial prominence concerning for CHF. 2. Focal opacity in the right lung base compatible with atelectasis versus pneumonia. 3. Trace right-sided pleural fluid collection. Dictated by: Lexy Gonzalez MD, PhD on 03/12/2020 at 16:36 Approved by: Lexy Gonzalez MD, PhD on 03/12/2020 at 16:38 ECG Data Attestation: I personally reviewed and interpreted this ECG as follows: Prior ECG tracings: available for review Interpretation: Sinus rhythm rate 118 left bundle-branch block noted no ST changes similar to previous EKG 03/15/2019 [facility] Narrative Medical decision making narrative: Patient is found to be in CHF with elevated BNP, mild elevated creatinine and mild elevated potassium. sHe is not hypoxic and speaking in full sentences. She is able to transfer without significant difficulty or hypoxia. The patient would prefer to go home rather than stay in the hospital. She agrees to take her Lasix. She actually has appointment with her PCP on Sunday which is in 2 days. Patient does not have a ride home and is requesting an ambulance, she understands that she may bill. I discussed all findings with the patient, Education has been performed regarding treatment plan, diagnosis, warning signs and symptoms and all concerns have been addressed. Verbally agree with and understood all of the above. Discharge Plan Departure Patient Disposition: Home Clinical Impression: Congestive heart failure Qualifiers: Heart failure type: systolic Heart failure chronicity: acute on chronic Qualified Code(s): I50.23 - Acute on chronic systolic (congestive) heart failure Discharge Date/Time: 03/12/20 19:54 Instructions: Heart Failure Activity Restrictions/Additional Instructions: *You have been diagnosed with congestive heart failure *What to do: You must take your furosemide/Lasix, tried away yourself daily and limit salt intake *Continue to take medications as directed--> SENT TO [facility] Drug Lasix 20 mg once a day for the next 3 days *Follow up with your primary care provider in 3 days as previously arranged *Return to ER if you should have increasing shortness of breath chest pain palpitations or any new, worsening or concerning symptoms Prescriptions: New furosemide [Lasix] 20 mg tablet 20 mg PO QAM Qty: 3 RF: 0 No Action pravastatin 40 mg Tablet 40 mg PO DAILY RF: 0 tamsulosin 0.4 mg Capsule 0.4 mg PO DAILY RF: 0 gabapentin 300 mg Capsule 600 mg PO BEDTIME RF: 0 losartan 100 mg Tablet 100 mg PO BID RF: 0 multivitamin Tablet 1 tab PO DAILY RF: 0 tizanidine 2 mg Tablet 2 mg PO BEDTIME PRN (Reason: Muscle Spasm) RF: 0 Prolia 60 mg/mL Syringe 60 mg subcut [id number] RF: 0 Eliquis 5 mg Tablet 5 mg PO BID RF: 0 bisacodyl 10 mg Suppository 10 mg OR DAILY PRN (Reason: Constipation) Qty: 10 RF: 0 digoxin 125 mcg Tablet 0.125 mg PO DAILY@1700 Qty: 30 RF: 0 polyethylene glycol 3350 17 gram Powder In Packet 17 gm PO DAILY Qty: 1 RF: 0 sennosides [senna] 8.6 mg Tablet 17.2 mg PO BEDTIME PRN (Reason: Constipation) Qty: 30 RF: 0 Slow-Mag 71.5 mg tablet,delayed release (DR/EC) 71.5 mg PO DAILY Qty: 30 RF: 0 potassium chloride 10 mEq capsule, extended release 10 meq PO DAILY Qty: 30 RF: 0 docusate sodium [DOK] 100 mg Capsule 100 mg PO DAILY Qty: 30 RF: 0 furosemide 20 mg Tablet 20 mg PO Q OTHER DAY Qty: 30 RF: 0 metoprolol succinate 25 mg tablet extended release 24 hr 75 mg PO BID Qty: 180 RF: 0 levothyroxine 100 mcg Tablet 112 mcg PO DAILY Qty: 30 RF: 0 Referrals: Matilde Lin MD [Primary Care Provider] -
[2020-03-12 16:52] LABS: Add Manual Diff / Slide Review NO; Basophils Absolute Auto 100 /uL (0-100); Basophils Percent Auto 1.3 % (0-2); Eosinophils Absolute Auto 100 /uL (0-450); Eosinophils Percent Auto 2.2 % (2-4); Hematocrit 33.7 % (36-46); Hemoglobin 11.3 g/dL (12.0-16.0); Lymphocytes Absolute Auto 1000 /uL (1100-4500); Lymphocytes Percent Auto 20.7 % (25-40); Mean Corpuscular HGB Conc 33.4 % (30-36); Mean Corpuscular Hemoglobin 37.7 PG (26-34); Mean Corpuscular Volume 112.8 fL (80-100); Monocytes Absolute Auto 400 /uL (0-900); Neutrophils Absolute Auto 3400 /uL (1500-7000); Neutrophils Percent Auto 68.8 % (50-75); Platelet Count 110 X10^3/uL (150-400); Red Blood Cell Count 2.99 X10^6/uL (4.0-5.2); Red Cell Distribution Width 14.3 % (11.6-14.8)
[2020-03-12 17:04] LABS: Macrocytosis 4+
[2020-03-12 17:06] LABS: Alanine Aminotransferase 28 IU/L (<35); Albumin 4.2 g/dL (3.5-5.0); Albumin Globulin Ratio 1.6 (1.0-2.8); Alkaline Phosphatase 75 U/L (38-126); Aspartate Aminotransferase 42 IU/L (14-36); BUN Creatinine Ratio 24.4 (6-22); Bilirubin Total 1.6 mg/dL (0.2-1.3); Blood Urea Nitrogen 32 mg/dL (7-17); Calcium 9.4 mg/dL (8.4-10.2); Carbon Dioxide 26 mmol/L (22-32); Chloride 103 mmol/L (98-107); Creatine Kinase 56 U/L (30-135); Estimated Glomerular Filt Rate 38.8 mL/min (>60); Globulin 2.7 g/dL (1.7-4.1); Glucose 95 mg/dL (80-110); HEMOLYSIS 18 (0-50); Magnesium 2.7 mg/dL (1.6-2.3); Sodium 136 mmol/L (137-145); Total Protein 6.9 g/dL (6.3-8.2)
[2020-03-12 17:13] LABS: Potassium 5.5 mmol/L (3.4-5.1)
[2020-03-12 17:15] LABS: NT-proBNP (BNP-Adult 18+) 4400 pg/mL (<450)
[2020-03-12 17:17] LABS: Troponin I < 0.012 ng/mL (0.01-0.034)
[2020-03-12] MEDS: METOPROLOL TARTRATE 5 MG/5 ML INJ 2.5 MG IV (17:54)
[2020-03-12] MEDS: FUROSEMIDE 20 MG/2 ML VIAL IV (17:55)
--- NOTE | 2020-03-12 19:58 | PC.NURSE ---
Patient states she doesnt have any way to get home, unable to have a friend pick her up. She requested an ambulance to come pick her up. Dr. Ortiz explained to her that she may be help responsible for the ambulance bill. The patient expressed understanding and wanted to proceed with ambulance transport home.
== END 2020-03-12 19:54 | disposition home or self-care (01) ==
PROVIDERS: Emergency Provider Emergency Medicine; Family Provider Internal Medicine Cardiovascular Disease; PCP Internal Medicine
DX: I50.23 Acute on chronic systolic (congestive) heart failure (principal); J44.9 Chronic obstructive pulmonary disease, unspecified; R79.89 Other specified abnormal findings of blood chemistry; E78.5 Hyperlipidemia, unspecified
CPT/HCPCS: 36415; 71045; 80053; 82550; 83735; 83880; 84484; 85025; 93005; 93010; 96374; 96375; 99284; J1940

== ENCOUNTER → 2020-03-15 20:22 | Outpatient (ROUT) | payer OTHER, MEDICAID, SELFPAY ==
[2018-12-16 00:46] VITALS: PULSE 139; RESP 13; O2SAT 100
[2018-12-16 12:07] VITALS: PULSE 92
[2020-03-15 20:51] LABS: Add Manual Diff / Slide Review NO; Basophils Absolute Auto 100 /uL (0-100); Basophils Percent Auto 3.5 % (0-2); Eosinophils Absolute Auto 100 /uL (0-450); Eosinophils Percent Auto 3.3 % (2-4); Hematocrit 30.4 % (36-46); Lymphocytes Absolute Auto 900 /uL (1100-4500); Lymphocytes Percent Auto 21.7 % (25-40); Mean Corpuscular Hemoglobin 37.7 PG (26-34); Mean Corpuscular Volume 114.2 fL (80-100); Monocytes Absolute Auto 400 /uL (0-900); Monocytes Percent Auto 9.4 % (3-14); Neutrophils Absolute Auto 2500 /uL (1500-7000); Neutrophils Percent Auto 62.1 % (50-75); Platelet Count 122 X10^3/uL (150-400); Red Blood Cell Count 2.67 X10^6/uL (4.0-5.2); Red Cell Distribution Width 14.6 % (11.6-14.8)
[2020-03-15 20:53] LABS: Reticulocyte Count, Percent 2.4 % (1.06-2.63)
[2020-03-15 21:02] LABS: Alanine Aminotransferase 22 IU/L (<35); Albumin Globulin Ratio 1.6 (1.0-2.8); Alkaline Phosphatase 67 U/L (38-126); Aspartate Aminotransferase 35 IU/L (14-36); BUN Creatinine Ratio 25.6 (6-22); Blood Urea Nitrogen 31 mg/dL (7-17); Calcium 9.7 mg/dL (8.4-10.2); Carbon Dioxide 29 mmol/L (22-32); Chloride 101 mmol/L (98-107); Estimated Glomerular Filt Rate 42.5 mL/min (>60); Globulin 2.5 g/dL (1.7-4.1); Glucose 80 mg/dL (80-110); HEMOLYSIS 26 (0-50); Sodium 135 mmol/L (137-145); Total Protein 6.5 g/dL (6.3-8.2)
[2020-03-15 21:08] LABS: Potassium 5.4 mmol/L (3.4-5.1)
[2020-03-15 21:10] LABS: NT-proBNP (BNP-Adult 18+) 5160 pg/mL (<450)
[2020-03-15 21:36] LABS: Ferritin 35 ng/mL (11-264)
[2020-03-15 21:47] LABS: Hypochromasia 1+; Macrocytosis 3+; Platelet Estimate Decreased on smear
== END ==
PROVIDERS: Family Provider Internal Medicine Cardiovascular Disease; PCP Internal Medicine; Visit Provider Internal Medicine
DX: D50.0 Iron deficiency anemia secondary to blood loss (chronic) (principal); I51.89 Other ill-defined heart diseases
CPT/HCPCS: 80053; 82728; 83880; 85025; 85045

== ENCOUNTER → 2020-04-12 21:22 | Outpatient (ROUT) | payer OTHER, MEDICAID, SELFPAY ==
[2018-12-16 00:46] VITALS: PULSE 139; RESP 13; O2SAT 100
[2018-12-16 12:07] VITALS: PULSE 92
[2020-04-12 22:22] LABS: BUN Creatinine Ratio 27.7 (6-22); Blood Urea Nitrogen 48 mg/dL (7-17); Carbon Dioxide 25 mmol/L (22-32); Chloride 97 mmol/L (98-107); Estimated Glomerular Filt Rate 28.1 mL/min (>60); Glucose 102 mg/dL (80-110); HEMOLYSIS 20 (0-50); Potassium 4.8 mmol/L (3.4-5.1); Sodium 135 mmol/L (137-145)
[2020-04-12 22:27] LABS: NT-proBNP (BNP-Adult 18+) 1270 pg/mL (<450)
[2020-04-12 22:53] LABS: Ferritin 27 ng/mL (11-264)
== END ==
PROVIDERS: Family Provider Internal Medicine Cardiovascular Disease; PCP Internal Medicine; Visit Provider Internal Medicine
DX: I50.82 Biventricular heart failure (principal); N18.4 Chronic kidney disease, stage 4 (severe); N93.8 Other specified abnormal uterine and vaginal bleeding
CPT/HCPCS: 80048; 82728; 83880

== ENCOUNTER → 2020-04-30 18:47 | Outpatient (ROUT) | payer OTHER, MEDICAID, SELFPAY ==
[2018-12-16 00:46] VITALS: PULSE 139; RESP 13; O2SAT 100
[2018-12-16 12:07] VITALS: PULSE 92
[2020-04-30 19:22] LABS: Appearance Urine UA CLOUDY; Bilirubin Urine UA NEGATIVE (NEGATIVE); Color Urine UA YELLOW; Glucose Urine UA NEGATIVE (Negative); Ketones Urine UA NEGATIVE (NEGATIVE); Leukocyte Esterase Urine UA 3+ (NEGATIVE); Nitrite Urine UA NEGATIVE (Negative); Occult Blood Urine UA 2+ (Negative); Protein Urine UA NEGATIVE (Negative); Urobilinogen Urine UA 0.2 E.U./dL (0.2)
[2020-04-30 19:38] LABS: Bacteria Urine Many (>30); RBC Urine 5-10/HPF (0-5/HPF); Renal Epithelial Cells Urine 0-1/HPF (0-1/HPF); Squamous Epithelial Cell Urine 1-5 /HPF (0-5/HPF); Transitional Epi Cells Urine 0-1/HPF (0-5/HPF); WBC Urine >100/HPF (0-5/HPF); pH Urine UA 7.5 (4.5-8.0)
[2020-04-30 19:39] LABS: Culture Indicated Urine Specimen Cultured
[2020-04-30 19:44] LABS: BUN Creatinine Ratio 26.4 (6-22); Blood Urea Nitrogen 52 mg/dL (7-17); Carbon Dioxide 33 mmol/L (22-32); Chloride 94 mmol/L (98-107); Estimated Glomerular Filt Rate 24.2 mL/min (>60); Glucose 100 mg/dL (80-110); HEMOLYSIS < 15 (0-50); Sodium 134 mmol/L (137-145)
[2020-04-30 19:54] LABS: NT-proBNP (BNP-Adult 18+) 1540 pg/mL (<450)
[2020-04-30 20:13] LABS: Thyroid Stimulating Hormone 1.43 uIU/mL (0.47-4.68)
== END ==
PROVIDERS: Family Provider Internal Medicine Cardiovascular Disease; PCP Internal Medicine; Visit Provider Internal Medicine
DX: E03.9 Hypothyroidism, unspecified (principal); R79.89 Other specified abnormal findings of blood chemistry; R06.02 Shortness of breath; N18.3 Chronic kidney disease, stage 3 (moderate)
CPT/HCPCS: 80048; 81001; 83880; 84443; 87077; 87086; 87186

== ENCOUNTER → 2020-05-10 19:17 | Outpatient (ROUT) | payer OTHER, MEDICAID, SELFPAY ==
[2018-12-16 00:46] VITALS: PULSE 139; RESP 13; O2SAT 100
[2018-12-16 12:07] VITALS: PULSE 92
[2020-05-10 19:45] LABS: Add Manual Diff / Slide Review SLIDE REVIEW; Basophils Absolute Auto 100 /uL (0-100); Basophils Percent Auto 1.4 % (0-2); Eosinophils Absolute Auto 100 /uL (0-450); Eosinophils Percent Auto 2.3 % (2-4); Hematocrit 33.6 % (36-46); Hemoglobin 11.2 g/dL (12.0-16.0); Lymphocytes Absolute Auto 900 /uL (1100-4500); Lymphocytes Percent Auto 23.1 % (25-40); Mean Corpuscular HGB Conc 33.3 % (30-36); Mean Corpuscular Hemoglobin 37.3 PG (26-34); Monocytes Absolute Auto 400 /uL (0-900); Monocytes Percent Auto 11.7 % (3-14); Neutrophils Absolute Auto 2300 /uL (1500-7000); Neutrophils Percent Auto 61.5 % (50-75); Platelet Count 135 X10^3/uL (150-400); Red Cell Distribution Width 14.8 % (11.6-14.8); White Blood Cell Count 3.8 X10^3/uL (4.5-11.0)
[2020-05-10 19:48] LABS: HEMOLYSIS 23 (0-50); Iron 151 ug/dL (37-170)
[2020-05-10 19:51] LABS: BUN Creatinine Ratio 31.2 (6-22); Blood Urea Nitrogen 54 mg/dL (7-17); Carbon Dioxide 31 mmol/L (22-32); Chloride 96 mmol/L (98-107); Estimated Glomerular Filt Rate 28.1 mL/min (>60); Glucose 85 mg/dL (80-110); HEMOLYSIS 25 (0-50); Sodium 135 mmol/L (137-145)
[2020-05-10 19:59] LABS: NT-proBNP (BNP-Adult 18+) 1640 pg/mL (<450)
[2020-05-10 20:00] LABS: Potassium 5.9 mmol/L (3.4-5.1)
[2020-05-10 20:01] LABS: Percent Iron Saturation 34 % (15-50); Total Iron Binding Capacity 439 ug/dL (265-497); Transferrin 353 mg/dL (206-381)
[2020-05-10 20:03] LABS: Anisocytosis 2+; Macrocytosis 2+
[2020-05-10 20:24] LABS: Ferritin 66 ng/mL (11-264)
== END ==
PROVIDERS: Family Provider Internal Medicine Cardiovascular Disease; PCP Internal Medicine; Visit Provider Internal Medicine
DX: N93.8 Other specified abnormal uterine and vaginal bleeding (principal); I50.82 Biventricular heart failure
CPT/HCPCS: 80048; 82728; 83540; 83550; 83880; 85025

== ENCOUNTER 2020-08-11 10:10 | Inpatient (IN) | payer OTHER, MEDICAID, SELFPAY ==
[2018-12-16 00:46] VITALS: PULSE 139; RESP 13; O2SAT 100
[2018-12-16 12:07] VITALS: PULSE 92
[2020-08-11] VITALS (36 sets, daily range): BP systolic 70–116; BP diastolic 48–74; PULSE 67–82; RESP 11–29; TEMP 36.1–36.3; O2SAT 91–98; BMI 26.5; BMI 28.6
--- NOTE | 2020-08-11 10:32 | DI.RAD.S_ITS ---
PROCEDURE: XR CHEST 1V INDICATIONS: chest pain TECHNIQUE: One view of the chest was acquired. COMPARISON: [facility], CR, XR CHEST 1V, 03/12/2020, 16:02. FINDINGS: Surgical changes and devices: Cardiac valve prosthesis. Median sternotomy wires.. Lungs and pleura: Lungs are clear. No pleural effusions or pneumothorax. Mediastinum: Mediastinal contours appear normal. Heart is enlarged. Bones and chest wall: No suspicious bony lesions. Overlying soft tissues appear unremarkable. IMPRESSION: No acute cardiopulmonary disease process. Dictated by: Lexy Gonzalez MD, PhD on 08/11/2020 at 10:56 Approved by: Lexy Gonzalez MD, PhD on 08/11/2020 at 10:57
[2020-08-11 10:53] LABS: COVID19 -Nasal RAPID Negative (Negative)
[2020-08-11 10:58] LABS: Add Manual Diff / Slide Review NO; Basophils Absolute Auto 100 /uL (0-100); Basophils Percent Auto 1.1 % (0-2); Eosinophils Absolute Auto 100 /uL (0-450); Eosinophils Percent Auto 1.2 % (2-4); Hematocrit 31.3 % (36-46); Hemoglobin 10.1 g/dL (12.0-16.0); Lymphocytes Absolute Auto 700 /uL (1100-4500); Mean Corpuscular HGB Conc 32.3 % (30-36); Mean Corpuscular Hemoglobin 37.3 PG (26-34); Mean Corpuscular Volume 115.6 fL (80-100); Monocytes Absolute Auto 400 /uL (0-900); Monocytes Percent Auto 8.2 % (3-14); Neutrophils Absolute Auto 3200 /uL (1500-7000); Neutrophils Percent Auto 73.5 % (50-75); Red Blood Cell Count 2.71 X10^6/uL (4.0-5.2); Red Cell Distribution Width 16.4 % (11.6-14.8); White Blood Cell Count 4.4 X10^3/uL (4.5-11.0)
[2020-08-11 11:00] LABS: Alanine Aminotransferase 37 IU/L (<35); Albumin 4.4 g/dL (3.5-5.0); Albumin Globulin Ratio 1.5 (1.0-2.8); Alkaline Phosphatase 91 U/L (38-126); Aspartate Aminotransferase 41 IU/L (14-36); Bilirubin Total 1.1 mg/dL (0.2-1.3); Blood Urea Nitrogen 68 mg/dL (7-17); Calcium 9.7 mg/dL (8.4-10.2); Carbon Dioxide 23 mmol/L (22-32); Chloride 106 mmol/L (98-107); Creatine Kinase 67 U/L (30-135); Estimated Glomerular Filt Rate 14.4 mL/min (>60); Glucose 92 mg/dL (80-110); Lipase 99 U/L (23-300); Sodium 139 mmol/L (137-145); Total Protein 7.4 g/dL (6.3-8.2)
[2020-08-11 11:02] LABS: INR 2.7 (0.9-1.3); Prothrombin Time 30.7 SECONDS (10.1-12.7)
[2020-08-11 11:04] LABS: PTT Partial Thromboplastin Tim 46 SECONDS (26.4-36.2)
[2020-08-11 11:08] LABS: Potassium 5.9 mmol/L (3.4-5.1)
[2020-08-11 11:09] LABS: HEMOLYSIS < 15 (0-50)
[2020-08-11 11:13] LABS: Troponin I < 0.012 ng/mL (0.01-0.034)
[2020-08-11 11:28] LABS: NT-proBNP (BNP-Adult 18+) 2800 pg/mL (<450)
[2020-08-11 11:30] LABS: Appearance Urine UA CLEAR; Bilirubin Urine UA NEGATIVE (NEGATIVE); Color Urine UA YELLOW; Glucose Urine UA NEGATIVE (Negative); Ketones Urine UA NEGATIVE (NEGATIVE); Leukocyte Esterase Urine UA 2+ (NEGATIVE); Nitrite Urine UA NEGATIVE (Negative); Occult Blood Urine UA TRACE-LYSED (Negative); Protein Urine UA 1+ (Negative); Urobilinogen Urine UA 0.2 E.U./dL (0.2)
[2020-08-11 11:32] LABS: Macrocytosis 2+
[2020-08-11 11:33] LABS: Anisocytosis 2+; Poikilocytosis 1+
[2020-08-11 11:35] LABS: Platelet Count 81 X10^3/uL (150-400)
[2020-08-11 11:37] LABS: RBC Urine 0-1/HPF (0-5/HPF); WBC Urine 10-30/HPF (0-5/HPF)
[2020-08-11 11:38] LABS: Bacteria Urine Moderate (10-30); Culture Indicated Urine Specimen Cultured
[2020-08-11 11:53] LABS: pH Urine UA 6.5 (4.5-8.0)
--- NOTE | 2020-08-11 12:03 | ED_ITS ---
HPI - Weakness General Chief complaint: Weakness Stated complaint: Fell yesterday.. Feeling weak Time Seen by Provider: 08/11/20 10:54 Source: patient and other (caregiver, Gayla) Mode of arrival: Wheelchair Limitations: no limitations History of Present Illness HPI Narrative: Pleasant 85-year-old female comes to the emergency department with complaint of increasing weakness, falling asleep more easily and decreased energy, decreased appetite, patient fell yesterday. She denies hitting her head. She states she was standing at the sink doing her morning exercises when she lost her balance and fell. She denies any pain or injury otherwise. Her caregiver has noted that she has had low blood pressures sometimes in the 70 systolic sometimes in the 90s. She states that she has not had any chest pain or pressure, she has shortness of breath which she states is chronic and not any worsened that her normal. They have noted she has been wheezing more frequently particularly with exertion or lying flat. She has found that she is more short of breath when she lays flat. She has also had swelling in bilateral lower extremities which is not significantly worsening but is present. She denies any abdominal back or flank pain. She has had a decrease in her urine output in terms of frequency and amount which was noted by her caregiver. She also has chronic vaginal bleeding over the last several months she had ultrasound imaging but they were unable to do a hysteroscopy secondary to her cardiac issues. Her only new medication was megestrol which was started in the last month or 2 for vaginal bleeding. She states that it is intermittent often for several days, she has not had any today. She is on Eliquis, she has hypertension, hypothyroidism, dyslipidemia, history of atrial fibrillation as well as CVA with left-sided deficit, she has had valve replacement she is unsure which valve. And she does use Advair daily for COPD. Matilde Lin is her PCP and Dr. Neil is her tablet coater. Related Data Home Medications Medication Instructions Recorded Confirmed gabapentin 600 mg PO BEDTIME 12/15/18 08/11/20 losartan 100 mg PO DAILY 12/15/18 08/11/20 pravastatin 40 mg PO DAILY 12/15/18 08/11/20 tamsulosin 0.4 mg PO DAILY 12/15/18 08/11/20 Prolia 60 mg SUBCUT [id number] 12/16/18 08/11/20 multivitamin 1 tab PO DAILY 12/16/18 08/11/20 tizanidine 2 mg PO BEDTIME PRN 12/16/18 08/11/20 Eliquis 5 mg PO BID 02/23/19 08/11/20 amiodarone 200 mg tablet 200 mg PO DAILY 05/19/20 08/11/20 cholecalciferol (vitamin D3) 50 50 mcg PO DAILY 05/19/20 08/11/20 mcg (2,000 unit) capsule furosemide 20 mg tablet 40 mg PO DAILY tab 05/19/20 08/11/20 hydralazine 25 mg tablet 25 mg PO TID 05/19/20 08/11/20 melatonin 5 mg capsule 10 mg PO DAILY cap 05/19/20 08/11/20 spironolactone 25 mg tablet 25 mg PO DAILY 05/19/20 08/11/20 albuterol sulfate [Proventil HFA] 2 puff INHALATION Q4H PRN 08/11/20 08/11/20 fluticasone propion-salmeterol 1 inh INHALATION BID 08/11/20 08/11/20 [Advair Diskus] levothyroxine See Rx Instructions .ROUTE .COMPLEX 08/11/20 08/11/20 megestrol 40 mg PO BID 08/11/20 08/11/20 Previous Rx's Medication Instructions Recorded bisacodyl 10 mg [place] DAILY PRN #10 ea 03/18/19 digoxin 0.125 mg PO DAILY@1700 #30 tab 03/18/19 docusate sodium [DOK] 100 mg PO DAILY #30 cap 03/18/19 magnesium chloride [Slow-Mag] 71.5 mg PO DAILY #30 tab 03/18/19 metoprolol succinate 75 mg PO BID #180 tab 03/18/19 polyethylene glycol 3350 17 gm PO DAILY #1 pkg 03/18/19 potassium chloride 10 meq PO DAILY #30 cap 03/18/19 sennosides [senna] 17.2 mg PO BEDTIME PRN #30 tab 03/18/19 Allergies Allergy/AdvReac Type Severity Reaction Status Date / Time No Known Drug Allergies Allergy Verified 08/11/20 10:31 Review of Systems Review of Systems ROS Unobtainable: All systems reviewed & are unremarkable except as noted in HPI and below Patient History Medical History (Updated 08/11/20 @ 17:50 by Ida Lambert DO) Atrial fibrillation Cardiomyopathy CHF (congestive heart failure) CVA (cerebral vascular accident) 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 Brother No problems noted. Social History household members: none Smoking Status: Former smoker alcohol intake: never substance use type: does not use Smoking Status: Former smoker alcohol intake frequency: a few times a month Substance Use Type: does not use Exam Narrative Exam Narrative: GENERAL: Alert and oriented x three, female in mild distress. HEENT: Head normocephalic, atraumatic, EOMI, pupils reactive, face symmetric, moist mucous membranes NECK: Supple, full range of motion CARDIOVASCULAR: Regular rate and rhythm without murmurs, rubs or gallops. RESPIRATORY: Breath sounds equal bilaterally, no wheezes, rales or rhonchi. No crackles or tachypnea appreciated. Patient did have an albuterol treatment prior to evaluation. ABDOMEN: Soft, nontender. Normoactive bowel sounds all 4 quadrants. No guarding or rebound, rigidity, no mass : No CVA tenderness EXTREMITIES: Decrease use of left upper extremity and lower extremity, + for edema bilateral lower extremities. Neurovascularly intact NEUROLOGICAL: Cranial nerves II through XII grossly intact. Moving all extremities SKIN: Warm, dry, no petechiae, no rashes or lesions. Initial Vital Signs Initial Vital Signs: Vital Signs Temperature 97.4 F L 08/11/20 10:25 Pulse Rate 67 08/11/20 10:25 Respiratory Rate 16 08/11/20 10:25 Blood Pressure 70/51 L 08/11/20 10:25 Pulse Oximetry 96 08/11/20 10:25 Scores GCS Caio coma scale eye opening: Spontaneous Caio coma scale verbal response: Orientated Caio coma scale motor response: Obey commands [place] coma scale total score: 15 Course Orders Ordered: ED Orders 08/11/20 10:28 COVID19 Stat 08/11/20 10:32 XR chest 1V Stat EKG-12 Lead Stat 08/11/20 10:44 Complete Blood Count AUTO DIFF Stat Comprehensive Metabolic Panel Stat Lipase Stat Partial Thromboplastin Time Stat Prothrombin Time INR Stat Thyroid Stimulating Hormone Stat Troponin & CK Cardiac Panel Stat 08/11/20 10:45 Digoxin Stat NT-proBNP (BNP-Adult 18+) Stat 08/11/20 11:20 Urinalysis and Microscopic Stat Urine Culture Stat 08/11/20 12:25 CT kidney ureter bladder (KUB) Stat 08/11/20 15:21 Basic Metabolic Panel Stat Lactate (Lactic Acid) Stat 08/11/20 15:29 Blood Culture Stat 08/11/20 15:36 EC echo doppler complete Stat Acetaminophen (Acetaminophen 325 Mg Tablet) 650 mg PO Q6HR PRN PRN Reason: Fever/Mild Pain (1-3) Amiodarone HCl (Amiodarone 200 Mg Tablet) 200 mg PO DAILY PRISCILA Apixaban (Apixaban 5 Mg Tablet) 2.5 mg PO BID PRISCILA Docusate Sodium (Docusate 100 Mg Capsule) 100 mg PO DAILY PRISCILA Furosemide (Furosemide 100 Mg/10 Ml Vial) 60 mg IV Q12H PRISCILA Gabapentin (Gabapentin 300 Mg Capsule) 600 mg PO BEDTIME PRISCILA Heparin Sodium (Porcine) (Heparin Flush (Cl/Picc/Mid-Line) 50 Unit/5 Ml Syringe) 50 unit IV BID PRISCILA Heparin Sodium (Porcine) (Heparin Flush (Cl/Picc/Mid-Line) 50 Unit/5 Ml Syringe) 50 unit IV PRN PRN PRN Reason: Flush Hydralazine HCl (Hydralazine 25 Mg Tablet) 25 mg PO TID PRISCILA Dopamine HCl/Dextrose (Dopamine 400 Mg-D5w 250 Ml) 400 mg in 250 mls @ 12.332 mls/hr IV TITRATE PRISCILA; Protocol Last Admin: 08/11/20 17:11 Dose: 5.4 mcg/kg/min, 13.33 mls/hr Documented by: CWHITE Levothyroxine Sodium (Levothyroxine 100 Mcg Tablet) 100 mcg PO SuMoWeFrSa@0600 PRISCILA Levothyroxine Sodium (Levothyroxine 50 Mcg Tablet) 50 mcg PO TuTh@0600 PRISCILA Magnesium Chloride (Magnesium Chloride 64 Mg Tablet) 71.5 mg PO DAILY PRISCILA Multivitamins (Multivitamin 1 Tablet) 1 tab PO DAILY PRISCILA Stored In Pharmacy 1 each PO PRN PRN PRN Reason: PER PROTOCOL Ondansetron HCl (Ondansetron 4 Mg/2 Ml Inj) 4 mg IV Q8HR PRN PRN Reason: Nausea And Vomiting Polyethylene Glycol (Polyethylene Glycol 3350 17 Gm Powd.Pack) 17 gm PO DAILY PRISCILA Pravastatin Sodium (Pravastatin 20 Mg Tablet) 40 mg PO DAILY PRISCILA Fluticasone/Salmeterol (Fluticasone/Salmeterol 250/50 60 Puff Diskus) 1 puff INH BID PRISCILA Sennosides (Sennosides 8.6 Mg Tablet) 17.2 mg PO BEDTIME PRN PRN Reason: Constipation Tamsulosin HCl (Tamsulosin 0.4 Mg Capsule) 0.4 mg PO DAILY PRISCILA Vitamin D (Cholecalciferol (Vitamin D3) 1,000 Unit Tablet) 2,000 unit PO DAILY PRISCILA Discontinued Medications Sodium Chloride (Normal Saline 0.9%) 1,000 mls @ 150 mls/hr IV CONT PRISCILA Last Infusion: 08/11/20 17:57 Dose: 0 mls/hr Documented by: Infusion: 08/11/20 16:49 Dose: 150 mls/hr Documented by: Admin: 08/11/20 13:35 Dose: 150 mls/hr Documented by: SHANNAN Piperacillin/Tazobactam/Dextrose (Zosyn) 3.375 gm in 50 mls @ 100 mls/hr IV NOW ONE Stop: 08/11/20 14:43 Last Infusion: 08/11/20 14:58 Dose: 0 mls/hr Documented by: Admin: 08/11/20 14:20 Dose: 100 mls/hr Documented by: SHANNAN Consultations Consultation #1: Spoke with Dr. Genao, concern for hepatorenal syndome. Concerned patient may need diuresis. Would like to consult with cardiology if patient requires milrinone we do not have available. Time: 14:20 Consultation #2: Spoke with Dr. Shahid from cardiology. Patient labs, EKG changes, imaging and old echo available to us shows EF of 20-25%. He does recommend dopamine at a low dose at this time, he does not recommend dobutamine. He does not feel patient requires Milrinone at this time. He would get an echo tomorrow. Vital Signs Vital signs: Vital Signs - 8 hr 08/11/20 10:25 08/11/20 10:26 08/11/20 10:30 Temperature 97.4 F L Pulse Rate 67 76 76 Respiratory Rate 16 25 H Blood Pressure 70/51 L 70/51 L Pulse Oximetry 96 94 94 08/11/20 10:32 08/11/20 11:00 08/11/20 11:01 Temperature Pulse Rate 76 77 77 Respiratory Rate 22 20 19 Blood Pressure 76/54 L 93/54 L Pulse Oximetry 94 95 95 08/11/20 11:30 08/11/20 12:00 08/11/20 12:30 Temperature Pulse Rate 77 78 78 Respiratory Rate 21 26 H Blood Pressure 97/70 97/66 94/64 Pulse Oximetry 96 95 95 08/11/20 13:00 08/11/20 13:32 08/11/20 13:33 Temperature Pulse Rate 78 76 75 Respiratory Rate 18 14 16 Blood Pressure 97/67 94/72 Pulse Oximetry 96 94 93 08/11/20 14:00 08/11/20 14:30 08/11/20 15:00 Temperature Pulse Rate 79 79 80 Respiratory Rate 14 17 Blood Pressure 99/69 106/74 Pulse Oximetry 95 94 91 08/11/20 15:01 08/11/20 15:30 08/11/20 15:31 Temperature Pulse Rate 80 80 79 Respiratory Rate 28 H 24 26 H Blood Pressure 116/60 Pulse Oximetry 91 92 92 08/11/20 15:34 Temperature Pulse Rate 81 Respiratory Rate 27 H Blood Pressure 83/50 L Pulse Oximetry 91 MDM - Weakness Lab Data Attestation: I reviewed the patient's lab results. Result diagrams: 08/11/20 10:44 08/11/20 15:21 Labs: Lab Results 08/11/20 08/11/20 08/11/20 Range/Units 10:28 10:44 10:44 WBC 4.4 L (4.5-11.0) X10^3/uL RBC 2.71 L (4.0-5.2) X10^6/uL Hgb 10.1 L (12.0-16.0) g/dL Hct 31.3 L (36-46) % MCV 115.6 H (80-100) fL MCH 37.3 H (26-34) PG MCHC 32.3 (30-36) % RDW 16.4 H (11.6-14.8) % Plt Count 81 L (150-400) X10^3/uL Neut % (Auto) 73.5 (50-75) % Lymph % (Auto) 16.0 L (25-40) % Nye % (Auto) 8.2 (3-14) % Eos % (Auto) 1.2 L (2-4) % Baso % (Auto) 1.1 (0-2) % Neut # (Auto) 3200 (5144-9325) /uL Lymph # (Auto) 700 L (7113-7325) /uL Nye # (Auto) 400 (0-900) /uL Eos # (Auto) 100 (0-450) /uL Baso # (Auto) 100 (0-100) /uL Plt Morphology Comment RBC Morphology See below Poikilocytosis 1+ H Anisocytosis 2+ H Macrocytosis 2+ H PT 30.7 H (10.1-12.7) SECONDS INR 2.7 H (0.9-1.3) APTT 46 H D (26.4-36.2) SECONDS Sodium (137-145) mmol/L Potassium (3.4-5.1) mmol/L Chloride (98-107) mmol/L Carbon Dioxide (22-32) mmol/L BUN (7-17) mg/dL Creatinine (0.52-1.04) mg/dL Estimated GFR (>60) mL/min BUN/Creatinine Ratio (6-22) Glucose (80-110) mg/dL Lactate (0.7-2.1) mmol/L Calcium (8.4-10.2) mg/dL Total Bilirubin (0.2-1.3) mg/dL AST (14-36) IU/L ALT (<35) IU/L Alkaline Phosphatase (38-126) U/L Total Creatine Kinase (30-135) U/L CK-MB (CK-2) CK-MB (CK-2) Rel Index Troponin I (0.01-0.034) ng/mL NT-Pro-B Natriuret Pep (<450) pg/mL Total Protein (6.3-8.2) g/dL Albumin (3.5-5.0) g/dL Globulin (1.7-4.1) g/dL Albumin/Globulin Ratio (1.0-2.8) Lipase (23-300) U/L TSH (0.47-4.68) uIU/mL Urine Color Urine Appearance Urine pH (4.5-8.0) Ur Specific [place] (1.000-1.035) Urine Protein (Negative) Urine Glucose (UA) (Negative) g/dL Urine Ketones (NEGATIVE) Urine Occult Blood (Negative) Urine Nitrate (Negative) Urine Bilirubin (NEGATIVE) Urine Urobilinogen (0.2) E.U./dL Ur Leukocyte Esterase (NEGATIVE) Urine RBC (0-5/HPF) Urine WBC (0-5/HPF) Urine Bacteria (None) Ur Culture Indicated? Digoxin (0.8-2.0) ng/mL COVID-19 PCR Negative (Negative) 08/11/20 08/11/20 08/11/20 Range/Units 10:44 10:44 10:45 WBC (4.5-11.0) X10^3/uL RBC (4.0-5.2) X10^6/uL Hgb (12.0-16.0) g/dL Hct (36-46) % MCV (80-100) fL MCH (26-34) PG MCHC (30-36) % RDW (11.6-14.8) % Plt Count (150-400) X10^3/uL Neut % (Auto) (50-75) % Lymph % (Auto) (25-40) % Nye % (Auto) (3-14) % Eos % (Auto) (2-4) % Baso % (Auto) (0-2) % Neut # (Auto) (2366-1705) /uL Lymph # (Auto) (1003-2396) /uL Nye # (Auto) (0-900) /uL Eos # (Auto) (0-450) /uL Baso # (Auto) (0-100) /uL Plt Morphology Comment RBC Morphology Poikilocytosis Anisocytosis Macrocytosis PT (10.1-12.7) SECONDS INR (0.9-1.3) APTT (26.4-36.2) SECONDS Sodium 139 (137-145) mmol/L Potassium 5.9 H (3.4-5.1) mmol/L Chloride 106 (98-107) mmol/L Carbon Dioxide 23 (22-32) mmol/L BUN 68 H (7-17) mg/dL Creatinine 3.09 H (0.52-1.04) mg/dL Estimated GFR 14.4 L (>60) mL/min BUN/Creatinine Ratio 22.0 (6-22) Glucose 92 (80-110) mg/dL Lactate (0.7-2.1) mmol/L Calcium 9.7 (8.4-10.2) mg/dL Total Bilirubin 1.1 (0.2-1.3) mg/dL AST 41 H (14-36) IU/L ALT 37 H (<35) IU/L Alkaline Phosphatase 91 (38-126) U/L Total Creatine Kinase 67 (30-135) U/L CK-MB (CK-2) TNP CK-MB (CK-2) Rel Index TNP Troponin I < 0.012 (0.01-0.034) ng/mL NT-Pro-B Natriuret Pep 2800 H (<450) pg/mL Total Protein 7.4 (6.3-8.2) g/dL Albumin 4.4 (3.5-5.0) g/dL Globulin 3.0 (1.7-4.1) g/dL Albumin/Globulin Ratio 1.5 (1.0-2.8) Lipase 99 (23-300) U/L TSH 2.61 (0.47-4.68) uIU/mL Urine Color Urine Appearance Urine pH (4.5-8.0) Ur Specific [place] (1.000-1.035) Urine Protein (Negative) Urine Glucose (UA) (Negative) g/dL Urine Ketones (NEGATIVE) Urine Occult Blood (Negative) Urine Nitrate (Negative) Urine Bilirubin (NEGATIVE) Urine Urobilinogen (0.2) E.U./dL Ur Leukocyte Esterase (NEGATIVE) Urine RBC (0-5/HPF) Urine WBC (0-5/HPF) Urine Bacteria (None) Ur Culture Indicated? Digoxin (0.8-2.0) ng/mL COVID-19 PCR (Negative) 08/11/20 08/11/20 08/11/20 Range/Units 10:45 11:20 15:21 WBC (4.5-11.0) X10^3/uL RBC (4.0-5.2) X10^6/uL Hgb (12.0-16.0) g/dL Hct (36-46) % MCV (80-100) fL MCH (26-34) PG MCHC (30-36) % RDW (11.6-14.8) % Plt Count (150-400) X10^3/uL Neut % (Auto) (50-75) % Lymph % (Auto) (25-40) % Nye % (Auto) (3-14) % Eos % (Auto) (2-4) % Baso % (Auto) (0-2) % Neut # (Auto) (7882-6603) /uL Lymph # (Auto) (3144-9277) /uL Nye # (Auto) (0-900) /uL Eos # (Auto) (0-450) /uL Baso # (Auto) (0-100) /uL Plt Morphology Comment RBC Morphology Poikilocytosis Anisocytosis Macrocytosis PT (10.1-12.7) SECONDS INR (0.9-1.3) APTT (26.4-36.2) SECONDS Sodium (137-145) mmol/L Potassium (3.4-5.1) mmol/L Chloride (98-107) mmol/L Carbon Dioxide (22-32) mmol/L BUN (7-17) mg/dL Creatinine (0.52-1.04) mg/dL Estimated GFR (>60) mL/min BUN/Creatinine Ratio (6-22) Glucose (80-110) mg/dL Lactate 0.8 (0.7-2.1) mmol/L Calcium (8.4-10.2) mg/dL Total Bilirubin (0.2-1.3) mg/dL AST (14-36) IU/L ALT (<35) IU/L Alkaline Phosphatase (38-126) U/L Total Creatine Kinase (30-135) U/L CK-MB (CK-2) CK-MB (CK-2) Rel Index Troponin I (0.01-0.034) ng/mL NT-Pro-B Natriuret Pep (<450) pg/mL Total Protein (6.3-8.2) g/dL Albumin (3.5-5.0) g/dL Globulin (1.7-4.1) g/dL Albumin/Globulin Ratio (1.0-2.8) Lipase (23-300) U/L TSH (0.47-4.68) uIU/mL Urine Color Yellow Urine Appearance Clear Urine pH 6.5 (4.5-8.0) Ur Specific [place] 1.010 (1.000-1.035) Urine Protein 1+ H (Negative) Urine Glucose (UA) Negative (Negative) g/dL Urine Ketones Negative (NEGATIVE) Urine Occult Blood Trace-lysed (Negative) Urine Nitrate Negative (Negative) Urine Bilirubin Negative (NEGATIVE) Urine Urobilinogen 0.2 (0.2) E.U./dL Ur Leukocyte Esterase 2+ H (NEGATIVE) Urine RBC 0-1/hpf (0-5/HPF) Urine WBC 10-30/hpf H (0-5/HPF) Urine Bacteria Moderate (10-30) H (None) Ur Culture Indicated? Specimen cultured Digoxin < 0.4 L (0.8-2.0) ng/mL COVID-19 PCR (Negative) 08/11/20 08/11/20 Range/Units 15:21 15:21 WBC (4.5-11.0) X10^3/uL RBC (4.0-5.2) X10^6/uL Hgb (12.0-16.0) g/dL Hct (36-46) % MCV (80-100) fL MCH (26-34) PG MCHC (30-36) % RDW (11.6-14.8) % Plt Count (150-400) X10^3/uL Neut % (Auto) (50-75) % Lymph % (Auto) (25-40) % Nye % (Auto) (3-14) % Eos % (Auto) (2-4) % Baso % (Auto) (0-2) % Neut # (Auto) (2190-2331) /uL Lymph # (Auto) (7863-2183) /uL Nye # (Auto) (0-900) /uL Eos # (Auto) (0-450) /uL Baso # (Auto) (0-100) /uL Plt Morphology Comment RBC Morphology Poikilocytosis Anisocytosis Macrocytosis PT (10.1-12.7) SECONDS INR (0.9-1.3) APTT (26.4-36.2) SECONDS Sodium 138 (137-145) mmol/L Potassium 5.4 H (3.4-5.1) mmol/L Chloride 106 (98-107) mmol/L Carbon Dioxide 24 (22-32) mmol/L BUN 65 H (7-17) mg/dL Creatinine 3.02 H (0.52-1.04) mg/dL Estimated GFR 14.8 L (>60) mL/min BUN/Creatinine Ratio 21.5 (6-22) Glucose 128 H (80-110) mg/dL Lactate (0.7-2.1) mmol/L Calcium 9.5 (8.4-10.2) mg/dL Total Bilirubin (0.2-1.3) mg/dL AST (14-36) IU/L ALT (<35) IU/L Alkaline Phosphatase (38-126) U/L Total Creatine Kinase (30-135) U/L CK-MB (CK-2) CK-MB (CK-2) Rel Index Troponin I < 0.012 (0.01-0.034) ng/mL NT-Pro-B Natriuret Pep (<450) pg/mL Total Protein (6.3-8.2) g/dL Albumin (3.5-5.0) g/dL Globulin (1.7-4.1) g/dL Albumin/Globulin Ratio (1.0-2.8) Lipase (23-300) U/L TSH (0.47-4.68) uIU/mL Urine Color Urine Appearance Urine pH (4.5-8.0) Ur Specific [place] (1.000-1.035) Urine Protein (Negative) Urine Glucose (UA) (Negative) g/dL Urine Ketones (NEGATIVE) Urine Occult Blood (Negative) Urine Nitrate (Negative) Urine Bilirubin (NEGATIVE) Urine Urobilinogen (0.2) E.U./dL Ur Leukocyte Esterase (NEGATIVE) Urine RBC (0-5/HPF) Urine WBC (0-5/HPF) Urine Bacteria (None) Ur Culture Indicated? Digoxin (0.8-2.0) ng/mL COVID-19 PCR (Negative) Imaging Data Chest x-ray: Radiologist Impression: [address] [id number] ReportSigned Patient: Jacquelyn Whiting BMR#: [id number]: [id number]:[id number]/Sex: 85 / FDate of Service: 08/11/20Loc: EDAccession Number: [id number] Procedure: XR chest 1V Ordering Provider: Ida Lambert D.O. PROCEDURE: XR CHEST 1V INDICATIONS: chest pain TECHNIQUE: One view of the chest was acquired. COMPARISON: [facility], , XR CHEST 1V, 03/12/2020, 16:02. FINDINGS: Surgical changes and devices: Cardiac valve prosthesis. Median sternotomy wires.. Lungs and pleura: Lungs are clear. No pleural effusions or pneumothorax. Mediastinum: Mediastinal contours appear normal. Heart is enlarged. Bones and chest wall: No suspicious bony lesions. Overlying soft tissues appear unremarkable. IMPRESSION: No acute cardiopulmonary disease process. Dictated by: Lexy Gonzalez MD, PhD on 08/11/2020 at 10:56 Approved by: Lexy Gonzalez MD, PhD on 08/11/2020 at 10:57 CT scan - abdomen/pelvis: Radiologist Impression: [address] [id number] Scan ReportSigned Patient: Jacquelyn Whiting BMR#: [id number]: 6Acct:[id number]/Sex: 85 / FDate of Service: 08/11/20Loc: EDAccession Number: [id number] Procedure: CT kidney ureter bladder (KUB) Ordering Provider: Ida Lambert D.O. PROCEDURE: CT KIDNEY URETER BLADDER (KUB) INDICATIONS: weakness, renal failure TECHNIQUE: Noncontrast 5 mm thick sections acquired from the diaphragms to the symphysis. 5 mm thick coronal and sagittal reformats were then performed. For radiation dose reduction, the following was used: automated exposure control, adjustment of mA and/or kV according to patient size. COMPARISON: [facility], , MR ABDOMEN WITH/WITHOUT CONTRAST, 07/09/2020, 9:59. FINDINGS: Image quality: Excellent. Lung bases: Bibasilar dependent atelectasis is seen. No pleural effusion or pneumothorax. Heart size is enlarged, no pericardial effusion. Urinary system: Both kidneys are normal in size. No obstructing kidney stones. No hydronephrosis or perinephric fat stranding. Ill-defined hyperdense areas seen in bilateral kidneys which may represent small hyperdense cysts as noted on previous MRI study. Both ureters appear non-dilated throughout their expected courses. Bladder wall thickness is normal; no calcified bladder stones. Other solid organs: Liver is normal in size. Gallbladder is distended with a calcified stone seen in its dependent portion. There is suggestion of pericholecystic fluid and gallbladder wall thickening.. Pancreas is normal in contours. Spleen is normal in size. No adrenal nodules. Peritoneum and bowel: Unenhanced bowel loops demonstrate normal wall thickness and caliber. No free fluid or air. Mild fecal stasis throughout the colon is seen. Nodes and vessels: No retroperitoneal or mesenteric adenopathy by size criteria. Aorta and inferior vena cava are normal in caliber. Moderate atherosclerotic disease is seen. Abdominal wall: No ventral hernias. Pelvis: No free pelvic fluid. No inguinal hernias or adenopathy. Bones: No suspicious bony lesions. No vertebral body compression fractures. IMPRESSION: 1. Cholelithiasis with gallbladder wall thickening and pericholecystic fluid concerning for acute cholecystitis. Clinical correlation is recommended. 2. No bowel obstruction. No gross abnormal bowel wall thickening. No free fluid or free air. 3. No obstructing renal stone or hydronephrosis. Subtle hyperdensity seen in b ilateral renal parenchyma which may represent renal cysts seen on previous MRI study. Dictated by: Genaro Esparza M.D. on 08/11/2020 at 13:32 Approved by: Genaro Esparza M.D. on 08/11/2020 at 13:45 ECG Data Attestation: I personally reviewed and interpreted this ECG as follows: Prior ECG tracings: available for review Interpretation: AFib, rate of 72, QRS of 178 QTC of 549. Patient has a left bundle branch block which does not appear new compared to prior from 03/12/2020, she does have a left axis deviation. She does appear to have some elevation in the for 5 and 6 which appears different than prior other ST segments appear similar to prior EKGs. MDM Narrative Medical decision making narrative: This is an 85-year-old female who comes with complaint of increasing weakness, feeling more tired and falling asleep more frequently, decreased appetite. Patient appears to be in acute renal failure, she does have some hyperkalemia with potassium of 5.9. Her other electrolytes are in normal range. Patient has decreased white count which appears similar to the last several months, anemia with a hemoglobin of 10 and platelet count of 81. This is a decrease from her prior 135. She does have some new ST change in her lateral leads in 4 or 5 and 6, she does have a known left bundle branch bl ock. Does not appear to meet Sgarbossa criteria. Patient had 150mL out originally out and additional 150mL over the last hour. BNP is elevated at 2800 and patient appears fluid overloaded clinically. CXR is negative. CT shows subtle hyperdensities, patient does have thickening of the gallbladder cholelithiasis and some pericholecystic fluid patient is nontender on exam she has not had any abdominal pain. After discussing with Dr. Genao he suspects this may be secondary to hepatorenal syndrome. Urine shows + leuks and wbc's and moderate bacteria. Discussed with cardiology, Dr. George. He recommends dopamine low dosage, he does not recommend dobutamine. Would not start Milrinone at this time but does recommend echo does not feel it's required emergently but did attempt to contact tech for ECHO. Patient and I had long discussion she does not wish to have dialysis if it became required, she is DNR/DNI she is open to pressors but is unsure if she would want a central line. We were able to obtain a PICC line which she was agreeable too. She did ask if she was a hospice candidate at this time, she did express some interest but is interested in medical treatment at this time. Dr. Genao updated on cardiology findings. Discharge Plan Departure Patient Disposition: Admitted As Inpatient Clinical Impression: Renal failure, Hypotension, Hyperkalemia Admit Date/Time: 08/11/20 15:51 Admit Provider: Teddy Genao
--- NOTE | 2020-08-11 12:25 | DI.CT.S_ITS ---
PROCEDURE: CT KIDNEY URETER BLADDER (KUB) INDICATIONS: weakness, renal failure TECHNIQUE: Noncontrast 5 mm thick sections acquired from the diaphragms to the symphysis. 5 mm thick coronal and sagittal reformats were then performed. For radiation dose reduction, the following was used: automated exposure control, adjustment of mA and/or kV according to patient size. COMPARISON: [facility], MR, MR ABDOMEN WITH/WITHOUT CONTRAST, 07/09/2020, 9:59. FINDINGS: Image quality: Excellent. Lung bases: Bibasilar dependent atelectasis is seen. No pleural effusion or pneumothorax. Heart size is enlarged, no pericardial effusion. Urinary system: Both kidneys are normal in size. No obstructing kidney stones. No hydronephrosis or perinephric fat stranding. Ill-defined hyperdense areas seen in bilateral kidneys which may represent small hyperdense cysts as noted on previous MRI study. Both ureters appear non-dilated throughout their expected courses. Bladder wall thickness is normal; no calcified bladder stones. Other solid organs: Liver is normal in size. Gallbladder is distended with a calcified stone seen in its dependent portion. There is suggestion of pericholecystic fluid and gallbladder wall thickening.. Pancreas is normal in contours. Spleen is normal in size. No adrenal nodules. Peritoneum and bowel: Unenhanced bowel loops demonstrate normal wall thickness and caliber. No free fluid or air. Mild fecal stasis throughout the colon is seen. Nodes and vessels: No retroperitoneal or mesenteric adenopathy by size criteria. Aorta and inferior vena cava are normal in caliber. Moderate atherosclerotic disease is seen. Abdominal wall: No ventral hernias. Pelvis: No free pelvic fluid. No inguinal hernias or adenopathy. Bones: No suspicious bony lesions. No vertebral body compression fractures. IMPRESSION: 1. Cholelithiasis with gallbladder wall thickening and pericholecystic fluid concerning for acute cholecystitis. Clinical correlation is recommended. 2. No bowel obstruction. No gross abnormal bowel wall thickening. No free fluid or free air. 3. No obstructing renal stone or hydronephrosis. Subtle hyperdensity seen in bilateral renal parenchyma which may represent renal cysts seen on previous MRI study. Dictated by: Genaro Esparza M.D. on 08/11/2020 at 13:32 Approved by: Genaro Esparza M.D. on 08/11/2020 at 13:45
--- NOTE | 2020-08-11 12:49 | PC.NURSE ---
Patient here with caregiver from the last 7 years who reports that she has been having increasing generalized weakness. 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 She recently had a fall with no injury. She reports shortness of breath while lying flat and moving around. Has audible wheezing when standing to pivot to the bed. Patient also has swelling to both legs, with slower cap refill in left leg. She reports a decrease in oral intake of food and low appetite as well as a decrease in urine output.
[2020-08-11 13:17] LABS: Thyroid Stimulating Hormone 2.61 uIU/mL (0.47-4.68)
[2020-08-11] MEDS: SODIUM CHLORIDE 0.9% 1,000 ML 150 ML IV (13:35)
[2020-08-11] MEDS: PIPERACILLIN-TAZO 3.375 GM/50 ML FROZ.PIGGY IV (14:20)
[2020-08-11 15:21] LABS: Digoxin < 0.4 ng/mL (0.8-2.0)
--- NOTE | 2020-08-11 15:36 | DI.ECHO.S_ITS ---
[facility] +---------+ [facility] +---------+ : : [address] : : : : [id number] : : : : Phone: [phone]+ Echocardiogram Report + + :Name: СВЕТЛАНА ELENA Study Date: 08/12/2020 Height: 62 in : :[facility] Weight: 145 lb : : Gender: Female BSA: 1.7 m2 : :: 1935 Age: 85 yrs BP: 100/65 mmHg: :Reason For Study: RENAL FAILURE, CARDIOMYOPATHY : :Ordering Physician: : :HOSPITALISTCORNEL Performed By: Cindi Garza : :Referring: BELKIS STOUT : + + Interpretation Summary Left ventricular systolic function is significantly improved, now with an estimated ejection fraction of 50 to 55%, but with a significant dyssynchronous contraction pattern and interventricular septal flattening, consistent with a right ventricular overload condition, but no focal wall motion abnormality. Left ventricular size is normal and smaller compared to the previous echo. There continues to be mild to moderate LVH. Diastolic function cannot be assessed because of the presence of atrial fibrillation. The right ventricle appears to be moderate??severely enlarged with moderately reduced systolic function and appears slightly larger and less dynamic compared to the previous study. Pulmonary artery pressures are challenging to assess in the setting of severe tricuspid regurgitation but is at least 37 mmHg with a CVP in excess of 15 mmHg. There is severe left atrial enlargement but smaller compared to the previous study with severe right atrial enlargement which is progressive. There is mild mitral regurgitation that appears less prominent compared to the previous study. There is severe tricuspid regurgitation and mild to moderate pulmonic valve regurgitation that appear unchanged from the previous exam. There is a bioprosthetic aortic valve that appears to be functioning normally. She was in atrial fibrillation at 65 to 85 bpm during the exam, considerably slower compared to the previous study. Procedure: A two-dimensional transthoracic echocardiogram with color flow and Doppler was performed. The study quality was technically difficult. Comparison is made with the echocardiogram of 03/11/2020. The patient was in atrial fibrillation with heart rates between 66-84 bpm during the exam. Left Ventricle: The left ventricle is normal in size. There is mild-moderate concentric left ventricular hypertrophy. The ejection fraction is estimated to be 50-55%. Left ventricular systolic function is low normal. This is significantly improved compared to the previous study. There is a significant dyssynchronous contraction pattern, consistent with a conduction abnormality. The interventricular septum is flattened, consistent with a right ventricular volume overload condition. There are no focal wall motion abnormalities. Diastolic function could not be accurately assessed due to atrial fibrillation. Right Ventricle: The right ventricle is moderate to severely dilated. Right ventricular systolic function is moderately reduced. This is larger and less dynamic compared to the previous study. Atria: The left atrium is severely dilated. This is smaller compared to the previous study. The right atrium is severely dilated. This is larger compared to the previous study. There is no Doppler evidence for an interatrial shunt. Mitral Valve: There is moderate mitral annular calcification. The mitral valve leaflets are mildly calcified. The mitral valve leaflets appear mildly thickened, but open well. There is mild mitral regurgitation. This is less prominent compared to the previous study. Aortic Valve: There is a prosthetic aortic valve. The prosthetic aortic valve is well-seated. The gradients through the prosthetic aortic valve are within the normal range for this type of valve. The peak aortic velocity is 1.3 m/sec. The peak aortic velocity on the previous exam was 1.0 m/sec. The aortic valve mean gradient is 3 mmHg. No aortic regurgitation is present. Tricuspid Valve: The tricuspid annulus is dilated. There is severe tricuspid regurgitation. This is unchanged compared to the previous study. The right ventricular systolic pressure is estimated to be at least 37 mmHg based on an estimated right atrial pressure of 15 mm Hg. But this is likely an underestimate because of the severe tricuspid regurgitation. Pulmonic Valve: The pulmonic valve is not well visualized. There is mild to moderate pulmonic regurgitation. This is unchanged compared to the previous study. Great Vessels: The ascending aorta is mildly enlarged. The IVC is dilated (diameter is greater than 2.1 cm) and it collapses less than 50% with a sniff. This suggests a high right atrial pressure of 15 mm Hg. Pericardium/ Pleura There is no pericardial effusion. There is no pleural effusion. MMode/2D Measurements & Calculations LVIDd: 3.7 cm LVOT diam: 2.0 cm LVIDs: 2.7 cm asc Aorta Diam: 4.1 cm FS: 27.8 % Ao Arch Diam (Prox Trans): 2.6 cm EPSS: 1.4 cm IVSd: 0.91 cm LVPWd: 0.99 cm LV morris. diameter/BSA (cm/m^2): 2.2 LV sys. diameter/BSA (cm/m^2): 1.6 LA A2 area: 26.9 cm2 RA long axis: 7.3 cm LA A4 area: 33.4 cm2 RA area: 28.2 cm2 LA length (vol): 7.2 cm RA vol: 92.5 ml LA vol: 105.2 ml RA : 55.5 ml/m2 LA vol index: 63.1 ml/m2 IVC diam: 2.7 cm RVD1 (basal): 6.0 cm TAPSE: 1.3 cm Doppler Measurements & Calculations Ao V2 max: 128.9 cm/sec LVOT Max Silviano: 73.7 cm/sec Ao V2 mean: 81.1 cm/sec LV V1 max P.2 mmHg Ao max P.8 mmHg LV V1 VTI: 13.4 cm Ao mean P.1 mmHg SUMAYA(I,D): 2.0 cm2 Ao V2 VTI: 21.8 cm SUMAYA(V,D): 1.8 cm2 sev ratio: 0.61 SUMAYA indexed to BSA (cm^2/m^2): 1.2 MV E max silviano: 130.8 cm/sec TR max silviano: 237.2 cm/sec MV A max silviano: 0.89 cm/sec TR max P.5 mmHg MV E/A: 146.7 PA V2 max: 48.9 cm/sec Med Peak E' Silviano: 6.1 cm/sec PA V2 mean: 27.0 cm/sec E/E' med: 21.5 PA mean P.34 mmHg Lat Peak E' Silviano: 7.4 cm/sec PA pr(Accel): 44.7 mmHg E/E' lat: 17.6 E/e' average: 19.6 MV dec time: 0.23 sec MVA(VTI): 1.7 cm2 MV V2 mean: 74.2 cm/sec SV(LVOT): 42.9 ml MV mean P.9 mmHg MV V2 VTI: 25.8 cm Reading Physician:[id number] AM
--- NOTE | 2020-08-11 15:40 | PC.NURSE ---
Pt bp low, MD aware, pt asymptomatic. PICC line now being placed.
[2020-08-11 15:49] LABS: Lactate (Lactic Acid) 0.8 mmol/L (0.7-2.1)
[2020-08-11 15:50] LABS: BUN Creatinine Ratio 21.5 (6-22); Blood Urea Nitrogen 65 mg/dL (7-17); Calcium 9.5 mg/dL (8.4-10.2); Carbon Dioxide 24 mmol/L (22-32); Chloride 106 mmol/L (98-107); Estimated Glomerular Filt Rate 14.8 mL/min (>60); Glucose 128 mg/dL (80-110); HEMOLYSIS < 15 (0-50); Potassium 5.4 mmol/L (3.4-5.1); Sodium 138 mmol/L (137-145)
--- NOTE | 2020-08-11 16:12 | DI.RAD.S_ITS ---
PROCEDURE: XR CHEST FOR PICC 1V INDICATIONS: PICC PLACEMENT COMPARISON: [facility], , XR CHEST 1V, 08/11/2020, 10:36. FINDINGS: PICC was placed by the intravenous therapy team from the right side. Fluoroscopic spot film demonstrates the tip of PICC projecting to the area of cavoatrial junction. Prior median sternotomy in aortic valve replacement. Cardiomediastinal contours are unchanged. Prominent heart size. No suspicious osseous lesion seen. IMPRESSION: Tip of PICC projects to the area of cavoatrial junction. Dictated by: Andrea Prescott M.D. on 08/11/2020 at 15:30 Approved by: Andrea Prescott M.D. on 08/11/2020 at 15:31
--- NOTE | 2020-08-11 16:44 | PC.NURSE ---
1610: Double lumen PICC line placed and xray confirmed placement for use. Report called to Teddy in ICU. Per MD Dopamine drip okay to be started in ICU as pt is ready to transfer up after PICC placement. Pt vitals remained stable during transport. WAREHOUSE ANALYST notified PICC site oozing and may need dressing change tonight since pt is on blood thinners. Light dressing wrap to site and hemostat disc placed at site.
[2020-08-11] MEDS: DOPAMINE HCL IN DEXTROSE 5 % 400 MG/250 ML PLAST..BAG 13.33 MG IV (17:11)
--- NOTE | 2020-08-11 17:24 | PM.HP.1 ---
History of Present Illness History of Present Illness Date Patient Seen: 08/11/20 Time Patient Seen: 17:24 Chief complaint: Fell yesterday.. Feeling weak Narrative: Jacquelyn Whiting is an 83-year-old female with a past medical history significant for CHFrEF (EF20-25%), hypertension, hyperlipidemia, aortic valve replacement, previous CVA with left upper extremity hemiparesis and left lower extremity weakness who presented to the ED with complaints of worsening weakness over the past week. She states she fell a few days ago, slowly, did not lose consciousness while doing dishes at the sink. She did not hit her head. She has had some worsening lower extremity edema and orthopnea. At baseline she is short of breath with minimal exertion, but now cannot shift in bed without becoming short of breath. Her blood pressures have been low recently as well. She also reports early satiety and poor appetite. She denies any fevers or chills, she has a chronic cough as well as a recent voice change. She felt nauseous when she fell, but denies any vomiting. She has had no chronic nausea over the past week other than that single episode. She denies urinary frequency or dysuria. In the emergency room, patient was hypotensive with a blood pressure of 80/50, but no other remarkable vital signs. She was saturating well on room air. She was not tachypneic. Initial labs showed a pancytopenia with a mild leukocytosis of 4.4, hemoglobin of 10.1, and platelet count of 81. Coagulation studies showed an INR of 2.7. Chemistries showed an initial creatinine of 3.09 with a potassium of 5.7, it appears her baseline creatinine is around 1.8 as of April. AST and ALT were also mildly elevated at 41 and 37 respectively. Troponin was negative. ProBNP was 2800. TSH was unremarkable at 2.61. Urinalysis shows 10-30 leukocytes with moderate bacteria and was sent for cultures. Digoxin level was negative. COVID-19 testing was negative. Chest x-ray showed no acute cardiopulmonary process. CT abdomen and pelvis showed cholelithiasis with gallbladder wall thickening and pericholecystic fluid, however she denies any right upper quadrant pain and it is felt this is more likely secondary to volume overload. Patient History Medical History Atrial fibrillation Cardiomyopathy CHF (congestive heart failure) CVA (cerebral vascular accident) Hemiparesis affecting left side as late effect of stroke Hyperlipidemia Hypertension Hypothyroid Raynauds disease Surgical History History of aortic valve replacement Family & Social History Family History Father Heart attack Skin cancer Cardiovascular disease Mother Congestive heart failure Cardiovascular disease Hypertension Brother No problems noted. Brother No problems noted. Social History: household members none Safety & Behavioral: Feels Safe in Current Yes Environment Been Physically Hurt or No Threatened By a Person Tobacco & Substance use: Tobacco type cigarettes Smoking Status Former smoker alcohol intake never alcohol intake frequency a few times a month Substance Use Type does not use Meds Home Medications and Allergies Home Medications Medication Instructions Recorded Confirmed Type gabapentin 600 mg PO BEDTIME 12/15/18 08/11/20 History pravastatin 40 mg PO DAILY 12/15/18 08/11/20 History tamsulosin 0.4 mg PO DAILY 12/15/18 08/11/20 History Prolia 60 mg SUBCUT [id number] 12/16/18 08/11/20 History multivitamin 1 tab PO DAILY 12/16/18 08/11/20 History tizanidine 2 mg PO BEDTIME PRN 12/16/18 08/11/20 History Eliquis 5 mg PO BID 02/23/19 08/11/20 History bisacodyl 10 mg RI DAILY PRN #10 ea 03/18/19 08/11/20 Rx docusate sodium [DOK] 100 mg PO DAILY #30 cap 03/18/19 08/11/20 Rx magnesium chloride [Slow-Mag] 71.5 mg PO DAILY #30 tab 03/18/19 08/11/20 Rx polyethylene glycol 3350 17 gm PO DAILY #1 pkg 03/18/19 08/11/20 Rx potassium chloride 10 meq PO DAILY #30 cap 03/18/19 08/11/20 Rx sennosides [senna] 17.2 mg PO BEDTIME PRN #30 tab 03/18/19 08/11/20 Rx amiodarone 200 mg tablet 200 mg PO DAILY 05/19/20 08/11/20 History cholecalciferol (vitamin D3) 50 50 mcg PO DAILY 05/19/20 08/11/20 History mcg (2,000 unit) capsule furosemide 20 mg tablet 40 mg PO DAILY tab 05/19/20 08/11/20 History hydralazine 25 mg tablet 25 mg PO QID 05/19/20 08/11/20 History melatonin 5 mg capsule 10 mg PO DAILY cap 05/19/20 08/11/20 History spironolactone 25 mg tablet 25 mg PO DAILY 05/19/20 08/11/20 History albuterol sulfate [Proventil HFA] 2 puff INHALATION Q4H PRN 08/11/20 08/11/20 History fluticasone propion-salmeterol 1 inh INHALATION BID 08/11/20 08/11/20 History [Advair Diskus] levothyroxine See Rx Instructions .ROUTE .COMPLEX 08/11/20 08/11/20 History losartan 25 mg PO BID 08/11/20 08/11/20 History megestrol 80 mg PO BID 08/11/20 08/11/20 History metoprolol succinate 100 mg PO BID 08/11/20 08/11/20 History Allergies Allergy/AdvReac Type Severity Reaction Status Date / Time No Known Drug Allergies Allergy Verified 08/11/20 10:31 Review of Systems Review of Systems Narrative: All other systems reviewed with the patient and are negative unless otherwise stated. Exam Vital Signs (past 8 hours): - 08/11/20 10:25 08/11/20 10:26 08/11/20 10:30 Temperature 97.4 F L Pulse Rate 67 76 76 Respiratory Rate 16 25 H Blood Pressure 70/51 L 70/51 L Pulse Oximetry 96 94 94 08/11/20 10:32 08/11/20 11:00 08/11/20 11:01 Temperature Pulse Rate 76 77 77 Respiratory Rate 22 20 19 Blood Pressure 76/54 L 93/54 L Pulse Oximetry 94 95 95 08/11/20 11:30 08/11/20 12:00 08/11/20 12:30 Temperature Pulse Rate 77 78 78 Respiratory Rate 21 26 H Blood Pressure 97/70 97/66 94/64 Pulse Oximetry 96 95 95 08/11/20 13:00 08/11/20 13:32 08/11/20 13:33 Temperature Pulse Rate 78 76 75 Respiratory Rate 18 14 16 Blood Pressure 97/67 94/72 Pulse Oximetry 96 94 93 08/11/20 14:00 08/11/20 14:30 08/11/20 15:00 Temperature Pulse Rate 79 79 80 Respiratory Rate 14 17 Blood Pressure 99/69 106/74 Pulse Oximetry 95 94 91 08/11/20 15:01 08/11/20 15:30 08/11/20 15:31 Temperature Pulse Rate 80 80 79 Respiratory Rate 28 H 24 26 H Blood Pressure 116/60 Pulse Oximetry 91 92 92 08/11/20 15:34 08/11/20 16:00 08/11/20 16:19 Temperature Pulse Rate 81 82 80 Respiratory Rate 27 H 22 22 Blood Pressure 83/50 L 86/48 L Pulse Oximetry 91 92 93 08/11/20 16:30 08/11/20 16:43 Temperature 97.0 F L Pulse Rate 75 Respiratory Rate 18 Blood Pressure 96/53 L 96/62 Pulse Oximetry 96 Oxygen Delivery Method Room Air Narrative Exam Narrative: GENERAL APPEARANCE: Chronically ill-appearing female in no acute distress, slightly short of breath when speaking in full sentences SKIN: Inspection of the skin reveals no rashes, ulcerations or petechiae. There is mild circumferential erythema of her left lower extremity calf area but no tenderness or warmth. HEENT: Normocephalic atraumatic, extraocular muscles are intact, oropharynx is clear and mucous membranes are moist, neck is supple without adenopathy NECK: Supple and symmetric. There was no thyroid enlargement, and no tenderness, or masses were felt. CHEST: Normal AP diameter and normal contour without any kyphoscoliosis. LUNGS: Auscultation of the lungs revealed minimal bibasilar crackles, no wheezes. CARDIOVASCULAR: There was a regular rate and rhythm without any murmurs, gallops, rubs. Peripheral pulses were 2+ and symmetric. ABDOMEN: Soft and nontender with normal bowel sounds. No ascites was noted. MUSCULOSKELETAL: There was no tenderness or effusions noted. Muscle strength and tone were normal. EXTREMITIES: No cyanosis, clubbing. There is 1 to 2+ pitting edema bilateral lower extremities. NEUROLOGIC: Alert and oriented x 3. Normal affect. Gait was normal. Strength is +5/5 in the Upper Extremities and Lower Extremities Bilaterally. Sensation to touch was normal. Objective ECG Impression: Atrial fibrillation with a controlled rate of 72. Undetermined ventricular conduction delay. Labs Result Diagrams: 08/11/20 10:44 08/11/20 15:21 Labs: Laboratory Results - last 24 hr 08/11/20 08/11/20 08/11/20 10:28 10:44 10:44 WBC 4.4 L RBC 2.71 L Hgb 10.1 L Hct 31.3 L MCV 115.6 H MCH 37.3 H MCHC 32.3 RDW 16.4 H Plt Count 81 L Neut % (Auto) 73.5 Lymph % (Auto) 16.0 L [place] % (Auto) 8.2 Eos % (Auto) 1.2 L Baso % (Auto) 1.1 Neut # (Auto) 3200 Lymph # (Auto) 700 L [place] # (Auto) 400 Eos # (Auto) 100 Baso # (Auto) 100 Plt Morphology Comment RBC Morphology See below Poikilocytosis 1+ H Anisocytosis 2+ H Macrocytosis 2+ H PT 30.7 H INR 2.7 H APTT 46 H D Sodium Potassium Chloride Carbon Dioxide BUN Creatinine Estimated GFR BUN/Creatinine Ratio Glucose Lactate Calcium Total Bilirubin AST ALT Alkaline Phosphatase Total Creatine Kinase CK-MB (CK-2) CK-MB (CK-2) Rel Index Troponin I NT-Pro-B Natriuret Pep Total Protein Albumin Globulin Albumin/Globulin Ratio Lipase TSH Urine Color Urine Appearance Urine pH Ur Specific [place] Urine Protein Urine Glucose (UA) Urine Ketones Urine Occult Blood Urine Nitrate Urine Bilirubin Urine Urobilinogen Ur Leukocyte Esterase Urine RBC Urine WBC Urine Bacteria Ur Culture Indicated? Digoxin COVID-19 PCR Negative 08/11/20 08/11/20 08/11/20 10:44 10:44 10:45 WBC RBC Hgb Hct MCV MCH MCHC RDW Plt Count Neut % (Auto) Lymph % (Auto) [place] % (Auto) Eos % (Auto) Baso % (Auto) Neut # (Auto) Lymph # (Auto) [place] # (Auto) Eos # (Auto) Baso # (Auto) Plt Morphology Comment RBC Morphology Poikilocytosis Anisocytosis Macrocytosis PT INR APTT Sodium 139 Potassium 5.9 H Chloride 106 Carbon Dioxide 23 BUN 68 H Creatinine 3.09 H Estimated GFR 14.4 L BUN/Creatinine Ratio 22.0 Glucose 92 Lactate Calcium 9.7 Total Bilirubin 1.1 AST 41 H ALT 37 H Alkaline Phosphatase 91 Total Creatine Kinase 67 CK-MB (CK-2) TNP CK-MB (CK-2) Rel Index TNP Troponin I < 0.012 NT-Pro-B Natriuret Pep 2800 H Total Protein 7.4 Albumin 4.4 Globulin 3.0 Albumin/Globulin Ratio 1.5 Lipase 99 TSH 2.61 Urine Color Urine Appearance Urine pH Ur Specific [place] Urine Protein Urine Glucose (UA) Urine Ketones Urine Occult Blood Urine Nitrate Urine Bilirubin Urine Urobilinogen Ur Leukocyte Esterase Urine RBC Urine WBC Urine Bacteria Ur Culture Indicated? Digoxin COVID-19 PCR 08/11/20 08/11/20 08/11/20 10:45 11:20 15:21 WBC RBC Hgb Hct MCV MCH MCHC RDW Plt Count Neut % (Auto) Lymph % (Auto) [place] % (Auto) Eos % (Auto) Baso % (Auto) Neut # (Auto) Lymph # (Auto) [place] # (Auto) Eos # (Auto) Baso # (Auto) Plt Morphology Comment RBC Morphology Poikilocytosis Anisocytosis Macrocytosis PT INR APTT Sodium Potassium Chloride Carbon Dioxide BUN Creatinine Estimated GFR BUN/Creatinine Ratio Glucose Lactate 0.8 Calcium Total Bilirubin AST ALT Alkaline Phosphatase Total Creatine Kinase CK-MB (CK-2) CK-MB (CK-2) Rel Index Troponin I NT-Pro-B Natriuret Pep Total Protein Albumin Globulin Albumin/Globulin Ratio Lipase TSH Urine Color Yellow Urine Appearance Clear Urine pH 6.5 Ur Specific [place] 1.010 Urine Protein 1+ H Urine Glucose (UA) Negative Urine Ketones Negative Urine Occult Blood Trace-lysed Urine Nitrate Negative Urine Bilirubin Negative Urine Urobilinogen 0.2 Ur Leukocyte Esterase 2+ H Urine RBC 0-1/hpf Urine WBC 10-30/hpf H Urine Bacteria Moderate (10-30) H Ur Culture Indicated? Specimen cultured Digoxin < 0.4 L COVID-19 PCR 08/11/20 15:21 WBC RBC Hgb Hct MCV MCH MCHC RDW Plt Count Neut % (Auto) Lymph % (Auto) [place] % (Auto) Eos % (Auto) Baso % (Auto) Neut # (Auto) Lymph # (Auto) [place] # (Auto) Eos # (Auto) Baso # (Auto) Plt Morphology Comment RBC Morphology Poikilocytosis Anisocytosis Macrocytosis PT INR APTT Sodium 138 Potassium 5.4 H Chloride 106 Carbon Dioxide 24 BUN 65 H Creatinine 3.02 H Estimated GFR 14.8 L BUN/Creatinine Ratio 21.5 Glucose 128 H Lactate Calcium 9.5 Total Bilirubin AST ALT Alkaline Phosphatase Total Creatine Kinase CK-MB (CK-2) CK-MB (CK-2) Rel Index Troponin I NT-Pro-B Natriuret Pep Total Protein Albumin Globulin Albumin/Globulin Ratio Lipase TSH Urine Color Urine Appearance Urine pH Ur Specific [place] Urine Protein Urine Glucose (UA) Urine Ketones Urine Occult Blood Urine Nitrate Urine Bilirubin Urine Urobilinogen Ur Leukocyte Esterase Urine RBC Urine WBC Urine Bacteria Ur Culture Indicated? Digoxin COVID-19 PCR Assessment & Plan Assessment & Plan narrative: Jacquelyn Whiting is an 83-year-old female with a past medical history significant for CHFrEF (EF20-25%), hypertension, hyperlipidemia, aortic valve replacement, previous CVA with left upper extremity hemiparesis and left lower extremity weakness who presented to the ED with complaints of worsening weakness over the past week. She is admitted with acute on chronic renal failure, concerning for possible low output heart failure / cardiorenal syndrome or cardiogenic shock. 1. Acute on chronic heart failure with reduced ejection fracture with possible cardiogenic shock, present on admission - suspect in the setting of worsening renal failure leading to slight volume overload. Renal failure is likely in the setting of hypoperfusion from her low blood pressures. -have started the patient on dopamine low dose for inotopic assistance of diuresis recommended by cardiology per ER provider, titrated to SBP > 100. Suspect blood pressures will improve once home medications are held. - continue diuresis with 60 mg IV BID - TTE ordered, last EF 20-25%. - CXR with no acute disease, minimal crackles on exam. Fluid overload more apparent with early satiety, bowel edema (Gallbladder with pericholecystic fluid and thickening), and LE edema. -EKG showing controlled atrial fibrillation with an undetermined conduction delay. Troponin is negative on admission, and repeat at 8:00 a.m.. ACS is highly unlikely. Depending on her echocardiogram results she may be a candidate for [facility] [employer]. 2. Acute on chronic kidney failure, CKD IV, present on admission - creatinine 3.09 on admission, suspect due to decreased perfusion from hypotension. 3. Congestive hepatopathy - secondary to volume overload, continue diuresis. 4. Hyperkalemia, acute, present on admission, improved - secondary to acute renal failure, no EKG changes. Improved with increased renal perfusion. 5. asymptomatic bacteruria, present on admission - no antibiotic therapy recommended at this time. 6. Hypothyroidism, chronic - check TSH, continue home levothyroxine. 7. COPD chronic - does not represent an acute exacerbation, continue home medications. 8 HTN, chronic - hold home losartan, hydralazine, and beta leona for now. resume beta leona first, followed by losartan, then hydralazine if blood pressure improves. 9. paroxysmal atrial fibrillation - continue amiodarone, will hold metoprolol. - continue home eliquis, although now at reduced dosing 2.5 mg given renal disease and age. Code: DNR, as discussed with the patient. Dispo: admit to ICU for inotropic assisted diuresis. DVT: on apixaban I spent 35 minutes providing critical care management this patient. This excludes time spent in performing separately billed procedures. Quality VTE Deep Vein Thrombosis/Pulmonary Embolism Present on Admission: No
[2020-08-11 18:09] LABS: Troponin I < 0.012 ng/mL (0.01-0.034)
--- NOTE | 2020-08-11 18:24 | DI.US.S_ITS ---
PROCEDURE: US PERIPH VENOUS LOW EXTREM BI INDICATIONS: RULE OUT DEEP VEIN THROMBOSIS TECHNIQUE: Real-time imaging, as well as color and pulse Doppler interrogation, were performed of the deep veins of both legs from the inguinal ligament to the popliteal fossa. COMPARISON: None. FINDINGS: Right: The common femoral, femoral and popliteal veins are normally compressible, and free of intraluminal thrombus. Color and pulse Doppler demonstrate normal phasic intravascular flow. There is normal augmentation response to distal compression maneuver. Left: The visualized common femoral, femoral and popliteal veins are normally compressible, and free of intraluminal thrombus. Evaluation was limited in the area of a cutaneous dressing at the level of the mid superficial femoral vein. Color and pulse Doppler demonstrate normal phasic intravascular flow. There is normal augmentation response to distal compression maneuver. IMPRESSION: 1. No definite evidence of deep venous thrombosis in the right or left lower extremity. Dictated by: Best Olivas M.D. on 08/12/2020 at 10:12 Approved by: Best Olivas M.D. on 08/12/2020 at 10:19
[2020-08-11] MEDS: ACETAMINOPHEN 325 MG TABLET 650 MG PO (18:32)
[2020-08-11] MEDS: FUROSEMIDE 100 MG/10 ML VIAL 60 MG IV (18:32)
[2020-08-11] MEDS: APIXABAN 5 MG TABLET 2.5 MG PO (20:16)
[2020-08-11] MEDS: FLUTICASONE/SALMETEROL 250/50 60 PUFF DISKUS INH (20:18)
[2020-08-11] MEDS: GABAPENTIN 300 MG CAPSULE 600 MG PO (20:18)
[2020-08-11] MEDS: DOPAMINE HCL IN DEXTROSE 5 % 400 MG/250 ML PLAST..BAG 12.332 MG IV (21:52)
[2020-08-11] MEDS: DOPAMINE HCL IN DEXTROSE 5 % 400 MG/250 ML PLAST..BAG 13.313 MG IV (21:53)
--- NOTE | 2020-08-11 22:23 | PC.NURSE ---
Shift Note: Pt admitted to 226 per stretcher from ED at 16:30. PICC line to R upper arm oozing BRB, pt on thinners. Pressure dressing applied. Pt placed on Dopamine drip @ 5mcg/kg/min per order and ordered to titrate to keep SBP >100. Has not tolerated less than 5mcg/kg/min.. Currently BP 106/69. Urine output increased during the shift to >50ml/hr. Lasix given as ordered.
[2020-08-12] VITALS (43 sets, daily range): BP systolic 77–126; BP diastolic 45–85; PULSE 64–80; RESP 14–27; TEMP 35.9–36.9; O2SAT 86–98
[2020-08-12] MEDS: FUROSEMIDE 100 MG/10 ML VIAL 60 MG IV (06:00)
[2020-08-12] MEDS: LEVOTHYROXINE 50 MCG TABLET PO (06:00)
[2020-08-12 06:04] LABS: Basophils Absolute Auto 100 /uL (0-100); Basophils Percent Auto 1.3 % (0-2); Eosinophils Absolute Auto 100 /uL (0-450); Eosinophils Percent Auto 1.3 % (2-4); Hematocrit 32.3 % (36-46); Hemoglobin 10.5 g/dL (12.0-16.0); Lymphocytes Absolute Auto 800 /uL (1100-4500); Lymphocytes Percent Auto 13.7 % (25-40); Mean Corpuscular HGB Conc 32.4 % (30-36); Mean Corpuscular Volume 114.2 fL (80-100); Monocytes Absolute Auto 800 /uL (0-900); Neutrophils Absolute Auto 4100 /uL (1500-7000); Neutrophils Percent Auto 70.7 % (50-75); Platelet Count 102 X10^3/uL (150-400); Red Blood Cell Count 2.83 X10^6/uL (4.0-5.2); Red Cell Distribution Width 15.6 % (11.6-14.8); White Blood Cell Count 5.8 X10^3/uL (4.5-11.0)
[2020-08-12 06:05] LABS: Add Manual Diff / Slide Review SLIDE REVIEW
[2020-08-12 06:19] LABS: Alanine Aminotransferase 40 IU/L (<35); Albumin 4.3 g/dL (3.5-5.0); Albumin Globulin Ratio 1.4 (1.0-2.8); Alkaline Phosphatase 95 U/L (38-126); Aspartate Aminotransferase 45 IU/L (14-36); BUN Creatinine Ratio 20.5 (6-22); Bilirubin Total 1.6 mg/dL (0.2-1.3); Bilirubin Unconjugated 1.4 mg/dL (0.0-1.1); Blood Urea Nitrogen 65 mg/dL (7-17); Calcium 10.2 mg/dL (8.4-10.2); Carbon Dioxide 27 mmol/L (22-32); Chloride 104 mmol/L (98-107); Globulin 3.1 g/dL (1.7-4.1); Glucose 105 mg/dL (80-110); HEMOLYSIS < 15 (0-50); Magnesium 2.7 mg/dL (1.6-2.3); Sodium 139 mmol/L (137-145); Total Protein 7.4 g/dL (6.3-8.2)
[2020-08-12 06:24] LABS: Potassium 5.8 mmol/L (3.4-5.1)
[2020-08-12 06:36] LABS: Macrocytosis 2+; Platelet Estimate Decreased on smear
[2020-08-12 06:52] LABS: TSH w/ Reflex to FT4 0.81 uIU/mL (0.47-4.68)
[2020-08-12] MEDS: TAMSULOSIN 0.4 MG CAPSULE PO (09:45)
[2020-08-12] MEDS: APIXABAN 5 MG TABLET 2.5 MG PO ×2 (09:45→20:45)
[2020-08-12] MEDS: CHOLECALCIFEROL (VITAMIN D3) 1,000 UNIT TABLET 2000 UNIT PO (09:46)
[2020-08-12] MEDS: DOCUSATE 100 MG CAPSULE PO (09:46)
[2020-08-12] MEDS: polyethylene glycoL 3350 17 GM POWD.PACK PO (09:47)
[2020-08-12] MEDS: AMIODARONE 200 MG TABLET PO (09:47)
[2020-08-12] MEDS: MULTIVITAMIN 1 TABLET 1 TAB PO (09:47)
--- NOTE | 2020-08-12 10:39 | P.CONS_ITS ---
History of Present Illness Consult details Date Patient Seen: 08/12/20 Time Patient Seen: 10:40 Chief complaint: Fell yesterday.. Feeling weak Reason for consult: CHF and hypotension Requesting provider: Teddy Genao Narrative: The patient is an 85-year-old female with a long history of hypertensive cardiomyopathy, paroxysmal atrial fibrillation with a stroke in 2012 with an echocardiogram suggesting severe aortic stenosis and asymmetric septal hypertrophy. She was evaluated by Dr. Rios and underwent cardiac catheterization in October 2013 showing mild luminal irregularities but only at 20 to 30% lesion in the distal RCA and otherwise no significant CAD. Pulmonary artery pressure at that time was 44/27 with a CVP of 13 and a wedge pressure of 17. She subsequently underwent bioprosthetic AVR and septal myomectomy with surgical cryoablation and left atrial appendage excision by Dr. alis muhammad in December 2013. An echocardiogram in August 2018 showed an EF of 60 to 65% with moderate LVH with evidence of increased filling pressures were normal right ventricle with a right ventricular systolic pressure of 32 mm Hg with a CVP of 3 mm Hg with severe left atrial and moderate right atrial enlargement with mild mitral and [id number] tricuspid regurgitation and a normally functioning bioprosthetic aortic valve. She was in sinus bradycardia 50 to 60 B p.m. at that time. However, she was admitted in November 2018 with dyspnea and found to be in rapid atrial fibrillation at 145 bpm with LBBB. BUN was 20 with a creatinine of 0.9. She was diuresed and started on metoprolol 25 mg b.i.d. and Eliquis. She saw Dr. Neil in consultation on 12/24/2018 and remained in atrial fibrillation. A subsequent Zio monitor from January showed continuous atrial fibrillation with an average heart rate of 114 beats per minute and a Toprol was increased from 12.5 mg to 25 mg b.i.d.. She complained of increased edema and dyspnea in a retro below was incrementally increased and she was started on furosemide 20 mg daily. A Zio monitor in February 2019 again showed an average heart rate of 117 BP mm occur below was further increased to 50 mg b.i.d.. She was admitted to [facility] in February 2019 with increased dyspnea and pedal edema and echocardiogram now showed EF of 20 to 25% with global hypokinesis and right ventricular enlargement with moderate dysfunction with right ventricular systolic pressure of 46 mm Hg and a CVP of 15 mm Hg with moderate mitral and moderately severe tricuspid regurgitation was in atrial fibrillation at 100 ppm. Her TSH was elevated at 12. She was diuresed and her metoprolol was increased to 75 mg b.i.d. and she was started on digoxin. A chest CT suggested a right upper lobe nodule, concerning for possible malignancy and continued monitoring was recommended. She saw Dr. Neil in follow-up and her digoxin was stopped. His Zio monitor again showed an average heart rate of 111 DPM intervertebral lows increased to 100 mg b.i.d.. Have follow-up with Dr. Neil in June 2019 baldemar she described feeling improved but continued to be predominantly in her wheelchair because of her previous stroke and had a heart rate of 92 beats per minute. Her echocardiogram from July 2019 now showed an EF of 35 to 40% with mild right ventricular enlargement, moderate right ventricular hypokinesis and moderately severe tricuspid regurgitation with a normal functioning bioprosthetic aortic valve. She was in atrial fibrillation at 90 to 110 BP I am. She was found to have postmenopausal bleeding and was felt to be high surgical risk. She was seen at [facility] ED on 03/12/2020 with increasing dyspnea after stopping her furosemide because of low blood pressure and had a BUN of 32 with a creatinine of 1.3 but a normal troponin. Her echocardiogram continued to show an EF of 35 to 40% with moderate right ventricular enlargement and moderately severe reduced function now with a right ventricular systolic pressure of 55/15 with severe tricuspid regurgitation. She was again in atrial fibrillation at 110 beats per minute and her furosemide 20 mg daily was restarted. She saw Dr. Neil in follow-up and continued to have a heart rate of 114 beats per minute with evidence of volume overload and her furosemide was increased 40 mg daily and she was started on amiodarone, presumably for heart rate control. At her follow-up on 04/22/2020, she reported that her metoprolol has been reduced from 100 mg b.i.d. to 100 mg daily because of hypotension. She continued to note exertional dyspnea and was felt that her cardiomyopathy was likely secondary to LBBB or a tachycardia mediated cardiomyopathy. She most recently saw Dr. eNil on 07/14/2020 with a heart rate of 64 beats per minute but a BP of 80/54 but was reportedly asymptomatic her medications were left unchanged. She was admitted yesterday with progressive weakness and falls over the last several weeks and she reported worsening exertional dyspnea and was noted to be hypotensive with a blood pressure of 80/50, now with acute renal failure with a BUN of 65 and creatinine is 3.1 and a potassium of 5.7. She has mildly elevated LFTs but a normal TSH. Her heart rate was in the 70s. She subsequently started on dopamine and her blood pressure medications have been held. She reports feeling unchanged this morning. She continues to have exertional dyspnea but denies any resting dyspnea or orthopnea. She describes worsening pedal edema although the patient is somewhat confused. She reports reduced urination. She reports home blood pressures in the 50s. She has had no chest discomfort or lightheadedness. Review of systems is unobtainable because the patient is fairly confused. Past medical history of also notable for obstructive sleep apnea and history of AVR. Meds Home Medications and Allergies Home Medications Medication Instructions Recorded Confirmed Type gabapentin 600 mg PO BEDTIME 12/15/18 08/11/20 History pravastatin 40 mg PO DAILY 12/15/18 08/11/20 History tamsulosin 0.4 mg PO DAILY 12/15/18 08/11/20 History Prolia 60 mg SUBCUT [id number] 12/16/18 08/11/20 History multivitamin 1 tab PO DAILY 12/16/18 08/11/20 History tizanidine 2 mg PO BEDTIME PRN 12/16/18 08/11/20 History Eliquis 5 mg PO BID 02/23/19 08/11/20 History bisacodyl 10 mg AR DAILY PRN #10 ea 03/18/19 08/11/20 Rx docusate sodium [DOK] 100 mg PO DAILY #30 cap 03/18/19 08/11/20 Rx magnesium chloride [Slow-Mag] 71.5 mg PO DAILY #30 tab 03/18/19 08/11/20 Rx polyethylene glycol 3350 17 gm PO DAILY #1 pkg 03/18/19 08/11/20 Rx potassium chloride 10 meq PO DAILY #30 cap 03/18/19 08/11/20 Rx sennosides [senna] 17.2 mg PO BEDTIME PRN #30 tab 03/18/19 08/11/20 Rx amiodarone 200 mg tablet 200 mg PO DAILY 05/19/20 08/11/20 History cholecalciferol (vitamin D3) 50 50 mcg PO DAILY 05/19/20 08/11/20 History mcg (2,000 unit) capsule furosemide 20 mg tablet 40 mg PO DAILY tab 05/19/20 08/11/20 History hydralazine 25 mg tablet 25 mg PO QID 05/19/20 08/11/20 History melatonin 5 mg capsule 10 mg PO DAILY cap 05/19/20 08/11/20 History spironolactone 25 mg tablet 25 mg PO DAILY 05/19/20 08/11/20 History albuterol sulfate [Proventil HFA] 2 puff INHALATION Q4H PRN 08/11/20 08/11/20 History fluticasone propion-salmeterol 1 inh INHALATION BID 08/11/20 08/11/20 History [Advair Diskus] levothyroxine See Rx Instructions .ROUTE .COMPLEX 08/11/20 08/11/20 History losartan 25 mg PO BID 08/11/20 08/11/20 History megestrol 80 mg PO BID 08/11/20 08/11/20 History metoprolol succinate 100 mg PO BID 08/11/20 08/11/20 History Allergies Allergy/AdvReac Type Severity Reaction Status Date / Time No Known Drug Allergies Allergy Verified 08/11/20 10:31 Exam Vital Signs (past 8 hours): - 08/12/20 03:00 08/12/20 03:53 08/12/20 03:55 Temperature 97.3 F L Pulse Rate 79 80 Respiratory Rate 19 20 Blood Pressure 112/70 112/70 Pulse Oximetry 95 95 08/12/20 08:00 Temperature 97.8 F Pulse Rate 71 Respiratory Rate 16 Blood Pressure 107/60 Pulse Oximetry 95 Oxygen Delivery Method Room Air Oxygen Flow Rate 0 Narrative Exam Narrative: Physical exam: General: Frail appearing elderly female with a expressive aphasia but also appears to be somewhat confused but in no acute distress. Skin: Warm and dry. HEENT: EOMI. She has mild arcus senilis. Lungs: Clear laterally to auscultation. CV: Nonpalpable PMI with an irregularly irregular rhythm but controlled rate with a soft S1 and a prominent S2 with a 2/6 systolic ejection murmur. JVP is difficult to assess but is likely 89 cm. Abdomen: Mildly obese but nondistended nontender. Extremities: Left arm and leg have contractures and are paretic. Only trace pedal edema. Neuro: She has left-sided paresis. Psych: Awake and alert but appears to be somewhat confused Objective Labs Result Diagrams: 08/12/20 05:55 08/12/20 05:55 Labs: Laboratory Results - last 24 hr 08/11/20 08/11/20 08/11/20 10:28 10:44 10:44 WBC 4.4 L RBC 2.71 L Hgb 10.1 L Hct 31.3 L MCV 115.6 H MCH 37.3 H MCHC 32.3 RDW 16.4 H Plt Count 81 L Neut % (Auto) 73.5 Lymph % (Auto) 16.0 L [place] % (Auto) 8.2 Eos % (Auto) 1.2 L Baso % (Auto) 1.1 Neut # (Auto) 3200 Lymph # (Auto) 700 L [place] # (Auto) 400 Eos # (Auto) 100 Baso # (Auto) 100 Platelet Estimate Plt Morphology Comment RBC Morphology See below Poikilocytosis 1+ H Anisocytosis 2+ H Macrocytosis 2+ H PT 30.7 H INR 2.7 H APTT 46 H D Sodium Potassium Chloride Carbon Dioxide BUN Creatinine Estimated GFR BUN/Creatinine Ratio Glucose Lactate Calcium Magnesium Total Bilirubin Conjugated Bilirubin Unconjugated Bilirubin AST ALT Alkaline Phosphatase Total Creatine Kinase CK-MB (CK-2) CK-MB (CK-2) Rel Index Troponin I NT-Pro-B Natriuret Pep Total Protein Albumin Globulin Albumin/Globulin Ratio Lipase TSH Urine Color Urine Appearance Urine pH Ur Specific [place] Urine Protein Urine Glucose (UA) Urine Ketones Urine Occult Blood Urine Nitrate Urine Bilirubin Urine Urobilinogen Ur Leukocyte Esterase Urine RBC Urine WBC Urine Bacteria Ur Culture Indicated? Nasal Screen MRSA (PCR) Digoxin COVID-19 PCR Negative 08/11/20 08/11/20 08/11/20 10:44 10:44 10:45 WBC RBC Hgb Hct MCV MCH MCHC RDW Plt Count Neut % (Auto) Lymph % (Auto) [place] % (Auto) Eos % (Auto) Baso % (Auto) Neut # (Auto) Lymph # (Auto) [place] # (Auto) Eos # (Auto) Baso # (Auto) Platelet Estimate Plt Morphology Comment RBC Morphology Poikilocytosis Anisocytosis Macrocytosis PT INR APTT Sodium 139 Potassium 5.9 H Chloride 106 Carbon Dioxide 23 BUN 68 H Creatinine 3.09 H Estimated GFR 14.4 L BUN/Creatinine Ratio 22.0 Glucose 92 Lactate Calcium 9.7 Magnesium Total Bilirubin 1.1 Conjugated Bilirubin Unconjugated Bilirubin AST 41 H ALT 37 H Alkaline Phosphatase 91 Total Creatine Kinase 67 CK-MB (CK-2) TNP CK-MB (CK-2) Rel Index TNP Troponin I < 0.012 NT-Pro-B Natriuret Pep 2800 H Total Protein 7.4 Albumin 4.4 Globulin 3.0 Albumin/Globulin Ratio 1.5 Lipase 99 TSH 2.61 Urine Color Urine Appearance Urine pH Ur Specific [place] Urine Protein Urine Glucose (UA) Urine Ketones Urine Occult Blood Urine Nitrate Urine Bilirubin Urine Urobilinogen Ur Leukocyte Esterase Urine RBC Urine WBC Urine Bacteria Ur Culture Indicated? Nasal Screen MRSA (PCR) Digoxin COVID-19 PCR 08/11/20 08/11/20 08/11/20 10:45 11:20 15:21 WBC RBC Hgb Hct MCV MCH MCHC RDW Plt Count Neut % (Auto) Lymph % (Auto) [place] % (Auto) Eos % (Auto) Baso % (Auto) Neut # (Auto) Lymph # (Auto) [place] # (Auto) Eos # (Auto) Baso # (Auto) Platelet Estimate Plt Morphology Comment RBC Morphology Poikilocytosis Anisocytosis Macrocytosis PT INR APTT Sodium Potassium Chloride Carbon Dioxide BUN Creatinine Estimated GFR BUN/Creatinine Ratio Glucose Lactate 0.8 Calcium Magnesium Total Bilirubin Conjugated Bilirubin Unconjugated Bilirubin AST ALT Alkaline Phosphatase Total Creatine Kinase CK-MB (CK-2) CK-MB (CK-2) Rel Index Troponin I NT-Pro-B Natriuret Pep Total Protein Albumin Globulin Albumin/Globulin Ratio Lipase TSH Urine Color Yellow Urine Appearance Clear Urine pH 6.5 Ur Specific [place] 1.010 Urine Protein 1+ H Urine Glucose (UA) Negative Urine Ketones Negative Urine Occult Blood Trace-lysed Urine Nitrate Negative Urine Bilirubin Negative Urine Urobilinogen 0.2 Ur Leukocyte Esterase 2+ H Urine RBC 0-1/hpf Urine WBC 10-30/hpf H Urine Bacteria Moderate (10-30) H Ur Culture Indicated? Specimen cultured Nasal Screen MRSA (PCR) Digoxin < 0.4 L COVID-19 PCR 08/11/20 08/11/20 08/11/20 15:21 15:21 16:45 WBC RBC Hgb Hct MCV MCH MCHC RDW Plt Count Neut % (Auto) Lymph % (Auto) [place] % (Auto) Eos % (Auto) Baso % (Auto) Neut # (Auto) Lymph # (Auto) [place] # (Auto) Eos # (Auto) Baso # (Auto) Platelet Estimate Plt Morphology Comment RBC Morphology Poikilocytosis Anisocytosis Macrocytosis PT INR APTT Sodium 138 Potassium 5.4 H Chloride 106 Carbon Dioxide 24 BUN 65 H Creatinine 3.02 H Estimated GFR 14.8 L BUN/Creatinine Ratio 21.5 Glucose 128 H Lactate Calcium 9.5 Magnesium Total Bilirubin Conjugated Bilirubin Unconjugated Bilirubin AST ALT Alkaline Phosphatase Total Creatine Kinase CK-MB (CK-2) CK-MB (CK-2) Rel Index Troponin I < 0.012 NT-Pro-B Natriuret Pep Total Protein Albumin Globulin Albumin/Globulin Ratio Lipase TSH Urine Color Urine Appearance Urine pH Ur Specific [place] Urine Protein Urine Glucose (UA) Urine Ketones Urine Occult Blood Urine Nitrate Urine Bilirubin Urine Urobilinogen Ur Leukocyte Esterase Urine RBC Urine WBC Urine Bacteria Ur Culture Indicated? Nasal Screen MRSA (PCR) Negative for mrsa Digoxin COVID-19 PCR 08/12/20 08/12/20 08/12/20 05:55 05:55 05:55 WBC 5.8 RBC 2.83 L Hgb 10.5 L Hct 32.3 L MCV 114.2 H MCH 37.0 H MCHC 32.4 RDW 15.6 H Plt Count 102 L Neut % (Auto) 70.7 Lymph % (Auto) 13.7 L [place] % (Auto) 13.0 Eos % (Auto) 1.3 L Baso % (Auto) 1.3 Neut # (Auto) 4100 Lymph # (Auto) 800 L [place] # (Auto) 800 Eos # (Auto) 100 Baso # (Auto) 100 Platelet Estimate Decreased on smear Plt Morphology Comment 1+ large platelets RBC Morphology See below Poikilocytosis Anisocytosis Macrocytosis 2+ H PT INR APTT Sodium 139 Potassium 5.8 H Chloride 104 Carbon Dioxide 27 BUN 65 H Creatinine 3.17 H Estimated GFR 14.0 L BUN/Creatinine Ratio 20.5 Glucose 105 Lactate Calcium 10.2 Magnesium 2.7 H Total Bilirubin 1.6 H Conjugated Bilirubin 0.0 Unconjugated Bilirubin 1.4 H AST 45 H ALT 40 H Alkaline Phosphatase 95 Total Creatine Kinase CK-MB (CK-2) CK-MB (CK-2) Rel Index Troponin I NT-Pro-B Natriuret Pep Total Protein 7.4 Albumin 4.3 Globulin 3.1 Albumin/Globulin Ratio 1.4 Lipase TSH 0.81 Urine Color Urine Appearance Urine pH Ur Specific [place] Urine Protein Urine Glucose (UA) Urine Ketones Urine Occult Blood Urine Nitrate Urine Bilirubin Urine Urobilinogen Ur Leukocyte Esterase Urine RBC Urine WBC Urine Bacteria Ur Culture Indicated? Nasal Screen MRSA (PCR) Digoxin COVID-19 PCR Assessment & Plan Assessment & Plan narrative: Her echocardiogram is personally reviewed and now shows an ejection fraction of around 50 to 55% with a significant dyssynchronous contraction pattern but no focal wall motion abnormality. She has mild to moderate LVH with normal left ventricular size. There is moderate to severe right ventricular enlargement with mildly reduced function and evidence of a right ventricular volume overload condition with severe tricuspid regurgitation that appears unchanged. Right ventricular systolic pressure cannot be accurately assessed but CVP is likely in excess of 15 mmHg. She has mild tricuspid regurgitation and a normally functioning bioprosthetic aortic valve and mild to moderate pulmonic valve regurgitation. ASSESSMENT 1. Hypotension with acute renal insufficiency. I suspect this is multifactorial but may include her multiple blood pressure lowering medications. I do not see significant left ventricular systolic function as a potential cause for cardiogenic shock but she certainly does have right ventricular failure from an unclear cause. I suspect that her renal failure is secondary to her low blood pressure in conjunction with high central venous pressure, reducing her filt ration gradient. At this point, she clearly is volume overloaded and would continue with gentle diuresis while supporting her blood pressure as you are doing with dopamine. I would not pursue aggressive afterload reduction as her left ventricular systolic function has now significantly improved with adequate rate control. For rate control, I would use metoprolol as needed, augmented with digoxin, but with close observation of her digoxin level and renal function. I would stop amiodarone out of a concern that some of her pulmonary hypertension and right ventricular failure could reflect pulmonary toxicity from her amiodarone and it is simply being used for rate control. 2. Chronic atrial fibrillation with challenging heart rate control. If she continues to have significant difficulty with controlling her rate, and AV jason ablation with pacemaker implantation could be considered. 3. Right ventricular failure with severe tricuspid regurgitation. As above, etiology is unclear but I would try to simplify her medications as much as possible and eliminate amiodarone. She has reported history of obstructive sleep apnea which could be contributing and further evaluation could be con sidered. There is limited interventions available for significant tricuspid regurgitation with the exception of trying to minimize volume overload. While a tricuspid valve clip procedure could be considered, she is a relatively poor interventional candidate but this can be discussed further with Dr. Neil as an outpatient. 4. Status post bioprosthetic aortic valve replacement. Appears to be fu nctioning normally. 5. History of hypothyroidism. Appears to be adequately replaced. RECOMMENDATIONS: 1. Continue gentle diuresis while supporting her blood pressure with dopamine. 2. Gently add back metoprolol as needed for rate control. If additional rate control is needed, consider using digoxin. 3. Stop amiodarone and hold hydralazine and spironolactone unless she develops hypertension. 4. Follow-up with Dr. Neil as an outpatient. If her atrial fibrillation is challenging to control, consider AV jason ablation and pacemaker therapy. At this point, I will sign off. Please call if you have any further questions or concerns. I spent spent 95 minutes reviewing the patient's medical record, interviewed and examined the patient and documenting. Time Spent With Patient Time with patient: Greater than 35 minutes
[2020-08-12] MEDS: FLUTICASONE/SALMETEROL 250/50 60 PUFF DISKUS INH ×2 (11:45→20:10)
--- NOTE | 2020-08-12 12:32 | PM.PN.1 ---
Subjective Subjective Date Patient Seen: 08/12/20 Time Patient Seen: 14:31 Interval history: Jacquelyn Whiting is an 83-year-old female with a past medical history significant for CHFrEF (EF20-25%), hypertension, hyperlipidemia, aortic valve replacement, previous CVA with left upper extremity hemiparesis and left lower extremity weakness who presented to the ED with complaints of worsening weakness over the past week. She is admitted with acute on chronic renal failure likely secondary to hypotension and acute right heart failure. Continuing today with pressure supported diuresis with dopamine and furosemide. Exam Vital Signs (past 8 hours): - 08/12/20 08:00 08/12/20 09:00 08/12/20 11:51 Temperature 97.8 F Pulse Rate 71 66 Respiratory Rate 16 16 Blood Pressure 107/60 Pulse Oximetry 95 96 96 Oxygen Delivery Method Room Air Oxygen Flow Rate 0 Narrative Exam Narrative: GENERAL APPEARANCE: Chronically ill-appearing female in no acute distress, slightly short of breath when speaking in full sentences SKIN: Inspection of the skin reveals no rashes, ulcerations or petechiae. HEENT: Normocephalic atraumatic, extraocular muscles are intact, oropharynx is clear and mucous membranes are moist, neck is supple without adenopathy NECK: Supple and symmetric. There was no thyroid enlargement, and no tenderness, or masses were felt. CHEST: Normal AP diameter and normal contour without any kyphoscoliosis. LUNGS: Auscultation of the lungs revealed no wheezes, rhonchi, or rales. CARDIOVASCULAR: There was a regular rate and rhythm without any murmurs, gallops, rubs. Peripheral pulses were 2+ and symmetric. ABDOMEN: Soft and nontender with normal bowel sounds. No ascites was noted. MUSCULOSKELETAL: There was no tenderness or effusions noted. Muscle strength and tone were normal. EXTREMITIES: No cyanosis, clubbing. There is now minimal to trace pitting edema of bilateral lower extremities NEUROLOGIC: slightly more lethargic today, weaker L side compared to right, alert and oriented to name and date. impaired short term memory. Objective Labs Result Diagrams: 08/12/20 05:55 08/12/20 05:55 Labs: Laboratory Results - last 24 hr 08/11/20 08/11/20 08/11/20 10:44 10:45 15:21 WBC RBC Hgb Hct MCV MCH MCHC RDW Plt Count Neut % (Auto) Lymph % (Auto) [place] % (Auto) Eos % (Auto) Baso % (Auto) Neut # (Auto) Lymph # (Auto) [place] # (Auto) Eos # (Auto) Baso # (Auto) Platelet Estimate Plt Morphology Comment RBC Morphology Macrocytosis Sodium Potassium Chloride Carbon Dioxide BUN Creatinine Estimated GFR BUN/Creatinine Ratio Glucose Lactate 0.8 Calcium Magnesium Total Bilirubin Conjugated Bilirubin Unconjugated Bilirubin AST ALT Alkaline Phosphatase Troponin I Total Protein Albumin Globulin Albumin/Globulin Ratio TSH 2.61 Nasal Screen MRSA (PCR) Digoxin < 0.4 L 08/11/20 08/11/20 08/11/20 15:21 15:21 16:45 WBC RBC Hgb Hct MCV MCH MCHC RDW Plt Count Neut % (Auto) Lymph % (Auto) [place] % (Auto) Eos % (Auto) Baso % (Auto) Neut # (Auto) Lymph # (Auto) [place] # (Auto) Eos # (Auto) Baso # (Auto) Platelet Estimate Plt Morphology Comment RBC Morphology Macrocytosis Sodium 138 Potassium 5.4 H Chloride 106 Carbon Dioxide 24 BUN 65 H Creatinine 3.02 H Estimated GFR 14.8 L BUN/Creatinine Ratio 21.5 Glucose 128 H Lactate Calcium 9.5 Magnesium Total Bilirubin Conjugated Bilirubin Unconjugated Bilirubin AST ALT Alkaline Phosphatase Troponin I < 0.012 Total Protein Albumin Globulin Albumin/Globulin Ratio TSH Nasal Screen MRSA (PCR) Negative for mrsa Digoxin 08/12/20 08/12/20 08/12/20 05:55 05:55 05:55 WBC 5.8 RBC 2.83 L Hgb 10.5 L Hct 32.3 L MCV 114.2 H MCH 37.0 H MCHC 32.4 RDW 15.6 H Plt Count 102 L Neut % (Auto) 70.7 Lymph % (Auto) 13.7 L [place] % (Auto) 13.0 Eos % (Auto) 1.3 L Baso % (Auto) 1.3 Neut # (Auto) 4100 Lymph # (Auto) 800 L [place] # (Auto) 800 Eos # (Auto) 100 Baso # (Auto) 100 Platelet Estimate Decreased on smear Plt Morphology Comment 1+ large platelets RBC Morphology See below Macrocytosis 2+ H Sodium 139 Potassium 5.8 H Chloride 104 Carbon Dioxide 27 BUN 65 H Creatinine 3.17 H Estimated GFR 14.0 L BUN/Creatinine Ratio 20.5 Glucose 105 Lactate Calcium 10.2 Magnesium 2.7 H Total Bilirubin 1.6 H Conjugated Bilirubin 0.0 Unconjugated Bilirubin 1.4 H AST 45 H ALT 40 H Alkaline Phosphatase 95 Troponin I Total Protein 7.4 Albumin 4.3 Globulin 3.1 Albumin/Globulin Ratio 1.4 TSH 0.81 Nasal Screen MRSA (PCR) Digoxin [facility] Medical History Atrial fibrillation Cardiomyopathy CHF (congestive heart failure) CVA (cerebral vascular accident) 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 Brother No problems noted. 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 She is admitted with acute on chronic renal failure likely secondary to hypotension and acute right heart failure. Continuing today with pressure supported diuresis with dopamine and furosemide. 1. Acute right heart failure in setting of known chronic heart failure with now preserved ejection fraction, present on admission - unclear etiology of R heart failure, appreciate cardiology assistance. Have stopped amiodarone at this time over concern for possible amiodarone toxicity. - Previous TTE showing EF 20-25% now improved to normal on echocardiogram today. Prior systolic heart failure likely tachyarrythmia induced given findings today. - continue dopamine and furosemide, will decrease from 80 mg BID to 40 mg BID given slight rise in Cr today. Will be difficult to optimize renal perfusion and diuresis given hypotension and R heart failure. - appreciate cardiology consultation and recommendations from Dr. Shahid. Continue gentle diuresis while supporting her blood pressure with dopamine. Gently add back metoprolol as needed for rate control. If additional rate control is needed, consider using digoxin. Stop amiodarone and hold hydralazine and spironolactone unless she develops hypertension. Follow-up with Dr. Neil as an outpatient. If her atrial fibrillation is challenging to control, consider AV jason ablation and pacemaker therapy. 2. Hypotension - suspect in the setting of multiple medications. Continue dopamine, titrate to SBP >100. 3. 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 Continue pressure supported diuresis as noted above. Creatinine up slightly today to 3.17 and will back off on furosemide slightly starting tonight from 80 mg IV BID to 40 mg IV BID. 4. Congestive hepatopathy - secondary to volume overload, continue diuresis as noted above. 5. Hyperkalemia, acute, present on admission, improved - secondary to acute renal failure, no EKG changes, will continue to monitor and continue diuresis with lasix which will help lower K. Continue telemetry and provide treatment if EKG changes. 6. asymptomatic bacteruria, present on admission - no antibiotic therapy recommended at this time. 7. Hypothyroidism, chronic - TSH unremarkable, continue home levothyroxine. 8. COPD chronic - does not represent an acute exacerbation, continue home medications. 9. h/o HTN, chronic - hold home losartan, hydralazine, and beta leona for now. resume beta leona first when able after dopamine is discontinued and patient has been diuresed. 10. chronic atrial fibrillation - hold amiodarone, will hold metoprolol as noted above. Appreciate cardiology recommendations. Gently add back metoprolol - continue home eliquis, although now at reduced dosing 2.5 mg given renal disease and age. Code: DNR, as discussed with the patient. Dispo: admitted to ICU for inotropic assisted diuresis. DVT: on apixaban I spent 30 minutes providing critical care management this patient. This excludes time spent in performing separately billed procedures. Quality VTE Deep Vein Thrombosis/Pulmonary Embolism Present on Admission: No
[2020-08-12] MEDS: MAGNESIUM CHLORIDE 64 MG TABLET PO (12:48)
[2020-08-12] MEDS: PRAVASTATIN 20 MG TABLET 40 MG PO (12:48)
[2020-08-12] MEDS: DOPAMINE HCL IN DEXTROSE 5 % 400 MG/250 ML PLAST..BAG 7.988 MG IV (13:26)
--- NOTE | 2020-08-12 14:41 | PC.NURSE ---
Am shift Pt is A/o x1-2, when initially woken up for the day, Pt is confused, briefly. Can correct herself when this RN asks questions a second time, Oh that's right. I am at the hospital Pt denies CP or SOB at present. Resting comfortably, reports very poor sleep and increased fatigue this shift d/t frequent interruptions overnight. PICC to RUE with weeping at insertion site and pressure dressing replaced this shift. Dopamine titrated to keep SBP >100, current rate @ 5mcg/kg/hr. Echo done this AM with improved EF 50-55%, Doppler done to r/o DVT to BLE, negative also. Cardiology, Dr Shahid into see Pt, and will be signing off at this time, and rec. f/u as outpatient with [place]. L sided deficit remains from previous CVA. BA active and turning q2 offloading pressure to backside. [place], blanchable area to coccyx. Call light in reach and BA active
--- NOTE | 2020-08-12 15:44 | CM.IDA ---
Initial DCP Assessment Note Patient is an 85 yo female, resident of [facility]. Patient admitted after weakness and fall at home, h/o CVA. According to Dr Genao's Prog note: She is admitted with acute on chronic renal failure likely secondary to hypotension and acute right heart failure. PCP: Matilde Lin Payer: Isaac ARREOLA/OFE Reviewed notes, patient is currently DNR. Extensive heart w/u and visit from Dr Brennen Shahid today; see chart for extensive charting. Outpatient f/u w/ Dr Neil recommended. Patient will remain admitted to ICU for medical management. This ICE DELIVERY DRIVER attempted assessment and patient a bit disoriented today according to JAIME Yen, this ICE DELIVERY DRIVER will return to bedside tomorrow to review DCP/options. therapy eval might be beneficial to assist in dispo recs and planning when medically appropriate. Following along closely. Home w/ HH vs SNF (?) Li [facility] ICE DELIVERY DRIVER
[2020-08-12 16:16] LABS: BUN Creatinine Ratio 21.9 (6-22); Blood Urea Nitrogen 61 mg/dL (7-17); Calcium 9.8 mg/dL (8.4-10.2); Carbon Dioxide 28 mmol/L (22-32); Chloride 102 mmol/L (98-107); Estimated Glomerular Filt Rate 16.2 mL/min (>60); Glucose 155 mg/dL (80-110); HEMOLYSIS < 15 (0-50); Sodium 135 mmol/L (137-145)
[2020-08-12] MEDS: FUROSEMIDE 40 MG/4 ML VIAL IV (17:01)
[2020-08-12] MEDS: DOPAMINE HCL IN DEXTROSE 5 % 400 MG/250 ML PLAST..BAG 13.313 MG IV (18:30)
[2020-08-12] MEDS: GABAPENTIN 300 MG CAPSULE 600 MG PO (20:45)
--- NOTE | 2020-08-12 22:23 | PC.NURSE ---
dopamine drip continues @ 5mcg/kg/min, 800 ml urine output this shift. OOB to chair for dinner using the overbed lift. Pt tolerated well. PICC line dressing changed only small amt of oozing noted at this time, small pressure dressing applied over dressing. Pt has periods of confusion and requires prompting to reorient. R arm is markedly weaker than previous, hard for her to hold her cell phone, or a water glass. Dr. Solorio notified and assessment done.
[2020-08-13] VITALS (35 sets, daily range): BP systolic 82–141; BP diastolic 50–69; PULSE 71–97; RESP 14–20; TEMP 36.1–36.7; O2SAT 92–97
[2020-08-13 05:19] LABS: Basophils Absolute Auto 100 /uL (0-100); Basophils Percent Auto 1.4 % (0-2); Eosinophils Absolute Auto 100 /uL (0-450); Eosinophils Percent Auto 1.5 % (2-4); Hematocrit 28.9 % (36-46); Hemoglobin 9.4 g/dL (12.0-16.0); Lymphocytes Absolute Auto 900 /uL (1100-4500); Mean Corpuscular HGB Conc 32.6 % (30-36); Mean Corpuscular Hemoglobin 37.2 PG (26-34); Monocytes Absolute Auto 500 /uL (0-900); Monocytes Percent Auto 11.8 % (3-14); Neutrophils Absolute Auto 3000 /uL (1500-7000); Neutrophils Percent Auto 66.3 % (50-75); Platelet Count 92 X10^3/uL (150-400); Red Blood Cell Count 2.54 X10^6/uL (4.0-5.2); White Blood Cell Count 4.6 X10^3/uL (4.5-11.0)
--- NOTE | 2020-08-13 05:21 | PC.NURSE ---
[id number] JAIME Roth entered room to find that patient had removed her PICC line. Pressure dressing applied, linen and gown changed. New IV inserted to right wrist - labs drawn at this time. Prior to removal dopamine was able to be titrated down to 2 mcg. During the time the patient was without IV access the patient's BP went from 136/65 to 98/69. Dopamine restarted at 2 mcg with repeat BP of 107/59. Patient remains pleasantly confused tonight. Bed alarm verified active.
[2020-08-13 05:24] LABS: Alanine Aminotransferase 32 IU/L (<35); Albumin 3.7 g/dL (3.5-5.0); Albumin Globulin Ratio 1.3 (1.0-2.8); Alkaline Phosphatase 78 U/L (38-126); Aspartate Aminotransferase 34 IU/L (14-36); BUN Creatinine Ratio 21.2 (6-22); Bilirubin Total 1.5 mg/dL (0.2-1.3); Bilirubin Unconjugated 1.2 mg/dL (0.0-1.1); Blood Urea Nitrogen 62 mg/dL (7-17); Calcium 9.8 mg/dL (8.4-10.2); Carbon Dioxide 28 mmol/L (22-32); Chloride 104 mmol/L (98-107); Estimated Glomerular Filt Rate 15.3 mL/min (>60); Globulin 2.9 g/dL (1.7-4.1); Glucose 94 mg/dL (80-110); HEMOLYSIS < 15 (0-50); Magnesium 2.2 mg/dL (1.6-2.3); Potassium 4.8 mmol/L (3.4-5.1); Sodium 135 mmol/L (137-145); Total Protein 6.6 g/dL (6.3-8.2)
[2020-08-13 05:27] LABS: Add Manual Diff / Slide Review SLIDE REVIEW
[2020-08-13] MEDS: LEVOTHYROXINE 100 MCG TABLET PO (05:47)
[2020-08-13 06:51] LABS: Anisocytosis 2+; Macrocytosis 2+
[2020-08-13] MEDS: polyethylene glycoL 3350 17 GM POWD.PACK PO (08:03)
[2020-08-13] MEDS: MAGNESIUM CHLORIDE 64 MG TABLET PO (08:03)
[2020-08-13] MEDS: APIXABAN 5 MG TABLET 2.5 MG PO ×2 (08:07→21:19)
[2020-08-13] MEDS: MULTIVITAMIN 1 TABLET 1 TAB PO (08:08)
[2020-08-13] MEDS: CHOLECALCIFEROL (VITAMIN D3) 1,000 UNIT TABLET 2000 UNIT PO (08:08)
[2020-08-13] MEDS: TAMSULOSIN 0.4 MG CAPSULE PO (08:09)
[2020-08-13] MEDS: DOCUSATE 100 MG CAPSULE PO (08:09)
[2020-08-13] MEDS: FUROSEMIDE 40 MG/4 ML VIAL IV (09:57)
[2020-08-13] MEDS: FLUTICASONE/SALMETEROL 250/50 60 PUFF DISKUS INH ×2 (10:21→19:12)
--- NOTE | 2020-08-13 11:21 | PC.NURSE ---
Addendum entered by Yovana Lea R.N. 08/13/20 12:45: Updated patient status to floor care, and with gtt off, Pt is now free to work with PT and OT as ordered. Update to [place], Pt caregiver at home. She will be providing transportation, whenever Pt is ready for d/c and requests update tomorrow Original Note: AM shift Pt is Alert to self and forgetful at times. Pt is asking repeatedly for clothing items, I need a bra, I spilled on my shirt My socks aren't on Reassured that gown and socks are in fact on. Pt is calm and cooperative with staff interactions. Denies Sob, RA Spo2 97% lungs are clear, but quite dim at bases. Murmur +. Able to get dopamine gtt off @ 1050. Denies pain. BA active.
--- NOTE | 2020-08-13 12:56 | P.PN_ITS ---
Subjective Subjective Date Patient Seen: 08/13/20 Time Patient Seen: 13:33 Interval history: Jacquelyn Whiting is an 83-year-old female with a past medical history significant for CHFrEF (EF20-25%), hypertension, hyperlipidemia, aortic valve replacement, previous CVA with left upper extremity hemiparesis and left lower extremity weakness who presented to the ED with complaints of worsening weakness over the past week. She is admitted with acute on chronic renal failure likely secondary to hypotension and acute right heart failure. She was on pressure supported diuresis with dopamine initially, dopamine discontinued today. Her echocardiogram came back with a normal EF yesterday. She is confused, states it is 1920 with waxing and waning mentation somewhat better in the evening time usually. She denies chest pain, palpitations, abdominal pain. She still feels quite weak, but was looking forward to working with PT today. Exam Vital Signs (past 8 hours): - 08/13/20 05:00 08/13/20 05:06 08/13/20 06:00 Temperature Pulse Rate 96 H 93 H 93 H Respiratory Rate Blood Pressure 107/59 L Pulse Oximetry 95 08/13/20 06:01 08/13/20 07:00 08/13/20 07:15 Temperature Pulse Rate 92 H 94 H 95 H Respiratory Rate Blood Pressure 125/58 L 141/69 H Pulse Oximetry 08/13/20 07:19 08/13/20 07:30 08/13/20 07:45 Temperature Pulse Rate 96 H 96 H 96 H Respiratory Rate Blood Pressure 126/69 Pulse Oximetry 97 96 96 08/13/20 08:00 08/13/20 08:15 08/13/20 09:00 Temperature 97.0 F L Pulse Rate 96 H 96 H 97 H Respiratory Rate 17 Blood Pressure 124/60 93/50 L Pulse Oximetry 97 97 92 08/13/20 09:48 08/13/20 10:00 08/13/20 10:21 Temperature Pulse Rate 96 H 96 H 96 H Respiratory Rate 14 Blood Pressure 101/61 101/57 L Pulse Oximetry 96 92 96 08/13/20 11:00 08/13/20 12:00 Temperature 98.1 F Pulse Rate 97 H 96 H Respiratory Rate 15 Blood Pressure 100/58 L 106/62 Pulse Oximetry 97 Oxygen Delivery Method Room Air Oxygen Flow Rate 0 Narrative Exam Narrative: GENERAL APPEARANCE: Chronically ill-appearing female in no acute distress, slightly short of breath when speaking in full sentences SKIN: Inspection of the skin reveals no rashes, ulcerations or petechiae. HEENT: Normocephalic atraumatic, extraocular muscles are intact, oropharynx is clear and mucous membranes are moist, neck is supple without adenopathy NECK: Supple and symmetric. There was no thyroid enlargement, and no tenderness, or masses were felt. CHEST: Normal AP diameter and normal contour without any kyphoscoliosis. LUNGS: Auscultation of the lungs revealed no wheezes, rhonchi, or rales. CARDIOVASCULAR: There was a regular rate and rhythm without any murmurs, gallops, rubs. Peripheral pulses were 2+ and symmetric. ABDOMEN: Soft and nontender with normal bowel sounds. No ascites was noted. MUSCULOSKELETAL: There was no tenderness or effusions noted. Muscle strength and tone were normal. EXTREMITIES: No cyanosis, clubbing. There is now trace-1+ pitting edema of bilateral lower extremities NEUROLOGIC: Left hemiparesis and sensory deficit, alert and oriented to name and date. impaired short term memory. Objective Labs Result Diagrams: 08/13/20 05:00 08/13/20 05:00 Labs: Laboratory Results - last 24 hr 08/12/20 08/13/20 08/13/20 15:45 05:00 05:00 WBC 4.6 RBC 2.54 L Hgb 9.4 L Hct 28.9 L MCV 114.0 H MCH 37.2 H MCHC 32.6 RDW 16.0 H Plt Count 92 L Neut % (Auto) 66.3 Lymph % (Auto) 19.0 L [place] % (Auto) 11.8 Eos % (Auto) 1.5 L Baso % (Auto) 1.4 Neut # (Auto) 3000 Lymph # (Auto) 900 L [place] # (Auto) 500 Eos # (Auto) 100 Baso # (Auto) 100 RBC Morphology See below Anisocytosis 2+ H Macrocytosis 2+ H Sodium 135 L 135 L Potassium 5.0 4.8 Chloride 102 104 Carbon Dioxide 28 28 BUN 61 H 62 H Creatinine 2.78 H 2.93 H Estimated GFR 16.2 L 15.3 L BUN/Creatinine Ratio 21.9 21.2 Glucose 155 H 94 Calcium 9.8 9.8 Magnesium 2.2 Total Bilirubin 1.5 H Conjugated Bilirubin 0.0 Unconjugated Bilirubin 1.2 H AST 34 ALT 32 Alkaline Phosphatase 78 Total Protein 6.6 Albumin 3.7 Globulin 2.9 Albumin/Globulin Ratio 1.3 PFSH Medical History Atrial fibrillation Cardiomyopathy CHF (congestive heart failure) CVA (cerebral vascular accident) 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 Brother No problems noted. 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 She is admitted with acute on chronic renal failure likely secondary to hypotension and acute right heart failure. Dopamine was discontinued this AM. Will increase lasix dose this evening as creatinine again renetta presumed now to be related to volume overload and R heart failure. 1. Acute right heart failure in setting of known chronic heart failure with now preserved ejection fraction, present on admission - unclear etiology of R heart failure, appreciate cardiology assistance. Have stopped amiodarone at this time over concern for possible amiodarone toxicity. - Previous TTE showing EF 20-25% now improved to normal on echocardiogram this admission. Prior systolic heart failure likely tachyarrythmia induced. - continue furosemide, will increase today slightly to 60 mg BID. [place] given adequate perfusion now is suspected to be more related to volume overload. - appreciate cardiology consultation and recommendations from Dr. Shahid. Continue gentle diuresis while supporting her blood pressure with dopamine as needed. Gently add back metoprolol as needed for rate control. If additional rate control is needed, consider using digoxin. Stop amiodarone and hold hydralazine and spironolactone unless she develops hypertension. Follow-up with Dr. Neil as an outpatient. If her atrial fibrillation is challenging to control, consider AV jason ablation and pacemaker therapy. 2. Hypotension - suspect in the setting of multiple medications. Now off of dopamine, as above will add metoprolol as tolerated first for additional rate control which has not been an issue thus far. 3. 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 [place] slightly today suspect due to volume overload at this time. Continue diuresis as noted above. 4. Congestive hepatopathy, improving - secondary to volume overload, continue diuresis as noted above. 5. Hyperkalemia, acute, present on admission, resolved - secondary to acute renal failure, no EKG changes, will continue to monitor and continue diuresis with lasix which will help lower K. Continue telemetry and provide treatment if EKG changes. 6. asymptomatic bacteruria, present on admission - no antibiotic therapy recommended at this time. Cultures growing E. coli. 7. Hypothyroidism, chronic - TSH unremarkable, continue home levothyroxine. 8. COPD chronic - does not represent an acute exacerbation, continue home medications. 9. h/o HTN, chronic - hold home losartan, hydralazine, and beta leona for now. resume beta leona first as tolerated as noted abvoe. 10. chronic atrial fibrillation - hold amiodarone, will hold metoprolol as noted above. Appreciate cardiology recommendations. Gently add back metoprolol - continue home eliquis, although now at reduced dosing 2.5 mg given renal disease and age. Code: DNR, as discussed with the patient. Dispo: stable for regular floor, anticipate discharge home perhaps in 2-3 days after continued diuresis. DVT: on apixaban COVID-19 COVID-19 status: Negative Quality VTE Deep Vein Thrombosis/Pulmonary Embolism Present on Admission: No
--- NOTE | 2020-08-13 15:42 | OT.IP.EVAL ---
Current Diagnoses Acute on chronic diastolic (congestive) heart failure (08/11/20) Past Medical History (Last Reviewed 08/11/20 @ 18:38 by Teddy Genao DO) Atrial fibrillation Cardiomyopathy CHF (congestive heart failure) CVA (cerebral vascular accident) Hemiparesis affecting left side as late effect of stroke Hyperlipidemia Hypertension Hypothyroid Raynauds disease Surgical History (Last Reviewed 08/11/20 @ 18:38 by Teddy Genao DO) History of aortic valve replacement Occupational Therapy Inpatient Evaluation/Re-Eval M1 PT/OT-IP Prior Functional Status Start: 08/13/20 13:03 Freq: NEEDED Status: Active Protocol: Document 08/13/20 15:31 DE (Rec: 08/13/20 16:28 DE [id number]) Medical Review Prior Functional Status Medical History Reviewed Yes Communication Pt is slightly confused but able to make needs known. Mobility and Gait Per CG, pt is modified IND with use of w/c at baseline. Pt is able to perform bed <> w /c or BSC transfers. Recently, pt has been losing her memory and getting weak very fast. Activities of Daily Living and IADL's Pt needs assistance for most ADLs cooking, cleaning, showering, and getting dressed at baseline. Pt is modified IND for toileting with BSC. Pt is able to get food herself in w/c if it is already made. Social History Household Members none Living Arrangements House Number of Floors (Floors) Two Floors Number of Stairs To Enter/Railing? Level entry. Patient stays on main floor Home Environment Walk in Shower Home Equipment Manual Wheelchair,Power Wheelchair/Scooter,Bedside Commode,Shower Seat with Backrest,Hand Held Shower, Hospital Bed,Grab Bars Near Toilet,Grab Bars In Shower Employment Status Retired Additional Social History Comment Pt has CG from 8am-1pm everyday. M1 PT/OT-IP Prior Functional Status Start: 08/13/20 16:19 Freq: NEEDED Status: Active Protocol: Document 08/13/20 16:25 CGR (Rec: 08/13/20 16:45 CGR [id number]) Medical Review Prior Functional Status Medical History Reviewed Yes Communication Pt is an effective verbal communicator Mobility and Gait Pt is w/c bound and transfers from w/c to BSC to bed without assist or AD at baseline but always transfers to her right. Activities of Daily Living and IADL's Pt was IND for basic ADLs, received assist PRN for showering, received assist for cooking but could use the microwave. Social History Household Members none Living Arrangements House Number of Floors (Floors) Two Floors Number of Stairs To Enter/Railing? No steps to enter. Pt stays on the main level. Home Environment Walk in Shower Home Equipment Manual Wheelchair,Power Wheelchair/Scooter,Bedside Commode,Shower Seat with Backrest,Hand Held Shower,Grab Bars Near Toilet,Grab Bars In Shower Employment Status Retired M2 OT-IP Current Condition Start: 08/13/20 16:19 Freq: Status: Active Protocol: Document 08/13/20 16:25 CGR (Rec: 08/13/20 16:45 CGR [id number]) Occupational Therapy Current Condition Current Condition Evaluation Date 08/13/20 Treatment Diagnosis Acute R heart failure, CHF EF 20-25%, hx CVA with L weakness Diagnosis Onset Date 08/11/20 M3 OT- IP Subjective and Pain Start: 08/13/20 16:19 Freq: Status: Active Protocol: Document 08/13/20 16:25 CGR (Rec: 08/13/20 16:45 CGR [id number]) OT- Subjective Occupational Therapy Visit Type Type Initial Evaluation Visit Start Time 15:18 Visit Stop Time 15:42 Total Visit Minutes 24 Notes P.T. just finished with transfer to chair. OT Pain Assessment Pain When Pain Assessed At Rest Pain Present Pain Present Denied Pain M4 OT- IP ADL's Start: 08/13/20 16:19 Freq: Status: Active Protocol: Document 08/13/20 16:25 CGR (Rec: 08/13/20 16:45 CGR [id number]) OT [id number] Comments OT Self-Feeding Comments Not meal time but per nursing, pt needed to be fed for meals today. OT ADL-Grooming General Evaluation Grooming Ability Minimal Assistance Areas Needing Assistance Combing/Brushing Hair,Face Washing Comments OT Grooming Comments seated in chair at sink OT ADL-Oral Care General Eval Oral Care Ability Moderate Assistance Areas of Assistance Brushing Teeth Comments Oral Care Comments Pt with sudden inconsistent extenion movements that prevented smooth use of the right hand for brushing teeth. Pt continued to perform teeth brushing without voicing complaint or frustration. OT ADL-Dressing General Eval Lower Body Dressing Ability Total Assistance Areas Needing Assistance Socks OT ADL-Toileting Comments OT Toileting Comments not performed OT ADL-Bathing Comments OT Bathing Comments not performed M5 OT- IP IADL's Start: 08/13/20 16:19 Freq: Status: Active Protocol: Document 08/13/20 16:25 CGR (Rec: 08/13/20 16:45 CGR [id number]) OT-Instrumental Activities of Daily Living Deficits IADL Deficits Identified Deficits Home Safety Awareness Awareness of Need for Assistance at Home Decreased Awareness Ability to Problem Solve Emergency Unable to Problem Solve Situations M6 OT- IP Functional Cognition Start: 08/13/20 16:19 Freq: Status: Active Protocol: Document 08/13/20 16:25 CGR (Rec: 08/13/20 16:45 CGR [id number]) Cognitive Factors Limiting Selfcare Function Cognitive Ability Level of Alertness Alert,Confusional State Patient Orientation Name,Place Attention Span Ability Capable of Focused Attention, Unable to Sustain Attention Ability to Follow Commands Able to Follow One Step Commands with Increased Time, Able to Follow One Step Commands with Repetition Cognitive Comments Cognitive Assessment Comments Pt demonstrates poor cognition at initial eval and will benefit from formal cog assessment. OT- Vision and Hearing OT- Hearing Assessment OT- Hearing Assessment WFL OT- Vision Assessment Vision History Cataracts Visual Acuity WFL M7 OT- IP Mobility and Balance Start: 08/13/20 16:19 Freq: Status: Active Protocol: Document 08/13/20 16:25 CGR (Rec: 08/13/20 16:45 CGR [id number]) OT- Balance Assessment Sitting Balance and Reactions Static Sitting Balance Ability Good Dynamic Sitting Balance Ability Fair M8 OT- IP Objective Assessments Start: 08/13/20 16:19 Freq: Status: Active Protocol: Document 08/13/20 16:25 CGR (Rec: 08/13/20 16:45 CGR [id number]) OT Gross Range of Motion Upper Extremity Range of Motion Assessment Left Impaired ROM Impairments LUE with very limited ROM to fingers, wrist, 0-70 elbow, shld 0-40 with a 1 finger subluxation to the L shld. OT Strength Upper Extremity Strength Assessment Left Impaired Comments Strength Comments LUE with extension tone pattern OT- Coordination Assessment Upper Extremity Finger to Nose Test Left UE Impaired Finger Tapping Test Left UE Impaired OT-Muscle Tone Assessment Muscle Tone WNL No Muscle Tone Location Left Upper Extremity Type of Tone Rigidity,Extensor Severity of Tone Moderate OT Sensation Assessment Edema Edema Absent M9 OT- IP Assessment and Plan Start: 08/13/20 16:19 Freq: Status: Active Protocol: Document 08/13/20 16:25 CGR (Rec: 08/13/20 16:45 CGR [id number]) OT Summary Assessment and Plan Potential Rehabilitation Potential Fair Analytic Complexity at Evaluation High Summary OT Impairments Range of Motion,Strength, Balance,Coordination,Tone, Functional Cognition, Functional Mobility,Self- Feeding,Grooming,Dressing, Toileting,Bathing,Toilet Transfers,Shower Transfers, Activity Tolerance Progress Towards Goals Slow Progress due to Medical Issues,Slow Progress due to Activity Tolerance,Slow Progress due to Cognition Assessment Summary Pt presents as a high complexity evaluation s/p admit for acute R heart failure. Pt is living alone with 4 to 5 hours of caregiver assist a day. Pt is likely to benefit from SNF when medically stable and will benefit from OT services to address declines. Goals Self-Feeding Goal Independent Grooming Goal Independent Dressing Goal Standby Assistance Toileting Goal Independent Bathing Goal Standby Assistance Toilet Transfer Goal Independent,Bedside Commode Shower Transfer Goal Standby Assistance,Shower Chair Days to Meet Goals 20 Frequency of Treatment Frequency Of Treatment Once a Day Treatment Plan OT Treatment Plan ADL Training,Functional Cognition Training,Functional Mobility,Patient/Family Education,Discharge Planning Other Treatment Recommendations and Next cog assessment Treatment Focus Discharge Recommendations OT Discharge Recommendations SNF Rehab Transportation Needs at Discharge Wheelchair/Cabulance
[2020-08-13] MEDS: FUROSEMIDE 40 MG/4 ML VIAL 60 MG IV (17:01)
--- NOTE | 2020-08-13 18:38 | PT.IIE ---
Current Diagnoses Acute on chronic diastolic (congestive) heart failure (08/11/20) Surgical History (Last Reviewed 08/11/20 @ 18:38 by Teddy Genao DO) History of aortic valve replacement Medical History (Last Reviewed 08/11/20 @ 18:38 by Teddy Genao DO) Atrial fibrillation Cardiomyopathy CHF (congestive heart failure) CVA (cerebral vascular accident) Hemiparesis affecting left side as late effect of stroke Hyperlipidemia Hypertension Hypothyroid Raynauds disease Physical Therapy Inpatient Evaluation/Re-Eval M1 PT/OT-IP Prior Functional Status Start: 08/13/20 13:03 Freq: NEEDED Status: Active Protocol: Document 08/13/20 15:31 DE (Rec: 08/13/20 16:28 DE [id number]) Medical Review Prior Functional Status Medical History Reviewed Yes Communication Pt is slightly confused but able to make needs known. Mobility and Gait Per CG, pt is modified IND with use of w/c at baseline. Pt is able to perform bed <> w /c or BSC transfers. Recently, pt has been losing her memory and getting weak very fast. Activities of Daily Living and IADL's Pt needs assistance for most ADLs cooking, cleaning, showering, and getting dressed at baseline. Pt is modified IND for toileting with BSC. Pt is able to get food herself in w/c if it is already made. Social History Household Members none Living Arrangements House Number of Floors (Floors) Two Floors Number of Stairs To Enter/Railing? Level entry. Patient stays on main floor Home Environment Walk in Shower Home Equipment Manual Wheelchair,Power Wheelchair/Scooter,Bedside Commode,Shower Seat with Backrest,Hand Held Shower, Hospital Bed,Grab Bars Near Toilet,Grab Bars In Shower Employment Status Retired Additional Social History Comment Pt has CG from 8am-1pm everyday. M1 PT/OT-IP Prior Functional Status Start: 08/13/20 16:19 Freq: NEEDED Status: Active Protocol: Document 08/13/20 16:25 CGR (Rec: 08/13/20 16:45 CGR [id number]) Medical Review Prior Functional Status Medical History Reviewed Yes Communication Pt is an effective verbal communicator Mobility and Gait Pt is w/c bound and transfers from w/c to BSC to bed without assist or AD at baseline but always transfers to her right. Activities of Daily Living and IADL's Pt was IND for basic ADLs, received assist PRN for showering, received assist for cooking but could use the microwave. Social History Household Members none Living Arrangements House Number of Floors (Floors) Two Floors Number of Stairs To Enter/Railing? No steps to enter. Pt stays on the main level. Home Environment Walk in Shower Home Equipment Manual Wheelchair,Power Wheelchair/Scooter,Bedside Commode,Shower Seat with Backrest,Hand Held Shower,Grab Bars Near Toilet,Grab Bars In Shower Employment Status Retired M2 PT-IP Current Condition Start: 08/13/20 13:03 Freq: NEEDED Status: Active Protocol: Document 08/13/20 15:31 DE (Rec: 08/13/20 16:28 DE [id number]) Physical Therapy Current Condition Current Condition Evaluation Date 08/13/20 Treatment Diagnosis Generalized weakness; Difficulty performing ADLs Onset Date 08/11/20 M3 PT-IP Subjective Start: 08/13/20 13:03 Freq: NEEDED Status: Active Protocol: Document 08/13/20 15:31 DE (Rec: 08/13/20 16:28 DE [id number]) Subjective Physical Therapy Visit Type Type Initial Evaluation Visit Start Time 14:40 Visit Stop Time 13:23 Total Visit Minutes 43 Notes SPT Best led session under direct supervision of PT Marcelo. Number of ORDER FILLER Visits 0 Physical Therapy Visit Comments Patient Comments Pt is agreeable to do PT. M4 PT-IP Mobility and Gait Start: 08/13/20 13:03 Freq: NEEDED Status: Active Protocol: Document 08/13/20 15:31 DE (Rec: 08/13/20 16:28 DE [id number]) PT-Bed Mobility Assessment Supine to Sit Supine to Sit Minimal Assistance,1 Person Assistance,Head of Bed Elevated Scooting Scooting to Edge of Bed Minimal Assistance PT-Transfer Assessment Equipment Transfer Assistive Device None,Gait Belt Transfers Transfer Destination Chair Transfer Technique Squat Pivot Transfer Ability Level of Assist Contact Guard Assistance,Use of Upper Extremities Comments Mobility Comments Pt was inclined in bed upon arrival. BP was 100s/50s. Pt needed 1P min BOX TURNER (pulling to sit) and elevated HOB to complete supine to sit at R EOB. Pt demonstrated poor sitting balance. Pt then performed squat pivot transfer to the R side in the chair with R armrest and CGA. Pt often demonstrated jerky movements in sitting and during transfer. Pt was wheeled around to the L side of the bed and reclined in the chair. BP after transfer was 66/45. After ~2 min, BP was 77 /49. After another 2 min, BP was 82/44. Pt was asymptomatic the whole time. Call light placed within reach. Gait Assessment Comments Gait Comments Not assessed. Stair Climbing Assessment Comments Stair Climbing Comments Not assessed. PT-Balance Assessment Sitting Balance and Reactions Static Sitting Balance Ability Good Dynamic Sitting Balance Ability Fair Standing Balance and Reactions Static Standing Balance Ability Fair Dynamic Standing Balance Ability Poor M5 PT-IP Objective Assessments Start: 08/13/20 13:03 Freq: NEEDED Status: Active Protocol: Document 08/13/20 15:31 DE (Rec: 08/13/20 16:28 DE [id number]) Orientation Orientation/Cognition Level of Alertness Confusional State Orientation Month,Date,Year,Day of Week, Place Language Function Ability No Deficits Noted Safety Awareness Understands Safety Issues Memory Description Short Term Impaired,[facility] Impaired Comments Pt was oriented to month, date , year, day of week, and place but demonstrated memory loss. Gross Range of Motion Upper Extremity ROM Assessment Left Impaired Impairments Lack of L elbow flexion, L wrist extension, and L finger extension d/t/ increased tone. Lower Extremity ROM Assessment Left Impaired Strength Upper Extremity Strength Assessment Left Impaired Lower Extremity Strength Assessment Bilaterally Impaired Comments Strength Comments Pt was not able to actively move her LUE. 4/5 on RUE. 4-/5 on B hip flexion. 4/5 on R knee extension. 4-/5 on L knee extension. Coordination Assessment Gross Coordination Gross Coordination Impaired Assessment Coordination Comments Pt had difficulty holding her phone in her R hand. Sensation Assessment Sensation Gross Sensation WNL Light Touch Intact Muscle Tone Muscle Tone WNL No Comments Muscle Tone Comments Significant tone observed in L elbow extension, L wrist flexion, and L finger flexion. M6 PT-IP Treatment Start: 08/13/20 13:03 Freq: NEEDED Status: Active Protocol: Document 08/13/20 15:31 DE (Rec: 08/13/20 16:28 DE [id number]) Physical Therapy Treatment Education Education Provided Safety M7 PT-IP Assessment and Plan Start: 08/13/20 13:03 Freq: NEEDED Status: Active Protocol: Document 08/13/20 15:31 DE (Rec: 08/13/20 16:28 DE [id number]) PT Summary Assessment and Plan Potential Rehabilitation Potential Poor Status of Condition at Evaluation Evolving Summary Impairments Pain,ROM,Strength,Balance, Coordination,Tone,Cognition, Bed Mobility,Transfers,Gait, Activity Tolerance Assessment Summary Jacquelyn is a 85 yo female who was admitted to the hospital for GLF and generalized weakness with hx of CVA affecting her LUE hemiparesis and LLE weakness, chronic heart failure, and chronic kidney failure. At baseline, pt is modified IND with w/c for mobility and able to independently transfer bed <> w/c or BSC. On evaluation, pt requires 1P min BOX TURNER (pulling to sit) for supine to sit and CGA for bed to chair transfer. Pt often demonstrated spontaneous, jerky movements in sitting and during transfer , which indicates she has a high risk for falls. Pt was very hypotensive after transfer to chair, but asymptomatic throughout the session. Pt needs 24/7 assistance at this point. PT will continue to assess pt progress and refine d/c recommendations between home with 24/7 assistance and HH vs SNF. Goals Bed Mobility Goal Standby Assistance Transfer Goal Standby Assistance Days to Meet Goals 10 Frequency of Treatment Frequency Of Treatment Once a Day Treatment Plan Physical Therapy Treatment Plan Bed Mobility Training,Transfer Training,Gait Training, Therapeutic Exercise,Balance Retraining,Post Op Education, Discharge Planning,Hot or Cold Pack,Neuromuscular Re-ed, Coordination Retraining Recommendations To Nursing Amount of Assist Needed 1 Person Assist Discharge Recommendations PT Discharge Recommendations Home with 24/7 Assist,Home Health,SNF Rehab Transportation Needs at Discharge Wheelchair/Cabulance Treatment was provided by Best Jane, SPT and supervised by Chinmay Puente, PT. I personally reviewed this note and agree with its contents.
[2020-08-13] MEDS: GABAPENTIN 300 MG CAPSULE 600 MG PO (21:20)
[2020-08-13] MEDS: PRAVASTATIN 20 MG TABLET 40 MG PO (21:20)
[2020-08-14] VITALS (13 sets, daily range): BP systolic 86–118; BP diastolic 52–67; PULSE 81–103; RESP 16–18; TEMP 36.4–37.2; O2SAT 94–100
[2020-08-14 05:06] LABS: Add Manual Diff / Slide Review NO; Basophils Absolute Auto 100 /uL (0-100); Basophils Percent Auto 1.2 % (0-2); Eosinophils Absolute Auto 100 /uL (0-450); Hematocrit 28.8 % (36-46); Hemoglobin 9.4 g/dL (12.0-16.0); Lymphocytes Absolute Auto 1200 /uL (1100-4500); Lymphocytes Percent Auto 23.3 % (25-40); Mean Corpuscular HGB Conc 32.6 % (30-36); Mean Corpuscular Hemoglobin 37.1 PG (26-34); Mean Corpuscular Volume 113.9 fL (80-100); Monocytes Absolute Auto 700 /uL (0-900); Monocytes Percent Auto 13.3 % (3-14); Neutrophils Absolute Auto 3200 /uL (1500-7000); Neutrophils Percent Auto 60.2 % (50-75); Platelet Count 96 X10^3/uL (150-400); Red Blood Cell Count 2.53 X10^6/uL (4.0-5.2); Red Cell Distribution Width 15.5 % (11.6-14.8); White Blood Cell Count 5.3 X10^3/uL (4.5-11.0)
[2020-08-14 05:17] LABS: Alanine Aminotransferase 32 IU/L (<35); Albumin 3.4 g/dL (3.5-5.0); Albumin Globulin Ratio 1.2 (1.0-2.8); Alkaline Phosphatase 75 U/L (38-126); Aspartate Aminotransferase 37 IU/L (14-36); BUN Creatinine Ratio 22.1 (6-22); Bilirubin Total 1.5 mg/dL (0.2-1.3); Bilirubin Unconjugated 1.2 mg/dL (0.0-1.1); Blood Urea Nitrogen 52 mg/dL (7-17); Calcium 9.3 mg/dL (8.4-10.2); Carbon Dioxide 27 mmol/L (22-32); Chloride 104 mmol/L (98-107); Estimated Glomerular Filt Rate 19.7 mL/min (>60); Globulin 2.8 g/dL (1.7-4.1); Glucose 94 mg/dL (80-110); HEMOLYSIS 19 (0-50); Magnesium 1.9 mg/dL (1.6-2.3); Sodium 134 mmol/L (137-145); Total Protein 6.2 g/dL (6.3-8.2)
[2020-08-14] MEDS: LEVOTHYROXINE 100 MCG TABLET PO (06:06)
[2020-08-14 06:53] LABS: Macrocytosis 3+
[2020-08-14 06:54] LABS: Platelet Estimate Decreased on smear
[2020-08-14] MEDS: polyethylene glycoL 3350 17 GM POWD.PACK PO (08:35)
[2020-08-14] MEDS: MULTIVITAMIN 1 TABLET 1 TAB PO (08:35)
[2020-08-14] MEDS: FUROSEMIDE 40 MG/4 ML VIAL 60 MG IV (08:35)
[2020-08-14] MEDS: APIXABAN 5 MG TABLET 2.5 MG PO ×2 (08:36→21:12)
[2020-08-14] MEDS: DOCUSATE 100 MG CAPSULE PO (08:37)
[2020-08-14] MEDS: CHOLECALCIFEROL (VITAMIN D3) 1,000 UNIT TABLET 2000 UNIT PO (08:37)
[2020-08-14] MEDS: TAMSULOSIN 0.4 MG CAPSULE PO (08:37)
[2020-08-14] MEDS: MAGNESIUM CHLORIDE 64 MG TABLET PO (08:37)
--- NOTE | 2020-08-14 08:47 | CM.DPNOTE ---
DCP Cont Spoke w/patient yesterday afternoon to review DCP. Therapy team recommending home w/ 24/7 assist and HH vs SNF. Patient speaks slowly w/numerous pauses. Patient A+O however short term memory loss is noted and patient admits I forget things a lot. Patient states she has not had HH in the past, states she will not consider a SNF stay. Patient has seen a PT through [facility] in [place] and would like to return there, cg to transport. Patient states she enjoys living alone, and has a gc assist her 8-1pm daily which is has worked well for approx 7 years. Patient has adult children that live out of state (?) Patient exhibits lack of insight re: current deconditioned state and feels she will be able to go home safely w/outpatient PT and cg in the morning. This DIRECTOR MISSION will return 08.14.20 to discuss DCP further. DEBRA
[2020-08-14] MEDS: FLUTICASONE/SALMETEROL 250/50 60 PUFF DISKUS INH ×2 (09:22→20:32)
--- NOTE | 2020-08-14 10:50 | P.PN_ITS ---
Subjective Subjective Date Patient Seen: 08/14/20 Interval history: The patient is 85-year-old female admitted to the hospital with heart failure due to reduced ejection fraction, her initial echo showed an EF of 20-25%. Patient also has AFib RVR. She was noted to be hypotensive and required dopamine for blood pressure support. She has been off the dopamine for 24 hours. She continues to be on b.i.d. Lasix. She denies any shortness of breath at this time. The patient's blood pressure continues to be somewhat low. Exam Vital Signs (past 8 hours): - 08/14/20 04:44 08/14/20 05:00 08/14/20 08:00 Temperature 97.8 F 98.5 F Pulse Rate 86 84 Respiratory Rate 18 16 Blood Pressure 118/67 102/66 Pulse Oximetry 100 100 97 08/14/20 09:22 Temperature Pulse Rate 81 Respiratory Rate 16 Blood Pressure Pulse Oximetry 96 Oxygen Delivery Method Room Air Oxygen Flow Rate 0 Narrative Exam Narrative: Pleasant elderly female lying in bed in no obvious distress Lungs: Decreased breath sounds bilaterally without crackles rhonchi or wheezes Cardiac exam: Irregularly irregular, normal S1-S2, 3/6 systolic ejection murmur Abdomen: Soft nontender nondistended, no hepatosplenomegaly Extremities: No edema Objective Labs Result Diagrams: 08/14/20 04:30 08/14/20 04:30 Labs: Laboratory Results - last 24 hr 08/14/20 08/14/20 04:30 04:30 WBC 5.3 RBC 2.53 L Hgb 9.4 L Hct 28.8 L MCV 113.9 H MCH 37.1 H MCHC 32.6 RDW 15.5 H Plt Count 96 L Neut % (Auto) 60.2 Lymph % (Auto) 23.3 L [place] % (Auto) 13.3 Eos % (Auto) 2.0 Baso % (Auto) 1.2 Neut # (Auto) 3200 Lymph # (Auto) 1200 [place] # (Auto) 700 Eos # (Auto) 100 Baso # (Auto) 100 Platelet Estimate Decreased on smear Plt Morphology Comment RBC Morphology See below Macrocytosis 3+ H Sodium 134 L Potassium 5.0 Chloride 104 Carbon Dioxide 27 BUN 52 H Creatinine 2.35 H Estimated GFR 19.7 L BUN/Creatinine Ratio 22.1 H Glucose 94 Calcium 9.3 Magnesium 1.9 Total Bilirubin 1.5 H Conjugated Bilirubin 0.0 Unconjugated Bilirubin 1.2 H AST 37 H ALT 32 Alkaline Phosphatase 75 Total Protein 6.2 L Albumin 3.4 L Globulin 2.8 Albumin/Globulin Ratio 1.2 PFSH Medical History Atrial fibrillation Cardiomyopathy CHF (congestive heart failure) CVA (cerebral vascular accident) 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 Brother No problems noted. 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 She is admitted with acute on chronic renal failure likely secondary to hypotension and acute right heart failure. Dopamine was discontinued this yesterday. 1. Acute right heart failure in setting of known chronic heart failure with now preserved ejection fraction, present on admission - unclear etiology of R heart failure, appreciate cardiology assistance. Have stopped amiodarone at this time over concern for possible amiodarone toxicity. - Previous TTE showing EF 20-25% now improved to normal on echocardiogram this admission. Prior systolic heart failure likely tachyarrythmia induced. - continue furosemide, will increase today slightly to 60 mg BID. BRENDAN given adequate perfusion now is suspected to be more related to volume overload. - appreciate cardiology consultation and recommendations from Dr. Shahid. Continue gentle diuresis while supporting her blood pressure with dopamine as needed. If additional rate control is needed, consider using digoxin. Stop amiodarone and hold hydralazine and spironolactone unless she develops hypertension. Follow-up with Dr. Neil as an outpatient. If her atrial fibrillation is challenging to control, consider AV jason ablation and pacemaker therapy. - will continue diuresis, follow renal function, add back metoprolol as blood pressure tolerates. Given low blood pressure, will decrease lasix, add metoprolol for now 2. Hypotension - suspect in the setting of multiple medications. Now off of dopamine, as above will add metoprolol as tolerated first for additional rate control which has not been an issue thus far. -decrease lasix, resume metoprolol for rate control 3. 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 Renetta slightly today suspect due to volume overload at this time. Continue diuresis as noted above. -follow creatinine closely, Creatinine improving 2.35 today. 4. Congestive hepatopathy, improving - secondary to volume overload, continue diuresis as noted above. 5. Hyperkalemia, acute, present on admission, resolved - secondary to acute renal failure, no EKG changes, will continue to monitor and continue diuresis with lasix which will help lower K. Continue telemetry and provide treatment if EKG changes. 6. asymptomatic bacteruria, present on admission - no antibiotic therapy recommended at this time. Cultures growing E. coli. 7. Hypothyroidism, chronic - TSH unremarkable, continue home levothyroxine. 8. COPD chronic - does not represent an acute exacerbation, continue home medications. 9. h/o HTN, chronic - hold home losartan, hydralazine, and beta leona for now. resume beta leona first as tolerated as noted abcalli. 10. chronic atrial fibrillation - hold amiodarone, will start metoprolol as noted above. Appreciate cardiology recommendations. Gently add back metoprolol - continue home eliquis, although now at reduced dosing 2.5 mg given renal disease and age. Code: DNR, as discussed with the patient. Dispo: stable for regular floor, anticipate discharge home perhaps in 2-3 days after continued diuresis. DVT: on apixaban COVID-19 COVID-19 status: Negative Quality VTE Deep Vein Thrombosis/Pulmonary Embolism Present on Admission: No
--- NOTE | 2020-08-14 10:54 | PT.IPTN ---
Current Diagnoses Acute on chronic diastolic (congestive) heart failure (08/11/20) Physical Therapy Treatment Note M2 PT-IP Current Condition Start: 08/13/20 13:03 Freq: NEEDED Status: Active Protocol: Document 08/13/20 15:31 DE (Rec: 08/13/20 16:28 DE [id number]) Physical Therapy Current Condition Current Condition Evaluation Date 08/13/20 Treatment Diagnosis Generalized weakness; Difficulty performing ADLs Onset Date 08/11/20 M3 PT-IP Subjective Start: 08/13/20 13:03 Freq: NEEDED Status: Active Protocol: Document 08/14/20 10:34 KS (Rec: 08/14/20 12:33 KS [id number]) Subjective Physical Therapy Visit Type Type Treatment Note Visit Start Time 10:34 Visit Stop Time 10:54 Total Visit Minutes 20 Number of COLLAR STITCHER Visits 1 Physical Therapy Visit Comments Patient Comments Pt is agreeable to do PT. M4 PT-IP Mobility and Gait Start: 08/13/20 13:03 Freq: NEEDED Status: Active Protocol: Document 08/14/20 10:34 KS (Rec: 08/14/20 12:33 KS [id number]) PT-Bed Mobility Assessment Supine to Sit Supine to Sit Moderate Assistance,1 Person Assistance,Head of Bed Elevated Scooting Scooting to Edge of Bed Moderate Assistance PT-Transfer Assessment Sit to and From Stand Sit to and from Stand Contact Guard Assistance,2 Person Assistance,Use of Upper Extremities Equipment Transfer Assistive Device None,Gait Belt Transfers Transfer Destination Chair Transfer Technique Stand Pivot Transfer Ability Level of Assist Contact Guard Assistance, Minimal Assistance,Use of Upper Extremities Comments Mobility Comments Pt in bed upon arrival from PT and BOX SEALING MACHINE OPERATOR in room. Patient was agreeable to transfer to chair . Pt Mod A for sup<>sit w/ HOB elevated and Mod A for scooting to EOB. Pt sit<>stand CGA and performed stand step pivot transfer to chair CGA to Min A. Mod A for scooting back in chair. Patient denied lightheadedness or SOB when mobilizing. Pt left in chair w / BOX SEALING MACHINE OPERATOR in room. Gait Assessment Comments Gait Comments Not assessed. Stand step pivot only Stair Climbing Assessment Comments Stair Climbing Comments Not assessed. PT-Balance Assessment Sitting Balance and Reactions Static Sitting Balance Ability Good Dynamic Sitting Balance Ability Fair Standing Balance and Reactions Static Standing Balance Ability Fair Dynamic Standing Balance Ability Poor M5 PT-IP Objective Assessments Start: 08/13/20 13:03 Freq: NEEDED Status: Active Protocol: Document 08/13/20 15:31 DE (Rec: 08/13/20 16:28 DE [id number]) Orientation Orientation/Cognition Level of Alertness Confusional State Orientation Month,Date,Year,Day of Week, Place Language Function Ability No Deficits Noted Safety Awareness Understands Safety Issues Memory Description Short Term Impaired,Manager Telemarketing Impaired Comments Pt was oriented to month, date , year, day of week, and place but demonstrated memory loss. Gross Range of Motion Upper Extremity ROM Assessment Left Impaired Impairments Lack of L elbow flexion, L wrist extension, and L finger extension d/t/ increased tone. Lower Extremity ROM Assessment Left Impaired Strength Upper Extremity Strength Assessment Left Impaired Lower Extremity Strength Assessment Bilaterally Impaired Comments Strength Comments Pt was not able to actively move her LUE. 4/5 on RUE. 4-/5 on B hip flexion. 4/5 on R knee extension. 4-/5 on L knee extension. Coordination Assessment Gross Coordination Gross Coordination Impaired Assessment Coordination Comments Pt had difficulty holding her phone in her R hand. Sensation Assessment Sensation Gross Sensation WNL Light Touch Intact Muscle Tone Muscle Tone WNL No Comments Muscle Tone Comments Significant tone observed in L elbow extension, L wrist flexion, and L finger flexion. M6 PT-IP Treatment Start: 08/13/20 13:03 Freq: NEEDED Status: Active Protocol: Document 08/14/20 10:34 KS (Rec: 08/14/20 12:33 KS [id number]) Physical Therapy Treatment Education Education Provided Safety M7 PT-IP Assessment and Plan Start: 08/13/20 13:03 Freq: NEEDED Status: Active Protocol: Document 08/14/20 10:34 KS (Rec: 08/14/20 12:33 KS [id number]) PT Summary Assessment and Plan Potential Rehabilitation Potential Fair Status of Condition at Evaluation Evolving Summary Impairments Pain,ROM,Strength,Balance, Coordination,Tone,Cognition, Bed Mobility,Transfers,Gait, Activity Tolerance Assessment Summary Patient Mod A x1-2 for bed mobility and scooting today, but CGA and cues for sit<> Stand w/o AD and CGA to Min A for stand step pivot to chair. Patient remains limited by L sided hemiparesis, but states she does all her own transfers at home and is hoping to return to baseline. Recommended home w/ 19/03 assistance or SNF at this time d/t L sided hemiparesis and fall risk. Goals Bed Mobility Goal Standby Assistance Transfer Goal Standby Assistance Days to Meet Goals 10 Frequency of Treatment Frequency Of Treatment Once a Day Treatment Plan Physical Therapy Treatment Plan Bed Mobility Training,Transfer Training,Gait Training, Therapeutic Exercise,Balance Retraining,Post Op Education, Discharge Planning,Hot or Cold Pack,Neuromuscular Re-ed, Coordination Retraining Recommendations To Nursing Amount of Assist Needed 1 Person Assist Discharge Recommendations PT Discharge Recommendations Home with 19/03 Assist,Home Health,SNF Rehab Transportation Needs at Discharge Wheelchair/Cabulance
--- NOTE | 2020-08-14 12:02 | OT.IP.TRT ---
Current Diagnoses Acute on chronic diastolic (congestive) heart failure (08/11/20) Occupational Therapy Treatment Note M2 OT-IP Current Condition Start: 08/13/20 16:19 Freq: Status: Active Protocol: Document 08/13/20 16:25 CGR (Rec: 08/13/20 16:45 CGR [id number]) Occupational Therapy Current Condition Current Condition Evaluation Date 08/13/20 Treatment Diagnosis Acute R heart failure, CHF EF 20-25%, hx CVA with L weakness Diagnosis Onset Date 08/11/20 M3 OT- IP Subjective and Pain Start: 08/13/20 16:19 Freq: Status: Active Protocol: Document 08/14/20 14:58 CGR (Rec: 08/14/20 15:10 CGR [id number]) OT- Subjective Occupational Therapy Visit Type Type Progress Note Visit Start Time 11:35 Visit Stop Time 12:02 Total Visit Minutes 27 OT Pain Assessment Pain When Pain Assessed At Rest Pain Present Pain Present Denied Pain M4 OT- IP ADL's Start: 08/13/20 16:19 Freq: Status: Active Protocol: Document 08/14/20 14:58 CGR (Rec: 08/14/20 15:10 CGR [id number]) OT [id number] Comments OT Self-Feeding Comments Not meal time OT ADL-Grooming General Evaluation Grooming Ability Standby Assistance Areas Needing Assistance Combing/Brushing Hair Comments OT Grooming Comments PT able to brush hair in todays session. Abnormal UE movements noted after brushing hair for a few minutes. Movements today were with gravity on this date vs in an extension pattern. OT ADL-Oral Care Comments Oral Care Comments Not performed OT ADL-Dressing Comments OT Dressing Comments Not performed OT ADL-Toileting Comments OT Toileting Comments Not performed OT ADL-Bathing Comments OT Bathing Comments Not performed M5 OT- IP IADL's Start: 08/13/20 16:19 Freq: Status: Active Protocol: Document 08/13/20 16:25 CGR (Rec: 08/13/20 16:45 CGR [id number]) OT-Instrumental Activities of Daily Living Deficits IADL Deficits Identified Deficits Home Safety Awareness Awareness of Need for Assistance at Home Decreased Awareness Ability to Problem Solve Emergency Unable to Problem Solve Situations M6 OT- IP Functional Cognition Start: 08/13/20 16:19 Freq: Status: Active Protocol: Document 08/14/20 14:58 CGR (Rec: 08/14/20 15:10 CGR [id number]) Cognitive Factors Limiting Selfcare Function Cognitive Ability Level of Alertness Alert,Confusional State Patient Orientation Name,Place Cognitive Tests SLUMS Pt participated in the SLUMS assessment on this date with a final score of . Scores under 20 indicate dementia. Pt was unable to state the year, perform simple math, named 10 animals in one minute, remembered 2 of the 5 objects for STM, was able to state series of numbers backwards up to 3 numbers, was unable to fill out the clock correctly, and missed 2 of the 4 listening comprehension questions. Cognitive Comments Cognitive Assessment Comments Pt presents with poor cognition as seen with her SLUMS assessment today. Pt states that she has noticed her memory impairments getting worse lately. OT- Vision and Hearing OT- Hearing Assessment OT- Hearing Assessment WFL OT- Vision Assessment Vision History Cataracts Visual Acuity WFL M7 OT- IP Mobility and Balance Start: 08/13/20 16:19 Freq: Status: Active Protocol: Document 08/13/20 16:25 CGR (Rec: 08/13/20 16:45 CGR [id number]) OT- Balance Assessment Sitting Balance and Reactions Static Sitting Balance Ability Good Dynamic Sitting Balance Ability Fair M8 OT- IP Objective Assessments Start: 08/13/20 16:19 Freq: Status: Active Protocol: Document 08/13/20 16:25 CGR (Rec: 08/13/20 16:45 CGR [id number]) OT Gross Range of Motion Upper Extremity Range of Motion Assessment Left Impaired ROM Impairments LUE with very limited ROM to fingers, wrist, 0-70 elbow, shld 0-40 with a 1 finger subluxation to the L shld. OT Strength Upper Extremity Strength Assessment Left Impaired Comments Strength Comments LUE with extension tone pattern OT- Coordination Assessment Upper Extremity Finger to Nose Test Left UE Impaired Finger Tapping Test Left UE Impaired OT-Muscle Tone Assessment Muscle Tone WNL No Muscle Tone Location Left Upper Extremity Type of Tone Rigidity,Extensor Severity of Tone Moderate OT Sensation Assessment Edema Edema Absent M9 OT- IP Assessment and Plan Start: 08/13/20 16:19 Freq: Status: Active Protocol: Document 08/14/20 14:58 CGR (Rec: 08/14/20 15:10 CGR [id number]) OT Summary Assessment and Plan Potential Rehabilitation Potential Fair Analytic Complexity at Evaluation High Summary OT Impairments Range of Motion,Strength, Balance,Coordination,Tone, Functional Cognition, Functional Mobility,Self- Feeding,Grooming,Dressing, Toileting,Bathing,Toilet Transfers,Shower Transfers, Activity Tolerance Progress Towards Goals Slow Progress due to Medical Issues,Slow Progress due to Activity Tolerance,Slow Progress due to Cognition Assessment Summary Pt presents as a high complexity evaluation s/p admit for acute R heart failure. Pt participated in SLUMS assessment on this date with a score of 13/30. Pt is unlikely to be safe at home without assist. Pt would benefit from 24 hour assist at home or SNF. Goals Self-Feeding Goal Independent Grooming Goal Independent Dressing Goal Standby Assistance Toileting Goal Independent Bathing Goal Standby Assistance Toilet Transfer Goal Independent,Bedside Commode Shower Transfer Goal Standby Assistance,Shower Chair Days to Meet Goals 20 Frequency of Treatment Frequency Of Treatment Once a Day Treatment Plan OT Treatment Plan ADL Training,Functional Cognition Training,Functional Mobility,Patient/Family Education,Discharge Planning Other Treatment Recommendations and Next cog assessment Treatment Focus Discharge Recommendations OT Discharge Recommendations SNF Rehab Transportation Needs at Discharge Wheelchair/Cabulance
--- NOTE | 2020-08-14 15:29 | CM.DPNOTE ---
DCP Cont OT CJ suggests, based on patient's low SLUMS score, that patient does not necessarily require a SNF but would benefit from additional care (19/03 ideally) d/t her poor cognitive status, either at home from in home caregivers or in an assisted living, intermodal customer service care facility. Placed call to son/POElizabeth Thompson home P# [phone] cell P# [phone], had to LM. Patient eager to return home but continues to exhibit poor safety awareness and insight into the amount of assist she needs for ADLs. This HOOF AND SHOE INSPECTOR will plan to connect w/son Davon tomorrow- who manages patient's finances according to OT CJ...will review DCP and intermodal customer service care options. Patient is expected to DC in another day or two. DEBRA
[2020-08-14] MEDS: DIGOXIN 500 MCG/2 ML AMPUL 250 MCG IV (16:45)
--- NOTE | 2020-08-14 18:17 | PC.NURSE ---
Shift Note [id number] Patient alert and oriented to self/place but is frequently forgetful. Up to chair this morning with PT, 2 person pivot transfer due to left sided weakness. Denies pain. Denies any shortness of breath, lungs clear bilaterally. SpO2 98-100% on RA. Afib CVR/RVR on monitor, occ. in ST in the low 100s. HR sustaining in the 102-104 bpm range, digoxin administered IV per MD order (see emar) and HR currently afib in the 80s. BP 90s/50s. Bed alarm is on. Call light is within reach.
[2020-08-14] MEDS: GABAPENTIN 300 MG CAPSULE 600 MG PO (21:13)
[2020-08-14] MEDS: PRAVASTATIN 20 MG TABLET 40 MG PO (21:13)
[2020-08-14] MEDS: SENNOSIDES 8.6 MG TABLET 17.2 MG PO (21:13)
--- NOTE | 2020-08-14 21:24 | PC.NURSE ---
2100- Metoprolol held for BP 81/52. NANCIE Maier aware orders received. Will monitor.
[2020-08-15] VITALS (11 sets, daily range): BP systolic 96–119; BP diastolic 55–74; PULSE 70–100; RESP 16–19; TEMP 36.1–36.9; O2SAT 96–100
[2020-08-15] MEDS: LEVOTHYROXINE 100 MCG TABLET PO (05:59)
[2020-08-15 06:15] LABS: Basophils Absolute Auto 100 /uL (0-100); Basophils Percent Auto 1.5 % (0-2); Eosinophils Absolute Auto 100 /uL (0-450); Eosinophils Percent Auto 2.5 % (2-4); Hematocrit 31.4 % (36-46); Hemoglobin 10.3 g/dL (12.0-16.0); Lymphocytes Absolute Auto 1200 /uL (1100-4500); Lymphocytes Percent Auto 22.7 % (25-40); Mean Corpuscular HGB Conc 32.8 % (30-36); Mean Corpuscular Hemoglobin 37.4 PG (26-34); Mean Corpuscular Volume 113.8 fL (80-100); Monocytes Absolute Auto 600 /uL (0-900); Monocytes Percent Auto 11.6 % (3-14); Neutrophils Absolute Auto 3300 /uL (1500-7000); Neutrophils Percent Auto 61.7 % (50-75); Platelet Count 114 X10^3/uL (150-400); Red Blood Cell Count 2.76 X10^6/uL (4.0-5.2); Red Cell Distribution Width 15.5 % (11.6-14.8); White Blood Cell Count 5.4 X10^3/uL (4.5-11.0)
[2020-08-15 06:17] LABS: Add Manual Diff / Slide Review SLIDE REVIEW
[2020-08-15 06:32] LABS: BUN Creatinine Ratio 19.1 (6-22); Blood Urea Nitrogen 41 mg/dL (7-17); Calcium 9.9 mg/dL (8.4-10.2); Carbon Dioxide 28 mmol/L (22-32); Chloride 105 mmol/L (98-107); Estimated Glomerular Filt Rate 21.8 mL/min (>60); Glucose 95 mg/dL (80-110); HEMOLYSIS < 15 (0-50); Sodium 136 mmol/L (137-145)
[2020-08-15 06:41] LABS: NT-proBNP (BNP-Adult 18+) 2010 pg/mL (<450)
[2020-08-15 06:53] LABS: Potassium 5.2 mmol/L (3.4-5.1)
[2020-08-15 07:11] LABS: Macrocytosis 3+; Platelet Estimate Decreased on smear
[2020-08-15] MEDS: FLUTICASONE/SALMETEROL 250/50 60 PUFF DISKUS INH ×2 (08:47→19:58)
[2020-08-15] MEDS: METOPROLOL IR 25 MG TABLET 12.5 MG PO (08:49)
[2020-08-15] MEDS: DOCUSATE 100 MG CAPSULE PO (08:50)
[2020-08-15] MEDS: TAMSULOSIN 0.4 MG CAPSULE PO (08:50)
[2020-08-15] MEDS: MULTIVITAMIN 1 TABLET 1 TAB PO (08:50)
[2020-08-15] MEDS: polyethylene glycoL 3350 17 GM POWD.PACK PO (08:50)
[2020-08-15] MEDS: CHOLECALCIFEROL (VITAMIN D3) 1,000 UNIT TABLET 2000 UNIT PO (08:50)
[2020-08-15] MEDS: APIXABAN 5 MG TABLET 2.5 MG PO ×2 (08:50→20:31)
[2020-08-15] MEDS: MAGNESIUM CHLORIDE 64 MG TABLET PO (08:51)
[2020-08-15] MEDS: SODIUM CHLORIDE 0.9% FLUSH 10 ML IV ×2 (08:51→20:32)
--- NOTE | 2020-08-15 10:37 | PT.IPTN ---
Current Diagnoses Acute on chronic diastolic (congestive) heart failure (08/11/20) Physical Therapy Treatment Note M2 PT-IP Current Condition Start: 08/13/20 13:03 Freq: NEEDED Status: Active Protocol: Document 08/13/20 15:31 DE (Rec: 08/13/20 16:28 DE [id number]) Physical Therapy Current Condition Current Condition Evaluation Date 08/13/20 Treatment Diagnosis Generalized weakness; Difficulty performing ADLs Onset Date 08/11/20 M3 PT-IP Subjective Start: 08/13/20 13:03 Freq: NEEDED Status: Active Protocol: Document 08/15/20 10:26 CLB (Rec: 08/15/20 10:55 CLB [id number]) Subjective Physical Therapy Visit Type Type Treatment Note Visit Start Time 10:20 Visit Stop Time 10:37 Total Visit Minutes 11 Notes CHOPPING MACHINE OPERATOR and RN present during tx. Number of ORDER MANAGER Visits 1 Physical Therapy Visit Comments Patient Comments Pt is agreeable to do PT. M4 PT-IP Mobility and Gait Start: 08/13/20 13:03 Freq: NEEDED Status: Active Protocol: Document 08/15/20 10:26 CLB (Rec: 08/15/20 10:55 CLB [id number]) PT-Bed Mobility Assessment Supine to Sit Supine to Sit Moderate Assistance,1 Person Assistance,Head of Bed Elevated Scooting Scooting to Edge of Bed Moderate Assistance PT-Transfer Assessment Sit to and From Stand Sit to and from Stand Minimal Assistance,1 Person Assistance Equipment Transfer Assistive Device None,Gait Belt Transfers Transfer Destination Chair Transfer Technique Stand Pivot Transfer Ability Level of Assist Minimal Assistance,1 Person Assistance Comments Mobility Comments Pt in bed requiring Mod A for supine-sit and scooting to EOB . Pt stood Min A with Mod A to stand as RN pulled up brief . Pt pivoted to chair Min A. Left pt in chair as Dr. Wilkinson arrived in room, CHOPPING MACHINE OPERATOR also present to assure chair alarm and table set up. Gait Assessment Comments Gait Comments Not assessed. Stand step pivot only Stair Climbing Assessment Comments Stair Climbing Comments Not assessed. M5 PT-IP Objective Assessments Start: 08/13/20 13:03 Freq: NEEDED Status: Active Protocol: Document 08/13/20 15:31 DE (Rec: 08/13/20 16:28 DE [id number]) Orientation Orientation/Cognition Level of Alertness Confusional State Orientation Month,Date,Year,Day of Week, Place Language Function Ability No Deficits Noted Safety Awareness Understands Safety Issues Memory Description Short Term Impaired,Single Wire Saw Operator Impaired Comments Pt was oriented to month, date , year, day of week, and place but demonstrated memory loss. Gross Range of Motion Upper Extremity ROM Assessment Left Impaired Impairments Lack of L elbow flexion, L wrist extension, and L finger extension d/t/ increased tone. Lower Extremity ROM Assessment Left Impaired Strength Upper Extremity Strength Assessment Left Impaired Lower Extremity Strength Assessment Bilaterally Impaired Comments Strength Comments Pt was not able to actively move her LUE. 4/5 on RUE. 4-/5 on B hip flexion. 4/5 on R knee extension. 4-/5 on L knee extension. Coordination Assessment Gross Coordination Gross Coordination Impaired Assessment Coordination Comments Pt had difficulty holding her phone in her R hand. Sensation Assessment Sensation Gross Sensation WNL Light Touch Intact Muscle Tone Muscle Tone WNL No Comments Muscle Tone Comments Significant tone observed in L elbow extension, L wrist flexion, and L finger flexion. M6 PT-IP Treatment Start: 08/13/20 13:03 Freq: NEEDED Status: Active Protocol: Document 08/14/20 10:34 KS (Rec: 08/14/20 12:33 KS [id number]) Physical Therapy Treatment Education Education Provided Safety M7 PT-IP Assessment and Plan Start: 08/13/20 13:03 Freq: NEEDED Status: Active Protocol: Document 08/15/20 10:26 CLB (Rec: 08/15/20 10:55 CLB [id number]) PT Summary Assessment and Plan Potential Rehabilitation Potential Fair Status of Condition at Evaluation Evolving Summary Impairments Pain,ROM,Strength,Balance, Coordination,Tone,Cognition, Bed Mobility,Transfers,Gait, Activity Tolerance Assessment Summary Pt Mod A for bed mobility and scooting, pt requiring Min A for sit-stand and pivot transfer to chair. Recommended home 19/03 assistance or SNF at this time d/t L sided hemiparesis and fall risk. Goals Bed Mobility Goal Standby Assistance Transfer Goal Standby Assistance Days to Meet Goals 10 Frequency of Treatment Frequency Of Treatment Once a Day Treatment Plan Physical Therapy Treatment Plan Bed Mobility Training,Transfer Training,Gait Training, Therapeutic Exercise,Balance Retraining,Post Op Education, Discharge Planning,Hot or Cold Pack,Neuromuscular Re-ed, Coordination Retraining Recommendations To Nursing Amount of Assist Needed 1 Person Assist Discharge Recommendations PT Discharge Recommendations Home with 19/03 Assist,Home Health,SNF Rehab Transportation Needs at Discharge Wheelchair/Cabulance
[2020-08-15] MEDS: BISACODYL 5 MG TABLET 10 MG PO (10:57)
[2020-08-15] MEDS: AMIODARONE 200 MG TABLET PO (10:57)
[2020-08-15] MEDS: FUROSEMIDE 40 MG TABLET PO (10:57)
[2020-08-15] MEDS: NYSTATIN POWDER 15GM 1 APPLIC TOP (10:57)
--- NOTE | 2020-08-15 12:14 | PM.PN.1 ---
Subjective Subjective Date Patient Seen: 08/15/20 Interval history: Patient had an uneventful night. She denies any shortness of breath or chest pain. She is off oxygen. She gets around in a wheelchair. Ideally she would like to return home at discharge. Her blood pressure remains on the low side, Her heart rate is well controlled thus far. Medication adjustments will be made today anticipating discharge home tomorrow Exam Vital Signs (past 8 hours): - 08/15/20 06:00 08/15/20 08:00 08/15/20 08:51 Temperature 97.9 F 97.8 F Pulse Rate 98 H 100 H Respiratory Rate 18 18 18 Blood Pressure 119/74 112/71 Pulse Oximetry 98 96 96 Oxygen Delivery Method Room Air Oxygen Flow Rate 0 Narrative Exam Narrative: pleasant female sitting up in a chair in no acute distress Lungs: decreased breath sounds but clear to auscultation CV: Irregularly, Irregular nl Sl S2 3/6 ROSEANN ABd; Soft/ non tender/non distended Ext: no edema Objective Labs Result Diagrams: 08/15/20 06:05 08/15/20 06:05 Labs: Laboratory Results - last 24 hr 08/15/20 08/15/20 06:05 06:05 WBC 5.4 RBC 2.76 L Hgb 10.3 L Hct 31.4 L MCV 113.8 H MCH 37.4 H MCHC 32.8 RDW 15.5 H Plt Count 114 L Neut % (Auto) 61.7 Lymph % (Auto) 22.7 L [place] % (Auto) 11.6 Eos % (Auto) 2.5 Baso % (Auto) 1.5 Neut # (Auto) 3300 Lymph # (Auto) 1200 [place] # (Auto) 600 Eos # (Auto) 100 Baso # (Auto) 100 Platelet Estimate Decreased on smear Plt Morphology Comment RBC Morphology See below Macrocytosis 3+ H Sodium 136 L Potassium 5.2 H Chloride 105 Carbon Dioxide 28 BUN 41 H Creatinine 2.15 H Estimated GFR 21.8 L BUN/Creatinine Ratio 19.1 Glucose 95 Calcium 9.9 NT-Pro-B Natriuret Pep 2010 H [facility] Medical History Atrial fibrillation Cardiomyopathy CHF (congestive heart failure) CVA (cerebral vascular accident) 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 Brother No problems noted. 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 She is admitted with acute on chronic renal failure likely secondary to hypotension and acute right heart failure. Dopamine was discontinued this yesterday. 1. Acute right heart failure in setting of known chronic heart failure with now preserved ejection fraction, present on admission - unclear etiology of R heart failure, appreciate cardiology assistance. Have stopped amiodarone at this time over concern for possible amiodarone toxicity. - Previous TTE showing EF 20-25% now improved to normal on echocardiogram this admission. Prior systolic heart failure likely tachyarrythmia induced. - continue furosemide, will increase today slightly to 60 mg BID. BRENDAN given adequate perfusion now is suspected to be more related to volume overload. - appreciate cardiology consultation and recommendations from Dr. Shahid. Continue gentle diuresis while supporting her blood pressure with dopamine as needed. If additional rate control is needed, consider using digoxin. Stop amiodarone and hold hydralazine and spironolactone unless she develops hypertension. Follow-up with Dr. Neil as an outpatient. If her atrial fibrillation is challenging to control, consider AV jason ablation and pacemaker therapy. - will continue diuresis, follow renal function, add back metoprolol as blood pressure tolerates. -switch lasix to 40 mg po daily ( home dose) appears euvolemic at this time 2. Hypotension - suspect in the setting of multiple medications. Now off of dopamine, as above will add metoprolol as tolerated first for additional rate control which has not been an issue thus far. -resume lasix 40 mg daily 3. 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 Renetta slightly today suspect due to volume overload at this time. Continue diuresis as noted above. -follow creatinine closely, Creatinine improving 2.35 today. -continued improvement, Creatinine 2.15 today 4. Congestive hepatopathy, improving - secondary to volume overload, continue diuresis as noted above. 5. Hyperkalemia, acute, present on admission, resolved - secondary to acute renal failure, no EKG changes, will continue to monitor and continue diuresis with lasix which will help lower K. Continue telemetry and provide treatment if EKG changes. 6. asymptomatic bacteruria, present on admission - no antibiotic therapy recommended at this time. Cultures growing E. coli. 7. Hypothyroidism, chronic - TSH unremarkable, continue home levothyroxine. 8. COPD chronic - does not represent an acute exacerbation, continue home medications. 9. h/o HTN, chronic - hold home losartan, hydralazine, and beta leona for now. resume beta leona first as tolerated as noted abvoe. 10. chronic atrial fibrillation -discussed with Dr. Faust, given issues with hypotension and renal insufficiency will resume Amiodarone 200 mg daily D/C metoprolol D/C cardizem No Digoxin Will need follow up with Dr. Neil as an outpatient to determine if device therapy warranted or continued medical management Code: DNR, as discussed with the patient. Dispo: stable for regular floor, anticipate discharge home perhaps in 2-3 days after continued diuresis. DVT: on apixaban COVID-19 COVID-19 status: Negative Quality VTE Deep Vein Thrombosis/Pulmonary Embolism Present on Admission: No
--- NOTE | 2020-08-15 12:57 | CM.DPC ---
DCP Cont: Spoke to patient regarding discharge plan, as well as possible skilled rehab before she goes home. Patient stated, she really doesn't want to go, she would rather go home. Confirmed with patient that she has a caregiver named Ashely that comes 7 days a week, [phone]. She prepares her meals, helps with showers, takes her to appointments if needed. Patient is opened to having home health. She gave permission to call carolyn Mays, who is [facility], for additional information, such as type of caregiving agency that her caregiver is with. Spoke to son, Davon, who resides in [facility]. He confirmed that patient has [employer] caregiver, Ashely. Her ALEX case manage is Victoria Whiting, who he stated, has been in contact with. He indicated they are looking at extending her hours. He mentioned that her caregiver, Ashely, lives approximately 5 minutes away, and can also come and do split shifts. Let son know that patient is reluctant to go to custodial. He stated, she went to the one in [place], was [facility] and did not like the facility. He stated that he [facility] that [facility]. Son also stated, would be a good idea to go ahead and send referrals to some skilled facilities in [facility]. He also stated that if we let his mom know that skilled rehab isn't permanent, she may go. It is noted that patient has [employer] Medicare. [facility] does insurance, as well as [facility]. Went ahead and faxed referral to both facilities. One facility would need to work on the insurance auth at a time. [facility] may be only one that accepts [employer], and son mentioned, she has worked with [facility] before. P: Will discuss with patient again. Plan is either for [facility], [facility] or [facility]. Son, Davon, is wanting update with care management, or Dr. Wilkinson if possible. Alexandra Lo RN/[employer]
--- NOTE | 2020-08-15 15:13 | OT.IP.TRT ---
Current Diagnoses Acute on chronic diastolic (congestive) heart failure (08/11/20) Occupational Therapy Treatment Note M2 OT-IP Current Condition Start: 08/13/20 16:19 Freq: Status: Active Protocol: Document 08/13/20 16:25 CGR (Rec: 08/13/20 16:45 CGR [id number]) Occupational Therapy Current Condition Current Condition Evaluation Date 08/13/20 Treatment Diagnosis Acute R heart failure, CHF EF 20-25%, hx CVA with L weakness Diagnosis Onset Date 08/11/20 M3 OT- IP Subjective and Pain Start: 08/13/20 16:19 Freq: Status: Active Protocol: Document 08/15/20 15:00 RM (Rec: 08/15/20 15:13 RM [id number]) OT- Subjective Occupational Therapy Visit Type Type Treatment Note Visit Start Time 13:35 Visit Stop Time 14:05 Total Visit Minutes 30 Occupational Therapy Visit Comments Patient Comments It was disturbing to do so poorly. It was humiliating. Discussing her performance on cognitive assessment during OT treatment yesterday. Patient/Caregiver Goals Return home, she repeatedly stated that she did not wish to discharge to a SNF. OT Pain Assessment Pain When Pain Assessed During Mobility Pain Present Pain Present Pain Reported Location Left Arm Scale Used reports LUE sensitive to all movement d/t prior CVA M4 OT- IP ADL's Start: 08/13/20 16:19 Freq: Status: Active Protocol: Document 08/15/20 15:00 RM (Rec: 08/15/20 15:13 RM [id number]) OT ADL-Grooming General Evaluation Grooming Ability Standby Assistance Comments OT Grooming Comments Patient able to brush her hair w/ RUE after s/u in recliner. OT ADL-Toileting General Evaluation Toileting Ability Moderate Assistance Areas Needing Assistance Manage Clothing Devices Toileting Assistive Devices Commode Comments OT Toileting Comments Patient able to complete perineal hygiene on BSC. Attempted to pull-up brief, but unable to complete w/ progressive forward flexion requiring therapist to prevent her from falling forward. Patient aware of imbalance stating I feel like I'm going to pitch forward. My caregiver tells me not to look down at home too. M6 OT- IP Functional Cognition Start: 08/13/20 16:19 Freq: Status: Active Protocol: Document 08/15/20 15:00 RM (Rec: 08/15/20 15:13 RM [id number]) Cognitive Factors Limiting Selfcare Function Cognitive Ability Level of Alertness Alert Memory Description Short Term Impaired Safety Awareness Underestimates Need for Assistance Problem Solving Ability Needs Assist to Identify Solutions Cognitive Comments Cognitive Assessment Comments Patient initally asked therapist if she liked the [employer], after transition in conversation to discuss toileting needs she then again asked therapist if she liked [employer] not recalling prior discussion. She reports that she feels her memory has been worse since her hospitalization. Also noted impairements in function problem solving and safety during toilet transfer. Overall demonstrates decreased insight into her level of impairement and safety concerns associated with being home alone. At this time recommend 24 hour supervision and support. M7 OT- IP Mobility and Balance Start: 08/13/20 16:19 Freq: Status: Active Protocol: Document 08/15/20 15:00 RM (Rec: 08/15/20 15:13 RM [id number]) OT- Bed Mobility Assessment Rolling Type of Rolling Roll to Right Level of Assistance Moderate Assistance,1 Person Assistance Supine to Sit Supine to Sit Assist Moderate Assistance,1 Person Assistance OT-Transfer Assessment Sit to and From Stand Sit to and from Stand Minimal Assistance,1 Person Assistance Transfers Transfer Ability Minimal Assistance,1 Person Assistance Technique Transfer Destination Bedside Commode,Chair Comments Mobility Comments Introduced michelle-walker. Pt reports at baseline she does not use any AD. She reports transfering independently and also ambulating in home for exercise with support of her caregiver. She states that she uses a power wheelchair for her primary mobility. Device not available at the hospital. OT- Balance Assessment Sitting Balance and Reactions Static Sitting Balance Ability Good Dynamic Sitting Balance Ability Fair Standing Balance and Reactions Static Standing Balance Ability Poor Dynamic Standing Balance Ability Poor M9 OT- IP Assessment and Plan Start: 08/13/20 16:19 Freq: Status: Active Protocol: Document 08/15/20 15:00 RM (Rec: 08/15/20 15:13 RM [id number]) OT Summary Assessment and Plan Potential Rehabilitation Potential Good Summary OT Impairments Range of Motion,Strength, Balance,Coordination, Functional Cognition, Functional Mobility,Dressing, Toileting,Bathing,Toilet Transfers,Shower Transfers, Activity Tolerance Progress Towards Goals Slow Progress due to Medical Issues,Slow Progress due to Cognition Assessment Summary Patient is a 85 year old female with complex medical status previously living alone with in-home caregiver support daily. At this time given functional impairements and cognitive impairement recommend 24 hr supervision and support. Goals Dressing Goal Minimal Assistance Toileting Goal Standby Assistance Toilet Transfer Goal Standby Assistance Days to Meet Goals 7 Frequency of Treatment Frequency Of Treatment Once a Day Treatment Plan OT Treatment Plan ADL Training,Functional Cognition Training,Functional Mobility,Discharge Planning Other Treatment Recommendations and Next ADL re-training and ongoing Treatment Focus cognitive assessment during functional tasks. Patient reports feeling humilated by performance on SLUMS. Discharge Recommendations OT Discharge Recommendations SNF Rehab Transportation Needs at Discharge Wheelchair/Cabulance
--- NOTE | 2020-08-15 16:06 | OT.IPNOTE ---
Telephone call with patient's [id number] [place] Thompson x17 minutes. Patient provided verbal permission to communicate with her son with son providing verbal permission to discuss patient concerns with his in his absence. Provided recommendation for 24 hour supervision at this time given medical complexity and physical and cognitive impairments. Recommended also that patient follow-up with her PCP to discuss her changes in function including cognitive changes with patient and friends both reporting changes in memory. Encourage patient participating with rehab services at a SNF to facilitate return to prior level of function and to assist in determining least restrictive environment for discharge.
--- NOTE | 2020-08-15 16:33 | PC.NURSE ---
Evening Shift Note: Pt is oriented to self and place. Mild memory loss, pt is aware of this deficit. Pt with prior CVA, rigid L arm, no movment noted. Weakness in L leg. Pt denies pain at this time. Pt is on RA, SPO2 98%. Lungs CTA, diminished in bases. Pt denies SOB. Pt is in chronic a-fib/a-flutter, rate controlled. BBB. Pt denies CP or pressure. Pt remains hypotensive, MD aware.Trace edema in BLE. Oral lasix given on hi. Pt's centeno was removed today. Pt has voided since centeno removal, but has not yet voided on evening shift. Pt denies pain. Pt is a 1 person assist, stand pivot transfer. Chair alarm on and functioning, call light within reach. Pt is using call light appropriately. Will continue to monitor, notify MD with changes.
[2020-08-15] MEDS: MAGNESIUM CITRATE 300 ML SOLUTION 150 ML PO (20:30)
[2020-08-15] MEDS: GABAPENTIN 300 MG CAPSULE 600 MG PO (20:31)
[2020-08-15] MEDS: PRAVASTATIN 20 MG TABLET 40 MG PO (20:32)
[2020-08-16] VITALS (11 sets, daily range): BP systolic 88–114; BP diastolic 52–64; PULSE 70–95; RESP 14–20; TEMP 36.2–37; O2SAT 96–100
[2020-08-16] MEDS: TIZANIDINE 4 MG TABLET 2 MG PO (01:00)
[2020-08-16 05:52] LABS: BUN Creatinine Ratio 20.7 (6-22); Blood Urea Nitrogen 39 mg/dL (7-17); Calcium 9.7 mg/dL (8.4-10.2); Carbon Dioxide 28 mmol/L (22-32); Chloride 105 mmol/L (98-107); Estimated Glomerular Filt Rate 25.5 mL/min (>60); Glucose 103 mg/dL (80-110); HEMOLYSIS < 15 (0-50); Sodium 136 mmol/L (137-145)
[2020-08-16 05:53] LABS: Potassium 5.2 mmol/L (3.4-5.1)
[2020-08-16] MEDS: LEVOTHYROXINE 100 MCG TABLET PO (06:03)
[2020-08-16] MEDS: FLUTICASONE/SALMETEROL 250/50 60 PUFF DISKUS INH ×2 (08:16→20:39)
--- NOTE | 2020-08-16 08:33 | CM.DPNOTE ---
Faxed clinicals for referral to [facility], received fax confirmation. Mita Steele CM Assst.
[2020-08-16] MEDS: TAMSULOSIN 0.4 MG CAPSULE PO (08:53)
[2020-08-16] MEDS: CHOLECALCIFEROL (VITAMIN D3) 1,000 UNIT TABLET 2000 UNIT PO (08:53)
[2020-08-16] MEDS: AMIODARONE 200 MG TABLET PO (08:53)
[2020-08-16] MEDS: MULTIVITAMIN 1 TABLET 1 TAB PO (08:53)
[2020-08-16] MEDS: FUROSEMIDE 40 MG TABLET PO (08:53)
[2020-08-16] MEDS: MAGNESIUM CHLORIDE 64 MG TABLET PO (08:53)
[2020-08-16] MEDS: APIXABAN 5 MG TABLET 2.5 MG PO ×2 (08:53→21:48)
[2020-08-16] MEDS: SODIUM CHLORIDE 0.9% FLUSH 10 ML IV ×2 (08:54→21:54)
--- NOTE | 2020-08-16 09:32 | P.DS_ITS ---
History of Present Illness History of Present Illness Date Patient Seen: 08/16/20 Chief complaint: Fell yesterday.. Feeling weak Narrative: Jacquelyn Whiting is an 83-year-old female with a past medical history significant for CHFrEF (EF20-25%), hypertension, hyperlipidemia, aortic valve replacement, previous CVA with left upper extremity hemiparesis and left lower extremity weakness who presented to the ED with complaints of worsening weakness over the past week. She states she fell a few days ago, slowly, did not lose consciousness while doing dishes at the sink. She did not hit her head. She has had some worsening lower extremity edema and orthopnea. At baseline she is short of breath with minimal exertion, but now cannot shift in bed without becoming short of breath. Her blood pressures have been low recently as well. She also reports early satiety and poor appetite. She denies any fevers or chills, she has a chronic cough as well as a recent voice change. She felt nauseous when she fell, but denies any vomiting. She has had no chronic nausea over the past week other than that single episode. She denies urinary frequency or dysuria. In the emergency room, patient was hypotensive with a blood pressure of 80/50, but no other remarkable vital signs. She was saturating well on room air. She was not tachypneic. Initial labs showed a pancytopenia with a mild leukocytosis of 4.4, hemoglobin of 10.1, and platelet count of 81. Coagulation studies showed an INR of 2.7. Chemistries showed an initial creatinine of 3.09 with a potassium of 5.7, it appears her baseline creatinine is around 1.8 as of April. AST and ALT were also mildly elevated at 41 and 37 respectively. Troponin was negative. ProBNP was 2800. TSH was unremarkable at 2.61. Urinalysis shows 10-30 leukocytes with moderate bacteria and was sent for cultures. Digoxin level was negative. COVID-19 testing was negative. Chest x- ray showed no acute cardiopulmonary process. CT abdomen and pelvis showed cholelithiasis with gallbladder wall thickening and pericholecystic fluid, however she denies any right upper quadrant pain and it is felt this is more likely secondary to volume overload. Discharge Providers Provider Date of admission: 08/11/20 15:51 Discharge Date: 08/16/20 Primary care physician: Matilde Lin MD Consults: 08/13/20 12:44 Consult to Occupational Therapy Evaluate & Treat Comment: Physician Instructions: Evaluate and treat Consult to Physical Therapy Evaluate & Treat Comment: Physician Instructions: Evaluate and Treat Discharge provider: Noelle Wilkinson MD Summary Hospital Course Discharge Diagnosis: 1. Acute right heart failure, present on admission 2. Acute systolic heart failure, present on admission, ejection fraction 20-25% 3. Atrial fibrillation, persistent 4. Acute on chronic renal failure, resolved 5 Hypotension, resolved, present on admission 6. Generalized weakness 7 Hypothyroidism 8. Hyperlipidemia 9. Osteoporosis 10. Urinary incontinence 11. Wheelchair-bound 12. Aortic stenosis, with a remote history of aortic valve replacement 13 history of CVA Hospital Course: The patient is an 85-year-old female with a history aortic valve replacement, atrial fibrillation, heart failure with reduced ejection fra ction, left-sided weakness following a CVA, who presented to the hospital with weakness. Patient was seen by Dr. Shahid from Cardiology. Patient was felt to have had right heart failure, she was hypotensive on admission. She also presented with acute renal failure. Her initial creatinine on admission was 3.0. Baseline creatinine is 1.8. The patient was placed on dopamine, to support her blood pressure while diuresing. She was given IV Lasix, she had excellent urine output. The patient's heart rate was difficult to control. As we attempted to control her atrial fibrillation with digoxin, metoprolol, Cardizem her blood pressure will remain marginal. Initially there was discussion regarding discontinuation of amiodarone as it was felt that this may be contributing to the right heart failure. However after discussion with Dr. Moss, he recommended resuming amiodarone for rate control. Her metoprolol and Cardizem were discontinued. The patient was switched from IV to oral Lasix. She continued to have excellent urine output. She had no further shortness of breath. Her lower extremity edema resolved. Her atrial fibrillation was rate controlled on the amiodarone. The patient was discontinued from spironolactone and hydralazine as well. She was not treated with an RANI-inhibitor given her renal failure. The patient remained weak. She was seen by physical therapy and occupational therapy. They recommended correction stay for her for strengthening. The patient refused to go to correction. As such arrangements were made for her to discharge back home with her caregiver and home health PT and OT. On the day of discharge she had no specific complaints. She was deemed appropriate for discharge and arrangements were made for her to discharge home. Exam Vital Signs (past 8 hours): - 08/16/20 04:00 08/16/20 08:00 08/16/20 08:17 Temperature 97.2 F L 98.5 F Pulse Rate 80 73 79 Respiratory Rate 18 16 16 Blood Pressure 111/62 96/53 L Pulse Oximetry 98 96 97 Oxygen Delivery Method Room Air Oxygen Flow Rate 0 Narrative Exam Narrative: Pleasant elderly female lying in bed in no obvious distress Lungs: Clear to auscultation Cardiac exam: Irregularly irregular, normal S1-S2, 3/6 systolic ejection murmur Abdomen: Soft nontender nondistended Extremities: No edema Objective Labs Result Diagrams: 08/15/20 06:05 08/16/20 05:05 Labs: Laboratory Results - last 24 hr 08/16/20 05:05 Sodium 136 L Potassium 5.2 H Chloride 105 Carbon Dioxide 28 BUN 39 H Creatinine 1.88 H Estimated GFR 25.5 L BUN/Creatinine Ratio 20.7 Glucose 103 Calcium 9.7 PFSH Medical History Atrial fibrillation Cardiomyopathy CHF (congestive heart failure) CVA (cerebral vascular accident) 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 Brother No problems noted. Social History household members: none Smoking Status: Former smoker alcohol intake: never substance use type: does not use Discharge Assessment & Plan Assessment and Plan Assessment: 1. Acute right heart failure 2. Acute systolic heart failure, present on admission 3. Acute renal failure, resolved 4. Atrial fibrillation, persistent 5. Weakness Plan of Treatment: The patient will be discharged home on medications as prescribed She will follow-up with Dr. Neil and 1-2 weeks, He will discuss ongoing medical treatment. Home Health to be arranged for discharge Discharge Plan Discharge Plan Patient Disposition: Home Health Service Transfer to: [facility] Discharge orders & Medications Prescriptions: New Eliquis 5 mg Tablet 2.5 mg PO BID 30 Days Qty: 30 RF: 0 diclofenac sodium [Voltaren] 1 % Gel 1 applic topical QID PRN (Reason: pain) 14 Days RF: 0 nystatin [Nystop] 100,000 unit/gram Powder 1 applic topical BID PRN (Reason: Rash) 7 Days RF: 0 Continued pravastatin 40 mg Tablet 40 mg PO DAILY RF: 0 tamsulosin 0.4 mg Capsule 0.4 mg PO DAILY RF: 0 gabapentin 300 mg Capsule 600 mg PO BEDTIME RF: 0 multivitamin Tablet 1 tab PO DAILY RF: 0 tizanidine 2 mg Tablet 2 mg PO BEDTIME PRN (Reason: Muscle Spasm) RF: 0 Prolia 60 mg/mL Syringe 60 mg subcut [id number] RF: 0 fluticasone propion-salmeterol [Advair Diskus] 250-50 mcg/dose blister with device 1 inh INHALATION BID RF: 0 megestrol 40 mg tablet 80 mg PO BID RF: 0 albuterol sulfate [Proventil HFA] 90 mcg/actuation Hfa Aerosol Inhaler 2 puff INHALATION Q4H PRN (Reason: Shortness Of Breath Or Wheezing) RF: 0 levothyroxine 100 mcg tablet See Rx Instructions .ROUTE .COMPLEX RF: 0 bisacodyl 10 mg Suppository 10 mg ID DAILY PRN (Reason: Constipation) Qty: 10 RF: 0 polyethylene glycol 3350 17 gram Powder In Packet 17 gm PO DAILY Qty: 1 RF: 0 sennosides [senna] 8.6 mg Tablet 17.2 mg PO BEDTIME PRN (Reason: Constipation) Qty: 30 RF: 0 Slow-Mag 71.5 mg tablet,delayed release (DR/EC) 71.5 mg PO DAILY Qty: 30 RF: 0 docusate sodium [DOK] 100 mg Capsule 100 mg PO DAILY Qty: 30 RF: 0 furosemide 20 mg tablet 40 mg PO DAILY RF: 0 amiodarone 200 mg tablet 200 mg PO DAILY RF: 0 cholecalciferol (vitamin D3) 50 mcg (2,000 unit) capsule 50 mcg PO DAILY RF: 0 melatonin 5 mg capsule 10 mg PO DAILY RF: 0 Discontinued metoprolol succinate 100 mg Tablet Extended Release 24 Hr 100 mg PO BID RF: 0 losartan 25 mg Tablet 25 mg PO BID RF: 0 Eliquis 5 mg Tablet 5 mg PO BID RF: 0 potassium chloride 10 mEq capsule, extended release 10 meq PO DAILY Qty: 30 RF: 0 hydralazine 25 mg tablet 25 mg PO QID RF: 0 spironolactone 25 mg tablet 25 mg PO DAILY RF: 0 Follow up/Referrals: Matilde Lin MD [Primary Care Provider] - Discharge Data Primary Care Provider: Matilde Lin Quality VTE Deep Vein Thrombosis/Pulmonary Embolism Present on Admission: No
--- NOTE | 2020-08-16 10:37 | OT.IP.TRT ---
Current Diagnoses Acute on chronic diastolic (congestive) heart failure (08/11/20) Occupational Therapy Treatment Note M2 OT-IP Current Condition Start: 08/13/20 16:19 Freq: Status: Active Protocol: Document 08/13/20 16:25 CGR (Rec: 08/13/20 16:45 CGR [id number]) Occupational Therapy Current Condition Current Condition Evaluation Date 08/13/20 Treatment Diagnosis Acute R heart failure, CHF EF 20-25%, hx CVA with L weakness Diagnosis Onset Date 08/11/20 M3 OT- IP Subjective and Pain Start: 08/13/20 16:19 Freq: Status: Active Protocol: Document 08/16/20 10:40 CCC (Rec: 08/16/20 11:04 [facility] [id number]) OT- Subjective Occupational Therapy Visit Type Type Treatment Note Visit Start Time 09:52 Visit Stop Time 10:37 Total Visit Minutes 45 Occupational Therapy Visit Comments Patient Comments Pt wanting to shower. Patient/Caregiver Goals TO go home. OT Pain Assessment Pain When Pain Assessed At Rest Pain Present Pain Present Denied Pain M4 OT- IP ADL's Start: 08/13/20 16:19 Freq: Status: Active Protocol: Document 08/16/20 10:40 CCC (Rec: 08/16/20 11:04 [facility] [id number]) OT [id number] Comments OT Self-Feeding Comments Not meal time OT ADL-Grooming Comments OT Grooming Comments NOt performed. OT ADL-Oral Care Comments Oral Care Comments Not performed OT ADL-Dressing General Eval Lower Body Dressing Ability Total Assistance Areas Needing Assistance Underpants/Brief,Socks OT ADL-Toileting Comments OT Toileting Comments Not having to go at this time. OT ADL-Bathing Bathing Type Bathing Type Shower General Evaluation Bathing Ability Maximal Assistance Areas Needing Assistance Retrieving/Setting Up Items, Wash/Dry Back,Wash/Dry Perineal Area,Wash/Dry Lower Extremities Devices Bathing Equipment Hand Held Shower Sprayer, Shower Chair with Arms,Grab Bars Comments OT Bathing Comments Pt able to wash her face and body after set-up. Pt needing assist for the rest of showering needs. M5 OT- IP IADL's Start: 08/13/20 16:19 Freq: Status: Active Protocol: Document 08/13/20 16:25 CGR (Rec: 08/13/20 16:45 CGR [id number]) OT-Instrumental Activities of Daily Living Deficits IADL Deficits Identified Deficits Home Safety Awareness Awareness of Need for Assistance at Home Decreased Awareness Ability to Problem Solve Emergency Unable to Problem Solve Situations M6 OT- IP Functional Cognition Start: 08/13/20 16:19 Freq: Status: Active Protocol: Document 08/16/20 10:40 [facility] (Rec: 08/16/20 11:04 [facility] [id number]) Cognitive Factors Limiting Selfcare Function Cognitive Ability Level of Alertness Alert,Confusional State Memory Description Short Term Impaired Safety Awareness Underestimates Need for Assistance Problem Solving Ability Needs Assist to Identify Solutions Cognitive Comments Cognitive Assessment Comments Pt having difficulty to use her cell phone and nursing aid having to assist to help her at this time. Pt initially insistent on going home and hoping to have increased hours from caregivers at home . Therapist asked pt to get out of bed but unable to without assist. Asked pt what is she going to do at home if she can not get out of bed . Pt then finally realizing that she would be suck in bed and then agreed would be best for her to go to skilled rehab. OT able to notified case management of pt's change. M7 OT- IP Mobility and Balance Start: 08/13/20 16:19 Freq: Status: Active Protocol: Document 08/16/20 10:40 [facility] (Rec: 08/16/20 11:04 [facility] [id number]) OT-Transfer Assessment Sit to and From Stand Sit to and from Stand Moderate Assistance,1 Person Assistance Transfers Transfer Ability Minimal Assistance,Moderate Assistance,1 Person Assistance ,2 Person Assistance Technique Transfer Destination Chair,Shower Stall,Wheelchair Transfer Technique Stand Step Pivot Devices Transfer Assistive Devices None,Gait Belt Comments Mobility Comments Pt having difficulty to use the michelle-walker today and therefore completed several stand pivot transfers to the right , initially pt needing SHEYLA and then when tiring needing MODA and at the end MODA X 2 to the recliner. OT- Gait Assessment Comments Gait Ability Comments Pt just transferring at this time. OT- Balance Assessment Sitting Balance and Reactions Static Sitting Balance Ability Good Dynamic Sitting Balance Ability Fair Standing Balance and Reactions Static Standing Balance Ability Poor Dynamic Standing Balance Ability Poor M8 OT- IP Objective Assessments Start: 08/13/20 16:19 Freq: Status: Active Protocol: Document 08/13/20 16:25 CGR (Rec: 08/13/20 16:45 CGR [id number]) OT Gross Range of Motion Upper Extremity Range of Motion Assessment Left Impaired ROM Impairments LUE with very limited ROM to fingers, wrist, 0-70 elbow, shld 0-40 with a 1 finger subluxation to the L shld. OT Strength Upper Extremity Strength Assessment Left Impaired Comments Strength Comments LUE with extension tone pattern OT- Coordination Assessment Upper Extremity Finger to Nose Test Left UE Impaired Finger Tapping Test Left UE Impaired OT-Muscle Tone Assessment Muscle Tone WNL No Muscle Tone Location Left Upper Extremity Type of Tone Rigidity,Extensor Severity of Tone Moderate OT Sensation Assessment Edema Edema Absent M9 OT- IP Assessment and Plan Start: 08/13/20 16:19 Freq: Status: Active Protocol: Document 08/16/20 10:40 [facility] (Rec: 08/16/20 11:04 [facility] [id number]) OT Summary Assessment and Plan Potential Rehabilitation Potential Good Summary OT Impairments Range of Motion,Strength, Balance,Coordination, Functional Cognition, Functional Mobility,Dressing, Toileting,Bathing,Toilet Transfers,Shower Transfers, Activity Tolerance Progress Towards Goals Slow Progress due to Activity Tolerance,Slow Progress due to Cognition Assessment Summary Pt now agreeing to go to skilled rehab as realizing needing much more assist for needs especially for her mobility as now not able to get out of bed without assist. Encouraged pt to be sure to let therapist know what she is having difficulty with so that they can be help get her back to baseline. For example, pt now having difficulty to use her cell phone. Pt to go to skilled rehab when medically stable. Goals Dressing Goal Minimal Assistance Toileting Goal Standby Assistance Toilet Transfer Goal Standby Assistance Shower Transfer Goal Standby Assistance,Shower Chair Days to Meet Goals 10 Frequency of Treatment Frequency Of Treatment Once a Day Treatment Plan OT Treatment Plan ADL Training,Functional Cognition Training,Functional Mobility,Discharge Planning Discharge Recommendations OT Discharge Recommendations SNF Rehab Transportation Needs at Discharge Wheelchair/Cabulance
--- NOTE | 2020-08-16 14:24 | PC.NURSE ---
Pt expressed concern r/t not being back at her baseline mobility this AM. Initially still resistant to the idea of going to a SNF d/t a bad experience in the past but then accepting after realizing how weak she is. CM is working on getting insurance auth for SNF. Pt has been 1PA for mobility and set up assist for meals. Has been AO x 2-3 with some short term deficits/forgetfulness. Calm/cooperative with care. Afib CVR BBB. She has had one low BP of 88/52 (65). She was asymptomatic and mentating at baseline on assessment. Repeat BP 91/60 (68). Uses call light and waits for assistance before getting OOB.
--- NOTE | 2020-08-16 14:31 | CM.DPC ---
Addendum entered by Aura Morin R.N. 08/16/20 17:08: Faxed clinicals for [facility]. COVID result still pending. Addendum entered by Aura Morin R.N. 08/16/20 16:59: Got a call from Reji at [facility]... they got an authorization for this patients care. RN alerted. Requested COVID test to be ordered. 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 No other transportation is available tonight. Clinicals to be faxed first thing in the am. Addendum entered by RONAN Serrano 08/16/20 15:16: ADD: Call from [facility], Isaac Levi stating she needs additional clinicals to review towards determining if pt meets criteria for SNF auth. [facility] requests SW to fax Amita at [facility] directly with updated clinicals to [phone]. BARBIE faxed requested clinicals including H&P, Consult note, MD prog note, PT/OT initial eval and updated notes and med list to [facility] to review. BF Original Note: DCP Cont: Per MD, pt medically stable to d/c today and pt continues to state she is not agreeable to SNF and preference is home with [facility] and new HH referral. Per OT, just worked with pt and she is not realizing SNF needed before safe return home as her [facility] is only part of the day and not 24/. BARBIE met bedside with pt and explained role and confirmed pt is requesting SNF and pt is aware her [employer] insurance only contracted with some SNF's and agreeable with SW contacting those SNF's to determine if they can accept. SW contacted [facility] and they are not currently accepting new admissions until likely Sunday08/20/20. SW contacted [facility] and they can accept the pt and willing to work on insurance auth right away as they are aware pt medically stable to discharge once auth received. SW updated pt and she is agreeable with plan and requests SW to contact her son and [facility] with update. JR Chavarria contacted son/DPSOURAV Mays with update and BARBIE called pt's [facility] [phone] with update on SNF plan and CG was hopeful pt could return home and states she would adjust her hours to better support pt to make up the hours I missed with pt in the hospital. SW discussed PT/OT recommendation of SNF or 24/7 at d/c and CG confirms she cannot cover 24/7 for the pt at d/c. PASRR completed. Plan: SW to follow with [facility] on status of insurance auth tomorrow towards plan of d/c to [facility] 08/17/20. F2F was signed in case plan changes to home. RONAN Serrano
--- NOTE | 2020-08-16 16:36 | PT.IPTN ---
Current Diagnoses Acute on chronic diastolic (congestive) heart failure (08/11/20) Physical Therapy Treatment Note M2 PT-IP Current Condition Start: 08/13/20 13:03 Freq: NEEDED Status: Active Protocol: Document 08/13/20 15:31 DE (Rec: 08/13/20 16:28 DE [id number]) Physical Therapy Current Condition Current Condition Evaluation Date 08/13/20 Treatment Diagnosis Generalized weakness; Difficulty performing ADLs Onset Date 08/11/20 M3 PT-IP Subjective Start: 08/13/20 13:03 Freq: NEEDED Status: Active Protocol: Document 08/16/20 16:04 CLB (Rec: 08/16/20 16:53 CLB [id number]) Subjective Physical Therapy Visit Type Type Treatment Note Visit Start Time 16:04 Visit Stop Time 16:36 Total Visit Minutes 32 Number of BILLING ASSOCIATE Visits 3 Physical Therapy Visit Comments Patient Comments Pt is agreeable to do PT. M4 PT-IP Mobility and Gait Start: 08/13/20 13:03 Freq: NEEDED Status: Active Protocol: Document 08/16/20 16:04 CLB (Rec: 08/16/20 16:53 CLB [id number]) PT-Bed Mobility Assessment Supine to Sit Supine to Sit Minimal Assistance,1 Person Assistance,Head of Bed Elevated Scooting Scooting to Edge of Bed Minimal Assistance PT-Transfer Assessment Sit to and From Stand Sit to and from Stand Minimal Assistance,1 Person Assistance Equipment Transfer Assistive Device None,Gait Belt Transfers Transfer Destination Chair Transfer Technique Stand Pivot Transfer Ability Level of Assist Minimal Assistance,1 Person Assistance Comments Mobility Comments Pt in bed requiring Min A for supine-sit with increased assist of left side during scooting to EOB. Pt requires blocking of BLE's during sit- stand and during stand pivot transfer for safety. Once pt was in chair pt performed sit< >stand x3 with cues for quad activation of RLE and standing up straight with head up for proper alignment. Pt required Min A from chair for all sit- stand. Pt then required Mod A to scoot back in chair. Pt was left in chair with call light , phone and all needs within reach. Chair alarm on. RN informed that pt was in chair with alarm on. Gait Assessment Comments Gait Comments Not assessed. Stand step pivot only Stair Climbing Assessment Comments Stair Climbing Comments Not assessed. M5 PT-IP Objective Assessments Start: 08/13/20 13:03 Freq: NEEDED Status: Active Protocol: Document 08/13/20 15:31 DE (Rec: 08/13/20 16:28 DE [id number]) Orientation Orientation/Cognition Level of Alertness Confusional State Orientation Month,Date,Year,Day of Week, Place Language Function Ability No Deficits Noted Safety Awareness Understands Safety Issues Memory Description Short Term Impaired,Snf Impaired Comments Pt was oriented to month, date , year, day of week, and place but demonstrated memory loss. Gross Range of Motion Upper Extremity ROM Assessment Left Impaired Impairments Lack of L elbow flexion, L wrist extension, and L finger extension d/t/ increased tone. Lower Extremity ROM Assessment Left Impaired Strength Upper Extremity Strength Assessment Left Impaired Lower Extremity Strength Assessment Bilaterally Impaired Comments Strength Comments Pt was not able to actively move her LUE. 4/5 on RUE. 4-/5 on B hip flexion. 4/5 on R knee extension. 4-/5 on L knee extension. Coordination Assessment Gross Coordination Gross Coordination Impaired Assessment Coordination Comments Pt had difficulty holding her phone in her R hand. Sensation Assessment Sensation Gross Sensation WNL Light Touch Intact Muscle Tone Muscle Tone WNL No Comments Muscle Tone Comments Significant tone observed in L elbow extension, L wrist flexion, and L finger flexion. M6 PT-IP Treatment Start: 08/13/20 13:03 Freq: NEEDED Status: Active Protocol: Document 08/14/20 10:34 KS (Rec: 08/14/20 12:33 KS [id number]) Physical Therapy Treatment Education Education Provided Safety M7 PT-IP Assessment and Plan Start: 08/13/20 13:03 Freq: NEEDED Status: Active Protocol: Document 08/16/20 16:04 CLB (Rec: 08/16/20 16:53 CLB [id number]) PT Summary Assessment and Plan Potential Rehabilitation Potential Fair Status of Condition at Evaluation Evolving Summary Impairments Pain,ROM,Strength,Balance, Coordination,Tone,Cognition, Bed Mobility,Transfers,Gait, Activity Tolerance Assessment Summary Pt continues to be below her baseline and requires Min-Mod A x1 for mobility and transfers. Before hospitalization pt was able to transfer from W/C to chair or bed independently. Pt will benefit from continues PT during hospital stay to improve strength for independent transfers and would benefit from SNF rehab before d/c home to increase strength and activity tolerance for functional baseline mobility. Goals Bed Mobility Goal Standby Assistance Transfer Goal Standby Assistance Days to Meet Goals 10 Frequency of Treatment Frequency Of Treatment Once a Day Treatment Plan Physical Therapy Treatment Plan Bed Mobility Training,Transfer Training,Gait Training, Therapeutic Exercise,Balance Retraining,Post Op Education, Discharge Planning,Hot or Cold Pack,Neuromuscular Re-ed, Coordination Retraining Other Recommendations and Next Treatment bed mobility, transfers to W/C Focus from bed/chair and sit-stands . Recommendations To Nursing Amount of Assist Needed 1 Person Assist Discharge Recommendations PT Discharge Recommendations Home with 19/03 Assist,Home Health,SNF Rehab Transportation Needs at Discharge Wheelchair/Cabulance
[2020-08-16 21:16] LABS: COVID19 -Nasal RAPID Negative (Negative)
[2020-08-16] MEDS: GABAPENTIN 300 MG CAPSULE 600 MG PO (21:48)
[2020-08-16] MEDS: PRAVASTATIN 20 MG TABLET 40 MG PO (21:48)
[2020-08-17 05:00] VITALS: O2SAT 99
[2020-08-17 05:01] VITALS: BP 109/68; PULSE 79; RESP 18; TEMP 36.3; O2SAT 99
[2020-08-17] MEDS: LEVOTHYROXINE 50 MCG TABLET PO (06:57)
[2020-08-17 08:16] VITALS: BP 93/52; PULSE 69; RESP 17; TEMP 36.1; O2SAT 99
[2020-08-17] MEDS: APIXABAN 5 MG TABLET 2.5 MG PO (09:27)
--- NOTE | 2020-08-17 09:27 | CM.DPC ---
DCP Discharge SNF Per MD, pt remains medically stable but with slightly lower bp but still stable for d/c to SNF today. CC Mita confirmed with [facility] admissions that they did receive auth from [facility] and have transport set up for 1000 today. BARBIE called pt's son/Davon who is pt's DPOA and provided the Medicare Rights and he acknowledged understanding and agreeable with SNF at d/c. BARBIE provided him with SNF name again and medical records at [facility] as he is requesting pt's information from her stay. Son very appreciative and confirms he will remain in contact with [facility] as well as pt's assigned ALEX Kessler towards creating a plan to home after SNF. BARBIE updated GRIP BOSS, validation manager, and RN somewhat late regarding pt's d/c as took time to confirm with [facility] and provided RN report number. BARBIE faxed [facility], med rec, no scripts, orders, negative COVID test and waiting for final d/c summary to fax. Plan: Patient to d/c to [facility] today via facility van at 1000. RONAN Serrano
[2020-08-17] MEDS: AMIODARONE 200 MG TABLET PO (09:28)
[2020-08-17] MEDS: CHOLECALCIFEROL (VITAMIN D3) 1,000 UNIT TABLET 2000 UNIT PO (09:28)
[2020-08-17] MEDS: FUROSEMIDE 40 MG TABLET PO (09:28)
[2020-08-17] MEDS: DOCUSATE 100 MG CAPSULE PO (09:28)
[2020-08-17] MEDS: MULTIVITAMIN 1 TABLET 1 TAB PO (09:28)
[2020-08-17] MEDS: SODIUM CHLORIDE 0.9% FLUSH 10 ML IV (09:29)
[2020-08-17] MEDS: TAMSULOSIN 0.4 MG CAPSULE PO (09:32)
[2020-08-17] MEDS: MAGNESIUM CHLORIDE 64 MG TABLET PO (09:34)
[2020-08-17] MEDS: FLUTICASONE/SALMETEROL 250/50 60 PUFF DISKUS INH (09:43)
[2020-08-17 09:50] VITALS: PULSE 70; RESP 16; O2SAT 98
--- NOTE | 2020-08-17 09:54 | PC.NURSE ---
Patient is being discharged to [facility] in [place] at 1000am. She is doing well this morning and denies pain. 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 BP 90s/50s with map of 76. All medications given per . She is dressed and waiting for [facility] van to pick her up.
== END 2020-08-17 10:15 | DRG 291 ==
LOC: ED 12:41 → ICU 16:19 → AC 08-16 08:08 → ICU 08-16 08:08
PROVIDERS: Internal Medicine; Admitting Provider Internal Medicine; Emergency Provider Emergency Medicine; Family Provider Internal Medicine Cardiovascular Disease; PCP Internal Medicine; Referring Provider Emergency Medicine; Visit Provider Internal Medicine
DX: I13.0 Hypertensive heart and chronic kidney disease with heart failure and stage 1 through stage 4 chronic kidney disease, or unspecified chronic kidney disease (principal); I50.21 Acute systolic (congestive) heart failure; N18.4 Chronic kidney disease, stage 4 (severe); N17.9 Acute kidney failure, unspecified; I69.354 Hemiplegia and hemiparesis following cerebral infarction affecting left non-dominant side; I48.19 Other persistent atrial fibrillation; I50.811 Acute right heart failure; E87.5 Hyperkalemia; Z99.3 Dependence on wheelchair; J44.9 Chronic obstructive pulmonary disease, unspecified; E78.5 Hyperlipidemia, unspecified; E03.9 Hypothyroidism, unspecified; R53.1 Weakness; I95.9 Hypotension, unspecified; Z95.2 Presence of prosthetic heart valve; W18.30XA Fall on same level, unspecified, initial encounter; Y92.000 Kitchen of unspecified non-institutional (private) residence as the place of occurrence of the external cause; Z87.891 Personal history of nicotine dependence; Z66 Do not resuscitate
CPT/HCPCS: 36415; 36569; 36592; 51701; 71045; 74176; 80048; 80053; 80076; 80162; 81001; 82550; 83605; 83690; 83735; 83880; 84443; 84484; 85025; 85610; 85730; 87040; 87077; 87086; 87186; 87635; 87797; 93005; 93010; 93306; 93970; 94640; 94760; 96361; 96365; 97129; 97130; 97163; 97167; 97530; 97535; 99282; 99284; J1160; J1642; J1940; J2543

== ENCOUNTER 2021-01-21 01:02 | Emergency (ER) | payer MEDICARE, OTHER, MEDICAID, SELFPAY ==
[2018-12-16 00:46] VITALS: PULSE 139; RESP 13; O2SAT 100
[2018-12-16 12:07] VITALS: PULSE 92
[2020-08-11 16:21] VITALS: BMI 28.6
[2021-01-21 01:04] VITALS: BP 167/83; PULSE 101; RESP 23; TEMP 36.6; O2SAT 97; BMI 27.4
--- NOTE | 2021-01-21 01:07 | DI.RAD.S_ITS ---
PROCEDURE: XR CHEST 1V INDICATIONS: shortness of breath TECHNIQUE: One view of the chest was acquired. COMPARISON: [facility], CR, XR CHEST 1V, 08/11/2020, 10:36. FINDINGS: Surgical changes and devices: Median sternotomy wires cardiac valve prosthesis are stable.. Lungs and pleura: Lungs are clear. No pleural effusions or pneumothorax. Mediastinum: Mediastinal contours appear normal. Heart is enlarged. Bones and chest wall: No suspicious bony lesions. Overlying soft tissues appear unremarkable. IMPRESSION: No acute cardiopulmonary disease process. Dictated by: Lexy Gonzalez MD, PhD on 01/21/2021 at 8:35 Approved by: Lexy Gonzalez MD, PhD on 01/21/2021 at 8:36
--- NOTE | 2021-01-21 01:39 | ED_ITS ---
HPI - SOB/Dyspnea General Chief Complaint: Shortness of Breath/Dyspnea Stated Complaint: SOB Time Seen by Provider: 01/21/21 01:17 Source: patient and EMS Mode of arrival: EMS Limitations: no limitations History of Present Illness HPI Narrative: 85-year-old female former smoker with history of stroke resulting in left-sided weakness as well as CHF presents by EMS and a chief complaint of increasing shortness of breath and fatigue over the past day or so. She admits that she has not been taking her furosemide as prescribed because it keeps her up at night. She denies any weight gain states that she has had some swelling in her left leg only. She states that she does ambulate with the use of a walker but that has become more difficult than normal as of late. She denies any fever or chills. She is not dizzy nor weak or lightheaded. She denies any runny nose, sore throat or cough. MD Complaint: shortness of breath Onset (ago): hour(s) Context: medication noncompliance Severity: moderate Consistency/Duration: constant Relieving factors: rest Exacerbating factors: lying flat and exertion Known history of: congestive heart failure Associated symptoms: denies other symptoms Treatment prior to arrival: none Related Data Home Medications Medication Instructions Recorded Confirmed gabapentin 600 mg PO BEDTIME 12/15/18 08/11/20 pravastatin 40 mg PO DAILY 12/15/18 08/11/20 tamsulosin 0.4 mg PO DAILY 12/15/18 08/11/20 Prolia 60 mg SUBCUT [id number] 12/16/18 08/11/20 multivitamin 1 tab PO DAILY 12/16/18 08/11/20 tizanidine 2 mg PO BEDTIME PRN 12/16/18 08/11/20 amiodarone 200 mg tablet 200 mg PO DAILY 05/19/20 08/11/20 cholecalciferol (vitamin D3) 50 50 mcg PO DAILY 05/19/20 08/11/20 mcg (2,000 unit) capsule furosemide 20 mg tablet 40 mg PO DAILY tab 05/19/20 08/11/20 melatonin 5 mg capsule 10 mg PO DAILY cap 05/19/20 08/11/20 albuterol sulfate [Proventil HFA] 2 puff INHALATION Q4H PRN 08/11/20 08/11/20 fluticasone propion-salmeterol 1 inh INHALATION BID 08/11/20 08/11/20 [Advair Diskus] levothyroxine See Rx Instructions .ROUTE .COMPLEX 08/11/20 08/11/20 megestrol 80 mg PO BID 08/11/20 08/11/20 Previous Rx's Medication Instructions Recorded Slow-Mag 71.5 mg PO DAILY #30 tab 03/18/19 bisacodyl 10 mg MT DAILY PRN #10 ea 03/18/19 docusate sodium [DOK] 100 mg PO DAILY #30 cap 03/18/19 polyethylene glycol 3350 17 gm PO DAILY #1 pkg 03/18/19 sennosides [senna] 17.2 mg PO BEDTIME PRN #30 tab 03/18/19 diclofenac sodium 2 g TOPICAL QID #1 ea 08/16/20 nystatin 1 applic TOPICAL BID #30 g 08/16/20 Allergies Allergy/AdvReac Type Severity Reaction Status Date / Time No Known Drug Allergies Allergy Verified 08/11/20 10:31 Review of Systems Constitutional Constitutional: Denies chills, Denies fatigue, Denies fever(s), Denies frequent falls, Denies lethargy and Denies weakness Eyes Eyes: Denies change in vision, Denies eye discharge, Denies irritation and Denies loss of vision ENT Ears, Nose, Mouth, and Throat: Denies change in voice, Denies dizziness, Denies neck pain, Denies sore throat and Denies throat swelling Cardiovascular Cardiovascular: Denies chest pain, Denies irregular heart rhythm, Denies lightheadedness, Denies palpitations, Reports dyspnea, Reports dyspnea on exertion and Denies orthopnea Respiratory Respiratory: Denies cough, Reports dyspnea, Reports dyspnea on exertion and Denies wheezing Gastrointestinal Gastrointestinal: Denies abdominal pain, Denies change in bowel habits, Denies diarrhea, Denies nausea and Denies vomiting Musculoskeletal Musculoskeletal: Denies neck pain and Denies numbness Integumentary/Breasts Skin/Breast: Denies pruritus, Denies erythema, Denies rash and Denies wounds Neurologic Neurologic: Denies behavioral changes, Denies confusion, Denies dizziness, Denies frequent falls, Denies loss of vision, Denies numbness and Denies weakness Psychiatric Psychiatric: Denies anxiety, Denies behavioral changes, Denies confusion, Denies depression, Denies homicidal ideation and Denies suicidal ideation Endocrine Endocrine: Denies fatigue, Denies flushing and Denies palpitations Hematologic/Lymphatic Hematologic/Lymphatic: Denies easy bruising Allergic/Immunologic Allergic/Immunologic: Denies urticaria, Denies throat swelling and Denies wheezing Patient History Medical History (Updated 01/21/21 @ 02:52 by Chidi Mark DO) Atrial fibrillation Cardiomyopathy CHF (congestive heart failure) CVA (cerebral vascular accident) 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 Brother No problems noted. Social History household members: none Smoking Status: Former smoker alcohol intake: never substance use type: does not use Smoking Status: Former smoker alcohol intake frequency: a few times a month Substance Use Type: does not use Exam Narrative Exam Narrative: GENERAL: [85] year old patient appears stated age. Well- nourished, well-developed patient, in mild distress. Six word sentences HEAD: Atraumatic. Normocephalic. EYES: Pupils equal round and reactive. Extraocular motions intact. No scleral ic terus. No injection or drainage. ENT: Nose without bleeding, purulent drainage. Throat without erythema, tonsillar hypertrophy or exudate. Airway patent. NECK: Trachea midline. Non tender CARDIOVASCULAR: Regular rate and rhythm without murmurs, gallops, or rubs. RESPIRATORY: Faint crackles in bilateral bases, prolonged expiratory phase, some increased work of breathing, no use of accessory muscles GASTROINTESTINAL: Abdomen soft, non-tender, nondistended. EXTREMITIES: No edema or joint tenderness. BACK: Nontender without deformity or crepitance. No flank tenderness. NEURO: AOx3. SKIN: No rash or erythema of visible areas Initial Vital Signs Initial Vital Signs: Vital Signs Temperature 97.8 F 01/21/21 01:04 Pulse Rate 101 H 01/21/21 01:04 Respiratory Rate 23 01/21/21 01:04 Blood Pressure 167/83 H 01/21/21 01:04 Pulse Oximetry 97 01/21/21 01:04 Course Course Course Narrative: Patient historically has GFR in the 20s, though her D-dimer is very slightly above the age corrected cutoff she is short of breath but is not requiring supplemental oxygen, she denies any chest pain. Furthermore, admittedly she has not been taking her Lasix as she is supposed to. There is no evidence of pneumonia, myocardial infarction and pulmonary embolism is thought not to be the primary potential diagnosis. I did discuss the potential of CT with IV contrast and PE protocol, but after discussion of low likelihood of PE and poor kidney function we elect to hold off for now. Will treat with lasix and encourage medical compliance, close follow up, and return precautions. Orders Ordered: ED Orders 01/21/21 01:07 XR chest 1V Stat EKG-12 Lead Stat Measure peak expiratory flow ONCE RT Consult Eval and Treat Now 01/21/21 01:35 Complete Blood Count AUTO DIFF Stat Comprehensive Metabolic Panel Stat D Dimer Stat Lactate (Lactic Acid) Stat NT-proBNP (BNP-Adult 18+) Stat Troponin & CK Cardiac Panel Stat Discontinued Medications Furosemide (Furosemide 40 Mg/4 Ml Vial) 40 mg IV NOW ONE Stop: 01/21/21 02:23 Last Admin: 01/21/21 02:35 Dose: 20 mg Documented by: NISHA Vital Signs Vital signs: Vital Signs - 8 hr 01/21/21 01:04 Temperature 97.8 F Pulse Rate 101 H Respiratory Rate 23 Blood Pressure 167/83 H Pulse Oximetry 97 MDM - SOB/Dyspnea Lab Data Result diagrams: 01/21/21 01:35 01/21/21 01:35 Labs: Lab Results 01/21/21 01/21/21 01/21/21 Range/Units 01:35 01:35 01:35 WBC 5.1 (4.5-11.0) X10^3/uL RBC 3.19 L (4.0-5.2) X10^6/uL Hgb 12.0 (12.0-16.0) g/dL Hct 36.1 (36-46) % MCV 113.2 H (80-100) fL MCH 37.5 H (26-34) PG MCHC 33.2 (30-36) % RDW 14.6 (11.6-14.8) % Plt Count 164 (150-400) X10^3/uL Neut % (Auto) 62.2 (50-75) % Lymph % (Auto) 26.4 (25-40) % Gates % (Auto) 6.6 (3-14) % Eos % (Auto) 2.5 (2-4) % Baso % (Auto) 2.3 H (0-2) % Neut # (Auto) 3200 (0270-0400) /uL Lymph # (Auto) 1400 (4751-0612) /uL Gates # (Auto) 300 (0-900) /uL Eos # (Auto) 100 (0-450) /uL Baso # (Auto) 100 (0-100) /uL Plt Morphology Comment RBC Morphology See below Macrocytosis 3+ H D-Dimer (<230) ng/mL Sodium 139 (137-145) mmol/L Potassium 4.5 (3.4-5.1) mmol/L Chloride 107 (98-107) mmol/L Carbon Dioxide 24 (22-32) mmol/L BUN 22 H (7-17) mg/dL Creatinine 1.19 H (0.52-1.04) mg/dL Estimated GFR 43.2 L (>60) mL/min BUN/Creatinine Ratio 18.5 (6-22) Glucose 96 (80-110) mg/dL Lactate 0.9 (0.7-2.1) mmol/L Calcium 10.0 (8.4-10.2) mg/dL Total Bilirubin 1.4 H (0.2-1.3) mg/dL AST 29 (14-36) IU/L ALT 16 (<35) IU/L Alkaline Phosphatase 41 (38-126) U/L Total Creatine Kinase (30-135) U/L CK-MB (CK-2) CK-MB (CK-2) Rel Index Troponin I (0.01-0.034) ng/mL NT-Pro-B Natriuret Pep (<450) pg/mL Total Protein 7.4 (6.3-8.2) g/dL Albumin 4.3 (3.5-5.0) g/dL Globulin 3.1 (1.7-4.1) g/dL Albumin/Globulin Ratio 1.4 (1.0-2.8) 01/21/21 01/21/21 Range/Units 01:35 01:35 WBC (4.5-11.0) X10^3/uL RBC (4.0-5.2) X10^6/uL Hgb (12.0-16.0) g/dL Hct (36-46) % MCV (80-100) fL MCH (26-34) PG MCHC (30-36) % RDW (11.6-14.8) % Plt Count (150-400) X10^3/uL Neut % (Auto) (50-75) % Lymph % (Auto) (25-40) % Gates % (Auto) (3-14) % Eos % (Auto) (2-4) % Baso % (Auto) (0-2) % Neut # (Auto) (4296-3161) /uL Lymph # (Auto) (0146-1227) /uL Gates # (Auto) (0-900) /uL Eos # (Auto) (0-450) /uL Baso # (Auto) (0-100) /uL Plt Morphology Comment RBC Morphology Macrocytosis D-Dimer 441 H (<230) ng/mL Sodium (137-145) mmol/L Potassium (3.4-5.1) mmol/L Chloride (98-107) mmol/L Carbon Dioxide (22-32) mmol/L BUN (7-17) mg/dL Creatinine (0.52-1.04) mg/dL Estimated GFR (>60) mL/min BUN/Creatinine Ratio (6-22) Glucose (80-110) mg/dL Lactate (0.7-2.1) mmol/L Calcium (8.4-10.2) mg/dL Total Bilirubin (0.2-1.3) mg/dL AST (14-36) IU/L ALT (<35) IU/L Alkaline Phosphatase (38-126) U/L Total Creatine Kinase 53 (30-135) U/L CK-MB (CK-2) TNP CK-MB (CK-2) Rel Index TNP Troponin I < 0.012 (0.01-0.034) ng/mL NT-Pro-B Natriuret Pep 2670 H (<450) pg/mL Total Protein (6.3-8.2) g/dL Albumin (3.5-5.0) g/dL Globulin (1.7-4.1) g/dL Albumin/Globulin Ratio (1.0-2.8) Imaging Data Chest x-ray: Radiologist's Impression: Postoperative chest, mild cardiomegaly Discharge Plan Departure Patient Disposition: Home Clinical Impression: Congestive heart failure Qualifiers: Heart failure type: other Qualified Code(s): I50.9 - Heart failure, unspecified Instructions: DI for Heart Failure Activity Restrictions/Additional Instructions: *You have been diagnosed with [shortness of breath, due to increased fluid in your lungs. As we discussed much of your workup was very reassuring, please take your medications as directed] *What to do: *Please continue to take your regular medications as directed. [ ] New medication prescriptions sent to your pharmacy: [ ] [ ] New medication written as a paper prescription [ x] No new medications given *Please follow up with your primary care provider in 2-3 days, call for an appointment. Let them know you were seen in the Emergency Department and that we ask that you be seen in follow up. We will electronically transmit a record of today's note if your PCP is in our system *If you do not have a primary care provider please contact the [facility] Resource line at [phone]. They will ask some questions about your medical history and help get you set up with a doctor in the community. *Return to Emergency Department if you should have any new, worsening or concerning symptoms, such as [fever greater than 101 F, shaking chills, worsening pain, persistent vomiting or other bothersome symptoms] Prescriptions: No Action pravastatin 40 mg Tablet 40 mg PO DAILY RF: 0 tamsulosin 0.4 mg Capsule 0.4 mg PO DAILY RF: 0 gabapentin 300 mg Capsule 600 mg PO BEDTIME RF: 0 multivitamin Tablet 1 tab PO DAILY RF: 0 tizanidine 2 mg Tablet 2 mg PO BEDTIME PRN (Reason: Muscle Spasm) RF: 0 Prolia 60 mg/mL Syringe 60 mg subcut [id number] RF: 0 fluticasone propion-salmeterol [Advair Diskus] 250-50 mcg/dose blister with device 1 inh INHALATION BID RF: 0 megestrol 40 mg tablet 80 mg PO BID RF: 0 albuterol sulfate [Proventil HFA] 90 mcg/actuation Hfa Aerosol Inhaler 2 puff INHALATION Q4H PRN (Reason: Shortness Of Breath Or Wheezing) RF: 0 levothyroxine 100 mcg tablet See Rx Instructions .ROUTE .COMPLEX RF: 0 nystatin 100,000 unit/gram powder 1 applic topical BID Qty: 30 RF: 0 diclofenac sodium 1 % kit 2 g topical QID Qty: 1 RF: 0 bisacodyl 10 mg Suppository 10 mg MT DAILY PRN (Reason: Constipation) Qty: 10 RF: 0 polyethylene glycol 3350 17 gram Powder In Packet 17 gm PO DAILY Qty: 1 RF: 0 sennosides [senna] 8.6 mg Tablet 17.2 mg PO BEDTIME PRN (Reason: Constipation) Qty: 30 RF: 0 Slow-Mag 71.5 mg tablet,delayed release (DR/EC) 71.5 mg PO DAILY Qty: 30 RF: 0 docusate sodium [DOK] 100 mg Capsule 100 mg PO DAILY Qty: 30 RF: 0 furosemide 20 mg tablet 40 mg PO DAILY RF: 0 amiodarone 200 mg tablet 200 mg PO DAILY RF: 0 cholecalciferol (vitamin D3) 50 mcg (2,000 unit) capsule 50 mcg PO DAILY RF: 0 melatonin 5 mg capsule 10 mg PO DAILY RF: 0 Referrals: Matilde Lin MD [Primary Care Provider] -
[2021-01-21 01:48] LABS: Add Manual Diff / Slide Review NO; Basophils Absolute Auto 100 /uL (0-100); Basophils Percent Auto 2.3 % (0-2); Eosinophils Absolute Auto 100 /uL (0-450); Eosinophils Percent Auto 2.5 % (2-4); Hematocrit 36.1 % (36-46); Lymphocytes Absolute Auto 1400 /uL (1100-4500); Lymphocytes Percent Auto 26.4 % (25-40); Mean Corpuscular HGB Conc 33.2 % (30-36); Mean Corpuscular Hemoglobin 37.5 PG (26-34); Mean Corpuscular Volume 113.2 fL (80-100); Monocytes Absolute Auto 300 /uL (0-900); Monocytes Percent Auto 6.6 % (3-14); Neutrophils Absolute Auto 3200 /uL (1500-7000); Neutrophils Percent Auto 62.2 % (50-75); Platelet Count 164 X10^3/uL (150-400); Red Blood Cell Count 3.19 X10^6/uL (4.0-5.2); Red Cell Distribution Width 14.6 % (11.6-14.8); White Blood Cell Count 5.1 X10^3/uL (4.5-11.0)
[2021-01-21 01:53] LABS: Alanine Aminotransferase 16 IU/L (<35); Albumin 4.3 g/dL (3.5-5.0); Albumin Globulin Ratio 1.4 (1.0-2.8); Alkaline Phosphatase 41 U/L (38-126); Aspartate Aminotransferase 29 IU/L (14-36); BUN Creatinine Ratio 18.5 (6-22); Bilirubin Total 1.4 mg/dL (0.2-1.3); Blood Urea Nitrogen 22 mg/dL (7-17); Carbon Dioxide 24 mmol/L (22-32); Chloride 107 mmol/L (98-107); Estimated Glomerular Filt Rate 43.2 mL/min (>60); Globulin 3.1 g/dL (1.7-4.1); Glucose 96 mg/dL (80-110); HEMOLYSIS 34 (0-50); Lactate (Lactic Acid) 0.9 mmol/L (0.7-2.1); Potassium 4.5 mmol/L (3.4-5.1); Sodium 139 mmol/L (137-145); Total Protein 7.4 g/dL (6.3-8.2)
[2021-01-21 02:00] LABS: D Dimer 441 ng/mL (<230)
[2021-01-21 02:01] LABS: Creatine Kinase 53 U/L (30-135)
[2021-01-21 02:06] LABS: Macrocytosis 3+
[2021-01-21 02:15] LABS: NT-proBNP (BNP-Adult 18+) 2670 pg/mL (<450); Troponin I < 0.012 ng/mL (0.01-0.034)
[2021-01-21 02:30] VITALS: BP 152/93
[2021-01-21 02:31] VITALS: PULSE 101; RESP 16; O2SAT 100
[2021-01-21] MEDS: FUROSEMIDE 40 MG/4 ML VIAL IV (02:35)
[2021-01-21 02:57] VITALS: PULSE 101; RESP 21; O2SAT 100
[2021-01-21 04:14] VITALS: BP 162/89
== END 2021-01-21 04:27 | disposition home or self-care (01) ==
PROVIDERS: Emergency Provider Emergency Medicine; Family Provider Internal Medicine Cardiovascular Disease; PCP Internal Medicine
DX: I50.9 Heart failure, unspecified (principal); R53.83 Other fatigue; R06.02 Shortness of breath
CPT/HCPCS: 36415; 71045; 80053; 82550; 83605; 83880; 84484; 85025; 85379; 93005; 96374; 99284; J1940

== ENCOUNTER 2021-11-28 13:19 | Emergency (ER) | payer MEDICARE, OTHER, MEDICAID, SELFPAY ==
[2018-12-16 00:46] VITALS: PULSE 139; RESP 13; O2SAT 100
[2020-08-11 16:21] VITALS: BMI 28.6
[2021-11-28 13:28] VITALS: BP 107/69; PULSE 94; RESP 22; TEMP 36.1; O2SAT 94; BMI 28.3
--- NOTE | 2021-11-28 13:56 | DI.RAD.S_ITS ---
PROCEDURE: XR CHEST 1V INDICATIONS: shortness of breath TECHNIQUE: One view of the chest was acquired. COMPARISON: [facility], CR, XR CHEST 1V, 01/21/2021, 1:14. FINDINGS: Surgical changes and devices: Sternal wires and valve replacement are unchanged. Lungs and pleura: Lungs are clear. No pleural effusions or pneumothorax. Mediastinum: Mediastinal contours appear normal. Heart size is enlarged. Bones and chest wall: No suspicious bony lesions. Overlying soft tissues appear unremarkable. IMPRESSION: No acute pulmonary process. Dictated by: Janet Rodriguez M.D. on 11/28/2021 at 14:27 Approved by: Janet Rodriguez M.D. on 11/28/2021 at 14:27
[2021-11-28 14:36] VITALS: PULSE 104; O2SAT 96
[2021-11-28 14:53] LABS: Add Manual Diff / Slide Review NO; Basophils Absolute Auto 100 /uL (0-100); Basophils Percent Auto 1.5 % (0-2); Eosinophils Absolute Auto 100 /uL (0-450); Eosinophils Percent Auto 2.3 % (2-4); Hematocrit 35.8 % (36-46); Hemoglobin 12.1 g/dL (12.0-16.0); Lymphocytes Absolute Auto 1400 /uL (1100-4500); Lymphocytes Percent Auto 30.4 % (25-40); Mean Corpuscular HGB Conc 33.9 % (30-36); Mean Corpuscular Hemoglobin 38.6 PG (26-34); Mean Corpuscular Volume 113.8 fL (80-100); Monocytes Absolute Auto 300 /uL (0-900); Monocytes Percent Auto 6.9 % (3-14); Neutrophils Absolute Auto 2700 /uL (1500-7000); Neutrophils Percent Auto 58.9 % (50-75); Platelet Count 187 X10^3/uL (150-400); Red Blood Cell Count 3.15 X10^6/uL (4.0-5.2); Red Cell Distribution Width 15.4 % (11.6-14.8); White Blood Cell Count 4.6 X10^3/uL (4.5-11.0)
--- NOTE | 2021-11-28 14:55 | ED_ITS ---
HPI - SOB/Dyspnea <Li Hunter, [facility] - Last Filed: 11/28/21 15:57> General Chief Complaint: Shortness of Breath/Dyspnea Stated Complaint: Breathing trouble Time Seen by Provider: 11/28/21 13:56 Source: patient and EMS Mode of arrival: EMS Limitations: no limitations History of Present Illness HPI Narrative: This is an 86-year-old female with history of congestive heart failure, AFib w ith RVR on Eliquis, hypertension, and chronic kidney disease who presents to the emergency department by ambulance for coughing with phlegm that occurred around noon today. Patient denies any shortness of breath, orthopnea, shortness of breath with exertion. She states that she had a coughing episode while making lunch today and produce more phlegm than usual. She denies any wheezing, difficulty swallowing, chest tightness, chest pain, throat pain, or difficulty breathing. Patient endorses a history of CHF, states that she has been taking her medications as prescribed, she has not had any additional salty foods, has been healthy otherwise without any recent fever, weakness, feeling faint, or illness. Related Data Home Medications Medication Instructions Recorded Confirmed gabapentin 300 mg capsule 600 mg PO BEDTIME 12/15/18 08/11/20 pravastatin 40 mg tablet 40 mg PO DAILY 12/15/18 08/11/20 tamsulosin 0.4 mg capsule 0.4 mg PO DAILY 12/15/18 08/11/20 denosumab 60 mg/mL subcutaneous 60 mg SUBCUT [id number] 12/16/18 08/11/20 syringe (Prolia) multivitamin 1 tab PO DAILY 12/16/18 08/11/20 tizanidine 2 mg tablet 2 mg PO BEDTIME PRN 12/16/18 08/11/20 amiodarone 200 mg tablet 200 mg PO DAILY 05/19/20 08/11/20 cholecalciferol (vitamin D3) 50 50 mcg PO DAILY 05/19/20 08/11/20 mcg (2,000 unit) capsule furosemide 20 mg tablet 40 mg PO DAILY tab 05/19/20 08/11/20 melatonin 5 mg capsule 10 mg PO DAILY cap 05/19/20 08/11/20 albuterol sulfate 90 mcg/actuation 2 puff INHALATION Q4H PRN 12/16/20 12/16/20 aerosol inhaler (Proventil HFA) fluticasone 250 mcg-salmeterol 50 1 inh INHALATION BID 08/11/20 08/11/20 mcg/dose blistr powdr for inhalation (Advair Diskus) levothyroxine 100 mcg tablet See Rx Instructions .ROUTE .COMPLEX 08/11/20 08/11/20 megestrol 40 mg tablet 80 mg PO BID 08/11/20 08/11/20 Previous Rx's Medication Instructions Recorded bisacodyl 10 mg rectal suppository 10 mg UT DAILY PRN #10 ea 03/18/19 docusate sodium 100 mg capsule 100 mg PO DAILY #30 cap 03/18/19 (DOK) magnesium chloride 71.5 mg 71.5 mg PO DAILY #30 tab 03/18/19 (magnesium chloride) tablet,delayed release (Slow-Mag) polyethylene glycol 3350 17 gram 17 gm PO DAILY #1 pkg 03/18/19 oral powder packet sennosides 8.6 mg tablet (senna) 17.2 mg PO BEDTIME PRN #30 tab 03/18/19 diclofenac sodium 1 % gel topical 2 g TOPICAL QID #1 ea 08/16/20 kit nystatin 100,000 unit/gram topical 1 applic TOPICAL BID #30 g 08/16/20 powder benzocaine 15 mg-menthol 20 mg 1 man MUCOUS MEMBRANE Q2-4H PRN 11/28/21 lozenges (Cepacol Instamax Sore #16 ea Throat) benzonatate 100 mg capsule 100 mg PO BID PRN #10 cap 11/28/21 Allergies Allergy/AdvReac Type Severity Reaction Status Date / Time No Known Drug Allergies Allergy Verified 08/11/20 10:31 Review of Systems <Li Hunter [facility] - Last Filed: 11/28/21 15:57> Review of Systems Narrative: General: denies fever, chills, malaise, sweats, fatigue Head/Neck: denies headache, neck pain, dizziness Eyes: denies visual changes, eye pain Cardio: denies chest pain, palpitations, edema Respiratory: denies dyspnea, endorses cough but this was earlier today, no coughing at this time, denies orthopnea or shortness of breath with exertion GI: denies abdominal pain, nausea, vomiting, or diarrhea : denies dysuria, hematuria, urinary retention, frequency or incontinence MSK: denies joint pain, muscle weakness Skin: denies rash, itching, skin lesions or other Neuro: denies numbness, tingling Patient History <RUBY Patel - Last Filed: 11/28/21 15:57> Medical History (Updated 11/28/21 @ 15:48 by RUBY Patel) Atrial fibrillation Cardiomyopathy CHF (congestive heart failure) CVA (cerebral vascular accident) 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 Brother No problems noted. Social History household members: none Smoking Status: Former smoker alcohol intake: never substance use type: does not use Smoking Status: Former smoker alcohol intake frequency: a few times a month Substance Use Type: does not use Exam <RUBY Patel - Last Filed: 11/28/21 15:57> Narrative Exam Narrative: Independently reviewed vitals signs and nursing notes. General: cooperative, comfortable, in no acute distress, well developed and well groomed Head: atraumatic, symmetrical facial expressions Neck: supple, atraumatic, without lymphadenopathy. Eyes: pupils equal round and reactive, EOMI Nose: nares patent, no rhinorrhea Mouth/Throat: uvula midline, moist mucus membranes Cardiovascular: AFib, irregular rate and rhythm, no peripheral or dependent edema, warm extremities Respiratory: normal effort, able to speak in complete sentences, no audible wheezing, stridor, crackles, or rales. No retractions or tachypnea. No increased work of breathing. GI: abdomen soft, nontender to palpation, nondistended, no masses, no exquisite tenderness with exam, without guarding or rebound. MSK: moves all extremities, ambulatory w/steady gait, neurovascularly intact, no weakness Skin: brisk capillary refill, no rash, no erythema Neuro: normal speech and cognition, A&O x3, normal tone Psych: mental status is grossly normal, congruent mood, normal affect, pleasant and cooperative Initial Vital Signs Initial Vital Signs: Vital Signs Temperature 96.9 F L 11/28/21 13:28 Pulse Rate 94 H 11/28/21 13:28 Respiratory Rate 22 11/28/21 13:28 Blood Pressure 107/69 11/28/21 13:28 Pulse Oximetry 94 11/28/21 13:28 <Ida Lambert DO - Last Filed: 11/28/21 19:20> Initial Vital Signs Initial Vital Signs: Vital Signs Temperature 96.9 F L 11/28/21 13:28 Pulse Rate 94 H 11/28/21 13:28 Respiratory Rate 22 11/28/21 13:28 Blood Pressure 107/69 11/28/21 13:28 Pulse Oximetry 94 11/28/21 13:28 Course <RUBY Patel - Last Filed: 11/28/21 15:57> Orders Ordered: ED Orders 11/28/21 13:56 XR chest 1V Stat 11/28/21 14:39 BNP [NT-proBNP (BNP-Adult 18+)] Stat Complete Blood Count AUTO DIFF Stat Comprehensive Metabolic Panel Stat Lipase Stat Troponin & CK Cardiac Panel Stat Discontinued Medications Benzocaine (Benzocaine/Menthol 1 Man Pkt) 1 each PO NOW ONE Stop: 11/28/21 15:09 Last Admin: 11/28/21 15:16 Dose: 1 each Documented by: JENN Benzonatate (Benzonatate 100 Mg Capsule) 100 mg PO NOW ONE Stop: 11/28/21 15:09 Last Admin: 11/28/21 15:16 Dose: 100 mg Documented by: JENN Vital Signs Vital signs: Vital Signs - 8 hr 11/28/21 13:28 11/28/21 14:36 11/28/21 15:00 Temperature 96.9 F L Pulse Rate 94 H 104 H 108 H Respiratory Rate 22 Blood Pressure 107/69 Pulse Oximetry 94 96 97 11/28/21 15:20 11/28/21 15:30 11/28/21 16:00 Temperature Pulse Rate 106 H 106 H 103 H Respiratory Rate 18 14 15 Blood Pressure 135/85 131/91 H 132/86 Pulse Oximetry 95 96 94 <Ida Lambert DO - Last Filed: 11/28/21 19:20> Orders Ordered: ED Orders 11/28/21 13:56 XR chest 1V Stat 11/28/21 14:39 BNP [NT-proBNP (BNP-Adult 18+)] Stat Complete Blood Count AUTO DIFF Stat Comprehensive Metabolic Panel Stat Lipase Stat Troponin & CK Cardiac Panel Stat Discontinued Medications Benzocaine (Benzocaine/Menthol 1 Man Pkt) 1 each PO NOW ONE Stop: 11/28/21 15:09 Last Admin: 11/28/21 15:16 Dose: 1 each Documented by: JENN Benzonatate (Benzonatate 100 Mg Capsule) 100 mg PO NOW ONE Stop: 11/28/21 15:09 Last Admin: 11/28/21 15:16 Dose: 100 mg Documented by: JENN Vital Signs Vital signs: Vital Signs - 8 hr 11/28/21 13:28 11/28/21 14:36 11/28/21 15:00 Temperature 96.9 F L Pulse Rate 94 H 104 H 108 H Respiratory Rate 22 Blood Pressure 107/69 Pulse Oximetry 94 96 97 11/28/21 15:20 11/28/21 15:30 11/28/21 16:00 Temperature Pulse Rate 106 H 106 H 103 H Respiratory Rate 18 14 15 Blood Pressure 135/85 131/91 H 132/86 Pulse Oximetry 95 96 94 MDM - SOB/Dyspnea <RUBY Patel - Last Filed: 11/28/21 15:57> Lab Data Result diagrams: 11/28/21 14:39 11/28/21 14:39 Labs: Lab Results 11/28/21 11/28/21 Range/Units 14:39 14:39 WBC 4.6 (4.5-11.0) X10^3/uL RBC 3.15 L (4.0-5.2) X10^6/uL Hgb 12.1 (12.0-16.0) g/dL Hct 35.8 L (36-46) % MCV 113.8 H (80-100) fL MCH 38.6 H (26-34) PG MCHC 33.9 (30-36) % RDW 15.4 H (11.6-14.8) % Plt Count 187 (150-400) X10^3/uL Neut % (Auto) 58.9 (50-75) % Lymph % (Auto) 30.4 (25-40) % [place] % (Auto) 6.9 (3-14) % Eos % (Auto) 2.3 (2-4) % Baso % (Auto) 1.5 (0-2) % Neut # (Auto) 2700 (4373-8818) /uL Lymph # (Auto) 1400 (2212-9160) /uL [place] # (Auto) 300 (0-900) /uL Eos # (Auto) 100 (0-450) /uL Baso # (Auto) 100 (0-100) /uL Plt Morphology Comment RBC Morphology See below Polychromasia 1+ H Anisocytosis 1+ H Macrocytosis 1+ H Sodium 136 L (137-145) mmol/L Potassium 3.9 (3.4-5.1) mmol/L Chloride 100 (98-107) mmol/L Carbon Dioxide 28 (22-32) mmol/L BUN 25 H (7-17) mg/dL Creatinine 1.28 H (0.52-1.04) mg/dL Estimated GFR 39.6 L (>60) mL/min BUN/Creatinine Ratio 19.5 (6-22) Glucose 102 (80-110) mg/dL Calcium 9.7 (8.4-10.2) mg/dL Total Bilirubin 2.2 H (0.2-1.3) mg/dL AST 25 (14-36) IU/L ALT 15 (<35) IU/L Alkaline Phosphatase 31 L (38-126) U/L Total Creatine Kinase 47 (30-135) U/L CK-MB (CK-2) TNP CK-MB (CK-2) Rel Index TNP Troponin I < 0.012 (0.01-0.034) ng/mL NT-Pro-B Natriuret Pep 1680 H (<450) pg/mL Total Protein 7.7 (6.3-8.2) g/dL Albumin 4.6 (3.5-5.0) g/dL Globulin 3.1 (1.7-4.1) g/dL Albumin/Globulin Ratio 1.5 (1.0-2.8) Lipase 72 (23-300) U/L Urine Dip Bedside Urine Glucose Negative Bedside Urine Bilirubin - Negative Bedside Urine Ketone - Negative Urine Specific [place] 1.015 Bedside Urine Occult Blood - Negative Bedside Urine pH 6.0 Bedside Urine Protein - Negative Bedside Urine Urobilinogen - Negative Bedside Urine Nitrite - Negative Bedside Urine Leukocytes +/- 15 Esterase Imaging Data Chest x-ray: Radiologist's Impression: PROCEDURE:? XR CHEST 1V ? INDICATIONS:? shortness of breath ? TECHNIQUE:? One view of the chest was acquired.? ? COMPARISON:? [facility], CR, XR CHEST 1V, 01/21/2021, 1:14. ? FINDINGS:? ? Surgical changes and devices:? Sternal wires and valve replacement are unchanged. ? Lungs and pleura:? Lungs are clear.? No pleural effusions or pneumothorax.? ? Mediastinum:? Mediastinal contours appear normal.? Heart size is enlarged. ? Bones and chest wall:? No suspicious bony lesions.? Overlying soft tissues appear unremarkable.? ? IMPRESSION:? No acute pulmonary process. ? ? Dictated by: Janet Rodriguez M.D. on 11/28/2021 at 14:27 ? ? Approved by: Janet Rodriguez M.D. on 11/28/2021 at 14:27 ? ECG Data Interpretation: AFib on EKG, rate controlled at 101 beats per minute, left axis deviation with a right bundle-branch block, no ST changes compared with prior EKG on 01/21/2021.No STEMI, ST segment changes, arrhythmia, or acute ischemic changes. MDM Narrative Medical decision making narrative: This is an 86-year-old female with a past medical history significant for CHF with reduced EF of 20-25%, hypertension, hyperlipidemia, aortic valve replacement, previous CVA with left upper extremity hemiparesis and left lower extremity weakness who presents to the emergency department with complaint of coughing episode with phlegm production around noon today. She has a history of chronic renal failure with a baseline creatinine between 1.1 and 2.9, today her creatinine is 1.28. Patient states she went to her primary care provider this morning, had labs drawn, felt fine at that time, denies any recent illness, denies any nausea, vomiting, chest pain, shortness of breath, orthopnea, or shortness of breath with exertion. She states that she had a coughing episode with phlegm, she came to the ER by ambulance because she was concerned about her congestive heart failure. Initially, she refused lab work stating that she had lab work done this morning, she was convinced to allow a lab draw as her results were unavailable as they had not been completed yet at [facility]. Lab work revealed a BNP level of 1680, with prior values in the mid 1999s. Patient states she has been taking her medications as prescribed including her Eliquis, amiodarone, Lasix, and other medicines. She does not have any abnormal breath sounds, chest x-ray does not show any pleural effusion, pneumothorax, patchy infiltrates, or acute cardiopulmonary abnormality. Patient does not have any leukocytosis abnormalities, her potassium levels 3.9, no elevation in her liver enzymes, troponin was negative, CK MB was also negative. EKG shows atrial fibrillation with a rate of 101 with a left axis deviation without any acute changes compared with her prior EKG. Patient was encouraged to follow-up with her primary care provider about her lab work, her chart was sent to her PCP and drop forger. Patient was given a Cepacol Throat lozenge and Tessalon Perles for her cough/throat discomfort which has resolved prior to her discharge today. Patient is appropriate and amenable to discharge home. Vital signs are stable on repeat examination is unremarkable. Patient has been informed of results. Patient has been given strict return to ER precautions for any new or worsening symptoms. Patient understands to follow up closely with outpatient providers as instructed. Patient understands plan and agrees to discharge home. All questions and concerns answered at this time. <Ida Lambert, DO - Last Filed: 11/28/21 19:20> Lab Data Labs: Lab Results 11/28/21 11/28/21 Range/Units 14:39 14:39 WBC 4.6 (4.5-11.0) X10^3/uL RBC 3.15 L (4.0-5.2) X10^6/uL Hgb 12.1 (12.0-16.0) g/dL Hct 35.8 L (36-46) % MCV 113.8 H (80-100) fL MCH 38.6 H (26-34) PG MCHC 33.9 (30-36) % RDW 15.4 H (11.6-14.8) % Plt Count 187 (150-400) X10^3/uL Neut % (Auto) 58.9 (50-75) % Lymph % (Auto) 30.4 (25-40) % [place] % (Auto) 6.9 (3-14) % Eos % (Auto) 2.3 (2-4) % Baso % (Auto) 1.5 (0-2) % Neut # (Auto) 2700 (1239-1553) /uL Lymph # (Auto) 1400 (2036-6766) /uL [place] # (Auto) 300 (0-900) /uL Eos # (Auto) 100 (0-450) /uL Baso # (Auto) 100 (0-100) /uL Plt Morphology Comment RBC Morphology See below Polychromasia 1+ H Anisocytosis 1+ H Macrocytosis 1+ H Sodium 136 L (137-145) mmol/L Potassium 3.9 (3.4-5.1) mmol/L Chloride 100 (98-107) mmol/L Carbon Dioxide 28 (22-32) mmol/L BUN 25 H (7-17) mg/dL Creatinine 1.28 H (0.52-1.04) mg/dL Estimated GFR 39.6 L (>60) mL/min BUN/Creatinine Ratio 19.5 (6-22) Glucose 102 (80-110) mg/dL Calcium 9.7 (8.4-10.2) mg/dL Total Bilirubin 2.2 H (0.2-1.3) mg/dL AST 25 (14-36) IU/L ALT 15 (<35) IU/L Alkaline Phosphatase 31 L (38-126) U/L Total Creatine Kinase 47 (30-135) U/L CK-MB (CK-2) TNP CK-MB (CK-2) Rel Index TNP Troponin I < 0.012 (0.01-0.034) ng/mL NT-Pro-B Natriuret Pep 1680 H (<450) pg/mL Total Protein 7.7 (6.3-8.2) g/dL Albumin 4.6 (3.5-5.0) g/dL Globulin 3.1 (1.7-4.1) g/dL Albumin/Globulin Ratio 1.5 (1.0-2.8) Lipase 72 (23-300) U/L Urine Dip Bedside Urine Glucose Negative Bedside Urine Bilirubin - Negative Bedside Urine Ketone - Negative Urine Specific [place] 1.015 Bedside Urine Occult Blood - Negative Bedside Urine pH 6.0 Bedside Urine Protein - Negative Bedside Urine Urobilinogen - Negative Bedside Urine Nitrite - Negative Bedside Urine Leukocytes +/- 15 Esterase Discharge Plan Departure Patient Disposition: Home Clinical Impression: Congestive heart failure (CHF) Qualifiers: Heart failure type: unspecified Heart failure chronicity: acute on chronic Qualified Code(s): I50.9 - Heart failure, unspecified Chronic kidney disease Qualifiers: Chronic kidney disease stage: unspecified stage Qualified Code(s): N18.9 - Chronic kidney disease, unspecified Instructions: Heart Failure, DI for Heart Failure, Chronic Kidney Disease Activity Restrictions/Additional Instructions: *You have been diagnosed with cough with phlegm production which is likely related to your congestive heart failure. You do not have any signs of acute exacerbation on workup today. Please use Tessalon Perles, and or throat lozeng es as needed for this discomfort in the future. Please take your Lasix as prescribed and do not miss any doses as this could lead to worsening phlegm production if you do not take her water pill. Please follow-up with your primary care provider about your lab work that you had done at her office and after your emergency department visit today. Please let her know you are in the ER, and having your feeling since your visit. If you have any chest pain, shortness of breath, difficulty breathing, please return to the emergency department. *What to do: *Please continue to take your regular medications as directed. [x ] New medication prescriptions sent to your pharmacy: [ [facility]] [ ] New medication written as a paper prescription [ ] No new medications given *Please follow up with your primary care provider in 2-3 days, call for an appointment. Let them know you were seen in the Emergency Department and that we asked that you be seen for follow-up. We will electronically transmit a record of today's note if your PCP is in our system *If you do not have a primary care provider please contact [phone] to establish care with one of the [facility] primary care providers. *Return to Emergency Department if you should have any new, worsening or concerning symptoms, such as [fever greater than 101F, chills, worsening pain, persistent vomiting or other bothersome symptoms] Prescriptions: New Cepacol Instamax Sore Throat 15-20 mg lozenge 1 man mucous membrane Q2-4H PRN (Reason: cough) Qty: 16 0RF benzonatate 100 mg capsule 100 mg PO BID PRN (Reason: cough) Qty: 10 0RF No Action pravastatin 40 mg Tablet 40 mg PO DAILY 0RF tamsulosin 0.4 mg Capsule 0.4 mg PO DAILY 0RF gabapentin 300 mg Capsule 600 mg PO BEDTIME 0RF multivitamin Tablet 1 tab PO DAILY 0RF tizanidine 2 mg Tablet 2 mg PO BEDTIME PRN (Reason: Muscle Spasm) 0RF Prolia 60 mg/mL Syringe 60 mg subcut [id number] 0RF fluticasone propion-salmeterol [Advair Diskus] 250-50 mcg/dose blister with device 1 inh INHALATION BID 0RF megestrol 40 mg tablet 80 mg PO BID 0RF albuterol sulfate [Proventil HFA] 90 mcg/actuation Hfa Aerosol Inhaler 2 puff INHALATION Q4H PRN (Reason: Shortness Of Breath Or Wheezing) 0RF levothyroxine 100 mcg tablet See Rx Instructions .ROUTE .COMPLEX 0RF Rx Instructions: 100 mcg Sunday, Sunday, Sunday, Sunday, Sunday 50 mcg Sunday, nystatin 100,000 unit/gram powder 1 applic topical BID Qty: 30 0RF diclofenac sodium 1 % kit 2 g topical QID Qty: 1 0RF Rx Instructions: apply to single elbow, wrist or hand; for hand includes palm/fingers/back of hand bisacodyl 10 mg Suppository 10 mg UT DAILY PRN (Reason: Constipation) Qty: 10 0RF polyethylene glycol 3350 17 gram Powder In Packet 17 gm PO DAILY Qty: 1 0RF sennosides [senna] 8.6 mg Tablet 17.2 mg PO BEDTIME PRN (Reason: Constipation) Qty: 30 0RF Slow-Mag 71.5 mg tablet,delayed release (DR/EC) 71.5 mg PO DAILY Qty: 30 0RF docusate sodium [DOK] 100 mg Capsule 100 mg PO DAILY Qty: 30 0RF furosemide 20 mg tablet 40 mg PO DAILY 0RF amiodarone 200 mg tablet 200 mg PO DAILY 0RF cholecalciferol (vitamin D3) 50 mcg (2,000 unit) capsule 50 mcg PO DAILY 0RF melatonin 5 mg capsule 10 mg PO DAILY 0RF Referrals: Tamela Mckeon PA-C [Non-Staff] - Jaida Neil MD [Family Provider] - Matilde Lin MD [Primary Care Provider] - <Ida Lambert DO - Last Filed: 11/28/21 19:20> Cosign ED Attending Cosignature Attestation: I was immediately available in the department for consultation. Documentation has been reviewed.
[2021-11-28 15:00] VITALS: PULSE 108; O2SAT 97
[2021-11-28 15:02] LABS: Alanine Aminotransferase 15 IU/L (<35); Albumin 4.6 g/dL (3.5-5.0); Albumin Globulin Ratio 1.5 (1.0-2.8); Alkaline Phosphatase 31 U/L (38-126); Aspartate Aminotransferase 25 IU/L (14-36); BUN Creatinine Ratio 19.5 (6-22); Bilirubin Total 2.2 mg/dL (0.2-1.3); Blood Urea Nitrogen 25 mg/dL (7-17); Calcium 9.7 mg/dL (8.4-10.2); Carbon Dioxide 28 mmol/L (22-32); Chloride 100 mmol/L (98-107); Creatine Kinase 47 U/L (30-135); Estimated Glomerular Filt Rate 39.6 mL/min (>60); Globulin 3.1 g/dL (1.7-4.1); Glucose 102 mg/dL (80-110); HEMOLYSIS < 15 (0-50); Lipase 72 U/L (23-300); Potassium 3.9 mmol/L (3.4-5.1); Sodium 136 mmol/L (137-145); Total Protein 7.7 g/dL (6.3-8.2)
[2021-11-28 15:13] LABS: NT-proBNP (BNP-Adult 18+) 1680 pg/mL (<450); Troponin I < 0.012 ng/mL (0.01-0.034)
[2021-11-28] MEDS: BENZOCAINE/MENTHOL 1 LOZ PKT 1 EACH PO (15:16)
[2021-11-28] MEDS: BENZONATATE 100 MG CAPSULE PO (15:16)
[2021-11-28 15:18] LABS: Anisocytosis 1+; Macrocytosis 1+
[2021-11-28 15:19] LABS: Polychromasia 1+
[2021-11-28 15:20] VITALS: BP 135/85; PULSE 106; RESP 18; O2SAT 95
[2021-11-28 15:30] VITALS: BP 131/91; PULSE 106; RESP 14; O2SAT 96
--- NOTE | 2021-11-28 15:42 | PC.NURSE ---
Contacting District to see if their BLS can come pick patient up to return her to her residence.
[2021-11-28 16:00] VITALS: BP 132/86; PULSE 103; RESP 15; O2SAT 94
== END 2021-11-28 16:14 | disposition home or self-care (01) ==
PROVIDERS: Emergency Provider Nurse Practitioner Critical Care Medicine; Family Provider Internal Medicine Cardiovascular Disease; PCP Internal Medicine
DX: I11.0 Hypertensive heart disease with heart failure (principal); I50.9 Heart failure, unspecified; N18.9 Chronic kidney disease, unspecified; I48.91 Unspecified atrial fibrillation
CPT/HCPCS: 36415; 71045; 80053; 81003; 82550; 83690; 83880; 84484; 85025; 93005; 93010; 99283; 99284

== ENCOUNTER 2022-02-02 22:59 | Inpatient (IN) | payer MEDICARE, OTHER, MEDICAID, SELFPAY ==
[2018-12-16 00:46] VITALS: PULSE 139; RESP 13; O2SAT 100
[2020-08-11 16:21] VITALS: BMI 28.6
[2022-02-02 23:05] VITALS: PULSE 116; O2SAT 86
[2022-02-02 23:14] VITALS: PULSE 115; RESP 24; TEMP 37; O2SAT 97; BMI 27.4
--- NOTE | 2022-02-02 23:17 | PC.NURSE ---
Upon arrival, pt refusing BP, stating it hurts too much. Despite educating pt on importance of obtaining a BP, pt continues to refuse. After a lengthy discussion, pt agreed to a small PIV placement. After first attempt unsuccessful due to pt fidgeting and veins rolling, pt refused further attempts made for obtaining blood work and IV placement. Pt informed she will likely need an IV for treatment durign her ER stay.
[2022-02-02 23:30] VITALS: PULSE 117; RESP 24; O2SAT 96
[2022-02-02 23:40] LABS: COVID19 -Nasal RAPID Negative (Negative)
--- NOTE | 2022-02-02 23:41 | DI.RAD.S_ITS ---
PROCEDURE: XR CHEST 1V INDICATIONS: sob TECHNIQUE: One view of the chest was acquired. COMPARISON: [facility], CR, XR CHEST 1V, 01/21/2021, 1:14. [facility], CR, XR CHEST 1V, 11/28/2021, 13:59. FINDINGS: Surgical changes and devices: Postsurgical changes are redemonstrated in the mediastinum. A prosthetic aortic valve is redemonstrated Lungs and pleura: There is increased pulmonary edema. Linear opacities in the lung bases likely represent atelectasis. No pleural effusions or pneumothorax. Mediastinum: Mediastinal contours are unchanged. Heart size is enlarged. Bones and chest wall: No suspicious bony lesions. Overlying soft tissues appear unremarkable. IMPRESSION: 1. Pulmonary edema and cardiomegaly suggestive of congestive heart failure. Dictated by: Best Olivas M.D. on 02/03/2022 at 0:37 Approved by: Best Olivas M.D. on 02/03/2022 at 0:39
--- NOTE | 2022-02-02 23:45 | PC.NURSE ---
Pt informed again that she will need blood work to fully assess her condition. Pt informed another nurse will attempt an IV placement. Pt agreeable to this at this time.
--- NOTE | 2022-02-02 23:57 | ED_ITS ---
HPI - SOB/Dyspnea General Chief Complaint: Shortness of Breath/Dyspnea Stated Complaint: SOB x3 days Time Seen by Provider: 02/02/22 23:48 Source: patient and EMS Mode of arrival: EMS Limitations: physical limitation History of Present Illness HPI Narrative: Patient brought in by EMS from home for complaints of dyspnea. Ongoing for 3 days. Denies any chest pain. Has had extremity edema as well. Patient has hi story of severe CHF as well as history of chronic kidney disease. Denies any chest pain. No recent illness. No cough cold or congestion. Had breathing treatment done by EMS but no improvement. Denies any history of COPD or asthma. No recent illness. No cough cold congestion or fever chills. Related Data Home Medications Medication Instructions Recorded Confirmed gabapentin 300 mg capsule 600 mg PO BEDTIME 12/15/18 11/30/21 pravastatin 40 mg tablet 40 mg PO DAILY 12/15/18 11/30/21 tamsulosin 0.4 mg capsule 0.4 mg PO DAILY 12/15/18 11/30/21 denosumab 60 mg/mL subcutaneous 60 mg SUBCUT [id number] 12/16/18 11/30/21 syringe (Prolia) multivitamin 1 tab PO DAILY 12/16/18 11/30/21 tizanidine 2 mg tablet 2 mg PO BEDTIME PRN Muscle Spasm 12/16/18 11/30/21 amiodarone 200 mg tablet 200 mg PO DAILY 05/19/20 11/30/21 cholecalciferol (vitamin D3) 50 50 mcg PO DAILY 05/19/20 11/30/21 mcg (2,000 unit) capsule furosemide 20 mg tablet 40 mg PO DAILY 05/19/20 11/30/21 melatonin 5 mg capsule 10 mg PO DAILY 05/19/20 11/30/21 albuterol sulfate 90 mcg/actuation 2 puff inhalation Q4H PRN 08/11/20 11/30/21 aerosol inhaler (Proventil HFA) Shortness Of Breath Or Wheezing fluticasone 250 mcg-salmeterol 50 1 inh inhalation BID 08/11/20 11/30/21 mcg/dose blistr powdr for inhalation (Advair Diskus) levothyroxine 100 mcg tablet See Rx Instructions .Route .COMPLEX 08/11/20 11/30/21 megestrol 40 mg tablet 80 mg PO BID 08/11/20 11/30/21 Previous Rx's Medication Instructions Recorded bisacodyl 10 mg rectal suppository 10 mg [place] DAILY PRN Constipation 03/18/19 #10 ea docusate sodium 100 mg capsule 100 mg PO DAILY #30 caps 03/18/19 (DOK) magnesium chloride 71.5 mg 71.5 mg PO DAILY #30 tabs 03/18/19 (magnesium chloride) tablet,delayed release (Slow-Mag) polyethylene glycol 3350 17 gram 17 gm PO DAILY #1 pkg 03/18/19 oral powder packet sennosides 8.6 mg tablet (senna) 17.2 mg PO BEDTIME PRN 03/18/19 Constipation #30 tabs diclofenac sodium 1 % gel topical 2 g topical QID #1 ea 08/16/20 kit nystatin 100,000 unit/gram topical 1 applic topical BID #30 grams 08/16/20 powder benzocaine 15 mg-menthol 20 mg 1 juan antonio mucous membrane Q2-4H PRN 11/28/21 lozenges (Cepacol Instamax Sore cough #16 ea Throat) benzonatate 100 mg capsule 100 mg PO BID PRN cough #20 caps 11/30/21 Allergies Allergy/AdvReac Type Severity Reaction Status Date / Time No Known Drug Allergies Allergy Verified 02/03/22 03:51 Review of Systems Review of Systems Narrative: GENERAL: Denies chills, fatigue, malaise, fever, sweats. HEENT: Denies sinus pain, ear pain, sore throat RESPIRATORY: Positive for dyspnea, negative for cough CARDIOVASCULAR: Denies chest pain, palpitations GASTROINTESTINAL: Denies nausea, vomiting, abdominal pain : Denies dysuria, frequency, hematuria MUSCULOSKELETAL: denies muscle or bony pain SKIN: Denies rash, skin lesions NEUROLOGIC: Denies weakness, numbness ROS Unobtainable: All systems reviewed & are unremarkable except as noted in HPI and below Patient History Medical History Atrial fibrillation Cardiomyopathy CHF (congestive heart failure) CVA (cerebral vascular accident) 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 Brother No problems noted. Social History household members: none Smoking Status: Former smoker alcohol intake: never substance use type: does not use Smoking Status: Former smoker alcohol intake frequency: a few times a month Substance Use Type: does not use Exam Narrative Exam Narrative: GENERAL: in no distress, not toxic not dyspneic HEAD: Normocephalic. EYES: Pupils equal round No scleral icterus. ENT: Mucous membranes moist. NECK: Trachea midline. CARDIOVASCULAR: Regular rate and rhythm without murmurs, tachycardic RESPIRATORY: Clear to auscultation. Breath sounds equal bilaterally. No wheezes, rales, or rhonchi. There is intranasal wheezing sound with breathing. But no w heezing in the lungs.. Speaking full sentences. GASTROINTESTINAL: Abdomen soft, non-tender EXTREMITIES: No gross deformities. BACK: No flank tenderness. NEURO: AOx4. SKIN: Warm and dry PSYCH: Not anxious, is cooperative Initial Vital Signs Initial Vital Signs: Vital Signs Pulse Rate 116 H 02/02/22 23:05 Pulse Oximetry 86 L 02/02/22 23:05 Course Course Course Narrative: No new issues during course of stay Decision to Admit Date: 02/02/22 Decision to Admit time: 00:00 Orders Ordered: ED Orders 02/02/22 23:03 COVID19 -Nasal RAPID/Pre-Proc Stat 02/02/22 23:41 XR chest 1V Stat 02/02/22 23:59 PT [Prothrombin Time INR] Stat PTT [Partial Thromboplastin Time] Stat Acetaminophen (Acetaminophen 325 Mg Tablet) 650 mg PO Q6HR PRN PRN Reason: Fever/Mild Pain (1-3) Gabapentin (Gabapentin 300 Mg Capsule) 600 mg PO BEDTIME [facility] Levothyroxine Sodium (Levothyroxine 100 Mcg Tablet) 0 mcg PO SuMoWeFrSa@0600 [facility] Last Admin: 02/03/22 06:29 Dose: 100 mcg Documented By: EB Levothyroxine Sodium (Levothyroxine 50 Mcg Tablet) 50 mcg PO TuTh@0600 [facility] Melatonin (Melatonin 3 Mg Tablet) 9 mg PO BEDTIME PRISCILA Naloxone HCl (Naloxone 0.4 Mg/Ml Vial) 0.2 mg IV Q2MIN PRN PRN Reason: Opiate Reversal Ondansetron HCl (Ondansetron 4 Mg/2 Ml Inj) 4 mg IV Q8HR PRN PRN Reason: Nausea And Vomiting Discontinued Medications Furosemide (Furosemide 40 Mg/4 Ml Vial) 40 mg IV NOW ONE Stop: 02/02/22 23:58 Last Admin: 02/03/22 00:12 Dose: 40 mg Documented By: EB Reevaluation(s) Reevaluation #1: Patient resting comfortably at this time. Time: 03:51 Consultations Consultation #1: Spoke with Aniyah hospitalist, will admit Time: 03:51 Vital Signs Vital signs: Vital Signs - 8 hr 02/02/22 23:14 02/03/22 00:38 02/02/22 23:05 Temperature 98.6 F Pulse Rate 115 H 116 H Respiratory Rate 24 Blood Pressure 150/97 H Pulse Oximetry 97 100 86 L Oxygen Delivery Method Room Air Nasal Cannula Oxygen Flow Rate 2 02/02/22 23:30 02/03/22 00:00 02/03/22 00:30 Temperature Pulse Rate 117 H 117 H 117 H Respiratory Rate 24 24 22 Blood Pressure Pulse Oximetry 96 99 100 Oxygen Delivery Method Oxygen Flow Rate 02/03/22 01:00 02/03/22 01:30 02/03/22 02:00 Temperature Pulse Rate 120 H 121 H 121 H Respiratory Rate 19 16 13 Blood Pressure Pulse Oximetry 100 100 100 Oxygen Delivery Method Oxygen Flow Rate 02/03/22 02:30 02/03/22 03:00 Temperature Pulse Rate 121 H 122 H Respiratory Rate 15 13 Blood Pressure Pulse Oximetry 100 100 Oxygen Delivery Method Oxygen Flow Rate MDM - SOB/Dyspnea Differential Diagnosis Differential diagnosis: Likely acute exacerbation of chronic obstructive airways disease, congestive heart failure, community acquired pneumonia and asthma with exacerbation Medical Records Medical records narrative: [address] [address] Echocardiography Report Signed Patient: Светлана Whiting MR#: [id number] : 1935 Acct:[id number] Age/Sex: 85 / F Date of Service: 08/11/20 Loc: ICU 226-1 Accession Number: [id number] ?? Procedure: EC echo doppler complete Ordering Provider: Mank,Ida C D.O. [facility]? +---------+ : ? :? [address] ? : ? : : ? :? [place], [place] ? : ? : : ? :? [address] ? : ? : : ? : ? Phone: [phone] : ? : [phone]? [phone]? +---------+ ? Echocardiogram Report + + :Name: СВЕТЛАНА WHITING? Study Date: 08/12/2020 ? Height: 62 in? : :Hospital ? Weight: 145 lb : : ? Gender: Female ? BSA: 1.7 m2? ? : :: 1935? Age: 85 yrs? BP: 100/65 mmHg: :Reason For Study: RENAL FAILURE, CARDIOMYOPATHY? : :Ordering Physician:? : :HOSPITALIST, CORNEL? Performed By: Cindi Garza? : :Referring: IDA STOUT? : + + Interpretation Summary Left ventricular systolic function is significantly improved, now with an estimated ejection fraction of 50 to 55%, but with a significant dyssynchronous contraction pattern and interventricular septal flattening, consistent with a right ventricular overload condition, but no focal wall motion abnormality. Left ventricular size is normal and smaller compared to the previous echo. There continues to be mild to moderate LVH. Diastolic function cannot be assessed because of the presence of atrial fibrillation. ? The right ventricle appears to be moderate??severely enlarged with moderately reduced systolic function and appears slightly larger and less dynamic compared to the previous study. Pulmonary artery pressures are challenging to assess in the setting of severe tricuspid regurgitation but is at least 37 mmHg with a CVP in excess of 15 mmHg. ? There is severe left atrial enlargement but smaller compared to the previous study with severe right atrial enlargement which is progressive. ? There is mild mitral regurgitation that appears less prominent compared to the previous study. ? There is severe tricuspid regurgitation and mild to moderate pulmonic valve regurgitation that appear unchanged from the previous exam. ? There is a bioprosthetic aortic valve that appears to be functioning normally. ? She was in atrial fibrillation at 65 to 85 bpm during the exam, considerably slower compared to the previous study. ? Procedure: ? A two-dimensional transthoracic echocardiogram with color flow and Doppler was performed. The study quality was technically difficult. Comparison is made with the echocardiogram of 03/11/2020. The patient was in atrial fibrillation with heart rates between 66-84 bpm during the exam. Left Ventricle: ? The left ventricle is normal in size. There is mild-moderate concentric left ventricular hypertrophy. The ejection fraction is estimated to be 50-55%. Left ventricular systolic function is low normal. This is significantly improved compared to the previous study. There is a significant dyssynchronous contraction pattern, consistent with a conduction abnormality. The interventricular septum is flattened, consistent with a right ventricular volume overload condition. There are no focal wall motion abnormalities. Diastolic function could not be accurately assessed due to atrial fibrillation. Right Ventricle: ? The right ventricle is moderate to severely dilated. Right ventricular systolic function is moderately reduced. This is larger and less dynamic compared to the previous study. Atria: ? The left atrium is severely dilated. This is smaller compared to the previous study. The right atrium is severely dilated. This is larger compared to the previous study. There is no Doppler evidence for an interatrial shunt. Mitral Valve: ? There is moderate mitral annular calcification. The mitral valve leaflets are mildly calcified. The mitral valve leaflets appear mildly thickened, but open well. There is mild mitral regurgitation. This is less prominent compared to the previous study. Aortic Valve: ? There is a prosthetic aortic valve. The prosthetic aortic valve is well-seated. The gradients through the prosthetic aortic valve are within the normal range for this type of valve. The peak aortic velocity is 1.3 m/sec. The peak aortic velocity on the previous exam was 1.0 m/sec. The aortic valve mean gradient is 3 mmHg. No aortic regurgitation is present. Tricuspid Valve: ? The tricuspid annulus is dilated. There is severe tricuspid regurgitation. This is unchanged compared to the previous study. The right ventricular systolic pressure is estimated to be at least 37 mmHg based on an estimated right atrial pressure of 15 mm Hg. But this is likely an underestimate because of the severe tricuspid regurgitation. Pulmonic Valve: ? The pulmonic valve is not well visualized. There is mild to moderate pulmonic regurgitation. This is unchanged compared to the previous study. Great Vessels: ? The ascending aorta is mildly enlarged. The IVC is dilated (diameter is greater than 2.1 cm) and it collapses less than 50% with a sniff. This suggests a high right atrial pressure of 15 mm Hg. Pericardium/ Pleura ? There is no pericardial effusion. There is no pleural effusion. ? MMode/2D Measurements & Calculations LVIDd: 3.7 cm? LVOT diam: 2.0 cm LVIDs: 2.7 cm? asc Aorta Diam: 4.1 cm FS: 27.8 % ? Ao Arch Diam (Prox Trans): 2.6 cm EPSS: 1.4 cm IVSd: 0.91 cm LVPWd: 0.99 cm LV morirs. diameter/BSA (cm/m^2): 2.2 LV sys. diameter/BSA (cm/m^2): 1.6 ? LA A2 area: 26.9 cm2 ? RA long axis: 7.3 cm LA A4 area: 33.4 cm2 ? RA area: 28.2 cm2 LA length (vol): 7.2 cm? RA vol: 92.5 ml LA vol: 105.2 ml ? RA : 55.5 ml/m2 LA vol index: 63.1 ml/m2 ? IVC diam: 2.7 cm ? RVD1 (basal): 6.0 cm TAPSE: 1.3 cm ? Doppler Measurements & Calculations Ao V2 max: 128.9 cm/sec ? LVOT Max Silviano: 73.7 cm/sec Ao V2 mean: 81.1 cm/sec ? LV V1 max P.2 mmHg Ao max P.8 mmHg ? LV V1 VTI: 13.4 cm Ao mean P.1 mmHg? SUMAYA(I,D): 2.0 cm2 Ao V2 VTI: 21.8 cm? SUMAYA(V,D): 1.8 cm2 ? sev ratio: 0.61 ? SUMAYA indexed to BSA (cm^2/m^2): 1.2 ? MV E max silviano: 130.8 cm/sec? TR max silviano: 237.2 cm/sec MV A max silviano: 0.89 cm/sec ? TR max P.5 mmHg MV E/A: 146.7 ? PA V2 max: 48.9 cm/sec Med Peak E' Silviano: 6.1 cm/sec ? ? ? PA V2 mean: 27.0 cm/sec E/E' med: 21.5? PA mean P.34 mmHg Lat Peak E' Silviano: 7.4 cm/sec ? ? ? PA pr(Accel): 44.7 mmHg E/E' lat: 17.6 E/e' average: 19.6 MV dec time: 0.23 sec MVA(VTI): 1.7 cm2 ? MV V2 mean: 74.2 cm/sec ? SV(LVOT): 42.9 ml MV mean P.9 mmHg MV V2 VTI: 25.8 cm ? Reading Physician:11:34 AM Lab Data Result diagrams: 02/03/22 00:27 02/03/22 00:27 Labs: Lab Results 02/02/22 02/02/22 02/03/22 Range/Units 23:03 23:59 00:27 WBC 5.0 (4.5-11.0) X10^3/uL RBC 2.76 L (4.0-5.2) X10^6/uL Hgb 10.6 L (12.0-16.0) g/dL Hct 31.3 L (36-46) % MCV 113.4 H (80-100) fL MCH 38.5 H (26-34) PG MCHC 33.9 (30-36) % RDW 14.7 (11.6-14.8) % Plt Count 142 L (150-400) X10^3/uL Neut % (Auto) 68.7 (50-75) % Lymph % (Auto) 20.0 L (25-40) % Glenn % (Auto) 8.2 (3-14) % Eos % (Auto) 1.7 L (2-4) % Baso % (Auto) 1.4 (0-2) % Neut # (Auto) 3500 (6911-5430) /uL Lymph # (Auto) 1000 L (6875-2000) /uL Glenn # (Auto) 400 (0-900) /uL Eos # (Auto) 100 (0-450) /uL Baso # (Auto) 100 (0-100) /uL Plt Morphology Comment . RBC Morphology See below Macrocytosis 1+ H PT 12.9 H (10.1-12.7) SECONDS INR 1.2 (0.9-1.3) APTT 27 D (26.4-36.2) SECONDS Sodium (137-145) mmol/L Potassium (3.4-5.1) mmol/L Chloride (98-107) mmol/L Carbon Dioxide (22-32) mmol/L BUN (7-17) mg/dL Creatinine (0.52-1.04) mg/dL Estimated GFR (>60) mL/min BUN/Creatinine Ratio (6-22) Glucose (80-110) mg/dL Calcium (8.4-10.2) mg/dL Total Bilirubin (0.2-1.3) mg/dL AST (14-36) IU/L ALT (<35) IU/L Alkaline Phosphatase (38-126) U/L Troponin I (0.01-0.034) ng/mL NT-Pro-B Natriuret Pep (<450) pg/mL Total Protein (6.3-8.2) g/dL Albumin (3.5-5.0) g/dL Globulin (1.7-4.1) g/dL Albumin/Globulin Ratio (1.0-2.8) SARS-CoV-2 (PCR) Negative (Negative) 02/03/22 Range/Units 00:27 WBC (4.5-11.0) X10^3/uL RBC (4.0-5.2) X10^6/uL Hgb (12.0-16.0) g/dL Hct (36-46) % MCV (80-100) fL MCH (26-34) PG MCHC (30-36) % RDW (11.6-14.8) % Plt Count (150-400) X10^3/uL Neut % (Auto) (50-75) % Lymph % (Auto) (25-40) % Glenn % (Auto) (3-14) % Eos % (Auto) (2-4) % Baso % (Auto) (0-2) % Neut # (Auto) (6382-5741) /uL Lymph # (Auto) (4909-3825) /uL Glenn # (Auto) (0-900) /uL Eos # (Auto) (0-450) /uL Baso # (Auto) (0-100) /uL Plt Morphology Comment RBC Morphology Macrocytosis PT (10.1-12.7) SECONDS INR (0.9-1.3) APTT (26.4-36.2) SECONDS Sodium 128 L (137-145) mmol/L Potassium 4.5 (3.4-5.1) mmol/L Chloride 101 (98-107) mmol/L Carbon Dioxide 17 L (22-32) mmol/L BUN 16 (7-17) mg/dL Creatinine 0.91 (0.52-1.04) mg/dL Estimated GFR > 60 (>60) mL/min BUN/Creatinine Ratio 17.6 (6-22) Glucose 93 (80-110) mg/dL Calcium 8.7 (8.4-10.2) mg/dL Total Bilirubin 2.9 H (0.2-1.3) mg/dL AST 22 (14-36) IU/L ALT 13 (<35) IU/L Alkaline Phosphatase 36 L (38-126) U/L Troponin I < 0.012 (0.01-0.034) ng/mL NT-Pro-B Natriuret Pep 4460 H (<450) pg/mL Total Protein 6.9 (6.3-8.2) g/dL Albumin 4.0 (3.5-5.0) g/dL Globulin 2.9 (1.7-4.1) g/dL Albumin/Globulin Ratio 1.4 (1.0-2.8) SARS-CoV-2 (PCR) (Negative) Imaging Data Chest x-ray: Radiologist's Impression: [address] [address] XRay Report Signed Patient: Светлана Whiting MR#: [id number] : 1935 Acct:[id number] Age/Sex: 86 / F Date of Service: 02/02/22 Loc: ED Accession Number: [id number] ?? Procedure: XR chest 1V Ordering Provider: Stanislav Aguilar MD PROCEDURE:? XR CHEST 1V ? INDICATIONS:? sob ? TECHNIQUE:? One view of the chest was acquired.? ? COMPARISON:? [facility], ISAAC, XR CHEST 1V, 01/21/2021, 1:14.? [facility], CR, XR CHEST 1V, 11/28/2021, 13:59. ? FINDINGS:? ? Surgical changes and devices:? Postsurgical changes are redemonstrated in the mediastinum.? A prosthetic aortic valve is redemonstrated ? Lungs and pleura:? There is increased pulmonary edema.? Linear opacities in the lung bases likely represent atelectasis.? No pleural effusions or pneumothorax.? ? Mediastinum:? Mediastinal contours are unchanged.? Heart size is enlarged. ? Bones and chest wall:? No suspicious bony lesions.? Overlying soft tissues appear unremarkable.? ? IMPRESSION:? ? 1. Pulmonary edema and cardiomegaly suggestive of congestive heart failure.? ? ? Dictated by: Best Olivas M.D. on 02/03/2022 at 0:37 ? ? Approved by: Best Olivas M.D. on 02/03/2022 at 0:39 ? ECG Data Interpretation: Sinus tachycardia rate [address] elevation or depression MDM Narrative Medical decision making narrative: Upper for admission for diuresis. Patient CHF exacerbation. Reviewed with hospitalist and agrees for admit. Discharge Plan Departure Patient Disposition: Admitted as Observation Clinical Impression: Congestive heart failure (CHF) Admit Date/Time: 02/03/22 04:03 Admit Provider: Mel Gabriel
[2022-02-03] VITALS (32 sets, daily range): BP systolic 92–150; BP diastolic 60–97; PULSE 79–124; RESP 12–27; TEMP 36.2–37.1; O2SAT 96–100; BMI 28.8
[2022-02-03] MEDS: FUROSEMIDE 40 MG/4 ML VIAL IV (00:12)
[2022-02-03 00:14] LABS: INR 1.2 (0.9-1.3); Prothrombin Time 12.9 SECONDS (10.1-12.7)
[2022-02-03 00:17] LABS: PTT Partial Thromboplastin Tim 27 SECONDS (26.4-36.2)
[2022-02-03 00:41] LABS: Add Manual Diff / Slide Review NO; Basophils Absolute Auto 100 /uL (0-100); Basophils Percent Auto 1.4 % (0-2); Eosinophils Absolute Auto 100 /uL (0-450); Eosinophils Percent Auto 1.7 % (2-4); Hematocrit 31.3 % (36-46); Hemoglobin 10.6 g/dL (12.0-16.0); Lymphocytes Absolute Auto 1000 /uL (1100-4500); Mean Corpuscular HGB Conc 33.9 % (30-36); Mean Corpuscular Hemoglobin 38.5 PG (26-34); Mean Corpuscular Volume 113.4 fL (80-100); Monocytes Absolute Auto 400 /uL (0-900); Monocytes Percent Auto 8.2 % (3-14); Neutrophils Absolute Auto 3500 /uL (1500-7000); Neutrophils Percent Auto 68.7 % (50-75); Platelet Count 142 X10^3/uL (150-400); Red Blood Cell Count 2.76 X10^6/uL (4.0-5.2); Red Cell Distribution Width 14.7 % (11.6-14.8)
[2022-02-03 00:47] LABS: Alanine Aminotransferase 13 IU/L (<35); Albumin Globulin Ratio 1.4 (1.0-2.8); Alkaline Phosphatase 36 U/L (38-126); Aspartate Aminotransferase 22 IU/L (14-36); BUN Creatinine Ratio 17.6 (6-22); Bilirubin Total 2.9 mg/dL (0.2-1.3); Blood Urea Nitrogen 16 mg/dL (7-17); Calcium 8.7 mg/dL (8.4-10.2); Carbon Dioxide 17 mmol/L (22-32); Chloride 101 mmol/L (98-107); Estimated Glomerular Filt Rate > 60 mL/min (>60); Globulin 2.9 g/dL (1.7-4.1); Glucose 93 mg/dL (80-110); HEMOLYSIS < 15 (0-50); Potassium 4.5 mmol/L (3.4-5.1); Sodium 128 mmol/L (137-145); Total Protein 6.9 g/dL (6.3-8.2)
[2022-02-03 00:58] LABS: NT-proBNP (BNP-Adult 18+) 4460 pg/mL (<450); Troponin I < 0.012 ng/mL (0.01-0.034)
[2022-02-03 01:05] LABS: Macrocytosis 1+
--- NOTE | 2022-02-03 03:20 | PC.NURSE ---
Pt continues to refuse BP check.
--- NOTE | 2022-02-03 04:57 | DI.ECHO.S_ITS ---
[place] +---------+ [facility] +---------+ : : [address] : : : : [id number] : : : : Phone: [phone]+ Echocardiogram Report + + :Name: СВЕТЛАНА ELENA Study Date: 02/03/2022 Height: 62 in : :[facility] ReadingLocation: Weight: 150 lb: : Gender: Female BSA: 1.7 m2 : :: 1935 Age: 86 yrs : :Reason For Study: Murmur : :Ordering Physician: TAYO, : :ЕЛЕНА Performed By: Emir Tripp : :Referring: ЕЛЕНА CR : + + Interpretation Summary There is moderate concentric left ventricular hypertrophy. The ejection fraction is estimated to be 35-40%. There is septal wall hypokinesis. There is apical hypokinesis. There is mild mitral regurgitation. There is moderate mitral annular calcification. There is a bioprosthetic aortic valve. There is probable normal prosthetic aortic valve function. There is moderate tricuspid regurgitation. The right ventricular systolic pressure is estimated to be at least 49 mmHg based on an estimated right atrial pressure of 8 mm Hg. Procedure: A two-dimensional transthoracic echocardiogram with color flow and Doppler was performed. The study quality was technically adequate. Comparison is made with the echocardiogram of 08/12/2020. Left Ventricle: The left ventricle is normal in size. There is moderate concentric left ventricular hypertrophy. The ejection fraction is estimated to be 35-40%. There is septal wall hypokinesis. There is apical hypokinesis. Diastolic function could not be accurately assessed due to unobtainable data. Right Ventricle: The right ventricle is normal size. Right ventricular systolic function is mildly reduced. Atria: Both atria are severely dilated. The interatrial septum grossly appears intact with no obvious evidence for an atrial septal defect. The interatrial septum bows toward right atrium consistent with elevated left atrial pressure. Mitral Valve: There is moderate mitral annular calcification. There is mild mitral regurgitation. Aortic Valve: There is a bioprosthetic aortic valve. There is probable normal prosthetic aortic valve function. The prosthetic aortic valve is well- seated. No aortic regurgitation is present. Tricuspid Valve: The tricuspid valve leaflets are thickened and/or calcified, but open well. There is moderate tricuspid regurgitation. The right ventricular systolic pressure is estimated to be at least 49 mmHg based on an estimated right atrial pressure of 8 mm Hg. Pulmonic Valve: The pulmonic valve is not well seen, but is grossly normal. There is mild to moderate pulmonic regurgitation. Great Vessels: The aortic root is not well visualized. The ascending aorta is mildly enlarged. The IVC is dilated (diameter is greater than 2.1 cm) yet it collapses greater than 50% with a sniff. This suggests a right atrial pressure of 8 mm Hg. Pericardium/ Pleura There is no pleural effusion. MMode/2D Measurements & Calculations LVIDd: 4.4 cm asc Aorta Diam: 4.2 cm LVIDs: 3.1 cm FS: 29.5 % IVSd: 1.5 cm LVPWd: 0.97 cm LV morris. diameter/BSA (cm/m^2): 2.6 LV sys. diameter/BSA (cm/m^2): 1.8 LA A2 area: 34.5 cm2 RA long axis: 7.7 cm LA A4 area: 37.2 cm2 RA area: 27.4 cm2 LA length (vol): 7.4 cm RA vol: 83.4 ml LA vol: 148.0 ml RA : 49.3 ml/m2 LA vol index: 87.5 ml/m2 IVC diam: 2.3 cm TAPSE: 1.3 cm Doppler Measurements & Calculations Ao V2 max: 144.1 cm/sec LVOT Max Silviano: 84.6 cm/sec Ao V2 mean: 99.2 cm/sec LV V1 max P.9 mmHg Ao max P.3 mmHg LV V1 VTI: 12.9 cm Ao mean P.5 mmHg sev ratio: 0.70 Ao V2 VTI: 18.5 cm TR max silviano: 319.5 cm/sec TR max P.8 mmHg Reading Physician:09:14 AM
--- NOTE | 2022-02-03 05:04 | P.HP_ITS ---
History of Present Illness History of Present Illness Date Patient Seen: 02/03/22 Time Patient Seen: 05:04 Chief complaint: SOB x3 days Narrative: Jacquelyn Whiting is a delightful 86 y.o. female with a history of HFrEF, aortic valve replacement, CVA in 2012, hypertension and hyperlipidemia developed wheezing and shortness of breath over the past 3 days. She stated it kept her up for the last 3 nights and has not slept in 3 days. She states that affects her speech. She denies fevers sweats or chills, denies chest pain, she is been urinating a lot which is also chronic, and has swelling in both lower extremities the left being worse than the right. She did have one bout of diarrhea yesterday. Denies palpitations or tachycardia. She does take Lasix regularly but is aware that sometimes that is not enough. She was administered IV Lasix in the ED which did also benefit her renal function. They placed a Murray and she has been putting out quite a bit of urine. Chest x-ray report pulmonary edema and cardiomegaly suggestive of CHF. Patient is afebrile, blood pressure 150/97, heart rate 122, respiratory rate 13, oxygen saturation of 100% on 2 L, she weighs 68 kg with a BMI of 28.6. She is mildly anemic with a hemoglobin and hematocrit of 10.6 and 31.3 respectively, platelet count 142, sodium is 128, bicarb 17, total bilirubin is elevated at 2.9, transaminases are normal, proBNP is 4460, COVID-19 PCR is negative. Patient History Medical History Atrial fibrillation Cardiomyopathy CHF (congestive heart failure) CVA (cerebral vascular accident) Hemiparesis affecting left side as late effect of stroke Hyperlipidemia Hypertension Hypothyroid Raynauds disease Surgical History History of aortic valve replacement Family & Social History Family History Father Heart attack Skin cancer Cardiovascular disease Mother Congestive heart failure Cardiovascular disease Hypertension Brother No problems noted. Brother No problems noted. Social History: household members none Safety & Behavioral: Feels Safe in Current Yes Environment Tobacco & Substance use: Tobacco type cigarettes Smoking Status Former smoker alcohol intake never alcohol intake frequency a few times a month Substance Use Type does not use Meds Home Medications and Allergies Home Medications Medication Instructions Recorded Confirmed Type gabapentin 300 mg capsule 600 mg PO BEDTIME 12/15/18 11/30/21 History pravastatin 40 mg tablet 40 mg PO DAILY 12/15/18 11/30/21 History tamsulosin 0.4 mg capsule 0.4 mg PO DAILY 12/15/18 11/30/21 History denosumab 60 mg/mL subcutaneous 60 mg SUBCUT [id number] 12/16/18 11/30/21 History syringe (Prolia) multivitamin 1 tab PO DAILY 12/16/18 11/30/21 History tizanidine 2 mg tablet 2 mg PO BEDTIME PRN Muscle Spasm 12/16/18 11/30/21 His tory bisacodyl 10 mg rectal suppository 10 mg RI DAILY PRN Constipation 03/18/19 11/30/21 Rx #10 ea docusate sodium 100 mg capsule 100 mg PO DAILY #30 caps 03/18/19 11/30/21 Rx (DOK) magnesium chloride 71.5 mg 71.5 mg PO DAILY #30 tabs 03/18/19 11/30/21 Rx (magnesium chloride) tablet,delayed release (Slow-Mag) polyethylene glycol 3350 17 gram 17 gm PO DAILY #1 pkg 03/18/19 11/30/21 Rx oral powder packet sennosides 8.6 mg tablet (senna) 17.2 mg PO BEDTIME PRN 03/18/19 11/30/21 Rx Constipation #30 tabs amiodarone 200 mg tablet 200 mg PO DAILY 05/19/20 11/30/21 History cholecalciferol (vitamin D3) 50 50 mcg PO DAILY 05/19/20 11/30/21 History mcg (2,000 unit) capsule furosemide 20 mg tablet 40 mg PO DAILY 05/19/20 11/30/21 History melatonin 5 mg capsule 10 mg PO DAILY 05/19/20 11/30/21 History albuterol sulfate 90 mcg/actuation 2 puff inhalation Q4H PRN 08/11/20 11/30/21 History aerosol inhaler (Proventil HFA) Shortness Of Breath Or Wheezing fluticasone 250 mcg-salmeterol 50 1 inh inhalation BID 08/11/20 11/30/21 History mcg/dose blistr powdr for inhalation (Advair Diskus) levothyroxine 100 mcg tablet See Rx Instructions .Route .COMPLEX 08/11/20 11/30/21 History megestrol 40 mg tablet 80 mg PO BID 08/11/20 11/30/21 History diclofenac sodium 1 % gel topical 2 g topical QID #1 ea 08/16/20 11/30/21 Rx kit nystatin 100,000 unit/gram topical 1 applic topical BID #30 grams 08/16/20 11/30/21 Rx powder benzocaine 15 mg-menthol 20 mg 1 juan antonio mucous membrane Q2-4H PRN 11/28/21 11/30/21 Rx lozenges (Cepacol Instamax Sore cough #16 ea Throat) benzonatate 100 mg capsule 100 mg PO BID PRN cough #20 caps 11/30/21 11/30/21 Rx Allergies Allergy/AdvReac Type Severity Reaction Status Date / Time No Known Drug Allergies Allergy Verified 02/03/22 03:51 Review of Systems Review of Systems ROS: Yes All systems reviewed with the patient and are negative except as otherwise documented Exam Vital Signs (past 8 hours): - 02/02/22 23:14 02/03/22 00:38 02/02/22 23:05 Temperature 98.6 F Pulse Rate 115 H 116 H Respiratory Rate 24 Blood Pressure 150/97 H Pulse Oximetry 97 100 86 L Oxygen Delivery Method Room Air Nasal Cannula Oxygen Flow Rate 2 02/02/22 23:30 02/03/22 00:00 02/03/22 00:30 Temperature Pulse Rate 117 H 117 H 117 H Respiratory Rate 24 24 22 Blood Pressure Pulse Oximetry 96 99 100 Oxygen Delivery Method Oxygen Flow Rate 02/03/22 01:00 02/03/22 01:30 02/03/22 02:00 Temperature Pulse Rate 120 H 121 H 121 H Respiratory Rate 19 16 13 Blood Pressure Pulse Oximetry 100 100 100 Oxygen Delivery Method Oxygen Flow Rate 02/03/22 02:30 02/03/22 03:00 Temperature Pulse Rate 121 H 122 H Respiratory Rate 15 13 Blood Pressure Pulse Oximetry 100 100 Oxygen Delivery Method Oxygen Flow Rate Oxygen Delivery Method Nasal Cannula Oxygen Flow Rate 2 Narrative Exam Narrative: Gen: Alert, oriented, well-developed 86 y.o. female, NAD HEENT: normocephalic, atraumatic, conjunctiva clear, sclera non-icteric, oral mucosa pink and moist Neck: supple, full ROM, no JVD, trachea is midline Resp: Faint wheezes, non-labored breathing CV: RRR, no murmur or rubs Abd: soft, non-tender, normoactive BTs Skin: well healed sternal scar, no lesions or rashes, dry and intact Neuro: Alert and oriented X 4 w/no focal deficits. Speech clear and coherent. Extremities: +1 nonpitting edema on the right leg, +2 pitting edema on the left leg and significantly larger than the right, is wheelchair-bound, negative Leonardo?s sign Psyche: normal mood and affect. Objective Labs Result Diagrams: 02/03/22 00:27 02/03/22 00:27 Labs: Laboratory Results - last 24 hr 02/02/22 02/02/22 02/03/22 23:03 23:59 00:27 WBC 5.0 RBC 2.76 L Hgb 10.6 L Hct 31.3 L MCV 113.4 H MCH 38.5 H MCHC 33.9 RDW 14.7 Plt Count 142 L Neut % (Auto) 68.7 Lymph % (Auto) 20.0 L [place] % (Auto) 8.2 Eos % (Auto) 1.7 L Baso % (Auto) 1.4 Neut # (Auto) 3500 Lymph # (Auto) 1000 L [place] # (Auto) 400 Eos # (Auto) 100 Baso # (Auto) 100 Plt Morphology Comment . RBC Morphology See below Macrocytosis 1+ H PT 12.9 H INR 1.2 APTT 27 D Sodium Potassium Chloride Carbon Dioxide BUN Creatinine Estimated GFR BUN/Creatinine Ratio Glucose Calcium Total Bilirubin AST ALT Alkaline Phosphatase Troponin I NT-Pro-B Natriuret Pep Total Protein Albumin Globulin Albumin/Globulin Ratio SARS-CoV-2 (PCR) Negative 02/03/22 00:27 WBC RBC Hgb Hct MCV MCH MCHC RDW Plt Count Neut % (Auto) Lymph % (Auto) [place] % (Auto) Eos % (Auto) Baso % (Auto) Neut # (Auto) Lymph # (Auto) [place] # (Auto) Eos # (Auto) Baso # (Auto) Plt Morphology Comment RBC Morphology Macrocytosis PT INR APTT Sodium 128 L Potassium 4.5 Chloride 101 Carbon Dioxide 17 L BUN 16 Creatinine 0.91 Estimated GFR > 60 BUN/Creatinine Ratio 17.6 Glucose 93 Calcium 8.7 Total Bilirubin 2.9 H AST 22 ALT 13 Alkaline Phosphatase 36 L Troponin I < 0.012 NT-Pro-B Natriuret Pep 4460 H Total Protein 6.9 Albumin 4.0 Globulin 2.9 Albumin/Globulin Ratio 1.4 SARS-CoV-2 (PCR) Assessment & Plan Assessment & Plan narrative: Darcy Whiting is admitted for further evaluation and treatment of congestive heart failure exacerbation. Acute exacerbation of heart failure with reduced ejection fraction, present on admission * She has a proBNP of 4400 * His last admission in July of 2020 and discharged a week later initially with an ejection fraction of 20-25% on admission at that time and improved 55% at discharge. * She is ordered for another echocardiogram today * Will notify Dr. Neil that she is admitted for such * She received 1 time dose of Lasix 40 mg in the emergency department and is scheduled for Lasix 40 mg b.i.d.. This may need to be titrated down as she has developed acute kidney injury from over-diuresis and the past. * Continue carvedilol, beta-george home dose. * RT consult as patient may benefit from BiPAP however currently she is not on BiPAP and if she does need it, she will need to go to the ICU. Dyslipidemia, chronic * Continue home dose of pravastatin 40 mg daily Hypothyroidism, chronic * Continue home dose of levothyroxine as ordered. She takes different doses on different days of the week per instructions in the OCT. Essential hypertension, chronic and stable * Continue home dose of carvedilol 12.5 mg p.o. b.i.d. Paroxysmal atrial fibrillation, chronic * Continue anticoagulation on apixaban 2.5 mg p.o. b.i.d. Chronic COPD, not in exacerbation * Have requested RT consult to provide nebulizers as needed VTE Prophylaxis: Wells risk score 3 Bilateral SCDs Patient is currently anticoagulated on Apixaban. Patient is admitted to the inpatient service due to the severity of disease, ris ks of further disease progression and this stay is expected to exceed 2 midnights. FEN: IV fluids: saline lock, diet: low sodium, 1200 ml fluid restriction, labs: CBC, C/BMP, liver enzymes, Mag Consultants None Dispo: Eventual d/c to home Code status: DNR/DNI as discussed with the patient who identifies Davon leon as her surrogate and POA. [X] I have utilized all available immediate resources to obtain, update, or review of the patient's current medications COVID-19 COVID-19 status: Negative Result date/Date tested (Pos, Neg/Pending): 02/03/22 Scores Wells' Criteria for PE Clinical signs and symptoms of DVT: No PE is #1 Dx or equally likely: No Heart rate > 100: Yes Immobilization at least 3 days or surg in previous 4 weeks: Yes History of PE or DVT: No Hemoptysis: No Malignancy w/Treatment within 6 months or palliative: No Wells' PE Score total: 3.0 Quality VTE Deep Vein Thrombosis/Pulmonary Embolism Present on Admission: No MIPS - Admit I confirm the patient?s Advance Care Plan is present, Code status is documented, Surrogate decision maker is in patient?s record [If Yes, STOP here]: Yes MIPS - DC The patient has current or prior documentation of left ventricular ejection fraction (LVEF) less than 40%, or moderate or severely depressed left ventricular systolic function.: Yes A. The patient was prescribed or already taking an Angiotensin-Converting Enzyme (RANI) Inhibitor, or Angiotensin Receptor George (ARB).: No B. The patient was prescribed or already taking a beta-george. [If Yes to Both A & B, STOP here]: Yes Patient not prescribed/taking RANI or ARB for medical/patient/system reason(s) including (ex: allergy, intolerance, contraindication).: Chronic Stage III renal failure
[2022-02-03] MEDS: LEVOTHYROXINE 100 MCG TABLET PO (06:29)
[2022-02-03] MEDS: AMIODARONE 200 MG TABLET PO (11:37)
[2022-02-03] MEDS: TAMSULOSIN 0.4 MG CAPSULE PO (11:38)
[2022-02-03] MEDS: PRAVASTATIN 20 MG TABLET 40 MG PO (11:38)
[2022-02-03] MEDS: METOPROLOL ER 25 MG TABLET PO ×2 (11:38→14:50)
--- NOTE | 2022-02-03 12:03 | PC.ADMIT ---
[email or web address] [facility] Admission Note:Pt arrived from ER, Murray in place, HR 120's a flutter/st Pt denies CP some SOB with activity, unable to lay flat. RA 99% spo2, exp wheeze notes. Faint crackles noted. Previous CVA with L sided deficit. Able to pivot and stand to bed. The patient,Jacquelyn Whiting,86 y/o, was given written information regarding hospital policies, unit procedures and contact persons. Patient's smoking status: Former smoker. Vital Signs - 8 hr 02/03/22 04:30 02/03/22 05:00 02/03/22 05:30 Temperature Pulse Rate 123 H 123 H 122 H Respiratory Rate 27 H 13 12 Blood Pressure Pulse Oximetry 100 99 99 Oxygen Delivery Method Oxygen Flow Rate 02/03/22 06:00 02/03/22 06:30 02/03/22 07:00 Temperature Pulse Rate 122 H 122 H 123 H Respiratory Rate 15 13 15 Blood Pressure Pulse Oximetry 100 99 99 Oxygen Delivery Method Room Air Oxygen Flow Rate 02/03/22 07:30 02/03/22 08:00 02/03/22 08:14 Temperature Pulse Rate 122 H 123 H 123 H Respiratory Rate 15 20 20 Blood Pressure Pulse Oximetry 98 100 100 Oxygen Delivery Method Room Air Room Air Oxygen Flow Rate 02/03/22 08:14 02/03/22 06:00 02/03/22 04:17 Temperature 98.7 F Pulse Rate 124 H Respiratory Rate 17 Blood Pressure 114/75 108/65 Pulse Oximetry 99 Oxygen Delivery Method Room Air Oxygen Flow Rate 02/03/22 07:00 02/03/22 09:45 Temperature 98.7 F Pulse Rate 124 H Respiratory Rate 17 Blood Pressure 108/65 Pulse Oximetry 99 99 Oxygen Delivery Method Room Air Oxygen Flow Rate 0 P
--- NOTE | 2022-02-03 12:11 | PC.NURSE ---
Significant delay in getting med rec completed, Pt unsure of what she takes, call into caregiver who sets up meds. No answer. [facility] unable to get live person for assistance, PCP office faxed a copy.
[2022-02-03] MEDS: METOPROLOL TARTRATE 5 MG/5 ML INJ IV ×2 (12:55→17:56)
--- NOTE | 2022-02-03 14:53 | PC.NURSE ---
Addendum entered by Nya Shahid R.N. 02/03/22 18:48: Pt c/o urge to urinate, no urine showing on bladder scanner, repositioned centeno by deflating balloon and moving catheter and reinflating. Pt states she still feels pressure, but just really wants centeno out. Educated pt on need for accurate I&O, pt agrees to keep centeno. Bed low and locked, call light within reach, will continue to treat and monitor. Addendum entered by Nya Shahid R.N. 02/03/22 17:41: per Dr Wilkinson give 5mg of IV Lopressor HR continues to sustain at 119 Addendum entered by Nya Shahid R.N. 02/03/22 17:23: titrated diltiazem gtt to 15mg/hr due to HR 119, due to diltiazem gtt pt is now ICU status Addendum entered by Nya Shahid R.N. 02/03/22 16:41: Diltiazem gtt started at 10mg/hr HR currently at 117 Addendum entered by Nya Shahid R.N. 02/03/22 16:14: administered 10mg diltiazem IV per Dr Wilkinson's order, Pt HR dropped to 92 for approx 2 minutes then HR returned to 119, Dr Wilkinson notified and will start pt on diltiazem gtt at 10mg. Bed low and locked, call light within reach, will continue to monitor. Original Note: per Dr Wilkinson give Metoprolol early due to HR of 120, pt asymptomatic. Will continue to monitor
--- NOTE | 2022-02-03 15:41 | PM.EVENT ---
Event Note Date Patient Seen: 02/03/22 Event Note (Rapid Response, Code, or fall): Patient has remained in atrial fibrillation throughout the day. Her medications were verified. The patient is supposed to be on amiodarone 200 mg daily, however she is not taking it. She is also supposed to be on Coreg daily as well. Her heart rate has been in the 120s. She received IV Lopressor x2, plus amiodarone 200 mg p.o., her heart rate is still 119. Will start her on IV Cardizem, will consider Cardizem drip if she remains tachycardic. She is no longer short of breath. She denies any chest pain.
[2022-02-03] MEDS: DILTIAZEM 125 MG/25 ML 10 MG IV (16:03)
[2022-02-03] MEDS: DILTIAZEM 125 MG/125 ML PIGGYBACK 10 MG IV (16:33)
[2022-02-03] MEDS: MELATONIN 3 MG TABLET 9 MG PO (20:26)
[2022-02-03] MEDS: GABAPENTIN 300 MG CAPSULE 600 MG PO (20:27)
--- NOTE | 2022-02-03 22:00 | PC.NURSE ---
Addendum entered by Erica Espinal R.N. 02/04/22 05:07: Diltiazem drip increased to 15mg/hr for HR 115, Aflutter, BBB. Patient sleeping. Addendum entered by Erica Espinal R.N. 02/04/22 04:43: 0430 Diltiazem drip increased to 10mg/hr; HR 115, Aflutter, BBB. Patient denies pain. She states she hsn't had a BM since , but reports having diarrhea at home. Addendum entered by Erica Espinal R.N. 02/04/22 04:14: 0412 Diltiazem drip resumed at 5 mg/hr for HR 115, Aflutter, BBB. Addendum entered by Erica Espinal R.N. 02/04/22 00:52: Diltiazem drip turned off. HR 63, Aflutter, BBB. Patient sleeping. Addendum entered by Erica Espinal R.N. 02/04/22 00:29: Patients HR up to 112, A flutter, BBB. Diltiazem drip increased to 10 mg/hr. HR decreasing to 66-77 Aflutter, BBB after 45 minutes, Diltiazem drip decreased to 5 mg/hr. Patient allowing manual BP be taken 100/78. Patient declined offer of being repositioned. Addendum entered by Erica Espinal R.N. 02/03/22 22:12: 2130 Diltiazem drip decreased from 10 mg/hr to 5 mg/hr. HR 79 Original Note: Patient reluctant to have RN take BP and instructing this RN that she would only allow a manual BP be taken. Patient requesting that BP be taken in R arm with IV Diltiazem infusing in R AC. Patient educated on need to take BP in L arm without IV medication running. BP 92/68 manually. HR 89 Aflutter. Diltiazem drip decreased from 15 mg/hr to 10 mg/hr. Patient requesting that po medications be given as soon as possible before 2100, as she was tired and wanted to sleep. Patient requesting that she not be awakened for BP checks during the night. Patient educated regarding need to recheck BP due to Diltiazem lowering BP, as well as heart rate. Patient refusing SCDS after rationale given for application. Patient states she isn't able to sleep with them on and that she doesn't want them. Murray in place and draining ricardo urine. Patient also refusing to be positioned onto her side, however agreed to have the Tova bed tilted to the R side slightly.
[2022-02-04] VITALS (12 sets, daily range): BP systolic 94–136; BP diastolic 65–78; PULSE 73–119; RESP 16–27; TEMP 35.9–36.6; O2SAT 96–99
[2022-02-04] MEDS: ACETAMINOPHEN 325 MG TABLET 650 MG PO (00:02)
[2022-02-04] MEDS: LEVOTHYROXINE 100 MCG TABLET PO (05:55)
[2022-02-04 06:12] LABS: Add Manual Diff / Slide Review NO; Basophils Absolute Auto 100 /uL (0-100); Basophils Percent Auto 1.4 % (0-2); Eosinophils Absolute Auto 100 /uL (0-450); Eosinophils Percent Auto 2.7 % (2-4); Hematocrit 32.3 % (36-46); Hemoglobin 10.9 g/dL (12.0-16.0); Lymphocytes Absolute Auto 1000 /uL (1100-4500); Lymphocytes Percent Auto 19.3 % (25-40); Mean Corpuscular HGB Conc 33.7 % (30-36); Mean Corpuscular Hemoglobin 38.5 PG (26-34); Mean Corpuscular Volume 114.3 fL (80-100); Monocytes Absolute Auto 500 /uL (0-900); Monocytes Percent Auto 9.5 % (3-14); Neutrophils Absolute Auto 3500 /uL (1500-7000); Neutrophils Percent Auto 67.1 % (50-75); Platelet Count 184 X10^3/uL (150-400); Red Blood Cell Count 2.82 X10^6/uL (4.0-5.2); Red Cell Distribution Width 15.3 % (11.6-14.8); White Blood Cell Count 5.3 X10^3/uL (4.5-11.0)
[2022-02-04 06:25] LABS: BUN Creatinine Ratio 24.2 (6-22); Blood Urea Nitrogen 29 mg/dL (7-17); Calcium 9.9 mg/dL (8.4-10.2); Carbon Dioxide 27 mmol/L (22-32); Chloride 105 mmol/L (98-107); Estimated Glomerular Filt Rate 44 mL/min (>60); Glucose 103 mg/dL (80-110); HEMOLYSIS < 15 (0-50); Magnesium 2.1 mg/dL (1.6-2.3); Sodium 138 mmol/L (137-145)
[2022-02-04 06:27] LABS: Anisocytosis 1+; Macrocytosis 1+
[2022-02-04] MEDS: DILTIAZEM 125 MG/125 ML PIGGYBACK 15 MG IV (06:40)
[2022-02-04] MEDS: PRAVASTATIN 20 MG TABLET 40 MG PO (07:45)
[2022-02-04] MEDS: TAMSULOSIN 0.4 MG CAPSULE PO (07:45)
[2022-02-04] MEDS: AMIODARONE 200 MG TABLET PO (07:46)
[2022-02-04] MEDS: METOPROLOL ER 25 MG TABLET PO (07:46)
--- NOTE | 2022-02-04 08:35 | P.PN_ITS ---
Subjective Subjective Date Patient Seen: 02/04/22 Interval history: 86 y/o female admitted for Acute Congestive Heart Failure. Patient denies any further shortness of breath. She remained in atrial fibrillation. Her rate was controlled, the cardizem drip was discontinued and now she is in a rapid rate again. It appears she has not been taking her amiodarone at home. Will resume cardizem drip, continue amiodarone, and add her B-leona as scheduled. Patient is anxious to discharge home today. Exam Vital Signs (past 8 hours): - 02/04/22 04:48 02/04/22 07:38 02/04/22 07:43 Temperature 97.4 F L 96.7 F L Pulse Rate 73 118 H 118 H Respiratory Rate 16 16 Blood Pressure 136/77 98/65 Pulse Oximetry 98 Oxygen Delivery Method Oxygen Flow Rate 0 02/04/22 07:46 02/04/22 07:00 02/04/22 07:00 Temperature Pulse Rate 118 H Respiratory Rate Blood Pressure 98/65 Pulse Oximetry 98 Oxygen Delivery Method Room Air Room Air Oxygen Flow Rate Oxygen Delivery Method Room Air Oxygen Flow Rate 0 Narrative Exam Narrative: Pleasant female lying in bed in no acute distress Resp Other: Lungs: clear to auscultation Cardio Other: CV: RRR nl Sl S2 GI Other: Abdomen: soft/ non tender/ non distended Other: centeno catheter in place Extrem Other: no edema Objective Labs Result Diagrams: 02/04/22 05:52 02/04/22 05:52 Labs: Laboratory Results - last 24 hr 02/04/22 02/04/22 05:52 05:52 WBC 5.3 RBC 2.82 L Hgb 10.9 L Hct 32.3 L MCV 114.3 H MCH 38.5 H MCHC 33.7 RDW 15.3 H Plt Count 184 Neut % (Auto) 67.1 Lymph % (Auto) 19.3 L [place] % (Auto) 9.5 Eos % (Auto) 2.7 Baso % (Auto) 1.4 Neut # (Auto) 3500 Lymph # (Auto) 1000 L [place] # (Auto) 500 Eos # (Auto) 100 Baso # (Auto) 100 WBC Morphology Comment . RBC Morphology See below Anisocytosis 1+ H Macrocytosis 1+ H Sodium 138 D Potassium 4.0 Chloride 105 Carbon Dioxide 27 BUN 29 H Creatinine 1.20 H Estimated GFR 44 L BUN/Creatinine Ratio 24.2 H Glucose 103 Calcium 9.9 Magnesium 2.1 PFS Medical History Atrial fibrillation Cardiomyopathy CHF (congestive heart failure) CVA (cerebral vascular accident) 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 Brother No problems noted. Social History household members: caregiver and none Smoking Status: Former smoker alcohol intake: never substance use type: does not use Assessment & Plan Assessment & Plan narrative: Acute exacerbation of heart failure with reduced ejection fraction, present on admission * She has a proBNP of 4400 * His last admission in July of 2020 and discharged a week later initially with an ejection fraction of 20-25% on admission at that time and improved 55% at discharge. * She is ordered for another echocardiogram see below * There is moderate concentric left ventricular hypertrophy. The ejection fraction is estimated to be 35-40%. There is septal wall hypokinesis. There is apical hypokinesis. There is mild mitral regurgitation. There is moderate mitral annular calcification. There is a bioprosthetic aortic valve. There is probable normal prosthetic aortic valve function. There is moderate tricuspid regurgitation. The right ventricular systolic pressure is estimated to be at least 49 mmHg based on an estimated right atrial pressure of 8 mm Hg. * Will notify Dr. Neil that she is admitted for such * She received 1 time dose of Lasix 40 mg in the emergency department and is scheduled for Lasix 40 mg b.i.d..? This may need to be titrated down as she has developed acute kidney injury from over-diuresis and the past. She has had 5 liters out with no further shortness of breath. Will resume her home lasix dose * Coreg discontinued for metoprolol to improve heart rate. * Dyslipidemia, chronic * Continue home dose of pravastatin 40 mg daily Hypothyroidism, chronic * Continue home dose of levothyroxine as ordered.? She takes different doses on different days of the week per instructions in the OCT. Essential hypertension, chronic and stable * Paroxysmal atrial fibrillation, chronic * Continue anticoagulation on apixaban 2.5 mg p.o. b.i.d., rate poorly controlled * Patient was not taking her home amiodarone, will resume cardizem drip, continue metoprolol and titrate, when cardizem drip discontinued will add oral cardizem for rate control Chronic COPD, not in exacerbation * Have requested RT consult to provide nebulizers as need Time Spent With Patient Critical Care time: I spent a total of [] minutes of critical care time on this patient's care today; this time is exclusive of procedural time. Quality VTE Deep Vein Thrombosis/Pulmonary Embolism Present on Admission: No
[2022-02-04] MEDS: FUROSEMIDE 40 MG TABLET PO (09:31)
[2022-02-04] MEDS: METOPROLOL ER 25 MG TABLET 50 MG PO (09:31)
[2022-02-04] MEDS: APIXABAN 5 MG TABLET PO (10:32)
[2022-02-04] MEDS: METOPROLOL TARTRATE 5 MG/5 ML INJ IV (11:08)
--- NOTE | 2022-02-04 11:27 | PC.NURSE ---
Addendum entered by Nya Shahid R.N. 02/04/22 13:45: Murray catheter removed at 1230, pt urinated at 1335 Original Note: per Dr Wilkinson administered 5mg of Metoprolol IV for HR of 117, turned off Diltiazem gtt due to HR dipping down to the 66-70 range. Will continue to monitor
--- NOTE | 2022-02-04 14:25 | P.DS_ITS ---
History of Present Illness History of Present Illness Date Patient Seen: 02/04/22 Time Patient Seen: 14:26 Chief complaint: SOB x3 days Narrative: Jacquelyn Whiting is a delightful 86 y.o. female with a history of HFrEF, aortic valve replacement, CVA in 2012, hypertension and hyperlipidemia developed wheezing and shortness of breath over the past 3 days.? She stated it kept her up for the last 3 nights and has not slept in 3 days.? She states that affects her speech.? She denies fevers sweats or chills, denies chest pain, she is been urinating a lot which is also chronic, and has swelling in both lower extremities the left being worse than the right.? She did have one bout of diarrhea yesterday.? Denies palpitations or tachycardia.? She does take Lasix regularly but is aware that sometimes that is not enough. She was administered IV Lasix in the ED which did also benefit her renal function.? They placed a Murray and she has been putting out quite a bit of ur ine.? Chest x-ray report pulmonary edema and cardiomegaly suggestive of CHF.? Patient is afebrile, blood pressure 150/97, heart rate 122, respiratory rate 13, oxygen saturation of 100% on 2 L, she weighs 68 kg with a BMI of 28.6.? She is mildly anemic with a hemoglobin and hematocrit of 10.6 and 31.3 respectively, platelet count 142, sodium is 128, bicarb 17, total bilirubin is elevated at 2.9, transaminases are normal, proBNP is 4460, COVID-19 PCR is negative. Discharge Providers Provider Date of admission: 02/03/22 04:03 Discharge Date: 02/04/22 Primary care physician: Matilde Lin MD Consults: 02/03/22 04:57 Consult to Cardiology Routine Comment: Consulting Provider: Carmella Abrams Reason for consultation: CHF exacerbation Has provider been notified: No 02/03/22 04:58 Consult to Respiratory Therapy Evaluate & Treat Comment: wheezing Physician Instructions: Evaluate and treat Discharge provider: Noelle Wilkinson MD Summary Hospital Course Discharge Diagnosis: 1. Chronic Persistant Atrial Fibrillation 2. Acute Systolic Heart Failure 3. Hypertension 4. Hypothryoidism 5. Hyperlipidemia 6. Hospital Course: Patient was admitted tot hospiotal for shortness of breath.She was found to have acute systolic heart failure. She recieved IV lasix with excellent response with over 5 liters fluid removed. She developed rapid atrial fibrillation. She was not taking her amiodarone as prescribed. She was switched from coreg to metoprolol, amiodarone was restarted, she required a cardizem drip but this was ultimately discontinued. Her breathing improved and she was deemed appropriate for discharge home.Echo revelaed the following: here is moderate concentric left ventricular hypertrophy. The ejection fraction is estimated to be 35-40%. There is septal wall hypokinesis. There is apical hypokinesis. There is mild mitral regurgitation. There is moderate mitral annular calcification. There is a bioprosthetic aortic valve. There is probable normal prosthetic aortic valve function. There is moderate tricuspid regurgitation. The right ventricular systolic pressure is estimated to be at least 49 mmHg based on an estimated right atrial pressure of 8 mm Hg. Patient will discontinue amlodipine and will start lisinopril at 2.5 mg daily given ejection fraction of 35% Patient will continue apixaban but dose was adjusted ( per pharmacy) to 5 mg twice daily. Status at Discharge Cognitive/behavioral status at discharge: oriented Functional status at discharge: independent ambulation Overall status at discharge: patient is progressing back to baseline Exam Vital Signs (past 8 hours): - 02/04/22 07:38 02/04/22 07:43 02/04/22 07:46 Temperature 96.7 F L Pulse Rate 118 H 118 H 118 H Respiratory Rate 16 Blood Pressure 98/65 98/65 Pulse Oximetry 98 Oxygen Delivery Method Oxygen Flow Rate 0 02/04/22 07:00 02/04/22 07:00 02/04/22 09:31 Temperature Pulse Rate 119 H Respiratory Rate Blood Pressure 100/68 Pulse Oximetry 98 Oxygen Delivery Method Room Air Room Air Oxygen Flow Rate 02/04/22 09:32 02/04/22 10:01 02/04/22 10:15 Temperature Pulse Rate 119 H 119 H 119 H Respiratory Rate Blood Pressure 100/68 100/68 100/68 Pulse Oximetry 99 Oxygen Delivery Method Oxygen Flow Rate 02/04/22 11:00 02/04/22 11:34 02/04/22 11:15 Temperature 97.0 F L Pulse Rate 77 109 H Respiratory Rate 17 27 H Blood Pressure 94/70 Pulse Oximetry 98 96 Oxygen Delivery Method Room Air Oxygen Flow Rate 0 0 Oxygen Delivery Method Room Air Oxygen Flow Rate 0 Narrative Exam Narrative: Pleasant female lying in bed in no acute distress Resp Other: Lungs: decreased breath sounds but clear to auscultation Cardio Other: CV: irregularly, irregular nl Sl S2 GI Other: Abd: soft/ non tender/ non distended Extrem Other: No edema Objective Labs Result Diagrams: 02/04/22 05:52 02/04/22 05:52 Labs: Laboratory Results - last 24 hr 02/04/22 02/04/22 05:52 05:52 WBC 5.3 RBC 2.82 L Hgb 10.9 L Hct 32.3 L MCV 114.3 H MCH 38.5 H MCHC 33.7 RDW 15.3 H Plt Count 184 Neut % (Auto) 67.1 Lymph % (Auto) 19.3 L Glades % (Auto) 9.5 Eos % (Auto) 2.7 Baso % (Auto) 1.4 Neut # (Auto) 3500 Lymph # (Auto) 1000 L Glades # (Auto) 500 Eos # (Auto) 100 Baso # (Auto) 100 WBC Morphology Comment . 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 Brother No problems noted. Social History household members: caregiver and none Smoking Status: Former smoker alcohol intake: never substance use type: does not use Discharge Assessment & Plan Assessment and Plan Assessment: 1.Chronic Persistant Atrial Fibrillation 2. Acute Systolic Heart Failure 3. Hypertension 4. Hypothryoidism 5. Hyperlipidemia 6. COPD Plan of Treatment: Discharge home today F/u with Dr. Neil 2 weeks F/u with Dr.Heather Kennedy 1 week Discharge Plan Discharge Plan Patient Disposition: Home Discharge orders & Medications Prescriptions: New Eliquis 5 mg Tablet 5 mg PO BID Qty: 30 0RF lisinopril 2.5 mg tablet 2.5 mg PO DAILY Qty: 30 0RF metoprolol succinate 25 mg Tablet Extended Release 24 Hr 50 mg PO BID Qty: 30 0RF Continued pravastatin 40 mg Tablet 40 mg PO DAILY tamsulosin 0.4 mg Capsule 0.4 mg PO DAILY gabapentin 300 mg Capsule 600 mg PO BEDTIME multivitamin Tablet 1 tab PO DAILY tizanidine 2 mg Tablet 2 mg PO BEDTIME PRN (Reason: Muscle Spasm) megestrol 40 mg tablet 40 mg PO BID albuterol sulfate [Proventil HFA] 90 mcg/actuation Hfa Aerosol Inhaler 2 puff INHALATION Q4H PRN (Reason: Shortness Of Breath Or Wheezing) levothyroxine 100 mcg tablet See Rx Instructions .ROUTE .COMPLEX Rx Instructions: 100 mcg Sunday, Sunday, Sunday, Sunday, Sunday 50 mcg Sunday, polyethylene glycol 3350 17 gram Powder In Packet 17 gm PO DAILY Qty: 1 0RF sennosides [senna] 8.6 mg Tablet 17.2 mg PO BEDTIME PRN (Reason: Constipation) Qty: 30 0RF fluticasone propion-salmeterol [Advair Diskus] 250-50 mcg/dose Blister With Device 250 inh INHALATION DAILY amiodarone 200 mg Tablet 200 mg PO DAILY benzonatate 200 mg Capsule 200 mg PO TID PRN (Reason: Abdominal Discomfort) acetaminophen 650 mg Tablet 650 mg PO Q6H PRN (Reason: Breakthrough Pain, Mild) furosemide 20 mg tablet 40 mg PO DAILY cholecalciferol (vitamin D3) 50 mcg (2,000 unit) capsule 50 mcg PO DAILY melatonin 5 mg capsule 10 mg PO DAILY Discontinued carvedilol 12.5 mg Tablet 12.5 mg PO DAILY amlodipine 5 mg Tablet 5 mg PO DAILY apixaban 2.5 mg Tablet 2.5 mg PO BID Follow up/Referrals: Matilde Lin MD [Primary Care Provider] - Jaida Neil MD [Family Provider] - (CHF/Afib) Tamela Mckeon PA-C [Non-Staff] - (Post hospital follow up) Discharge Health Status Multidrug resistant organism: No MDRO Diet/Activity/Treatments Diet: Low-sodium and Low-cholesterol Discharge Data Primary Care Provider: Matilde Lin VTE Deep Vein Thrombosis/Pulmonary Embolism Present on Admission: No
--- NOTE | 2022-02-04 15:17 | PC.NURSE ---
dc instructions reviewed with pt. Explained increasing Eliquis dose and dc coreg and amlodipine. New meds Lisinopril and Metoprolol. Pt states she understands. Pt states, my caregiver is gone for 1 week. I have a friend picking me up. The pill box is set for the week (with previous Rx). This RN explained she'll need to prepare a new pill box with new meds. Reinforced Coreg and amlodipine dc'd and do not take now. Report given to Nya SANDOVAL about explaining this to pt's friend.
== END 2022-02-04 16:30 | disposition home or self-care (01) | DRG 291 ==
LOC: ED 02-03 02:13 → AC 02-03 07:10 → ICU 02-03 13:41 → AC 02-06 14:34 → ICU 02-06 14:36
PROVIDERS: Admitting Provider Nurse Practitioner Family; Emergency Provider Emergency Medicine; Family Provider Internal Medicine Cardiovascular Disease; PCP Internal Medicine; Referring Provider Emergency Medicine; Visit Provider Nurse Practitioner Family
DX: I11.0 Hypertensive heart disease with heart failure (principal); I50.23 Acute on chronic systolic (congestive) heart failure; I48.19 Other persistent atrial fibrillation; E78.5 Hyperlipidemia, unspecified; E03.9 Hypothyroidism, unspecified; J44.9 Chronic obstructive pulmonary disease, unspecified; Z87.891 Personal history of nicotine dependence; Z66 Do not resuscitate; Z20.822 Contact with and (suspected) exposure to COVID-19; Z95.2 Presence of prosthetic heart valve
CPT/HCPCS: 36415; 71045; 80048; 80053; 83735; 83880; 84484; 85025; 85610; 85730; 87635; 93005; 93010; 93306; 96374; 99284; C9803; J1940

== ENCOUNTER 2022-02-06 22:56 | Emergency (ER) | payer MEDICARE, OTHER, MEDICAID, SELFPAY ==
[2018-12-16 00:46] VITALS: PULSE 139; RESP 13; O2SAT 100
[2022-02-03 04:17] VITALS: BMI 28.8
[2022-02-06 22:55] VITALS: BP 143/100; PULSE 65
[2022-02-06 22:58] VITALS: BP 145/100; PULSE 115; RESP 24; TEMP 37.6; O2SAT 100; BMI 27.4
[2022-02-06 23:00] VITALS: BP 146/104; PULSE 112; RESP 21; O2SAT 98
--- NOTE | 2022-02-06 23:17 | DI.RAD.S_ITS ---
PROCEDURE: XR CHEST 1V INDICATIONS: eval for PNA TECHNIQUE: One view of the chest was acquired. COMPARISON: [facility], CR, XR CHEST 1V, 02/02/2022, 23:41. FINDINGS: Surgical changes and devices: Postsurgical changes redemonstrated in the mediastinum. Lungs and pleura: No acute consolidation. There is pulmonary vascular prominence suggestive of mild edema. No pleural effusions or pneumothorax. Mediastinum: Mediastinal contours are unchanged. Heart size is enlarged. Bones and chest wall: No suspicious bony lesions. Overlying soft tissues appear unremarkable. IMPRESSION: 1. No definite acute consolidation. 2. Pulmonary vascular prominence suggestive of mild edema. Dictated by: Best Olivas M.D. on 02/07/2022 at 0:10 Approved by: Best Olivas M.D. on 02/07/2022 at 0:11
--- NOTE | 2022-02-06 23:26 | ED_ITS ---
HPI - General Adult General Chief complaint: Fever Stated complaint: Wheezing Time Seen by Provider: 02/06/22 23:16 Source: patient and EMS Mode of arrival: EMS History of Present Illness HPI narrative: Patient is an 86-year-old female who arrives by EMS for evaluation of which she states is wheezing. She was admitted and subsequently discharged the end of last week here at this facility for heart failure. She did develop atrial fibri llation during that time. She is currently on anticoagulation. She states she was started on new medications but not start them until earlier this morning. She thinks she has been taking the rest of her medications as directed. After discharge home she slept very well for 2 nights in a row however this evening she started to have some wheezing at home and she felt like her heart was beating fast. Both the symptoms have now resolved and she states she feels back to normal at the time of my evaluation. She is having some lower extremity swelling but does not know whether not this is new for her. No chest pain. No abdominal pain. No vomiting. No urinary symptoms. No change in bowel habits. No headache. She has had a stroke in the past and has left-sided weakness had otherwise no new neurologic complaints. Related Data Home Medications Medication Instructions Recorded Confirmed gabapentin 300 mg capsule 600 mg PO BEDTIME 12/15/18 02/03/22 pravastatin 40 mg tablet 40 mg PO DAILY 12/15/18 02/03/22 tamsulosin 0.4 mg capsule 0.4 mg PO DAILY 12/15/18 02/03/22 multivitamin 1 tab PO DAILY 12/16/18 02/03/22 tizanidine 2 mg tablet 2 mg PO BEDTIME PRN Muscle Spasm 12/16/18 02/03/22 cholecalciferol (vitamin D3) 50 50 mcg PO DAILY 05/19/20 02/03/22 mcg (2,000 unit) capsule furosemide 20 mg tablet 40 mg PO DAILY 05/19/20 02/03/22 melatonin 5 mg capsule 10 mg PO DAILY 05/19/20 02/03/22 albuterol sulfate 90 mcg/actuation 2 puff inhalation Q4H PRN 08/11/20 02/03/22 aerosol inhaler (Proventil HFA) Shortness Of Breath Or Wheezing levothyroxine 100 mcg tablet See Rx Instructions .Route .COMPLEX 08/11/20 02/03/22 megestrol 40 mg tablet 40 mg PO BID 08/11/20 02/04/22 acetaminophen 650 mg tablet 650 mg PO Q6H PRN Breakthrough 02/04/22 02/04/22 Pain, Mild amiodarone 200 mg tablet 200 mg PO DAILY 02/04/22 02/04/22 benzonatate 200 mg capsule 200 mg PO TID PRN Abdominal 02/04/22 02/04/22 Discomfort fluticasone 250 mcg-salmeterol 50 250 inh inhalation DAILY 02/04/22 02/04/22 mcg/dose blistr powdr for inhalation (Advair Diskus) Previous Rx's Medication Instructions Recorded polyethylene glycol 3350 17 gram 17 gm PO DAILY #1 pkg 03/18/19 oral powder packet sennosides 8.6 mg tablet (senna) 17.2 mg PO BEDTIME PRN 03/18/19 Constipation #30 tabs apixaban 5 mg tablet (Eliquis) 5 mg PO BID #30 tabs 02/04/22 lisinopril 2.5 mg tablet 2.5 mg PO DAILY #30 tabs 02/04/22 metoprolol succinate 25 mg 50 mg PO BID #30 tabs 02/04/22 tablet,extended release 24 hr Allergies Allergy/AdvReac Type Severity Reaction Status Date / Time No Known Drug Allergies Allergy Verified 02/03/22 03:51 Review of Systems Constitutional Constitutional: Denies fever(s) Cardiovascular Cardiovascular: Reports as per HPI and Reports system reviewed and no additional complaints, except as documented Respiratory Respiratory: Reports as per HPI and Reports system reviewed and no additional complaints, except as documented Gastrointestinal Gastrointestinal: Reports system reviewed and no additional complaints, except as documented Genitourinary Genitourinary: Reports system reviewed and no additional complaints, except as documented Musculoskeletal Musculoskeletal: Reports system reviewed and no additional complaints, except as documented Integumentary/Breasts Skin/Breast: Reports system reviewed and no additional complaints, except as documented Neurologic Neurologic: Reports system reviewed and no additional complaints, except as documented Psychiatric Psychiatric: Reports system reviewed and no additional complaints, except as documented Hematologic/Lymphatic On Anticoagulants: Yes Patient History Medical History Atrial fibrillation Cardiomyopathy CHF (congestive heart failure) CVA (cerebral vascular accident) 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 Brother No problems noted. Social History household members: caregiver and none Smoking Status: Former smoker alcohol intake: never substance use type: does not use Smoking Status: Former smoker alcohol intake frequency: a few times a month Substance Use Type: does not use Exam Initial Vital Signs Initial Vital Signs: Vital Signs Pulse Rate 65 02/06/22 22:55 Blood Pressure 143/100 H 02/06/22 22:55 Const General: cooperative and comfortable HENMT Head: normal to inspection and normocephalic Resp Effort & Inspection: normal respiratory effort Auscultation: clear to auscultation bilaterally Cardio Rate: regular rate Rhythm: regular rhythm GI Inspection: normal to inspection Skin General: no rashes or lesions noted Neuro General: patient alert, patient awake and moves all extremities Speech: speech normal Extrem General: edema Psych Appearance: grossly normal and well kempt Course Orders Ordered: ED Orders 02/06/22 23:04 EKG-12 Lead Stat Measure peak expiratory flow ONCE RT Consult Eval and Treat Now 02/06/22 23:08 COVID19 -Nasal RAPID/Pre-Proc Stat 02/06/22 23:17 XR chest 1V Stat 02/06/22 23:20 Complete Blood Count AUTO DIFF Stat Comprehensive Metabolic Panel Stat Lactate (Lactic Acid) Stat NT-proBNP (BNP-Adult 18+) Stat Partial Thromboplastin Time Stat Procalcitonin Stat Prothrombin Time INR Stat Troponin & CK Cardiac Panel Stat 02/06/22 23:37 Blood Culture Stat Discontinued Medications Furosemide (Furosemide 40 Mg/4 Ml Vial) 40 mg IV NOW ONE Stop: 02/07/22 00:13 Last Admin: 02/07/22 00:40 Dose: 40 mg Documented By: KMW Metoprolol Tartrate (Metoprolol Ir 25 Mg Tablet) 25 mg PO NOW ONE Stop: 02/06/22 23:51 Last Admin: 02/06/22 23:58 Dose: 25 mg Documented By: AP Vital Signs Vital signs: Vital Signs - 8 hr 02/06/22 22:58 02/06/22 22:55 02/06/22 22:55 Temperature 99.7 F H Pulse Rate 115 H 65 Respiratory Rate 24 Blood Pressure 145/100 H 143/100 H Pulse Oximetry 100 Oxygen Delivery Method Room Air 02/06/22 23:00 02/06/22 23:00 02/06/22 23:30 Temperature Pulse Rate 112 H 113 H Respiratory Rate 21 20 Blood Pressure 146/104 H Pulse Oximetry 98 Oxygen Delivery Method 02/07/22 00:00 02/07/22 00:30 02/07/22 00:30 Temperature Pulse Rate 115 H 116 H Respiratory Rate 17 19 Blood Pressure 145/95 H Pulse Oximetry Oxygen Delivery Method 02/07/22 01:00 02/07/22 01:00 02/07/22 01:30 Temperature Pulse Rate 117 H 120 H Respiratory Rate 18 17 Blood Pressure 147/97 H Pulse Oximetry Oxygen Delivery Method 02/07/22 02:00 02/07/22 02:30 02/07/22 03:00 Temperature Pulse Rate 121 H 120 H 119 H Respiratory Rate 15 14 15 Blood Pressure 141/88 H Pulse Oximetry Oxygen Delivery Method 02/07/22 03:30 Temperature 97.8 F Pulse Rate 118 H Respiratory Rate 17 Blood Pressure 148/89 H Pulse Oximetry 97 Oxygen Delivery Method Room Air Medical Decision Making Lab Data Lab results reviewed: Yes I reviewed the patient's lab results. Result diagrams: 02/06/22 23:20 02/06/22 23:20 Labs: Lab Results 02/06/22 02/06/22 02/06/22 Range/Units 23:08 23:20 23:20 WBC 4.6 (4.5-11.0) X10^3/uL RBC 2.80 L (4.0-5.2) X10^6/uL Hgb 10.9 L (12.0-16.0) g/dL Hct 32.1 L (36-46) % MCV 114.5 H (80-100) fL MCH 39.0 H (26-34) PG MCHC 34.1 (30-36) % RDW 15.0 H (11.6-14.8) % Plt Count 207 (150-400) X10^3/uL Neut % (Auto) 61.1 (50-75) % Lymph % (Auto) 28.3 (25-40) % [place] % (Auto) 7.0 (3-14) % Eos % (Auto) 3.1 (2-4) % Baso % (Auto) 0.5 (0-2) % Neut # (Auto) 2800 (2094-1537) /uL Lymph # (Auto) 1300 (4455-1290) /uL [place] # (Auto) 300 (0-900) /uL Eos # (Auto) 100 (0-450) /uL Baso # (Auto) 0 (0-100) /uL Plt Morphology Comment . RBC Morphology See below Anisocytosis 1+ H Macrocytosis 2+ H PT (10.1-12.7) SECONDS INR (0.9-1.3) APTT (26.4-36.2) SECONDS Sodium 136 L (137-145) mmol/L Potassium 4.7 (3.4-5.1) mmol/L Chloride 103 (98-107) mmol/L Carbon Dioxide 29 (22-32) mmol/L BUN 24 H (7-17) mg/dL Creatinine 1.07 H (0.52-1.04) mg/dL Estimated GFR 51 L (>60) mL/min BUN/Creatinine Ratio 22.4 H (6-22) Glucose 103 (80-110) mg/dL Lactate (0.7-2.1) mmol/L Calcium 9.7 (8.4-10.2) mg/dL Total Bilirubin 1.4 H (0.2-1.3) mg/dL AST 25 (14-36) IU/L ALT 13 (<35) IU/L Alkaline Phosphatase 32 L (38-126) U/L Total Creatine Kinase (30-135) U/L CK-MB (CK-2) CK-MB (CK-2) Rel Index Troponin I (0.01-0.034) ng/mL NT-Pro-B Natriuret Pep (<450) pg/mL Total Protein 7.0 (6.3-8.2) g/dL Albumin 4.1 (3.5-5.0) g/dL Globulin 2.9 (1.7-4.1) g/dL Albumin/Globulin Ratio 1.4 (1.0-2.8) Procalcitonin (<0.5) ng/mL SARS-CoV-2 (PCR) Negative (Negative) 02/06/22 02/06/22 02/06/22 Range/Units 23:20 23:20 23:20 WBC (4.5-11.0) X10^3/uL RBC (4.0-5.2) X10^6/uL Hgb (12.0-16.0) g/dL Hct (36-46) % MCV (80-100) fL MCH (26-34) PG MCHC (30-36) % RDW (11.6-14.8) % Plt Count (150-400) X10^3/uL Neut % (Auto) (50-75) % Lymph % (Auto) (25-40) % [place] % (Auto) (3-14) % Eos % (Auto) (2-4) % Baso % (Auto) (0-2) % Neut # (Auto) (8894-5744) /uL Lymph # (Auto) (1404-7347) /uL [place] # (Auto) (0-900) /uL Eos # (Auto) (0-450) /uL Baso # (Auto) (0-100) /uL Plt Morphology Comment RBC Morphology Anisocytosis Macrocytosis PT (10.1-12.7) SECONDS INR (0.9-1.3) APTT (26.4-36.2) SECONDS Sodium (137-145) mmol/L Potassium (3.4-5.1) mmol/L Chloride (98-107) mmol/L Carbon Dioxide (22-32) mmol/L BUN (7-17) mg/dL Creatinine (0.52-1.04) mg/dL Estimated GFR (>60) mL/min BUN/Creatinine Ratio (6-22) Glucose (80-110) mg/dL Lactate 0.9 (0.7-2.1) mmol/L Calcium (8.4-10.2) mg/dL Total Bilirubin (0.2-1.3) mg/dL AST (14-36) IU/L ALT (<35) IU/L Alkaline Phosphatase (38-126) U/L Total Creatine Kinase 51 (30-135) U/L CK-MB (CK-2) TNP CK-MB (CK-2) Rel Index TNP Troponin I < 0.012 (0.01-0.034) ng/mL NT-Pro-B Natriuret Pep (<450) pg/mL Total Protein (6.3-8.2) g/dL Albumin (3.5-5.0) g/dL Globulin (1.7-4.1) g/dL Albumin/Globulin Ratio (1.0-2.8) Procalcitonin 0.05 (<0.5) ng/mL SARS-CoV-2 (PCR) (Negative) 02/06/22 02/06/22 Range/Units 23:20 23:20 WBC (4.5-11.0) X10^3/uL RBC (4.0-5.2) X10^6/uL Hgb (12.0-16.0) g/dL Hct (36-46) % MCV (80-100) fL MCH (26-34) PG MCHC (30-36) % RDW (11.6-14.8) % Plt Count (150-400) X10^3/uL Neut % (Auto) (50-75) % Lymph % (Auto) (25-40) % [place] % (Auto) (3-14) % Eos % (Auto) (2-4) % Baso % (Auto) (0-2) % Neut # (Auto) (7454-8153) /uL Lymph # (Auto) (7106-6391) /uL [place] # (Auto) (0-900) /uL Eos # (Auto) (0-450) /uL Baso # (Auto) (0-100) /uL Plt Morphology Comment RBC Morphology Anisocytosis Macrocytosis PT 13.9 H (10.1-12.7) SECONDS INR 1.2 (0.9-1.3) APTT 31 (26.4-36.2) SECONDS Sodium (137-145) mmol/L Potassium (3.4-5.1) mmol/L Chloride (98-107) mmol/L Carbon Dioxide (22-32) mmol/L BUN (7-17) mg/dL Creatinine (0.52-1.04) mg/dL Estimated GFR (>60) mL/min BUN/Creatinine Ratio (6-22) Glucose (80-110) mg/dL Lactate (0.7-2.1) mmol/L Calcium (8.4-10.2) mg/dL Total Bilirubin (0.2-1.3) mg/dL AST (14-36) IU/L ALT (<35) IU/L Alkaline Phosphatase (38-126) U/L Total Creatine Kinase (30-135) U/L CK-MB (CK-2) CK-MB (CK-2) Rel Index Troponin I (0.01-0.034) ng/mL NT-Pro-B Natriuret Pep 3620 H (<450) pg/mL Total Protein (6.3-8.2) g/dL Albumin (3.5-5.0) g/dL Globulin (1.7-4.1) g/dL Albumin/Globulin Ratio (1.0-2.8) Procalcitonin (<0.5) ng/mL SARS-CoV-2 (PCR) (Negative) Imaging Data Chest x-ray: Radiologist's Impression: [address] [address] XRay Report Signed Patient: Jacquelyn Whiting MR#: [id number] : 1935 Acct:[id number] Age/Sex: 86 / F Date of Service: 02/06/22 Loc: ED Accession Number: [id number] ?? Procedure: XR chest 1V Ordering Provider: Emmanuel Chen D.O. PROCEDURE:? XR CHEST 1V ? INDICATIONS:? eval for PNA ? TECHNIQUE:? One view of the chest was acquired.? ? COMPARISON:? [facility], , XR CHEST 1V, 02/02/2022, 23:41. ? FINDINGS:? ? Surgical changes and devices:? Postsurgical changes redemonstrated in the mediastinum. ? Lungs and pleura:? No acute consolidation.? There is pulmonary vascular prominence suggestive of mild edema.? No pleural effusions or pneumothorax.? ? Mediastinum:? Mediastinal contours are unchanged.? Heart size is enlarged. ? Bones and chest wall:? No suspicious bony lesions.? Overlying soft tissues appear unremarkable.? ? IMPRESSION:? ? 1. No definite acute consolidation. ? 2. Pulmonary vascular prominence suggestive of mild edema.? ? ? Dictated by: Best Olivas M.D. on 02/07/2022 at 0:10 ? ? Approved by: Best Olivas M.D. on 02/07/2022 at 0:11?? ECG Data Attestation: I personally reviewed and interpreted this ECG as follows: Prior ECG tracings: available for review Interpretation: Sinus rhythm Ventricular rate 106 Left axis deviation QRS 146 milliseconds Similar appearance to previous EKG MDM Narrative Medical decision making narrative: Her chest x-ray is relatively unchanged from prior. Her EKG is unchanged from prior. She is tachycardic however review of the discharge summary from when she was admitted it seems that her heart rate was in the 100s-110's. Her EKG today does have clear P-waves in lead for and need 5 so a-fib is unlikely. She p otentially had an episode of AFib earlier this evening. She is not wheezing currently. Her BNP is actually better than when she was admitted several days ago. It does not appear to be any signs of an infection. As I was reviewing the patient's labs she stated that she would like to be discharged home. States she feels back to baseline and does not want to be admitted to the hospital again. She is not in any respiratory distress. Plan will be to discharge patient home. She will continue all of her medications as directed. She was given strict return precautions. She expressed understanding and agreement. Discharge Plan Departure Patient Disposition: Home Clinical Impression: Congestive heart failure (CHF), Wheezing Activity Restrictions/Additional Instructions: Continue to take all of your medications as directed. Keep all of your scheduled medical appointments. Return to the emergency department for any new or worsening symptoms. Prescriptions: No Action pravastatin 40 mg Tablet 40 mg PO DAILY tamsulosin 0.4 mg Capsule 0.4 mg PO DAILY gabapentin 300 mg Capsule 600 mg PO BEDTIME multivitamin Tablet 1 tab PO DAILY tizanidine 2 mg Tablet 2 mg PO BEDTIME PRN (Reason: Muscle Spasm) megestrol 40 mg tablet 40 mg PO BID albuterol sulfate [Proventil HFA] 90 mcg/actuation Hfa Aerosol Inhaler 2 puff INHALATION Q4H PRN (Reason: Shortness Of Breath Or Wheezing) levothyroxine 100 mcg tablet See Rx Instructions .ROUTE .COMPLEX Rx Instructions: 100 mcg Sunday, Sunday, Sunday, Sunday, Sunday 50 mcg Sunday, Thursday polyethylene glycol 3350 17 gram Powder In Packet 17 gm PO DAILY Qty: 1 0RF sennosides [senna] 8.6 mg Tablet 17.2 mg PO BEDTIME PRN (Reason: Constipation) Qty: 30 0RF fluticasone propion-salmeterol [Advair Diskus] 250-50 mcg/dose Blister With Device 250 inh INHALATION DAILY amiodarone 200 mg Tablet 200 mg PO DAILY benzonatate 200 mg Capsule 200 mg PO TID PRN (Reason: Abdominal Discomfort) acetaminophen 650 mg Tablet 650 mg PO Q6H PRN (Reason: Breakthrough Pain, Mild) metoprolol succinate 25 mg Tablet Extended Release 24 Hr 50 mg PO BID Qty: 30 0RF Eliquis 5 mg Tablet 5 mg PO BID Qty: 30 0RF lisinopril 2.5 mg tablet 2.5 mg PO DAILY Qty: 30 0RF furosemide 20 mg tablet 40 mg PO DAILY cholecalciferol (vitamin D3) 50 mcg (2,000 unit) capsule 50 mcg PO DAILY melatonin 5 mg capsule 10 mg PO DAILY Referrals: Matilde Lin MD [Primary Care Provider] - Visit Report Forms: Patient Portal/API
[2022-02-06 23:30] VITALS: PULSE 113; RESP 20
[2022-02-06 23:31] LABS: COVID19 -Nasal RAPID Negative (Negative)
[2022-02-06 23:34] LABS: Add Manual Diff / Slide Review NO; Basophils Absolute Auto 0 /uL (0-100); Basophils Percent Auto 0.5 % (0-2); Eosinophils Absolute Auto 100 /uL (0-450); Eosinophils Percent Auto 3.1 % (2-4); Hematocrit 32.1 % (36-46); Hemoglobin 10.9 g/dL (12.0-16.0); INR 1.2 (0.9-1.3); Lymphocytes Absolute Auto 1300 /uL (1100-4500); Lymphocytes Percent Auto 28.3 % (25-40); Mean Corpuscular HGB Conc 34.1 % (30-36); Mean Corpuscular Volume 114.5 fL (80-100); Monocytes Absolute Auto 300 /uL (0-900); Neutrophils Absolute Auto 2800 /uL (1500-7000); Neutrophils Percent Auto 61.1 % (50-75); Platelet Count 207 X10^3/uL (150-400); Prothrombin Time 13.9 SECONDS (10.1-12.7); White Blood Cell Count 4.6 X10^3/uL (4.5-11.0)
[2022-02-06 23:37] LABS: PTT Partial Thromboplastin Tim 31 SECONDS (26.4-36.2)
[2022-02-06 23:47] LABS: Creatine Kinase 51 U/L (30-135); Lactate (Lactic Acid) 0.9 mmol/L (0.7-2.1)
[2022-02-06 23:48] LABS: Alanine Aminotransferase 13 IU/L (<35); Albumin 4.1 g/dL (3.5-5.0); Albumin Globulin Ratio 1.4 (1.0-2.8); Alkaline Phosphatase 32 U/L (38-126); Aspartate Aminotransferase 25 IU/L (14-36); BUN Creatinine Ratio 22.4 (6-22); Bilirubin Total 1.4 mg/dL (0.2-1.3); Blood Urea Nitrogen 24 mg/dL (7-17); Calcium 9.7 mg/dL (8.4-10.2); Carbon Dioxide 29 mmol/L (22-32); Chloride 103 mmol/L (98-107); Estimated Glomerular Filt Rate 51 mL/min (>60); Globulin 2.9 g/dL (1.7-4.1); Glucose 103 mg/dL (80-110); HEMOLYSIS 27 (0-50); Potassium 4.7 mmol/L (3.4-5.1); Sodium 136 mmol/L (137-145)
[2022-02-06 23:50] LABS: Anisocytosis 1+; Macrocytosis 2+
[2022-02-06 23:57] LABS: NT-proBNP (BNP-Adult 18+) 3620 pg/mL (<450)
[2022-02-06] MEDS: METOPROLOL IR 25 MG TABLET PO (23:58)
[2022-02-06 23:59] LABS: Troponin I < 0.012 ng/mL (0.01-0.034)
[2022-02-07] VITALS (8 sets, daily range): BP systolic 141–148; BP diastolic 88–97; PULSE 115–121; RESP 14–19; TEMP 36.6; O2SAT 97
[2022-02-07 00:05] LABS: Procalcitonin 0.05 ng/mL (<0.5)
[2022-02-07] MEDS: FUROSEMIDE 40 MG/4 ML VIAL IV (00:40)
== END 2022-02-07 04:04 | disposition home or self-care (01) ==
PROVIDERS: Emergency Provider Emergency Medicine; Family Provider Internal Medicine Cardiovascular Disease; PCP Internal Medicine
DX: I50.9 Heart failure, unspecified (principal); R06.2 Wheezing; R00.0 Tachycardia, unspecified; Z79.01 Long term (current) use of anticoagulants; Z20.822 Contact with and (suspected) exposure to COVID-19
CPT/HCPCS: 36415; 71045; 80053; 82550; 83605; 83880; 84145; 84484; 85025; 85610; 85730; 87040; 87635; 93005; 93010; 96374; 99284; C9803; J1940